=== PATIENT | male | born 1955 | race Caucasian/White ===

== ENCOUNTER 2024-07-12 16:06 | Inpatient (IN) | payer OTHER, SELFPAY ==
[2024-07-12] VITALS (10 sets, daily range): BP systolic 112–140; BP diastolic 66–83; BMI 18.1
[2024-07-12 12:44] LABS: % Basophils 0.5 % (0-2); % Eosinophils 2.6 % (0-6); % Immature Granulocytes 0.6 % (0-0.5); % Lymphocytes 17.3 % (20.5-51.1); % Monocytes 6.3 % (1.7-9.3); % Neutrophils 72.7 % (42.2-75.2); Absolute Eosinophils 0.2 10^3/uL (0-0.7); Absolute Immature Granulocytes 0.1 10^3/uL (0-0.05); Absolute Lymphocytes 1.4 10^3/uL (1.2-3.4); Absolute Monocytes 0.5 10^3/uL (0.1-0.6); Absolute Neutrophils 5.9 10^3/uL (1.4-6.5); Hematocrit 40.6 % (39.0-52.0); Hemoglobin 12.7 g/dL (13.0-18.0); Mean Corp Hgb Conc. 31.3 g/dL (33.0-37.0); Mean Corpuscular Volume 86.4 fL (80.0-94.0); Mean Platelet Volume 9.9 fL (7.4-10.4); Nucleated Red Blood Cells % 0 % (-); Platelet Count 140 10^3/uL (130-400); Red Cell Dist. Width 16.1 % (11.5-14.5); White Blood Cell Count 8.1 10^3/uL (4.8-10.8)
[2024-07-12] MEDS: CARDIZEM IV (12:46)
[2024-07-12 12:50] LABS: ALT (SGPT) 29 U/L (0-50); AST (SGOT) 36 U/L (17-59); Albumin 4.2 g/dl (3.5-5.0); Alkaline Phosphatase 103 U/L (38-126); Blood Urea Nitrogen 23 mg/dl (9-20); Calcium 9.1 mg/dl (8.4-10.2); Carbon Dioxide 31 mmol/L (22-30); Chloride 102 mmol/L (98-107); Estimated Creatinine Clearance 98 ml/min; Glucose 104 mg/dl (70-99); Potassium 4.3 mmol/L (3.5-5.1); Sodium 141 mmol/L (135-145); Total Bilirubin 0.9 mg/dl (0.2-1.3); Total Protein 7.2 g/dl (6.3-8.2); eGFR > 60.00
--- NOTE | 2024-07-12 13:01 | ED.GENMED ---
History of Present Illness
General
Chief Complaint: Chest Pain
Time Seen by Provider: 07/12/24 12:17
History of Present Illness
History of Present Illness:
69-year-old male with history of A-fib on propranolol and Eliquis and COPD presenting to the emergency department for worsening difficulty breathing. Patient reports since May he has had increased difficulty breathing, which has been worsening
in the past few weeks. Reports productive cough and dyspnea on exertion. Notes compliance with his Eliquis, however does not like his propranolol, did not take it today. 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
refill it and so he has not been taking it. Did have some chest pain a few days ago, however no present chest pain. Denies any swelling to his extremities. Denies fever or known sick contacts. He is not on any home oxygen. Denies additional
acute medical complaints
Phy Exam
Physical Exam
Physical Exam:
General: Well-appearing, no clinical signs of dehydration, nontoxic and in no acute distress
HEENT: protecting airway
Neck: appears supple
CV: Normal heart rate, regular rhythm, cyanosis fingertips
Resp: No accessory muscle use, mild tachypnea with rhonchorous breath sounds bilaterally, mild end expiratory wheezing
Abd: Soft and non-distended, no tenderness to palpation
Extremities: No deformities, no swelling, no erythema
Neuro: alert, no focal neurologic deficit
: deferred
Rectal: deferred
Psych: Normal affect
Skin: Intact
Scores
Heart Score for Chest Pain Patients
STEMI patient?: No
History: Slightly or Non-Suspicious
ECG: Normal
Age: >/= 65 years
Risk Factors: 1 or 2 Risk Factors
Troponin: </= Normal Limit
Heart Score for Chest Pain Patients: 3
Heart Score Risk: 2.5% MACE over next 6 weeks
Course
Orders/Labs/Results
Orders:
Orders
07/12/24 11:52
Electrocardiogram (*1) Urgent
Reason for Study: Chest Pain
07/12/24 11:53
EKG- Treatment ONCE
07/12/24 12:27
Cardiac Monitoring- Treatment ONCE
IV Insert/Care/Rem.- Treatment PRN
Chest [CR Chest - 2 Views ] Urgent
Comment:
Reason For Exam: SOB
07/12/24 12:29
BNP [NT-proBNP] Urgent
Complete Blood Count/With Diff Urgent
Comprehensive Metabolic Panel Urgent
Troponin I Urgent
07/12/24 12:32
Diltiazem HCl [Cardizem] 15 mg IV NOW STA
07/12/24 14:31
Azithromycin 500 mg/250 ml [Zithromax Infusion] 500 mg in 250 ml IV NOW
CefTRIAXone [Rocephin] 1,000 mg IV NOW STA
07/12/24 Dinner
Regular
At Your Request: Limited Participation
07/12/24 15:04
Diltiazem Sustained Release [Cardizem Sr] 120 mg PO NOW STA
07/12/24 15:29
Admit/Transfer Patient As Directed
Co-Sign Provider:
Level of Care: Inpatient admission
Assign to:: Telemetry
Physician / Group: Sara Martinez
Diagnosis: Community acquired pneumonia, a-fib RVR
Reason for Telemetry: Arrhythmia
Date to Stop Telemetry: 07/15/24
Time to Stop Telemetry: 11:00
Reason for Hospitalization: Community acquired pneumonia, a-fib RVR
Expected length of stay greater than two midnights?: Yes
ELOS- Estimated Length of Stay in days: 3
I certify the patient meets the requirements for IP care: Yes
PRN Pain Medication Management As Directed
May give lesser potent ordered pain med per pt: Yes
preference::
Protocol:: Medication orders for pain may be administered in a
manner that supports deferring to patient preference
when the pt is:
- Requesting an ordered lesser potent pain medication.
Least to most potent pain medications are defined
as: acetaminophen < NSAID < tramadol < opioids
(morphine, oxycodone, hydromorphone).
- Requesting a lesser dose of the same medication IF
ORDERED.
- Requesting a less intrusive route of administration
if both routes are prescribed by the provider (PO <
IV).
07/12/24 15:33
Code Status As Directed
Resuscitation Status: Full Code
07/12/24 15:47
COVID-19 Antigen Urgent
Source: Nasal Swab
Influenza A+B Rapid Molecular Urgent
GABBI Source: Nasal Swab
Specimen Description:
07/12/24 16:00
Sputum Culture [Respiratory Culture/Gram Stain] Urgent
GABBI Source: Sputum - Induced
Specimen Description:
Date Specimen was Collected: 07/12/24
Time Specimen was Collected: 15:57
07/12/24 18:23
Acetaminophen [Tylenol] 650 mg PO Q4HPRN PRN
Ipratropium/Albuterol Sulfate [Duoneb] 3 ml INH R Q4HPRN PRN
07/12/24 18:23
CARDIOLOGY CONSULT Routine
Consulting Provider: Junaid Claudio
Was physician already notified: Yes
[place] Urinary Antigen Routine
GABBI Source: Urine
Specimen Description:
Respiratory Culture/Gram Stain Urgent
GABBI Source: Sputum
Specimen Description:
Strep pneumoniae Antigen Routine
GABBI Source: Urine
Specimen Description:
Activity As Directed
Activity Level: Out of Bed-Early Mobility
Intake/ Output As Directed
Frequency: Per unit guidelines
Vital Signs As Directed
Frequency: Per unit guidelines
Weight As Directed
Frequency: Once
Comment: on admission
O2 Therapy [RESP] Routine
Titrate/Wean O2 to maintain O2 sat greater than (%): 92
Special Instructions: Wean as tolerated
Ot Eval And Treat Routine
Pt Eval And Treat Routine
Activity Level: Out of Bed-Early Mobility
07/12/24 20:00
Apixaban [Eliquis] 5 mg PO BID
Guaifenesin [Mucinex] 600 mg PO Q12
07/13/24 07:09
Basic Metabolic Panel IN AM
Complete Blood Count/No Diff IN AM
07/13/24 14:00
Azithromycin [Zithromax] 500 mg PO DAILY@1400
CefTRIAXone [Rocephin] 1,000 mg IV Q24H
07/14/24 06:00
Basic Metabolic Panel IN AM
Complete Blood Count/No Diff IN AM
07/15/24 06:00
Basic Metabolic Panel IN AM
Complete Blood Count/No Diff IN AM
07/15/24 11:00
DC Protocol for Telemetry ONCE
Abnormal Lab Results
07/12/24
12:29
Hgb 12.7 L g/dL
(13.0-18.0)
MCHC 31.3 L g/dL
(33.0-37.0)
RDW 16.1 H %
(11.5-14.5)
Abs Immat Gran (auto) 0.1 H 10^3/uL
(0-0.05)
Immature Gran % 0.6 H %
(0-0.5)
Lymphocytes % 17.3 L %
(20.5-51.1)
Carbon Dioxide 31 H mmol/L
(22-30)
BUN 23 H mg/dl
(9-20)
Creatinine 0.6 L mg/dL
(0.7-1.3)
Glucose 104 H mg/dl
(70-99)
07/12/24 12:29
07/12/24 12:29
Vital Signs
Initial and Last Documented VS:
Initial Vital Signs
Temp Pulse Resp BP Pulse Ox
98.5 F 118 18 140/83 98
07/12/24 11:53 07/12/24 11:53 07/12/24 11:53 07/12/24 11:53 07/12/24 11:53
Last Documented Vital Signs
Temp Pulse Resp BP Pulse Ox
98.4 F 112 20 112/74 96
07/13/24 08:00 07/13/24 08:00 07/13/24 08:00 07/13/24 08:00 07/13/24 08:00
MDM/Problems Addressed
MDM/Problems Addressed:
69-year-old male with history of COPD and atrial fibrillation presenting for progressive worsening shortness of breath. Vital signs on arrival significant for tachycardia.
On exam, patient is resting comfortably, no acute distress, mild tachypnea. Patient with rhonchorous breath sounds bilaterally with some expiratory wheezing. He does note productive cough and worsening dyspnea. Pneumonia is a consideration.
Volume overload is also consideration from untreated A-fib. Plan for chest x-ray imaging, laboratory analysis including troponin and BNP. For patient's uncontrolled A-fib, will administer dose of diltiazem and reassess for improvement.
14:30 -chest x-ray is consistent with a pneumonia. Heart rate slightly improved after diltiazem saturations remained in the low 90s, with mild tachypnea. This time feel patient warrants admission for shortness of breath, community-acquired
pneumonia, uncontrolled A-fib.
*EKG
Interpreted by ED Provider?: Yes
EKG Intrepretation Date: 07/12/24
EKG Intrepretation Time: 13:23
Interpretation: abnormal
Comparison EKG: no comparison EKG present
Heart Rate: 121
Rate: tachycardiac
Rhythm: a-fib
[place]: normal axis
QRS Pattern: normal QRS
Ischemia: no ischemia
*Critical Care Note
Total Time (30-74mins, 75-104mins- exclusive of procedures): Not Applicable
ED Attending Note
-
Portions of this chart may have been created with voice recognition software.� Occasional wrong word or��sound alike� substitutions may have occurred due to the inherent limitations of voice recognition software.
Discharge Plan
Departure
Patient Disposition: Admit
Date of Disposition: 07/12/24
Time of Disposition: 14:53
Presentation/result/management discussed w/ accepting MD/DO: Hospitalist
Patient with high blood pressure during this ER visit?: No
Condition: Fair
Discharge Problem:
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
Interventions
Interventions:
*Risk Screen - Suicide Last Done: 07/12/24 20:01
*General Assessment Last Done: 07/12/24 14:31
*Neglect/Abuse Screening Last Done: 07/12/24 14:31
ED- Fall Risk Assessment Last Done: 07/12/24 12:32
*ED COVID-19 Vaccine History Last Done: 07/12/24 14:31
*Nursing Disposition Last Done: 07/12/24 18:18
ED- Cardiac Assessment Last Done: 07/12/24 14:31
Discharge Date and Time
Discharge Date/Time: 07/12/24 18:36
[2024-07-12 13:02] LABS: NT-proBNP 518 pg/ml; Troponin I < 0.012 ng/ml
[2024-07-12] MEDS: ROCEPHIN 1000 MG IV (14:37)
[2024-07-12] MEDS: ZITHROMAX INFUSION 250 IV (14:41)
--- NOTE | 2024-07-12 14:46 | PHANOTE ---
med rec note- patient stated that his pcp and pharmacy couldn't commutation to refill his medication of diltiazem cd 180mg daily, daily-whitney and iron so he has not taking them in over a month.
--- NOTE | 2024-07-12 14:55 | HPS.HSE ---
Addendum entered and electronically signed by Sara Martinez, DO 07/12/24 19:00:
CT chest per PE protocol, due to tachy and pleuritic chest pain; pt is on Eliquis and states he's compliant.
Addendum entered and electronically signed by Sara Martinez, DO 07/12/24 18:42:
The patient is seen and examined. I have discussed the patient with MC Stanley, and agree with her history and physical, assessment and plan of care, with the following updates/ additions:
The patient has history of alcoholism. He quit drinking from age [age], and then again one year ago. Has not had a drink in 1 year. He's been on Propranolol and Nadolol for
He has been worked up over the past 2 years for several episodes of A.fib with RVR and also pneumonia. He says that 'cardizem does not work for him' and refused cardizem PO in ED. He is on Eliquis, last dose this am
He's had 20-30 pound weight loss over the past 2 years.
He has hx of esophageal varices, banding, liver cirrhosis, and PUD, several EGDs, no recent GI bleeds
HR 130-140s in ED, SBP stable, AF
Cards Irregular, tachy, Lungs LLL rhonchi, Abd soft, nt/nd, Neuro no focal deficits
A.fib w RVR
-Cards cx appreciated, starting Metoprolol PO Q6 hours at 12.5 mg
-cont Eliquis BID
-monitor on tele
CAP
-consider Pulm Consult, consider CT chest
-cont abx, cultures pending
Original Note:
Family Physician
-
Family Physician: NOT KNOW UNKNOWN - PT DOES
Chief Complaint
-
Shortness of breath
History of Present Illness
Patient is a 69-year-old male with past medical history significant for a-fib and COPD who presented to [facility] for evaluation of difficulty breathing with exertion. Patient states for approximately 2 weeks he has noticed increased work of
breathing associated with a productive cough with exertion. He states it improves when he lays down and rests. He does acknowledge he has chest discomfort with deep breathing and intermittently throughout day. Patient denies any fevers, chills,
nausea, vomiting, constipation, diarrhea or urinary symptoms.
Medical History
Past Medical History
Past Medical History: Reports Other
Additional Past Medical History:
atrial fibrillation
COPD
Hx GI bleed
Past Surgical History: Reports Other
Additional Past Surgical History:
right hip replacement
nasal polypectomy
back surgery
Social History
Tobacco: Non-smoker
Alcohol: Occasional
Drug: None
Personal:
Living: With Family
Employment: Retired
Family History
Family History: Not pertinent
Allergies / Home Medications
Allergies reflects when Allergies were last updated in [facility].
Home Medications with original date entered in [facility]
Allergy/Medication List:
Allergies
Allergy/AdvReac Type Severity Reaction Status Date / Time
vancomycin Allergy Rash Verified 07/12/24 11:56
Home Medications
acetaminophen 500 mg tablet (Tylenol Extra Strength) 1,000 mg PO Q6HPRN PRN mild pain 07/12/24
apixaban 5 mg tablet (Eliquis) 5 mg PO BID AFib 07/12/24
propranolol 10 mg tablet 10 mg PO BID Arrhythmia/BP 07/12/24
Review of Systems
-
History Source: Patient
Constitutional: Reports Fatigue
EENT: Reports No Symptoms
Respiratory: Reports Cough (productive) and Other (shortness of breath)
Cardiac: Reports No Symptoms
Abdomen/GI: Reports No Symptoms
: Reports No Symptoms
Musculoskeletal: Reports No Symptoms
Skin: Reports No Symptoms
Neurological: Reports No Symptoms
Endocrine: Reports No Symptoms
Hematologic/Lymphatic: Reports No Symptoms
Psych: Reports No Symptoms
Physical Exam
Vital Signs
Vital Signs
Temp Pulse Resp BP Pulse Ox
98.5 F 117 23 140/83 94
07/12/24 11:53 07/12/24 14:20 07/12/24 12:25 07/12/24 11:53 07/12/24 13:00
Physical Exam
General: Well Developed, Well Nourished, Conversant and Pain
HEENT: NormoCephalic, Moist mucous membranes, Atraumatic, [place] Conjunctivae, Nose Appears Normal and Ears Appear Normal
Respiratory: Clear, Rhonchi and Decreased Breath Sounds
Cardiac: S1/S2, Irregular Rhythm and Tachycardia; No Murmur, Rub or Gallop
Breast: Deferred by me
GI: Soft, Non Tender, Non Distended and Normal Bowel Sounds; No Organomegaly
Rectal: Deferred by Provider
Genito-urinary: Deferred by me
Musculoskeletal: No Clubbing, No Cyanosis and No Edema
Skin: Warm and IV/Catheter Site; No Rash
Neuro: Awake, Alert, AO x 3 and Nonfocal/grossly intact
Hematologic/Lymphatic: No Lymphadenopathy
Psych: Calm and Intact Judgment/Insight
Laboratory Results
-
07/12/24 12:29
07/12/24 12:29
Laboratory Results
Total Bilirubin 0.9 mg/dl (0.2-1.3) 07/12/24 12:29
AST 36 U/L (17-59) 07/12/24 12:29
ALT 29 U/L (0-50) 07/12/24 12:29
Alkaline Phosphatase 103 U/L (38-126) 07/12/24 12:29
Troponin I < 0.012 ng/ml 07/12/24 12:29
Data Reviewed
-
Diagnostic Radiology: Report Reviewed by me (CXR: Hyperexpanded lungs with decreased bronchovascular markings suspicious for underlying COPD/emphysema. Ill-defined opacity within the medial right lung base which could represent pneumonia in the
appropriate clinical setting. There are also be a retrocardiac opacity. Consider follow-up imaging t)
Medical Tests (Nuc Med, Echo, EKG etc): Report Reviewed by me (EKG: ATRIAL FIBRILLATION WITH RAPID VENTRICULAR RESPONSE)
Lab Data: Labs Reviewed by me
Impression/Plan
-
IMPRESSION/PLAN:
#community acquired pneumonia
#COPD
Patient with mild tachypnea, SpO2 low 90s on room air and does go into upper 80s with conversation
CXR: Hyperexpanded lungs with decreased bronchovascular markings suspicious for underlying COPD/emphysema. Ill-defined opacity within the medial right lung base which could represent pneumonia in the appropriate clinical
setting. There are also be a retrocardiac opacity. Consider follow-up imaging to ensure resolution of these findings. No significant pleural effusions.
- Admit to telemetry
- Covid and Influenza swab pending
- Mucinex q12
- PRN DuoNebs
- IV Rocephin and PO Azithromycin
- Obtain records from Venkata Sommer
#a-fib RVR
history of a-fib on Eliquis and propranolol
EKG: ATRIAL FIBRILLATION WITH RAPID VENTRICULAR RESPONSE
- Admit to telemetry
- Consult Cardiology
- request records from Dr. James Vazquez
- continue Eliquis
- metoprolol 12.5mg q6 per cards
Code Status: Full Code
DVT Prophylaxis: Eliquis
[2024-07-12] MEDS: CARDIZEM 15 MG IV (15:39)
--- NOTE | 2024-07-12 15:52 | CON.CAR ---
Addendum entered and electronically signed by Junaid Claudio MD 07/12/24 18:29:
I saw and examined the patient.
The COMMISSARY CLERK's note was reviewed and I agree with the note.
Comment:
69-year-old man with persistent atrial fibrillation, COPD, PE, possible esophageal varices, and unexplained weight loss who presents to the emergency department with shortness of breath. Patient notes that for the past week he has been feeling more
short of breath. This is on a background of profound deconditioning which has been ongoing for almost all of 2023. He notes that he has not been able to stand up to take a shower since early May. He has lost 30 pounds unintentionally since
2021. No one can figure out why this is. On Thursday evening he woke up with severe pleuritic chest pain and profound weakness. He presented to the ER today and was noted to be in atrial fibrillation with RVR. Chest x-ray showed findings of
COPD/emphysema with possible right lower lobe pneumonia. He was admitted for pneumonia and cardiology was consulted for atrial fibrillation with RVR. He reports that he has been in atrial fibrillation since last year. 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 He was on diltiazem 180 mg daily but this was not refilled by his charter boat captain in early June so he has not been taking it since then. He still takes his Eliquis and denies any missed doses in the past 3 weeks.
His physical exam is notable for a cachectic appearing man. Heart is tachycardic with an irregular rhythm, no murmurs, rubs, or gallops appreciated. He has no lower extremity edema, JVD is not present, and his lungs are clear to auscultation. His
labs are notable for WBC 8 hemoglobin 12.7, creatinine 0.6, troponin less than 0.012, proBNP 518. ECG is notable for atrial fibrillation with rapid ventricular response (heart rate 121). Telemetry is notable for A-fib with heart rates in the
130s�150s.
I am concerned that patient may have a recurrent PE. He has pleuritic chest pain which is being attributed to his pneumonia, but he has a normal white blood cell count, no fever, and an unimpressive chest x-ray. I recommend ruling out PE with a CT
scan. In terms of his atrial fibrillation with rapid ventricular response, he is adamantly opposed to beta-blockers as these have given him bad GI side effects in the past. For rate control we will start him on diltiazem 30 mg every 6 hours and
can uptitrate as needed. We also discussed possible cardioversion this admission. I am not sure how effective this will be given his duration of atrial fibrillation, but we should attempt to restore sinus rhythm if possible. He denies any missed
doses of anticoagulation so could undergo cardioversion without TOBY. He also has a concerning history of possible esophageal varices with banding and is on propranolol for this, so TOBY would not be ideal in him. He should continue apixaban 5 mg
twice daily while inpatient. Cardiology will continue to follow along with you.
Original Note:
Consultation
Consultation Request
Date/Time Consultation Requested: 07/12/2024 15:30
Date/Time Consultation Performed: 07/12/2024 15:50
Requesting Provider: LITTLE Agrawal
Performing Provider: LITTLE Linder for Dr. Claudio
Reason for Consultation: Atrial fibrillation with ventricular response
Medical History
-
Chief Complaint: Shortness of breath
History of Present Illness:
Jamarcus Monahan is a 69-year-old male known to [facility], with paroxysmal atrial fibrillation (on apixaban), COPD, and liver disease (type unknown) who presented to the emergency department the chief complaint of shortness of breath. He endorses
adherence with his apixaban. He has not taken his propranolol for 24 hours. He was on diltiazem but it caused significant weakness and he did not get a refill. Cardiology has been consulted for atrial fibrillation with right ventricular response.
He denies chest pain. His shortness of breath is constant. It gets worse with ambulation. It does not get worse lying flat. He has a moist nonproductive cough.
His brother was at the bedside for this consultation.
Past Medical History
Past Medical History: Arrhythmias (Atrial fibrillation (on apixaban)) and COPD
Social History
Tobacco: Non-Smoker
Alcohol: None
Drug: None
Personal:
Living: With Family
Employment: Retired
Family History
Family History: Reviewed & Not Pertinent
Allergies / Home Medications
Allergy/AdvReac Type Severity Reaction Status Date / Time
vancomycin Allergy Rash Verified 07/12/24 11:56
�Medication �Instructions �Recorded �Confirmed �Type
acetaminophen 500 mg tablet 1,000 mg PO Q6HPRN PRN mild pain 07/12/24 07/12/24 History
(Tylenol Extra Strength)
apixaban 5 mg tablet (Eliquis) 5 mg PO BID AFib 07/12/24 07/12/24 History
propranolol 10 mg tablet 10 mg PO BID Arrhythmia/BP 07/12/24 07/12/24 History
Review of Systems
-
History Source: Patient
All other systems: Negative unless noted
Constitutional: Weight Loss and Fatigue
EENT: No Symptoms
Respiratory: Cough and Trouble Breathing
Cardiac: No Symptoms
Abdomen/GI: No Symptoms
: No Symptoms
Musculoskeletal: No Symptoms
Skin: No Symptoms
Neurological: No Symptoms
Endocrine: No Symptoms
Hematologic/Lymphatic: No Symptoms
Physical Exam
Vital Signs
Temp Pulse Resp BP Pulse Ox
98.5 F 124 23 112/67 91
07/12/24 11:53 07/12/24 15:00 07/12/24 12:25 07/12/24 15:00 07/12/24 15:00
Lab Results
07/12/24 12:29
07/12/24 12:29
Troponin I < 0.012 ng/ml 07/12/24 12:29
Udw-Q-Nnbrhodiold Pept 518 pg/ml 07/12/24 12:29
Physical Exam
General: Well Developed and No Apparent Distress
HEENT: Normocephalic, Anicteric and Moist Mucous Membranes
Respiratory: Rhonchi and Non Labored Respirations
Cardiac: S1/S2 and Irregular Rhythm; Negative Peripheral Edema
Breast: Deferred by me
GI: Soft, Non Tender, Non Distended and Normal Bowel Sounds
Rectal: Deferred by Provider
Genito-urinary: No Costovertebral Tender
Musculoskeletal: No Clubbing, No Cyanosis and No Edema
Skin: Warm
Neuro: AO x 3
Hematologic/Lymphatic: No Lymphadenopathy
Psych: Calm
Impression / Plan
-
IMPRESSION/PLAN: 69M with paroxysmal atrial fibrillation (on apixaban and COPD who presented to the emergency department with a chief complaint of shortness of breath.
Primary charter boat captain: BECCA Sommer
Atrial fibrillation with rapid ventricular response
-Propranolol was recommended by GI, diltiazem caused significant fatigue
-Start metoprolol 12.5 mg every 6 hours
-Oral Anticoagulation: Apixaban 5 mg twice daily, he denies missed doses and abnormal bleeding
-[id number]: score 1 (age 65-74)
Liver disease, type unknown
-Possible varices, he reports regular GI evaluations
-He reports going to [facility] for TIPS consultation but he was 'not sick enough'
-Most recent discharge summary requested
Community-acquired pneumonia, per primary
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
Data Reviewed
-
EKG: Report Reviewed by me (Atrial fibrillation with rapid ventricular response, rate 121)
Radiology: Report Reviewed by me (CXR: Hyperexpanded lungs with decreased bronchovascular markings suspicious for underlying COPD/emphysema. Ill-defined opacity within the medial right lung base which could represent pneumonia in the appropriate
clinical setting. There are also be a retrocardiac opacity.)
Labs: Labs Reviewed by me
Old Records: Requested
[2024-07-12 16:31] LABS: COVID-19 Antigen Negative (Negative)
[2024-07-12] MEDS: LOPRESSOR 12.5 MG PO (18:15)
[2024-07-12] MEDS: CARDIZEM 30 MG PO (19:52)
[2024-07-12] MEDS: MUCINEX 600 MG PO (19:53)
[2024-07-12] MEDS: ELIQUIS 5 MG PO (19:53)
[2024-07-12] MEDS: CARDIZEM PO (22:25)
[2024-07-13] VITALS (7 sets, daily range): BP systolic 95–121; BP diastolic 59–74; PULSE 107–140; O2SAT 94–95; BMI 18.1
[2024-07-13] MEDS: UNASYN IV ×4 (03:19→20:17)
--- NOTE | 2024-07-13 03:20 | PTCARENOTE ---
Pt HR sustaining 120s-130s. Pt asymptomatic. BP 104/63. PLATE SENSITIZER made aware. Cardizem 30mg PO one time ordered, STAT Mag ordered. No further orders.
[2024-07-13] MEDS: CARDIZEM 30 MG PO ×5 (03:46→21:20)
[2024-07-13 08:15] LABS: Hematocrit 33.7 % (39.0-52.0); Hemoglobin 10.7 g/dL (13.0-18.0); Mean Corp Hgb Conc. 31.8 g/dL (33.0-37.0); Mean Corpuscular Volume 85.1 fL (80.0-94.0); Mean Platelet Volume 9.7 fL (7.4-10.4); Platelet Count 103 10^3/uL (130-400); Red Blood Cell Count 3.96 10^6/uL (4.70-6.10); White Blood Cell Count 6.6 10^3/uL (4.8-10.8)
[2024-07-13 08:22] LABS: Blood Urea Nitrogen 19 mg/dl (9-20); Calcium 8.4 mg/dl (8.4-10.2); Carbon Dioxide 25 mmol/L (22-30); Chloride 103 mmol/L (98-107); Estimated Creatinine Clearance 84 ml/min; Glucose 106 mg/dl (70-99); Sodium 138 mmol/L (135-145); eGFR > 60.00
[2024-07-13 08:23] LABS: Procalcitonin 0.13 ng/ml (0.0-0.25)
--- NOTE | 2024-07-13 08:43 | W.PN.CD ---
Today's Communication / Plan
-
- Continue Diltiazem and uptitrate as needed
- ECHO today.
Impression / Plan
-
IMPRESSION/PLAN: 69M with paroxysmal atrial fibrillation (on apixaban and COPD who presented to the emergency department with a chief complaint of shortness of breath.
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
Atrial fibrillation with rapid ventricular response
-Long standing persistent - onset was before apr 2023.
-Propranolol was recommended by GI, diltiazem caused significant fatigue
-On metoprolol 12.5 mg every 6 hours - switched to diltiazem 30 QID on 07/12/24
-If tolerates Dilt now, can switch to 120 mg QD. Dilt might be a better drug for him given his COPD, lung issues and GI varices.
-Oral Anticoagulation: Apixaban 5 mg twice daily, he denies missed doses and abnormal bleeding
-[id number]: score 1 (age 65-74)
-Rate control now for AF. Uptitrate Dilt if needed.
-Ultimate plan for ablation but needs to be improved first and wt loss mystery solved.
-AAD like Sotalol, Tikosyn and Amiodarone can be used if needed but would avoid adding given unclear medical etiology. The AADs are less likely to be effective given long standing AF.
Liver disease, type unknown
-Possible varices, he reports regular GI evaluations
-He reports going to [place] for TIPS consultation but he was 'not sick enough'
-Most recent discharge summary requested
-30 lbs weigh loss - unintentional.
Community-acquired pneumonia, per primary
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
-CT Chest 07/12 - Bilateral multifocal pneumonia worst in the lower lobes bilaterally, possibly aspiration related.
Physical Exam
Vital Signs/Labs
Vital Signs
Temp Pulse Resp BP Pulse Ox
98.0 F 118 20 104/71 96
07/13/24 02:37 07/13/24 03:46 07/13/24 02:37 07/13/24 03:46 07/13/24 02:37
07/12/24 07/13/24 07/14/24
06:59 06:59 06:59
Actual Weight 60.4 kg
07/13/24 07:09
07/13/24 07:09
Magnesium 2.0 mg/dl (1.6-2.3) 07/13/24 07:09
Magnesium Cancelled 07/13/24 07:09
07/12/24
12:29
Yom-B-Xeqnyhvjqmi Pept 518
LAB Results
07/12/24
12:29
Troponin I < 0.012
Physical Exam
Constitutional: No acute distress, Comfortable and Other (cachectic looking. )
EENT: Anicteric
Cardiovascular: Pedal edema is absent, JVD pressure is normal, Systolic murmur absent and Rhythm/rate is irregular
Respiratory: Respiratory effort normal, Crackles Present and Rhonchi Present
GI: Soft, Non tender and Normal bowel sounds
Neuro/Psych: Alert, Oriented and AO x 3
Data Reviewed
-
Date of Service: July 13, 2024
Medical Decision Making: Reviewed Test Results
EKG: Tracing Personally Visualized and interpreted
Echo: Ordered by me
Medical Tests (PFT, Pathology etc): Discussed with Patient
Labs: Labs Reviewed by me
Old Records: Reviewed
[2024-07-13] MEDS: VIBRAMYCIN 100 MG PO (09:26)
[2024-07-13] MEDS: MUCINEX 600 MG PO ×2 (09:27→19:53)
[2024-07-13] MEDS: ELIQUIS 5 MG PO ×2 (09:29→19:53)
--- NOTE | 2024-07-13 11:33 | CM ---
CM reviewed chart, patient for ECHO today. Patient seen bedside, initial assessment completed. Patient resides with his in a single story home, 5-6 steps to enter. Patient reports having a cane at home, is not on home O2, denies VN or SNF
history. Patient reports PCP [facility], pharmacy [facility]. Patient confirms prescription coverage, denies insecurities at home. CM will continue to follow for all discharge planning needs.
Plan; home no needs vs VN
--- NOTE | 2024-07-13 12:56 | W.PN.HOSP.TC ---
Today's Communication/Plan
-
see PN
Assessment / Plan
Assessment / Plan
69yo M with PMHx of liver cirrhosis, esophageal varicies s/p banding, s/p TIPS, Afib on apixaban came with SOB and dizziness for past week, found pneumococcal pneumonia and Afib with RVR
A/P:
#Multifocal pneumonia with S.pneumoniae
Unasyn
Follow sputum Cx sensitivity
ID consult due to recurrent pneumonia
Influenza and COVID-19 neg
#Afib with RVR
Echo
Cardio consult
Telemetry
Eliquis
rate/rhythm control
#Hx of liver cirrhosis
#S/P TIPS
#Esophageal varicies
PPI
#thrombocytopenia 2/2 liver cirrhosis
follow CBC
#Mild anemia
outpatient follow up
DVT ppx Eliquis
Full code
I have spent at least 37min reviewing chart, test results, communication with consultants and direct patient care
Anticipated Discharge: > 48 hours
Subjective/Interval History
-
Date of Service: July 13, 2024
Objective Data
-
Labs:
Laboratory Results
07/13/24
07:09
WBC 6.6
Hgb 10.7 L
Hct 33.7 L
Plt Count 103 L D
Sodium 138
Potassium 4.0
Chloride 103
Carbon Dioxide 25
BUN 19
Creatinine 0.7
Glucose 106 H
Calcium 8.4
Vital Signs:
Vital Signs
Temp Pulse Resp BP Pulse Ox
98.4 F 112 20 112/74 96
07/13/24 08:00 07/13/24 08:00 07/13/24 08:00 07/13/24 08:00 07/13/24 08:00
Review of Systems
-
History Source: Patient
All other systems: Reviewed and negative
Respiratory: Reports Pleurisy
Neuro: Reports Dizzy
Physical Exam
-
General: Comfortable
HEENT: Normocephalic
Respiratory: Clear to Auscultation
Cardiac: Irregular Rhythm
GI: Soft, Nontender and Nondistended
Musculoskeletal: No Clubbing, No Cyanosis and No Edema
Neuro: Awake, Alert, Oriented and AO x 3
Psych: Calm
--- NOTE | 2024-07-13 17:05 | CON.ID ---
Consultation
-
Date/Time Consultation Requested: 07/13/2024 1252
Date/Time Consultation Performed: 07/13/2024 1623
Requesting Provider: Dr. Hopson
Performing Provider: Dr. Leon
Reason for Consultation: Pneumonia
Chief Complaint / Past History
History of Present Illness
Jamarcus Monahan is a 69-year-old man being evaluated at the request of Dr. Hopson in regards to pneumonia. History is obtained from chart review, along with patient interview.
The patient has a history of right hip replacement in 2018, and notes that he has had problems ever since, and he is reportedly being worked up for a 'allergy to it'. He also notes that he has had at least 7 hospitalizations over the past 1-1/2
years (mostly at [place] or [place]) for ongoing issues surrounding atrial fibrillation. He reports that he has had a clear association between his A-fib and resultant pneumonia.
He was reportedly doing well until approximately 2 weeks ago when he began to have progressive shortness of breath along with cough and productive sputum. He reports initially it was dark green, but then it turned xiong and most recently it has
turned to a bond runner xiong. Over this period of time he denies any fevers but notes occasional chills. He reports a 30 pound weight loss over the past year or so, but denies any night sweats. There is no history of TB in himself or any family
members.
Workup in the ER included chest imaging which revealed suspected pneumonia, which was confirmed with CT scan. Sputum cultures have revealed the presence of strep pneumoniae, and Infectious Diseases is asked to comment upon further antimicrobial
management.
He is not sure of the etiology of his prior pneumonias. He has received the pneumococcal vaccine approximately 5 years ago, although not sure which one.
Past History
Additional Past Medical History:
A-fib
COPD
Cirrhosis
GI bleed
Additional Past Surgical History:
Right hip replacement
Back surgery
Allergy History:
vancomycin Allergy (Verified 07/12/24 11:56)
Rash
Medications Reviewed: Yes
Current Antibiotics:
Unasyn 3 g IV every 6 hours
Social History
Tobacco: Non-Smoker
Alcohol: Occasional
Drug: None
Personal:
Living: With Family
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
Family History
Family History: Not Pertinent
Review of Systems
Vital Signs
Temp Pulse Resp BP Pulse Ox
97.9 F 99 18 121/73 96
07/13/24 15:00 07/13/24 15:00 07/13/24 15:00 07/13/24 15:00 07/13/24 15:00
Physical Exam
Physical Exam
Constitutional: No Acute Distress, Comfortable, Chronically Ill and Cachetic (Mild)
Head: Other (Mild temporal wasting)
Eyes: No Conjunctival Hemorrhage and Sclera Anicteric
Oral: No Thrush and No Ulcers
Cardiovascular: S1/S2; Negative S3/S4
Pulmonary: Coarse and Non Labored
Gastrointestinal: Soft, Non Tender and Non Distended
Skin: Warm and Dry; Negative Rash or Jaundice
Neurological: Awake and Alert
Lab / Diagnostic Study Results
07/13/24 07:09
07/13/24 07:09
Abs Immat Gran (auto) 0.1 10^3/uL (0-0.05) H 07/12/24 12:29
Absolute Neuts (auto) 5.9 10^3/uL (1.4-6.5) 07/12/24 12:29
Absolute Lymphs (auto) 1.4 10^3/uL (1.2-3.4) 07/12/24 12:29
Absolute Monos (auto) 0.5 10^3/uL (0.1-0.6) 07/12/24 12:29
Absolute Basos (auto) 0.0 10^3/uL (0-0.2) 07/12/24 12:29
Immature Gran % 0.6 % (0-0.5) H 07/12/24 12:
Neutrophils % 72.7 % (42.2-75.2) 07/12/24 12:
Lymphocytes % 17.3 % (20.5-51.1) L 07/12/24 12:
Monocytes % 6.3 % (1.7-9.3) 07/12/24 12:
Eosinophils % 2.6 % (0-6) 07/12/24 12:
Basophils % 0.5 % (0-2) 07/12/24 12:
Procalcitonin Cancelled 07/13/24 07:09
Microbiology Results
Micro:
07/13/24 13:47 Respiratory Culture - Pending
Sputum Gram Stain - Preliminary
07/12/24 16:00 Respiratory Culture - Preliminary
Sputum - Induced Streptococcus pneumoniae
Gram Stain - Preliminary
07/13/24 04:01 Legionella Urinary Antigen - Final
Urine Negative for Legionella pneumophila Serogroup 1 antigen.
A negative result does not rule out the possiblity of
Legionella infection due to other serogroups or species of
Legionella. Clinical correlation is recommended.
Streptococcus pneumoniae Antigen (M - Final
Positive for Strep pneumo Ag
07/12/24 15:47 Influenza Types A & B (LUIS ALBERTO) - Final
Nasal Swab Negative for Influenza A & B, NAAT
Negative results must be combined with clinical observations
and patient history.
Nucleic Acid Amplification test (NAAT)performed on the
[employer] platform.
Imaging:
07/12/2024 CT chest (PE study): No evidence of pulmonary embolism. Bilateral multifocal pneumonia, worst in the lower lobes bilaterally, possibly aspiration related. Reactive mediastinal lymphadenopathy noted. Please see full dictation for
additional detail. Film personally viewed.
07/12/2024 CXR (2 view): Hyperexpanded lungs with decreased bronchovascular markings suspicious for underlying COPD/emphysema. Ill-defined opacity within the medial right lung base which could represent pneumonia in the appropriate clinical setting.
There are also be a retrocardiac opacity. Consider follow-up imaging to ensure resolution of these findings. No significant pleural effusions.
Assessment / Plan
Pneumococcal pneumonia
Ambulatory dysfunction
A-fib
COPD
Hx dysfunction / Cirrhosis
hx GI bleed
Recommendations:
Current respiratory cultures with strep pneumo, although given clinical presentation, aspiration may also be a component.
Continue with Unasyn for the present time. Would anticipate a 7 to 10-day course of antibiotics, although if there is improvement may be able to transition to the oral route.
Monitor white count and temperature curve.
Follow-up chest x-ray in 6 weeks.
Physical therapy evaluation.
[2024-07-14] MEDS: UNASYN IV ×4 (01:58→20:21)
[2024-07-14 03:30] VITALS: BP 109/71
[2024-07-14 07:00] VITALS: BP 114/74
[2024-07-14 07:52] LABS: % Basophils 0.3 % (0-2); % Immature Granulocytes 0.3 % (0-0.5); % Lymphocytes 29.4 % (20.5-51.1); Absolute Eosinophils 0.1 10^3/uL (0-0.7); Absolute Lymphocytes 0.9 10^3/uL (1.2-3.4); Absolute Monocytes 0.3 10^3/uL (0.1-0.6); Absolute Neutrophils 1.6 10^3/uL (1.4-6.5); Hematocrit 29.3 % (39.0-52.0); Hemoglobin 9.4 g/dL (13.0-18.0); Mean Corp Hgb Conc. 32.1 g/dL (33.0-37.0); Mean Corpuscular Hgb 27.4 pg (27.0-31.0); Mean Corpuscular Volume 85.4 fL (80.0-94.0); Nucleated Red Blood Cells % 0 % (-); Red Blood Cell Count 3.43 10^6/uL (4.70-6.10); Red Cell Dist. Width 15.8 % (11.5-14.5)
--- NOTE | 2024-07-14 08:09 | W.PN.CD ---
Today's Communication / Plan
-
- Switch diltiazem to 180 mg QD
- Please call with questions
- Plan for outpatient follow up for ablation consult in 2-3 weeks.
Impression / Plan
-
IMPRESSION/PLAN: 69M with paroxysmal atrial fibrillation (on apixaban and COPD who presented to the emergency department with a chief complaint of shortness of breath.
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
Atrial fibrillation with rapid ventricular response
-Long standing persistent - onset was before apr 2023.
-Propranolol was recommended by GI, diltiazem caused significant fatigue
-On metoprolol 12.5 mg every 6 hours - switched to diltiazem 30 QID on 07/12/24
-Dilt might be a better drug for him given his COPD, lung issues and GI varices.
-Oral Anticoagulation: Apixaban 5 mg twice daily, he denies missed doses and abnormal bleeding
-[id number]: score 1 (age 65-74)
-Rate control now for AF. Uptitrate Dilt if needed. Switch Dilt to 180 mg QD today
-Ultimate plan for ablation but needs to be improved first and wt loss mystery solved.
-AAD like Sotalol, Tikosyn and Amiodarone can be used if needed but would avoid adding given unclear medical etiology. The AADs are less likely to be effective given long standing AF.
-ECHO 23/06/24: LVEF 60%. Aortic sclerosis without stenosis
Liver disease, type unknown
-Possible varices, he reports regular GI evaluations
-He reports going to [place] for TIPS consultation but he was 'not sick enough'
-Most recent discharge summary requested
-30 lbs weigh loss - unintentional.
Community-acquired pneumonia, per primary
-Ceftriaxone / doxy switched to Unasyn
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
-CT Chest 07/12 - Bilateral multifocal pneumonia worst in the lower lobes bilaterally, possibly aspiration related.
Physical Exam
Vital Signs/Labs
Vital Signs
Temp Pulse Resp BP Pulse Ox
97.4 F 100 14 109/71 98
07/14/24 03:30 07/14/24 03:30 07/14/24 03:30 07/14/24 03:30 07/14/24 03:30
07/13/24 07/14/24 07/15/24
06:59 06:59 06:59
Actual Weight 60.4 kg
07/14/24 07:02
07/13/24 07:09
Magnesium 2.0 mg/dl (1.6-2.3) 07/13/24 07:09
Magnesium Cancelled 07/13/24 07:09
07/12/24
12:29
Oum-N-Nbylattzhnl Pept 518
LAB Results
07/12/24
12:29
Troponin I < 0.012
Physical Exam
Constitutional: No acute distress and Comfortable
EENT: Anicteric and Moist mucous membranes
Cardiovascular: Pedal edema is absent, JVD pressure is normal and Rhythm/rate is irregular
Respiratory: Respiratory effort normal, Crackles Present and Rhonchi Present
GI: Soft, Non tender and Normal bowel sounds
Neuro/Psych: Alert, Oriented and AO x 3
Data Reviewed
-
Date of Service: July 14, 2024
Medical Decision Making: Reviewed Test Results, Test Interpretation and Review of Case with other Provider
EKG: Tracing Personally Visualized and interpreted
Echo: Tracing Personally Visualized and interpreted
Labs: Labs Reviewed by me
Old Records: Reviewed
[2024-07-14] MEDS: ELIQUIS 5 MG PO ×2 (08:50→20:20)
[2024-07-14] MEDS: MUCINEX 600 MG PO ×2 (08:50→20:21)
[2024-07-14] MEDS: PROTONIX 40 MG PO (08:50)
[2024-07-14] MEDS: CARDIZEM CD 120 MG PO (08:52)
[2024-07-14 09:15] LABS: Mean Platelet Volume 9.7 fL (7.4-10.4); Platelet Count 92 10^3/uL (130-400)
[2024-07-14] MEDS: CARDIZEM PO (09:17)
[2024-07-14 11:00] VITALS: BP 113/72
--- NOTE | 2024-07-14 11:03 | CM ---
CM reviewed chart, patient seen bedside. CM discussed PT recommendations of home health. Patient declining at this time, patient asking if possible to work with PT again today, CM will relay message to therapy. CM will continue to follow for all
discharge planning needs.
Plan; home with , declining VN services at this time.
--- NOTE | 2024-07-14 12:23 | W.PN.HOSP.TC ---
Today's Communication/Plan
-
cont Unasyn
PT/OT
Assessment / Plan
Assessment / Plan
69yo M with PMHx of liver cirrhosis, esophageal varices s/p banding, s/p TIPS, Afib on apixaban came with SOB and dizziness for past week, found pneumococcal pneumonia and Afib with RVR
A/P:
#Multifocal pneumonia with S.pneumoniae
Unasyn
Follow sputum Cx sensitivity
ID consult due to recurrent pneumonia: recommended 7-10 days course of Abx
Influenza and COVID-19 neg
#Afib with RVR
Echo: Normal biventricular size and systolic function without regional wall motion abnormality. Aortic sclerosis without stenosis. Trivial aortic regurgitation
Cardio : Cardizem 120mg daily, outpatient ablation
Telemetry
Eliquis
#Hx of liver cirrhosis
#S/P TIPS
#Esophageal varices
PPI
#thrombocytopenia 2/2 liver cirrhosis
follow CBC
#Mild anemia
#mild leukopenia
follow CBC
outpatient follow up
DVT ppx Eliquis
Full code
I have spent at least 37min reviewing chart, test results, communication with consultants and direct patient care
Anticipated Discharge: 24 - 48 hours
Subjective/Interval History
-
Date of Service: July 14, 2024
Objective Data
-
Labs:
Laboratory Results
07/14/24
07:02
WBC 3.0 L
Hgb 9.4 L
Hct 29.3 L
Plt Count 92 L
Vital Signs:
Vital Signs
Temp Pulse Resp BP Pulse Ox
98.4 F 118 18 113/72 91
07/14/24 11:00 07/14/24 11:00 07/14/24 11:00 07/14/24 11:00 07/14/24 11:00
I&O
07/13/24 07/14/24 07/15/24
06:59 06:59 06:59
Output Total 350 / 350
Balance -350 / -350
Review of Systems
-
History Source: Patient
All other systems: Reviewed and negative
Physical Exam
-
General: No Apparent Distress
Respiratory: Clear to Auscultation
Cardiac: Regular Rhythm
GI: Soft, Nontender and Nondistended
Musculoskeletal: No Clubbing, No Cyanosis and No Edema
Neuro: Awake, Alert, Oriented and AO x 3
Psych: Calm
[2024-07-14 15:00] VITALS: BP 117/67
--- NOTE | 2024-07-14 16:03 | W.PN.ID1 ---
Date of Service
Date of Service: July 14, 2024
Today's Communication
Continue abx.
Assessment / Plan
Pneumococcal pneumonia
Ambulatory dysfunction
A-fib
COPD
Hx dysfunction / Cirrhosis
hx GI bleed
Recommendations:
Current respiratory cultures with strep pneumo, although given clinical presentation, aspiration may also be a component.
Continue with Ayesha (d#3) for the present time.
Would anticipate a 7 to 10-day course of antibiotics, although if there is improvement may be able to transition to the oral route in the next 24-48 hours.
Monitor white count and temperature curve.
Follow-up chest x-ray in 6 weeks.
Physical therapy evaluation.
����������������������������������������������������������
Chief Complaint
-: Pneumonia
Subjective / Review of Systems
Feeling better at present. Still with cough and productive sputum, although slightly improved from yesterday. Noted chest discomfort has also improved.
Vital Signs / Physical Exam
Vital Signs
Vital Signs
Temp Pulse Resp BP Pulse Ox
98.4 F 118 18 113/72 91
07/14/24 11:00 07/14/24 11:00 07/14/24 11:00 07/14/24 11:00 07/14/24 11:00
Physical Exam
Constitutional: Comfortable, Chronically Ill, Non-toxic and Cachetic (mild)
Eyes: No Conjunctival Hemorrhage and Sclera Anicteric
Pulmonary: Coarse and Non Labored
Gastrointestinal: Non Distended
Skin: Negative Rash or Jaundice
Neurological: Awake and Alert
Psychological: Calm
Objective Data
Lab Data
Lab Results
07/14/24 07:02
07/13/24 07:09
Estimated Creat Clear 84 ml/min 07/13/24 07:09
Total Bilirubin 0.9 mg/dl (0.2-1.3) 07/12/24 12:29
AST 36 U/L (17-59) 07/12/24 12:29
ALT 29 U/L (0-50) 07/12/24 12:29
Alkaline Phosphatase 103 U/L (38-126) 07/12/24 12:29
Most recent labs reviewed.
Micro Results:
07/13/24 13:47 Respiratory Culture - Preliminary
Sputum Usual Respiratory Pema
Gram Stain - Preliminary
07/12/24 16:00 Respiratory Culture - Preliminary
Sputum - Induced Streptococcus pneumoniae
Gram Stain - Preliminary
07/13/24 04:01 Legionella Urinary Antigen - Final
Urine Negative for Legionella pneumophila Serogroup 1 antigen.
A negative result does not rule out the possiblity of
Legionella infection due to other serogroups or species of
Legionella. Clinical correlation is recommended.
Streptococcus pneumoniae Antigen (M - Final
Positive for Strep pneumo Ag
07/12/24 15:47 Influenza Types A & B (LUIS ALBERTO) - Final
Nasal Swab Negative for Influenza A & B, NAAT
Negative results must be combined with clinical observations
and patient history.
Nucleic Acid Amplification test (NAAT)performed on the
[employer] platform.
Imaging:
07/12/2024 CT chest (PE study): No evidence of pulmonary embolism. Bilateral multifocal pneumonia, worst in the lower lobes bilaterally, possibly aspiration related. Reactive mediastinal lymphadenopathy noted. Please see full dictation for
additional detail. Film personally viewed.
07/12/2024 CXR (2 view): Hyperexpanded lungs with decreased bronchovascular markings suspicious for underlying COPD/emphysema. Ill-defined opacity within the medial right lung base which could represent pneumonia in the appropriate clinical setting.
There are also be a retrocardiac opacity. Consider follow-up imaging to ensure resolution of these findings. No significant pleural effusions.
[2024-07-14 19:30] VITALS: BP 134/70
[2024-07-14 23:37] VITALS: BP 117/61
[2024-07-15] VITALS (7 sets, daily range): BP systolic 96–129; BP diastolic 65–75; PULSE 122; O2SAT 95
[2024-07-15] MEDS: UNASYN IV ×4 (02:56→19:55)
--- NOTE | 2024-07-15 08:04 | W.PN.ID1 ---
Date of Service
Date of Service: July 15, 2024
Today's Communication
Continue antibiotics. See below�
Assessment / Plan
Pneumococcal pneumonia
Ambulatory dysfunction
A-fib
COPD
Hx dysfunction / Cirrhosis
hx GI bleed
Recommendations:
Current respiratory cultures with strep pneumo, although given clinical presentation, aspiration may also be a component.
- Patient gives history of increased cough following meals.
Continue with Unasyn (d#4) for today, but can likely transition to Augmentin 875 mg p.o. twice daily in the next 24 hours
Would anticipate a 7 to 10-day course of antibiotics in total
Given history of increased cough following meals, may consider swallowing study.
Monitor white count and temperature curve.
Follow-up chest x-ray in 6 weeks.
Physical therapy evaluation.
����������������������������������������������������������
Chief Complaint
-: Pneumonia
Subjective / Review of Systems
Patient seen and examined. Reports feeling improved today. Notes no cough since last night, but during discussion notes that following meals his coughing increases.
Review of Systems: No Fever and No Chills
Vital Signs / Physical Exam
Vital Signs
Vital Signs
Temp Pulse Resp BP Pulse Ox
98.7 F 112 20 96/65 95
07/15/24 07:36 07/15/24 07:36 07/15/24 07:36 07/15/24 07:36 07/15/24 07:36
Physical Exam
Constitutional: Comfortable, Chronically Ill, Non-toxic and Cachetic (mild)
Eyes: No Conjunctival Hemorrhage and Sclera Anicteric
Pulmonary: Non Labored
Gastrointestinal: Non Distended
Skin: Negative Rash or Jaundice
Neurological: Awake and Alert
Psychological: Calm
Objective Data
Lab Data
Lab Results
07/13/24 07:09
Estimated Creat Clear 84 ml/min 12/11/24 07:09
Total Bilirubin 0.9 mg/dl (0.2-1.3) 07/12/24 12:29
AST 36 U/L (17-59) 07/12/24 12:29
ALT 29 U/L (0-50) 07/12/24 12:29
Alkaline Phosphatase 103 U/L (38-126) 07/12/24 12:29
Most recent labs reviewed.
Micro Results:
07/13/24 13:47 Respiratory Culture - Preliminary
Sputum Usual Respiratory Pema
Gram Stain - Preliminary
07/12/24 16:00 Respiratory Culture - Preliminary
Sputum - Induced Streptococcus pneumoniae
Gram Stain - Preliminary
07/13/24 04:01 Legionella Urinary Antigen - Final
Urine Negative for Legionella pneumophila Serogroup 1 antigen.
A negative result does not rule out the possiblity of
Legionella infection due to other serogroups or species of
Legionella. Clinical correlation is recommended.
Streptococcus pneumoniae Antigen (M - Final
Positive for Strep pneumo Ag
07/12/24 15:47 Influenza Types A & B (LUIS ALBERTO) - Final
Nasal Swab Negative for Influenza A & B, NAAT
Negative results must be combined with clinical observations
and patient history.
Nucleic Acid Amplification test (NAAT)performed on the
[employer] platform.
Imaging:
07/12/2024 CT chest (PE study): No evidence of pulmonary embolism. Bilateral multifocal pneumonia, worst in the lower lobes bilaterally, possibly aspiration related. Reactive mediastinal lymphadenopathy noted. Please see full dictation for
additional detail. Film personally viewed.
07/12/2024 CXR (2 view): Hyperexpanded lungs with decreased bronchovascular markings suspicious for underlying COPD/emphysema. Ill-defined opacity within the medial right lung base which could represent pneumonia in the appropriate clinical setting.
There are also be a retrocardiac opacity. Consider follow-up imaging to ensure resolution of these findings. No significant pleural effusions.
[2024-07-15] MEDS: CARDIZEM CD 120 MG PO (08:41)
[2024-07-15] MEDS: PROTONIX 40 MG PO (08:42)
[2024-07-15] MEDS: ELIQUIS 5 MG PO ×2 (08:42→19:55)
[2024-07-15] MEDS: MUCINEX 600 MG PO ×2 (08:42→19:55)
[2024-07-15 10:46] LABS: % Basophils 0.4 % (0-2); % Eosinophils 3.9 % (0-6); % Lymphocytes 27.7 % (20.5-51.1); % Monocytes 8.4 % (1.7-9.3); % Neutrophils 59.6 % (42.2-75.2); Absolute Eosinophils 0.1 10^3/uL (0-0.7); Absolute Lymphocytes 0.8 10^3/uL (1.2-3.4); Absolute Monocytes 0.2 10^3/uL (0.1-0.6); Absolute Neutrophils 1.7 10^3/uL (1.4-6.5); Hematocrit 31.8 % (39.0-52.0); Hemoglobin 10.2 g/dL (13.0-18.0); Mean Corp Hgb Conc. 32.1 g/dL (33.0-37.0); Mean Corpuscular Hgb 27.4 pg (27.0-31.0); Mean Corpuscular Volume 85.5 fL (80.0-94.0); Mean Platelet Volume 9.7 fL (7.4-10.4); Nucleated Red Blood Cells % 0 % (-); Platelet Count 93 10^3/uL (130-400); Red Blood Cell Count 3.72 10^6/uL (4.70-6.10); Red Cell Dist. Width 15.7 % (11.5-14.5); White Blood Cell Count 2.9 10^3/uL (4.8-10.8)
--- NOTE | 2024-07-15 10:53 | PN.CDI ---
CDI
- -
CDI:
Physician Documentation Request
Admit Date: 07/12/24 16:06
Dear Doctor Emiliana,
Patient admitted with pneumonia.
Laboratory Tests
07/14/24 07/15/24
07:02 10:23
WBC 3.0 L 2.9 L
RBC 3.43 L 3.72 L
Hgb 9.4 L 10.2 L
Plt Count 92 L 93 L
Based on the above, could you clarify in the progress notes, the appropriate diagnosis, if significant, that supports the above abnormalities and additional evaluation, monitoring and/or treatment rendered:
Pancytopenia
Abnormal lab value insignificant
Other
Use of terms such as suspected, likely, concern for, or probable (associated with a specific diagnosis that is being evaluated, monitored, or treated as if it exists) are acceptable and can be coded in the inpatient setting, when documented at the
time of discharge.
Thank you,
Carlee Alejandro RN, BSN
CDI Specialist
Available via [employer] text
Please use your independent medical judgment in providing your response.
--- NOTE | 2024-07-15 11:20 | W.PN.HOSP.TC ---
Today's Communication/Plan
-
Hgb Stable
Cont Unasyn
Cardio to reassess as patient still in afib with hypotension
PT/OT
Assessment / Plan
Assessment / Plan
69yo M with PMHx of liver cirrhosis, esophageal varices s/p banding, s/p TIPS, Afib on apixaban came with SOB and dizziness for past week, found pneumococcal pneumonia and Afib with RVR
A/P:
#Multifocal pneumonia with S.pneumoniae
Unasyn
Pansensitive S.pneumonia
ID consult due to recurrent pneumonia: recommended 7-10 days course of Abx
Influenza and COVID-19 neg
#Afib with RVR
Echo: Normal biventricular size and systolic function without regional wall motion abnormality. Aortic sclerosis without stenosis. Trivial aortic regurgitation
Cardio : Cardizem 120mg daily, outpatient ablation, however poorly controlled with hypotension
Telemetry
Eliquis
#Hx of liver cirrhosis
#S/P TIPS
#Esophageal varices
PPI
#thrombocytopenia 2/2 liver cirrhosis
follow CBC
#Mild anemia
#mild leukopenia
follow CBC
outpatient follow up
DVT ppx Eliquis
Full code
I have spent at least 37min reviewing chart, test results, communication with consultants and direct patient care
Anticipated Discharge: 24 - 48 hours
Subjective/Interval History
-
Date of Service: July 15, 2024
Objective Data
-
Labs:
Laboratory Results
07/15/24
10:23
WBC 2.9 L
Hgb 10.2 L
Hct 31.8 L
Plt Count 93 L
Vital Signs:
Vital Signs
Temp Pulse Resp BP Pulse Ox
98.7 F 112 20 96/56 95
07/15/24 07:36 07/15/24 08:41 07/15/24 07:36 07/15/24 08:41 07/15/24 07:36
I&O
07/14/24 07/15/24 07/16/24
06:59 06:59 06:59
Intake Total 2160 / 2160
Output Total 350 / 350 600 / 600
Balance -350 / -350 1560 / 1560
Review of Systems
-
History Source: Patient
All other systems: Reviewed and negative
Physical Exam
-
General: No Apparent Distress
HEENT: Normocephalic
Respiratory: Clear to Auscultation
Cardiac: Irregular Rhythm and Tachycardic
GI: Soft, Nontender and Nondistended
Genito-urinary: No Costovertebral Tender
Musculoskeletal: No Clubbing, No Cyanosis and No Edema
Skin: Warm
Neuro: Awake, Alert, Oriented and AO x 3
Psych: Calm
--- NOTE | 2024-07-15 12:28 | PTOTSP ---
Video Swallow Examination
Overall, oral pharyngeal swallow deemed within functional limits without laryngeal penetration or aspiration. Trace to mild pharyngeal stasis with liquids cleared with dry swallow. Retained contrast in esophagus with incraesed clearance following
liquid wash.
Recommend
1. Continue regular solids and thin liquids
2. Meds with liquid
3. Intersperse sip of liquid after every 2-3 bites of solid.
4. Remain upright for at least 30 minutes after meal.
No further skilled ST indicated.
--- NOTE | 2024-07-15 12:47 | CM ---
CM reviewed chart, patient seen beside. CM will continue to watch for PT recommendations, patient previously declining VN services. Patient remains on IV antibiotics. Per Hospitalist note, Cardio to reassess patient. CM reviewed IMM, verbally
agrees, placed in chart, patient provided with copy. CM will continue to follow for all discharge planning needs.
Plan; home no needs likely, declining VN.
--- NOTE | 2024-07-15 13:23 | W.PN.CD ---
Today's Communication / Plan
-
given 30mg dilt now and tonight and increase diltiazem to 180mg for the am.
Impression / Plan
-
IMPRESSION/PLAN: 69M with paroxysmal atrial fibrillation (on apixaban and COPD who presented to the emergency department with a chief complaint of shortness of breath.
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
Atrial fibrillation with rapid ventricular response
-Long standing persistent - onset was before apr 2023.
-Propranolol was recommended by GI, diltiazem caused significant fatigue
-On metoprolol 12.5 mg every 6 hours - switched to diltiazem 30 QID on 07/12/24
-Dilt might be a better drug for him given his COPD, lung issues and GI varices.
-Oral Anticoagulation: Apixaban 5 mg twice daily, he denies missed doses and abnormal bleeding
-[id number]: score 1 (age 65-74)
-Rate control now for AF. Uptitrate Dilt if needed. increase Dilt to 180 mg QD today, as 120mg had been started.
-Ultimate plan for ablation but needs to be improved first and wt loss mystery solved.
-AAD like Sotalol, Tikosyn and Amiodarone can be used if needed but would avoid adding given unclear medical etiology. The AADs are less likely to be effective given long standing AF.
-ECHO 23/06/24: LVEF 60%. Aortic sclerosis without stenosis
Liver disease, type unknown
-Possible varices, he reports regular GI evaluations
-He reports going to [place] for TIPS consultation but he was 'not sick enough'
-Most recent discharge summary requested
-30 lbs weigh loss - unintentional.
Community-acquired pneumonia, per primary
-Ceftriaxone / doxy switched to Unasyn
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
-CT Chest 07/12 - Bilateral multifocal pneumonia worst in the lower lobes bilaterally, possibly aspiration related.
Subjective:
He is worried about his heart rate yet has no real symptoms of it unless lying quietly at night. He is concerned he still has sputum that is green.
Physical Exam
Vital Signs/Labs
Vital Signs
Temp Pulse Resp BP Pulse Ox
98.7 F 107 19 121/71 96
07/15/24 11:23 07/15/24 11:23 07/15/24 11:23 07/15/24 11:23 07/15/24 11:23
07/15/24 10:23
07/13/24 07:09
Magnesium 2.0 mg/dl (1.6-2.3) 07/13/24 07:09
Magnesium Cancelled 07/13/24 07:09
07/12/24
12:29
Vho-R-Wofyezwndxo Pept 518
Physical Exam
Constitutional: No acute distress
Cardiovascular: Pedal edema is absent, JVD pressure is normal, Systolic murmur absent, Diastolic murmur absent and Rhythm/rate is irregular
Respiratory: Respiratory effort normal, Lungs clear to auscul., Wheeze Absent, Crackles Absent and Rhonchi Absent
Neuro/Psych: AO x 3
Data Reviewed
-
Date of Service: July 15, 2024
EKG: Other (afib with elevated heart rates. )
[2024-07-15] MEDS: CARDIZEM 30 MG PO ×2 (13:50→19:56)
--- NOTE | 2024-07-15 18:55 | PTCARENOTE ---
07/15- Patient has remained on Telemetry throughout shift. Incorrectly D/Dennis in protocol. Patient's HR>100 and therefore must remain on Teley as per protocol. Put Telemetry back in record, however Patient himself was never taken off of telemetry.
Patient is still currently Afib with BBB with HR=93
[2024-07-16] VITALS (8 sets, daily range): BP systolic 121–147; BP diastolic 61–88
[2024-07-16] MEDS: ZOFRAN 4 MG IV ×2 (00:20→07:30)
[2024-07-16] MEDS: UNASYN IV ×2 (01:44→07:20)
[2024-07-16] MEDS: DILAUDID 0.25 MG IV (04:17)
--- NOTE | 2024-07-16 05:47 | PTCARENOTE ---
Pt's HR noted to be 130-10's, occasionally 150's while pt asleep. 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
[2024-07-16] MEDS: CARDIZEM 30 MG PO (05:51)
--- NOTE | 2024-07-16 07:02 | PTCARENOTE ---
Addendum entered by Leah Nelson RN 07/16/24 07:47:
07/16- Patient vomited again and c/o generalized abdominal pain. Skin is still pale but warm/dry. Irregular Apical, DJ=362. IX=640/83, RR=14, T=97.4, POX=96% on RA. Notified Cardiology. Administered AM meds as directed by Hospitalist.
Original Note:
07/16- Received in report that patient's HR has been in the 140s-150s AFib overnight. The Nightshift Provider gave an order for an extra 30mg PO of Cardizem. Patient reported throwing up once overnight and c/o abdominal pain but denied any other
S/S. Currently patient denies any S/S. Current HR on Hvxcf=686 Afib. Skin=pale, warm/dry. Notified Provider. Will continue to monitor and administer am meds as ordered while awaiting further orders.
[2024-07-16] MEDS: PROTONIX 40 MG PO (07:19)
[2024-07-16] MEDS: ELIQUIS 5 MG PO ×2 (07:20→20:04)
[2024-07-16] MEDS: MUCINEX 600 MG PO ×2 (07:20→20:08)
[2024-07-16] MEDS: CARDIZEM CD 240 MG PO (07:29)
[2024-07-16 07:56] LABS: % Basophils 0.3 % (0-2); % Eosinophils 1.3 % (0-6); % Immature Granulocytes 0.5 % (0-0.5); % Lymphocytes 6.1 % (20.5-51.1); % Monocytes 2.3 % (1.7-9.3); % Neutrophils 89.5 % (42.2-75.2); Absolute Eosinophils 0.1 10^3/uL (0-0.7); Absolute Lymphocytes 0.4 10^3/uL (1.2-3.4); Absolute Monocytes 0.1 10^3/uL (0.1-0.6); Absolute Neutrophils 5.4 10^3/uL (1.4-6.5); Hematocrit 35.8 % (39.0-52.0); Hemoglobin 11.1 g/dL (13.0-18.0); Mean Corpuscular Hgb 26.7 pg (27.0-31.0); Mean Corpuscular Volume 86.1 fL (80.0-94.0); Mean Platelet Volume 9.6 fL (7.4-10.4); Nucleated Red Blood Cells % 0 % (-); Platelet Count 106 10^3/uL (130-400); Red Blood Cell Count 4.16 10^6/uL (4.70-6.10); Red Cell Dist. Width 15.7 % (11.5-14.5); White Blood Cell Count 6.1 10^3/uL (4.8-10.8)
[2024-07-16 08:24] LABS: Blood Urea Nitrogen 17 mg/dl (9-20); Calcium 8.3 mg/dl (8.4-10.2); Carbon Dioxide 28 mmol/L (22-30); Chloride 105 mmol/L (98-107); Estimated Creatinine Clearance 98 ml/min; Glucose 125 mg/dl (70-99); Magnesium 1.9 mg/dl (1.6-2.3); Potassium 4.3 mmol/L (3.5-5.1); Sodium 142 mmol/L (135-145); eGFR > 60.00
[2024-07-16] MEDS: CARDIZEM 15 MG IV (08:24)
--- NOTE | 2024-07-16 08:25 | PTCARENOTE ---
07/16- Patient resumed vomiting and now c/o diarrhea and increased abdominal cramping. AAOX3 but drowsy; Skin=pale/warm/dry; Abdomen soft/NT/Distended, +Hyperactive BSX4; HR continues in Afib RVR despite Cardizem IV X1 push ordered by Cardiology.
Notified Physician.
--- NOTE | 2024-07-16 08:40 | W.PN.CD ---
Today's Communication / Plan
-
IV diltiazem gtt start at 10
slightly response to 20mg bolus
Impression / Plan
-
IMPRESSION/PLAN: 69M with paroxysmal atrial fibrillation (on apixaban and COPD who presented to the emergency department with a chief complaint of shortness of breath.
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
Atrial fibrillation with rapid ventricular response
-Long standing persistent - onset was before apr 2023.
-Propranolol was recommended by GI, diltiazem caused significant fatigue
-he had side effect with propranolol.
-Oral Anticoagulation: Apixaban 5 mg twice daily, he denies missed doses and abnormal bleeding
-[id number]: score 1 (age 65-74)
-Now in RVR with N/V/D. Will transition to IV diltiazem gtt
-AAD like Sotalol, Tikosyn and Amiodarone can be used if needed but would avoid adding given unclear medical etiology. The AADs are less likely to be effective given long standing AF.
-ECHO 23/06/24: LVEF 60%. Aortic sclerosis without stenosis
N/V/D:
-w/u per medicine.
-D/w Medicine with decide on fluids.
Liver disease, type unknown
-Possible varices, he reports regular GI evaluations
-He reports going to [place] for TIPS consultation but he was 'not sick enough'
-Most recent discharge summary requested
-30 lbs weigh loss - unintentional.
Community-acquired pneumonia, per primary
-Ceftriaxone / doxy switched to Unasyn
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
-CT Chest 07/12 - Bilateral multifocal pneumonia worst in the lower lobes bilaterally, possibly aspiration related.
Subjective:
He is feeling awful, no with N/v/d. RAtes in the 160's overnight.
Physical Exam
Vital Signs/Labs
Vital Signs
Temp Pulse Resp BP Pulse Ox
97.4 F 153 14 138/82 96
07/16/24 07:50 07/16/24 08:24 07/16/24 07:50 07/16/24 08:24 07/16/24 07:50
07/16/24 07:19
07/16/24 07:19
Magnesium 1.9 mg/dl (1.6-2.3) 07/16/24 07:19
07/12/24
12:29
Uej-G-S[facility]bdofre Pept 518
Physical Exam
Constitutional: Distress (emesis bag in had, appears cachectic and washed out. ) and Other
Respiratory: Other (rhoncherous cough)
Neuro/Psych: AO x 3
Data Reviewed
-
Date of Service: July 16, 2024
Medical Decision Making: Review of Case with other Provider (d/w Dr Hopson and Nurse cesia, start IV dilt I am ok with fluids if medicine agrees)
--- NOTE | 2024-07-16 08:45 | PTCARENOTE ---
07/16- Patient room placed on Enhanced Precautions to r/o CDiff and Norovirus. Stool sample taken. Awaiting results. Cardiology to order Cardizem drip for persistent AFib RVR. See orders and Worklist Interventions when orders come in. Continue
to monitor.
[2024-07-16] MEDS: CARDIZEM 125 IV ×2 (10:04→22:31)
[2024-07-16 10:42] LABS: ALT (SGPT) 30 U/L (0-50); AST (SGOT) 30 U/L (17-59); Albumin 3.5 g/dl (3.5-5.0); Alkaline Phosphatase 106 U/L (38-126); Direct Bilirubin 0.1 mg/dl (0.0-0.4); Lipase 20 U/L (23-300); Total Bilirubin 0.4 mg/dl (0.2-1.3); Total Protein 6.1 g/dl (6.3-8.2)
[2024-07-16] MEDS: MAXIPIME 2000 MG IV ×2 (11:06→20:08)
[2024-07-16] MEDS: STERILE WATER FOR INJECTION 10 ML IV ×2 (11:07→20:07)
[2024-07-16] MEDS: LR 500 IV (11:38)
--- NOTE | 2024-07-16 11:56 | W.PN.HOSP.TC ---
Today's Communication/Plan
-
Cefepime
hydrate
noted cardizem drip
stool studies, contact precaution meanwhile
Assessment / Plan
Assessment / Plan
69yo M with PMHx of liver cirrhosis, esophageal varices s/p banding, s/p TIPS, Afib on apixaban came with SOB and dizziness for past week, found pneumococcal and pseudomonal pneumonia and Afib with RVR. Developed nausea and diarrhea
A/P:
#Multifocal pneumonia with S.pneumoniae and Pseudomonas
Cefepime
Pansensitive S.pneumonia
Pseudomonas pending sensitivity
ID consult due to recurrent pneumonia: recommended 7-10 days course of Abx
Influenza and COVID-19 neg
#Afib with RVR
Echo: Normal biventricular size and systolic function without regional wall motion abnormality. Aortic sclerosis without stenosis. Trivial aortic regurgitation
Cardio : Cardizem 120mg daily, outpatient ablation, however poorly controlled with hypotension
Telemetry
Eliquis
#Nausea, vomiting, diarrhewa
Lipase and LFT WNL
abd non-tender
C.diff neg
check norovirus
IVF
#Hx of liver cirrhosis
#S/P TIPS
#Esophageal varices
PPI
#thrombocytopenia 2/2 liver cirrhosis
follow CBC
#Mild anemia
#mild leukopenia
follow CBC
outpatient follow up
DVT ppx Eliquis
Full code
I have spent at least 57min reviewing chart, test results, communication with consultants and direct patient care
Anticipated Discharge: > 48 hours
Subjective/Interval History
-
Date of Service: July 16, 2024
Objective Data
-
Labs:
Laboratory Results
07/16/24
07:19
WBC 6.1
Hgb 11.1 L
Hct 35.8 L
Plt Count 106 L
Sodium 142
Potassium 4.3
Chloride 105
Carbon Dioxide 28
BUN 17
Creatinine 0.6 L
Glucose 125 H
Calcium 8.3 L
Total Bilirubin 0.4
AST 30
ALT 30
Alkaline Phosphatase 106
Vital Signs:
Vital Signs
Temp Pulse Resp BP Pulse Ox
97.4 F 153 14 138/82 96
07/16/24 07:50 07/16/24 08:24 07/16/24 07:50 07/16/24 08:24 07/16/24 07:50
I&O
07/15/24 07/16/24 07/17/24
06:59 06:59 06:59
Intake Total 2160 / 2160 1080 / 1080
Output Total 600 / 600 480 / 480
Balance 1560 / 1560 600 / 600
Review of Systems
-
History Source: Patient
Abdomen/GI: Reports Nausea, Vomiting and Diarrhea
Physical Exam
-
General: No Apparent Distress and Comfortable
HEENT: Negative Moist Mucous Membranes
Respiratory: Clear to Auscultation
Cardiac: Irregular Rhythm and Tachycardic
GI: Soft, Nontender and Nondistended
Musculoskeletal: No Clubbing, No Cyanosis and No Edema
Neuro: Awake, Alert, Oriented and AO x 3
Psych: Calm
[2024-07-16] MEDS: D5W 1000 IV (12:24)
--- NOTE | 2024-07-16 13:47 | W.PN.ID1 ---
Date of Service
Date of Service: July 16, 2024
Today's Communication
Continue cefepime.
Supportive care for Norovirus.
Assessment / Plan
Norovirus infection
Pneumococcal pneumonia
Pseudomonas pneumonia
Ambulatory dysfunction
A-fib
COPD
Hx dysfunction / Cirrhosis
hx GI bleed
Recommendations:
Supportive care for norovirus.
Enhanced contact precaution.
Current respiratory cultures with Strep pneumo and Pseudomonas.
Passed video swallow test.
Continue with Unasyn (d#5) changed to cefepime (d1) today by hospitalist.
Monitor white count and temperature curve.
Follow-up chest x-ray in 6 weeks.
����������������������������������������������������������
Chief Complaint
-: Pneumonia
Subjective / Review of Systems
Feels weak
Cough/SOB is stable
Had diarrhea x 1
Vital Signs / Physical Exam
Vital Signs
Vital Signs
Temp Pulse Resp BP Pulse Ox
98.4 F 102 16 121/83 96
07/16/24 11:00 07/16/24 11:00 07/16/24 11:00 07/16/24 11:00 07/16/24 11:00
Physical Exam
Constitutional: No Acute Distress
Pulmonary: Rales (bibase)
Gastrointestinal: Soft, Non Tender, Non Distended and Normal Bowel Sounds
Extremities: Negative Edema
Neurological: AO x 3
Objective Data
Lab Data
Lab Results
07/16/24 07:19
07/16/24 07:19
Estimated Creat Clear 98 ml/min 07/16/24 07:19
Total Bilirubin 0.4 mg/dl (0.2-1.3) 07/16/24 07:19
AST 30 U/L (17-59) 07/16/24 07:19
ALT 30 U/L (0-50) 07/16/24 07:19
Alkaline Phosphatase 106 U/L (38-126) 07/16/24 07:19
Most recent labs reviewed.
Micro Results:
07/16/24 09:15 C. difficile GDH Antigen & Toxins - Final
Feces/Stool Negative for toxigenic C.difficile
- Final
Positive for Norovirus GII
07/13/24 13:47 Respiratory Culture - Preliminary
Sputum Pseudomonas aeruginosa
Gram Stain - Preliminary
07/12/24 16:00 Respiratory Culture - Final
Sputum - Induced Streptococcus pneumoniae
Gram Stain - Final
07/13/24 04:01 Legionella Urinary Antigen - Final
Urine Negative for Legionella pneumophila Serogroup 1 antigen.
A negative result does not rule out the possiblity of
Legionella infection due to other serogroups or species of
Legionella. Clinical correlation is recommended.
Streptococcus pneumoniae Antigen (M - Final
Positive for Strep pneumo Ag
07/12/24 15:47 Influenza Types A & B (LUIS ALBERTO) - Final
Nasal Swab Negative for Influenza A & B, NAAT
Negative results must be combined with clinical observations
and patient history.
Nucleic Acid Amplification test (NAAT)performed on the
[employer] platform.
Imaging:
07/12/2024 CT chest (PE study): No evidence of pulmonary embolism. Bilateral multifocal pneumonia, worst in the lower lobes bilaterally, possibly aspiration related. Reactive mediastinal lymphadenopathy noted. Please see full dictation for
additional detail. Film personally viewed.
07/12/2024 CXR (2 view): Hyperexpanded lungs with decreased bronchovascular markings suspicious for underlying COPD/emphysema. Ill-defined opacity within the medial right lung base which could represent pneumonia in the appropriate clinical setting.
There are also be a retrocardiac opacity. Consider follow-up imaging to ensure resolution of these findings. No significant pleural effusions.
[2024-07-17] VITALS (7 sets, daily range): BP systolic 108–128; BP diastolic 57–73; BMI 18.3
[2024-07-17] MEDS: D5W 1000 IV ×2 (01:33→14:25)
[2024-07-17] MEDS: MAXIPIME 2000 MG IV ×3 (04:30→20:01)
[2024-07-17] MEDS: STERILE WATER FOR INJECTION 10 ML IV ×3 (04:31→20:01)
[2024-07-17 06:26] LABS: % Basophils 0.2 % (0-2); % Eosinophils 2.8 % (0-6); % Immature Granulocytes 0.4 % (0-0.5); % Lymphocytes 19.8 % (20.5-51.1); % Monocytes 4.4 % (1.7-9.3); % Neutrophils 72.4 % (42.2-75.2); Absolute Eosinophils 0.2 10^3/uL (0-0.7); Absolute Lymphocytes 1.1 10^3/uL (1.2-3.4); Absolute Monocytes 0.3 10^3/uL (0.1-0.6); Absolute Neutrophils 4.1 10^3/uL (1.4-6.5); Hematocrit 34.7 % (39.0-52.0); Hemoglobin 10.7 g/dL (13.0-18.0); Mean Corp Hgb Conc. 30.8 g/dL (33.0-37.0); Mean Corpuscular Hgb 26.4 pg (27.0-31.0); Mean Corpuscular Volume 85.7 fL (80.0-94.0); Mean Platelet Volume 9.4 fL (7.4-10.4); Nucleated Red Blood Cells % 0 % (-); Platelet Count 101 10^3/uL (130-400); Red Blood Cell Count 4.05 10^6/uL (4.70-6.10); Red Cell Dist. Width 15.9 % (11.5-14.5); White Blood Cell Count 5.7 10^3/uL (4.8-10.8)
[2024-07-17 07:02] LABS: ALT (SGPT) 21 U/L (0-50); AST (SGOT) 18 U/L (17-59); Albumin 3.3 g/dl (3.5-5.0); Alkaline Phosphatase 79 U/L (38-126); Blood Urea Nitrogen 18 mg/dl (9-20); Calcium 7.9 mg/dl (8.4-10.2); Carbon Dioxide 28 mmol/L (22-30); Chloride 100 mmol/L (98-107); Estimated Creatinine Clearance 74 ml/min; Glucose 118 mg/dl (70-99); Sodium 136 mmol/L (135-145); Total Bilirubin 0.6 mg/dl (0.2-1.3); Total Protein 5.9 g/dl (6.3-8.2); eGFR > 60.00
[2024-07-17] MEDS: ELIQUIS 5 MG PO ×2 (08:34→20:01)
[2024-07-17] MEDS: MUCINEX 600 MG PO ×2 (08:34→20:01)
[2024-07-17] MEDS: PROTONIX 40 MG PO (08:34)
--- NOTE | 2024-07-17 11:59 | W.PN.HOSP.TC ---
Addendum entered and electronically signed by Derian Hopson MD 07/17/24 12:49:
patient had 30lbs weight loss since his first episode of pneumonia year ago - most liekly cachexia 2/2 chronic disease. Advised comprehensive CA workup with PCP upon resolution of current acute disease. Reasonable to check AFP marker and US RUQ with
PMHx of liver cirrhosis
Original Note:
Today's Communication/Plan
-
cont wean off Diltiazem drip as pr card
cont Cefepime
diet
Assessment / Plan
Assessment / Plan
69yo M with PMHx of liver cirrhosis, esophageal varices s/p banding, s/p TIPS, Afib on apixaban came with SOB and dizziness for past week, found pneumococcal and pseudomonal pneumonia and Afib with RVR. Developed nausea and diarrhea 2/2 norovirus
A/P:
#Multifocal pneumonia with S.pneumoniae and Pseudomonas
Cefepime
Pansensitive S.pneumonia
Pseudomonas pending sensitivity
ID consult due to recurrent pneumonia: recommended 7-10 days course of Abx
Influenza and COVID-19 neg
#Afib with RVR
Echo: Normal biventricular size and systolic function without regional wall motion abnormality. Aortic sclerosis without stenosis. Trivial aortic regurgitation
Cardio : Cardizem 120mg daily, outpatient ablation, however poorly controlled with hypotension
Telemetry
Eliquis
#Nausea, vomiting, diarrhea 2/2 norovirus
Lipase and LFT WNL
abd non-tender
C.diff neg
IVF
symptomatic mgmt
#Hx of liver cirrhosis
#S/P TIPS
#Esophageal varices
PPI
#thrombocytopenia 2/2 liver cirrhosis
follow CBC
#Mild anemia
#mild leukopenia
follow CBC
outpatient follow up
DVT ppx Eliquis
Full code
I have spent at least 37min reviewing chart, test results, communication with consultants and direct patient care
Anticipated Discharge: > 48 hours
Subjective/Interval History
-
Date of Service: July 17, 2024
Objective Data
-
Labs:
Laboratory Results
07/17/24
05:37
WBC 5.7
Hgb 10.7 L
Hct 34.7 L
Plt Count 101 L
Sodium 136
Potassium 4.0
Chloride 100
Carbon Dioxide 28
BUN 18
Creatinine 0.8
Glucose 118 H
Calcium 7.9 L
Total Bilirubin 0.6
AST 18
ALT 21
Alkaline Phosphatase 79
Vital Signs:
Vital Signs
Temp Pulse Resp BP Pulse Ox
98.2 F 78 18 128/63 96
07/17/24 11:42 07/17/24 11:42 07/17/24 11:42 07/17/24 11:42 07/17/24 11:42
I&O
07/16/24 07/17/24 07/18/24
06:59 06:59 06:59
Intake Total 1080 / 1080 1100 / 1100
Output Total 480 / 480 610 / 610
Balance 600 / 600 490 / 490
Review of Systems
-
History Source: Patient
All other systems: Reviewed and negative
Abdomen/GI: Reports Diarrhea; Denies Abdominal Pain, Nausea or Vomiting
Physical Exam
-
General: No Apparent Distress
HEENT: Normocephalic, Atraumatic and Moist Mucous Membranes
Cardiac: Irregular Rhythm and Tachycardic
GI: Soft, Nontender and Nondistended
Musculoskeletal: No Clubbing, No Cyanosis and No Edema
Skin: Warm
Neuro: Awake, Alert, Oriented and AO x 3
Psych: Calm
[2024-07-17] MEDS: CARDIZEM 125 IV (12:00)
--- NOTE | 2024-07-17 13:07 | W.PN.ID1 ---
Date of Service
Date of Service: July 17, 2024
Today's Communication
Continue cefepime.
Assessment / Plan
Norovirus infection
Pneumococcal pneumonia
Pseudomonas pneumonia
Ambulatory dysfunction
A-fib
COPD
Hx dysfunction / Cirrhosis
hx GI bleed
Recommendations:
Supportive care for norovirus.
Enhanced contact precaution.
Follow clinically
Current respiratory cultures with Strep pneumo and Pseudomonas.
Passed video swallow test.
s/p Unasyn (4d)
Continue cefepime (d2).
Follow-up chest x-ray in 6 weeks.
����������������������������������������������������������
Chief Complaint
-: Pneumonia
Subjective / Review of Systems
+ diarrhea this morning
cough better
Vital Signs / Physical Exam
Vital Signs
Vital Signs
Temp Pulse Resp BP Pulse Ox
98.2 F 78 18 128/63 96
07/17/24 11:42 07/17/24 11:42 07/17/24 11:42 07/17/24 11:42 07/17/24 11:42
Physical Exam
Constitutional: Chronically Ill and Cachetic
Eyes: Sclera Anicteric
Pulmonary: Coarse (bases)
Gastrointestinal: Soft, Non Tender and Non Distended
Extremities: Negative Edema
Objective Data
Lab Data
Lab Results
07/17/24 05:37
07/17/24 05:37
Estimated Creat Clear 74 ml/min 07/17/24 05:37
Total Bilirubin 0.6 mg/dl (0.2-1.3) 07/17/24 05:37
AST 18 U/L (17-59) 07/17/24 05:37
ALT 21 U/L (0-50) 07/17/24 05:37
Alkaline Phosphatase 79 U/L (38-126) 07/17/24 05:37
Most recent labs reviewed.
Micro Results:
07/13/24 13:47 Respiratory Culture - Final
Sputum Pseudomonas aeruginosa
Gram Stain - Final
07/16/24 09:15 C. difficile GDH Antigen & Toxins - Final
Feces/Stool Negative for toxigenic C.difficile
- Final
Positive for Norovirus GII
07/12/24 16:00 Respiratory Culture - Final
Sputum - Induced Streptococcus pneumoniae
Gram Stain - Final
07/13/24 04:01 Legionella Urinary Antigen - Final
Urine Negative for Legionella pneumophila Serogroup 1 antigen.
A negative result does not rule out the possiblity of
Legionella infection due to other serogroups or species of
Legionella. Clinical correlation is recommended.
Streptococcus pneumoniae Antigen (M - Final
Positive for Strep pneumo Ag
07/12/24 15:47 Influenza Types A & B (LUIS ALBERTO) - Final
Nasal Swab Negative for Influenza A & B, NAAT
Negative results must be combined with clinical observations
and patient history.
Nucleic Acid Amplification test (NAAT)performed on the
[employer] platform.
Imaging:
07/12/2024 CT chest (PE study): No evidence of pulmonary embolism. Bilateral multifocal pneumonia, worst in the lower lobes bilaterally, possibly aspiration related. Reactive mediastinal lymphadenopathy noted. Please see full dictation for
additional detail. Film personally viewed.
07/12/2024 CXR (2 view): Hyperexpanded lungs with decreased bronchovascular markings suspicious for underlying COPD/emphysema. Ill-defined opacity within the medial right lung base which could represent pneumonia in the appropriate clinical setting.
There are also be a retrocardiac opacity. Consider follow-up imaging to ensure resolution of these findings. No significant pleural effusions.
--- NOTE | 2024-07-17 15:10 | W.PN.CD ---
Today's Communication / Plan
-
Continue IV diltiazem drip today, hopeful for transition back to p.o. tomorrow
Continue intensive monitoring on telemetry given IV diltiazem.
Impression / Plan
-
IMPRESSION/PLAN: 69M with paroxysmal atrial fibrillation (on apixaban and COPD who presented to the emergency department with a chief complaint of shortness of breath.
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
Atrial fibrillation with rapid ventricular response
-Long standing persistent - onset was before apr 2023.
-Propranolol was recommended by GI, diltiazem caused significant fatigue
-he had side effect with propranolol.
-Oral Anticoagulation: Apixaban 5 mg twice daily, he denies missed doses and abnormal bleeding
-[id number]: score 1 (age 65-74)
-RVR with onset of norovirus, will continue with IV diltiazem gtt
-AAD like Sotalol, Tikosyn and Amiodarone can be used if needed but would avoid adding given unclear medical etiology. The AADs are less likely to be effective given long standing AF.
-ECHO 23/06/24: LVEF 60%. Aortic sclerosis without stenosis
Norovirus: -Still not tolerating p.o. continue IV diltiazem for another day. Remaining care as per medicine
Liver disease, type unknown
-Possible varices, he reports regular GI evaluations
-He reports going to [place] for TIPS consultation but he was 'not sick enough'
-Most recent discharge summary requested
-30 lbs weigh loss - unintentional.
Community-acquired pneumonia, per primary
-Ceftriaxone / doxy switched to Unasyn
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
-CT Chest 07/12 - Bilateral multifocal pneumonia worst in the lower lobes bilaterally, possibly aspiration related.
Subjective:
He is feeling somewhat better than yesterday but still has not moved from the bed, still with nausea and vomiting. Rates improved on diltiazem drip.
Physical Exam
Vital Signs/Labs
Vital Signs
Temp Pulse Resp BP Pulse Ox
98.2 F 78 18 128/63 96
07/17/24 11:42 07/17/24 11:42 07/17/24 11:42 07/17/24 11:42 07/17/24 11:42
07/16/24 07/17/24 07/18/24
06:59 06:59 06:59
Actual Weight 61.099 kg
07/17/24 05:37
07/17/24 05:37
Magnesium 1.9 mg/dl (1.6-2.3) 07/16/24 07:19
07/12/24
12:29
[id number] Pept 518
Physical Exam
Constitutional: Distress (Mildly uncomfortable lying in bed)
Cardiovascular: Rhythm/rate is irregular (Seen on telemetry)
Respiratory: Respiratory effort normal (Lying completely flat on his back)
Neuro/Psych: AO x 3
Data Reviewed
-
Date of Service: July 17, 2024
Medical Decision Making: Review of Case with other Provider (Discussed with his nurse and Dr. Hopson will continue IV diltiazem today)
EKG: Other (Telemetry with rate controlled atrial fibrillation)
[2024-07-18] MEDS: CARDIZEM 125 IV (01:38)
[2024-07-18 03:01] VITALS: BP 125/67
[2024-07-18] MEDS: STERILE WATER FOR INJECTION 10 ML IV ×3 (03:35→19:54)
[2024-07-18] MEDS: MAXIPIME 2000 MG IV ×3 (03:35→19:53)
[2024-07-18] MEDS: D5W 1000 IV (03:35)
[2024-07-18 08:00] VITALS: BP 115/65
[2024-07-18] MEDS: MUCINEX 600 MG PO ×2 (08:17→19:53)
[2024-07-18] MEDS: ELIQUIS 5 MG PO ×2 (08:17→19:53)
[2024-07-18] MEDS: PROTONIX 40 MG PO (08:17)
--- NOTE | 2024-07-18 08:21 | W.PN.CD ---
Today's Communication / Plan
-
Dilt 60 mg q6 hrs with transition tomorrow
Impression / Plan
-
IMPRESSION/PLAN: 69M with paroxysmal atrial fibrillation (on apixaban and COPD who presented to the emergency department with a chief complaint of shortness of breath.
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
Atrial fibrillation with rapid ventricular response
-Long standing persistent - onset was before apr 2023.
-Propranolol was recommended by GI, diltiazem caused significant fatigue
-he had side effect with propranolol.
-Oral Anticoagulation: Apixaban 5 mg twice daily, he denies missed doses and abnormal bleeding
-[id number]: score 1 (age 65-74)
-RVR with onset of norovirus, stop dilt gtt
-AAD like Sotalol, Tikosyn and Amiodarone can be used if needed but would avoid adding given unclear medical etiology. The AADs are less likely to be effective given long standing AF.
-ECHO 23/06/24: LVEF 60%. Aortic sclerosis without stenosis
- dilt 60 q6hr, uptitrate if needed, plan outpatient ablation consult with Dr Vasquez in 2-3 weeks
Norovirus: -diarrhea remains Remaining care as per medicine
Liver disease, type unknown
-Possible varices, he reports regular GI evaluations
-He reports going to [place] for TIPS consultation but he was 'not sick enough'
-Most recent discharge summary requested
-30 lbs weigh loss - unintentional.
Community-acquired pneumonia, per primary
-Ceftriaxone / doxy switched to Unasyn
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
-CT Chest 07/12 - Bilateral multifocal pneumonia worst in the lower lobes bilaterally, possibly aspiration related.
Subjective:
He is feeling poor has not moved since Thursday, diarrhea remains an issue
Physical Exam
Vital Signs/Labs
Vital Signs
Temp Pulse Resp BP Pulse Ox
98.1 F 91 14 125/67 95
07/18/24 03:01 07/18/24 03:01 07/18/24 03:01 07/18/24 03:01 07/18/24 03:01
07/17/24 07/18/24 07/19/24
06:59 06:59 06:59
Actual Weight 134 lb 11.2 oz
07/17/24 05:37
Magnesium 1.9 mg/dl (1.6-2.3) 07/16/24 07:19
07/12/24
12:29
[id number] Pept 518
Physical Exam
Constitutional: No acute distress
EENT: Anicteric
Cardiovascular: Rhythm/rate is irregular
Respiratory: Respiratory effort normal and Lungs clear to auscul.
GI: Soft
Neuro/Psych: AO x 3
Data Reviewed
-
Date of Service: July 18, 2024
EKG: Tracing Personally Visualized and interpreted (af)
Echo: Report Reviewed by me
Labs: Labs Reviewed by me
[2024-07-18 09:35] LABS: Blood Urea Nitrogen 12 mg/dl (9-20); Calcium 7.8 mg/dl (8.4-10.2); Carbon Dioxide 27 mmol/L (22-30); Chloride 96 mmol/L (98-107); Estimated Creatinine Clearance 85 ml/min; Glucose 103 mg/dl (70-99); Potassium 3.7 mmol/L (3.5-5.1); Sodium 132 mmol/L (135-145); eGFR > 60.00
--- NOTE | 2024-07-18 11:29 | CM ---
CM reviewed chart, patient positive for Norovirus. Patient remains on IV antibiotics. CM discussed VN for patient upon discharge, patient uncertain at this time, would like to see how he feels closer to discharge. CM will continue to follow for all
discharge planning needs.
Plan; home vs home with VN.
--- NOTE | 2024-07-18 11:41 | W.PN.HOSP.TC ---
Today's Communication/Plan
-
switch IVF to LR
continue IV abx
precautions and supportive care for norovirus
Assessment / Plan
Assessment / Plan
69yo M with PMHx of liver cirrhosis, esophageal varices s/p banding, s/p TIPS, Afib on apixaban came with SOB and dizziness for past week, found pneumococcal and pseudomonal pneumonia and Afib with RVR. Developed nausea and diarrhea 2/2 norovirus
Assessment:
Multifocal pneumonia with S.pneumoniae and Pseudomonas (pansensitive)
- continue Cefepime, day 3 per ID
parox A. fib with RVR
- Echo: Normal biventricular size and systolic function without regional wall motion abnormality. Aortic sclerosis without stenosis. Trivial aortic regurgitation
- Continue Cardizem 60mg QID per [facility]
- continue Eliquis
Acute Norovirus infection
- symptomatic and supportive care
- continue IVF
- diet to tolerance
Hyponatremia
- from diarrhea
- monitor with IVF (Switch to LR from D5W)
Hx of liver cirrhosis (hx of TIPS, hx of Esophageal varices)
Weight loss
- AFP and Abd US pending
thrombocytopenia 2/2 liver cirrhosis
- follow CBC
Mild anemia
mild leukopenia
- follow CBC
- outpatient follow up
DVT ppx: Eliquis
Code: Full
Anticipated Discharge: 24 - 48 hours
Subjective/Interval History
-
Date of Service: July 18, 2024
remains with ongoing diarrhea, no vomiting, willing to try some oral solid intake
Objective Data
-
Labs:
Laboratory Results
07/18/24
08:42
Sodium 132 L
Potassium 3.7
Chloride 96 L
Carbon Dioxide 27
BUN 12
Creatinine 0.7
Glucose 103 H
Calcium 7.8 L
Vital Signs:
Vital Signs
Temp Pulse Resp BP Pulse Ox
98.0 F 84 16 115/65 95
07/18/24 08:00 07/18/24 08:00 07/18/24 08:00 07/18/24 08:00 07/18/24 08:00
I&O
07/17/24 07/18/24 07/19/24
06:59 06:59 06:59
Intake Total 1100 / 1100 1500 / 1500
Output Total 610 / 610 677 / 677
Balance 490 / 490 823 / 823
Physical Exam
-
General: No Apparent Distress
HEENT: Normocephalic and Atraumatic
Respiratory: Negative Wheezes
Cardiac: Regular Rhythm and S1/S2
GI: Soft
Genito-urinary: No Costovertebral Tender
Musculoskeletal: No Edema
Neuro: AO x 3
Hematologic / Lymphatic: No Lymphadenopathy
Psych: Calm
Data Reviewed
-
Total Time Spent with Patient (in minutes): 41
Labs: Labs Reviewed by me
[2024-07-18 12:00] VITALS: BP 126/69
[2024-07-18] MEDS: LR 1000 IV (12:33)
[2024-07-18] MEDS: CARDIZEM 60 MG PO (12:33)
--- NOTE | 2024-07-18 14:51 | W.PN.ID1 ---
Date of Service
Date of Service: July 18, 2024
Today's Communication
Continue cefepime.
Assessment / Plan
Norovirus infection
- improved
Pneumococcal pneumonia
Pseudomonas pneumonia
Ambulatory dysfunction
A-fib
COPD
Hx dysfunction / Cirrhosis
hx GI bleed
Recommendations:
Supportive care for norovirus.
Continue enhanced contact precaution.
Follow clinically
Current respiratory cultures with Strep. pneumo and Pseudomonas.
Passed video swallow test.
s/p Unasyn (4d)
Continue cefepime (d#3). Given recovery of Pseudomonas, would complete a 10 day course of cefepime
Follow-up chest x-ray in 6 weeks.
����������������������������������������������������������
Chief Complaint
-: Pneumonia
Subjective / Review of Systems
Patient seen and examined. Reports still with cough, but nausea and vomiting has abated.
Review of Systems: No Fever and No Chills
Vital Signs / Physical Exam
Vital Signs
Vital Signs
Temp Pulse Resp BP Pulse Ox
98.6 F 90 17 126/69 95
07/18/24 12:00 07/18/24 13:16 07/18/24 13:16 07/18/24 12:00 07/18/24 13:16
Physical Exam
Constitutional: No Acute Distress, Comfortable, Chronically Ill and Cachetic
Eyes: Sclera Anicteric
Pulmonary: Non Labored
Gastrointestinal: Non Distended
Extremities: Negative Edema, Cyanosis or Erythema
Neurological: Awake and Alert
Psychological: Calm
Objective Data
Lab Data
Lab Results
07/17/24 05:37
07/18/24 08:42
Estimated Creat Clear 85 ml/min 07/18/24 08:42
Total Bilirubin 0.6 mg/dl (0.2-1.3) 07/17/24 05:37
AST 18 U/L (17-59) 07/17/24 05:37
ALT 21 U/L (0-50) 07/17/24 05:37
Alkaline Phosphatase 79 U/L (38-126) 07/17/24 05:37
Most recent labs reviewed.
Micro Results:
07/13/24 13:47 Respiratory Culture - Final
Sputum Pseudomonas aeruginosa
Gram Stain - Final
07/16/24 09:15 C. difficile GDH Antigen & Toxins - Final
Feces/Stool Negative for toxigenic C.difficile
- Final
Positive for Norovirus GII
07/12/24 16:00 Respiratory Culture - Final
Sputum - Induced Streptococcus pneumoniae
Gram Stain - Final
07/13/24 04:01 Legionella Urinary Antigen - Final
Urine Negative for Legionella pneumophila Serogroup 1 antigen.
A negative result does not rule out the possiblity of
Legionella infection due to other serogroups or species of
Legionella. Clinical correlation is recommended.
Streptococcus pneumoniae Antigen (M - Final
Positive for Strep pneumo Ag
07/12/24 15:47 Influenza Types A & B (LUIS ALBERTO) - Final
Nasal Swab Negative for Influenza A & B, NAAT
Negative results must be combined with clinical observations
and patient history.
Nucleic Acid Amplification test (NAAT)performed on the
[employer] platform.
Imaging:
07/12/2024 CT chest (PE study): No evidence of pulmonary embolism. Bilateral multifocal pneumonia, worst in the lower lobes bilaterally, possibly aspiration related. Reactive mediastinal lymphadenopathy noted. Please see full dictation for
additional detail. Film personally viewed.
07/12/2024 CXR (2 view): Hyperexpanded lungs with decreased bronchovascular markings suspicious for underlying COPD/emphysema. Ill-defined opacity within the medial right lung base which could represent pneumonia in the appropriate clinical setting.
There are also be a retrocardiac opacity. Consider follow-up imaging to ensure resolution of these findings. No significant pleural effusions.
[2024-07-18] MEDS: CARDIZEM 30 MG PO (15:12)
[2024-07-18 16:00] VITALS: BP 124/73
--- NOTE | 2024-07-18 16:04 | PTCARENOTE ---
Pt HR consistently in 110s-120s on telemetry. Pt reports feeling his heart racing and difficulty getting it under control. MD made aware, additional 30mg PO cardizem ordered and administered. Will continue to monitor.
[2024-07-18 19:26] VITALS: BP 114/76
[2024-07-18] MEDS: CARDIZEM 90 MG PO (19:51)
[2024-07-18 20:39] LABS: AFP Male/Tumor Marker < 0.800 ng/ml
[2024-07-18 23:30] VITALS: BP 109/69
[2024-07-19] MEDS: CARDIZEM 90 MG PO (02:21)
[2024-07-19 03:39] VITALS: BP 120/55
[2024-07-19] MEDS: MAXIPIME 2000 MG IV ×3 (04:33→21:21)
[2024-07-19] MEDS: STERILE WATER FOR INJECTION 10 ML IV ×3 (04:34→21:21)
[2024-07-19 06:30] VITALS: BMI 18.5
[2024-07-19 07:00] VITALS: BP 116/71
--- NOTE | 2024-07-19 07:55 | W.PN.CD ---
Today's Communication / Plan
-
Start dilt 360 mg dialy
stop dilt 90 q6hr
Follow up in 2-3 weeks for AF ablation consult with Dr Vasquez
We will sign off please call with questions/concerns.
Impression / Plan
-
IMPRESSION/PLAN: 69M with paroxysmal atrial fibrillation (on apixaban and COPD who presented to the emergency department with a chief complaint of shortness of breath.
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
Atrial fibrillation with rapid ventricular response
-Long standing persistent - onset was before apr 2023.
-Propranolol was recommended by GI, diltiazem caused significant fatigue
-he had side effect with propranolol.
-Oral Anticoagulation: Apixaban 5 mg twice daily, he denies missed doses and abnormal bleeding
-[id number]: score 1 (age 65-74)
-RVR with onset of norovirus, stop dilt gtt
-AAD like Sotalol, Tikosyn and Amiodarone can be used if needed but would avoid adding given unclear medical etiology. The AADs are less likely to be effective given long standing AF.
-ECHO 23/06/24: LVEF 60%. Aortic sclerosis without stenosis
- tolerated Dilt 90 mg q6hr with improved HRs
- dilt 360 ER plan outpatient ablation consult with Dr Vasquez in 2-3 weeks
Norovirus: -diarrhea remains Remaining care as per medicine
Liver disease, type unknown
-Possible varices, he reports regular GI evaluations
-He reports going to [place] for TIPS consultation but he was 'not sick enough'
-Most recent discharge summary requested
-30 lbs weigh loss - unintentional.
Community-acquired pneumonia, per primary
-Ceftriaxone / doxy switched to Unasyn
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
-CT Chest 07/12 - Bilateral multifocal pneumonia worst in the lower lobes bilaterally, possibly aspiration related.
Subjective:
He is feeling poor has not moved since Thursday, diarrhea remains an issue
Physical Exam
Vital Signs/Labs
Vital Signs
Temp Pulse Resp BP Pulse Ox
98.5 F 61 14 120/55 93
07/19/24 03:39 07/19/24 03:39 07/19/24 03:39 07/19/24 03:39 07/19/24 03:39
07/18/24 07/19/24 07/20/24
06:59 06:59 06:59
Actual Weight 136 lb 8 oz
Magnesium 1.9 mg/dl (1.6-2.3) 07/16/24 07:19
07/12/24
12:29
[id number] Pept 518
Physical Exam
Constitutional: No acute distress and Comfortable
EENT: Anicteric
Cardiovascular: Pedal edema is absent and Rhythm/rate is irregular
Respiratory: Respiratory effort normal and Lungs clear to auscul.
GI: Soft
Neuro/Psych: AO x 3
Data Reviewed
-
Date of Service: July 19, 2024
EKG: Tracing Personally Visualized and interpreted (af)
Echo: Report Reviewed by me
Labs: Labs Reviewed by me
[2024-07-19] MEDS: ELIQUIS 5 MG PO ×2 (08:28→20:04)
[2024-07-19] MEDS: PROTONIX 40 MG PO (08:28)
[2024-07-19] MEDS: MUCINEX 600 MG PO ×2 (08:28→20:04)
[2024-07-19] MEDS: CARDIZEM CD 360 MG PO (08:28)
[2024-07-19 08:29] LABS: Hematocrit 31.3 % (39.0-52.0); Mean Corp Hgb Conc. 31.9 g/dL (33.0-37.0); Mean Corpuscular Hgb 26.8 pg (27.0-31.0); Mean Corpuscular Volume 83.9 fL (80.0-94.0); Mean Platelet Volume 10.1 fL (7.4-10.4); Platelet Count 97 10^3/uL (130-400); Red Blood Cell Count 3.73 10^6/uL (4.70-6.10); Red Cell Dist. Width 15.6 % (11.5-14.5); White Blood Cell Count 3.6 10^3/uL (4.8-10.8)
[2024-07-19 08:53] LABS: Blood Urea Nitrogen 12 mg/dl (9-20); Calcium 8.1 mg/dl (8.4-10.2); Carbon Dioxide 27 mmol/L (22-30); Chloride 99 mmol/L (98-107); Estimated Creatinine Clearance 86 ml/min; Glucose 95 mg/dl (70-99); Potassium 4.2 mmol/L (3.5-5.1); Sodium 135 mmol/L (135-145); eGFR > 60.00
[2024-07-19] MEDS: CARDIZEM PO (09:21)
--- NOTE | 2024-07-19 10:57 | W.PN.HOSP.TC ---
Today's Communication/Plan
-
PO Cardizem daily XL
continue IV Abx
ongoing PT/OT evals
ongoing supportive care for Norovirus
Assessment / Plan
Assessment / Plan
69yo M with PMHx of liver cirrhosis, esophageal varices s/p banding, s/p TIPS, Afib on apixaban came with SOB and dizziness for past week, found pneumococcal and pseudomonal pneumonia and Afib with RVR. Developed nausea and diarrhea 2/2 norovirus
Assessment:
Multifocal pneumonia with S.pneumoniae and Pseudomonas (pansensitive)
- continue Cefepime, day 11/10 per ID. End date 07/25
parox A. fib with RVR
- Echo: Normal biventricular size and systolic function without regional wall motion abnormality. Aortic sclerosis without stenosis. Trivial aortic regurgitation
- continue Cardizem 360mg QD per [facility]
- continue Eliquis
- outpatient Ablation in 2-[address] Vasquez
Acute Norovirus infection
- symptomatic and supportive care
- cap IVF
- diet to tolerance
Hyponatremia
- from diarrhea
- resolved with switch of IVF to LR
Hx of liver cirrhosis (hx of TIPS, hx of Esophageal varices)
Weight loss
- Abd US: No evidence for gallstones. There is a small amount of ascites adjacent to the liver and spleen. Gallbladder wall thickening, which is nonspecific, often seen in association with ascites and cirrhosis. Negative sonographic Calles's sign.
No gross evidence for intrahepatic bile duct dilation. Common bile duct measures up to 6.9 mm, in the upper range of normal. No evidence for hepatic mass lesion. The main portal vein is patent with normal direction of flow. Splenomegaly.
- AFP <0.800
thrombocytopenia 2/2 liver cirrhosis
- follow CBC
Mild anemia
mild leukopenia
- follow CBC
- outpatient follow up
DVT ppx: Eliquis
Code: Full
Dispo: SNF vs home VN
Anticipated Discharge: > 48 hours
Subjective/Interval History
-
Date of Service: July 19, 2024
diarrhea improving, noticing small clumps in stool
no vomiting, tolerating diet
Objective Data
-
Labs:
Laboratory Results
07/19/24
07:10
WBC 3.6 L
Hgb 10.0 L
Hct 31.3 L
Plt Count 97 L
Sodium 135
Potassium 4.2
Chloride 99
Carbon Dioxide 27
BUN 12
Creatinine 0.7
Glucose 95
Calcium 8.1 L
Vital Signs:
Vital Signs
Temp Pulse Resp BP Pulse Ox
98.2 F 69 16 116/71 94
07/19/24 07:00 07/19/24 07:00 07/19/24 07:00 07/19/24 07:00 07/19/24 07:00
I&O
07/18/24 07/19/24 07/20/24
06:59 06:59 06:59
Intake Total 1500 / 1500 1120 / 1120
Output Total 677 / 677 1850 / 1850
Balance 823 / 823 -730 / -730
Physical Exam
-
General: No Apparent Distress
HEENT: Normocephalic and Atraumatic
Respiratory: Negative Wheezes
Cardiac: Regular Rhythm and S1/S2
GI: Soft and Nontender
Genito-urinary: No Costovertebral Tender
Neuro: AO x 3
Hematologic / Lymphatic: No Lymphadenopathy
Psych: Calm
Data Reviewed
-
Total Time Spent with Patient (in minutes): 42
Labs: Labs Reviewed by me
[2024-07-19 11:00] VITALS: BP 111/71
--- NOTE | 2024-07-19 14:55 | W.PN.ID1 ---
Date of Service
Date of Service: July 19, 2024
Today's Communication
Continue antibiotics.
Assessment / Plan
Norovirus infection
- improved
Pneumococcal pneumonia
Pseudomonas pneumonia
Ambulatory dysfunction
A-fib
COPD
Hx dysfunction / Cirrhosis
hx GI bleed
Recommendations:
Supportive care for norovirus.
Continue enhanced contact precaution.
Follow clinically
Current respiratory cultures with Strep. pneumo and Pseudomonas.
Passed video swallow test.
Continue cefepime (d#4). Given recovery of Pseudomonas, would complete a 10 day course of cefepime
Follow-up chest x-ray in 6 weeks.
����������������������������������������������������������
Chief Complaint
-: Pneumonia
Subjective / Review of Systems
Review of Systems: No Fever, No Chills, Cough and Sputum Production (Decreasing)
Vital Signs / Physical Exam
Vital Signs
Vital Signs
Temp Pulse Resp BP Pulse Ox
98.2 F 119 20 111/71 93
07/19/24 11:00 07/19/24 11:00 07/19/24 11:00 07/19/24 11:00 07/19/24 11:00
Physical Exam
Constitutional: No Acute Distress, Comfortable, Chronically Ill and Cachetic
Eyes: Sclera Anicteric
Pulmonary: Non Labored
Gastrointestinal: Non Distended
Extremities: Negative Edema, Cyanosis or Erythema
Neurological: Awake and Alert
Psychological: Calm
Objective Data
Lab Data
Lab Results
07/19/24 07:10
07/19/24 07:10
Estimated Creat Clear 86 ml/min 07/19/24 07:10
Total Bilirubin 0.6 mg/dl (0.2-1.3) 07/17/24 05:37
AST 18 U/L (17-59) 07/17/24 05:37
ALT 21 U/L (0-50) 07/17/24 05:37
Alkaline Phosphatase 79 U/L (38-126) 07/17/24 05:37
Most recent labs reviewed.
Micro Results:
07/13/24 13:47 Respiratory Culture - Final
Sputum Pseudomonas aeruginosa
Gram Stain - Final
07/16/24 09:15 C. difficile GDH Antigen & Toxins - Final
Feces/Stool Negative for toxigenic C.difficile
- Final
Positive for Norovirus GII
07/12/24 16:00 Respiratory Culture - Final
Sputum - Induced Streptococcus pneumoniae
Gram Stain - Final
07/13/24 04:01 Legionella Urinary Antigen - Final
Urine Negative for Legionella pneumophila Serogroup 1 antigen.
A negative result does not rule out the possiblity of
Legionella infection due to other serogroups or species of
Legionella. Clinical correlation is recommended.
Streptococcus pneumoniae Antigen (M - Final
Positive for Strep pneumo Ag
07/12/24 15:47 Influenza Types A & B (LUIS ALBERTO) - Final
Nasal Swab Negative for Influenza A & B, NAAT
Negative results must be combined with clinical observations
and patient history.
Nucleic Acid Amplification test (NAAT)performed on the
[employer] platform.
Imaging:
07/12/2024 CT chest (PE study): No evidence of pulmonary embolism. Bilateral multifocal pneumonia, worst in the lower lobes bilaterally, possibly aspiration related. Reactive mediastinal lymphadenopathy noted. Please see full dictation for
additional detail. Film personally viewed.
07/12/2024 CXR (2 view): Hyperexpanded lungs with decreased bronchovascular markings suspicious for underlying COPD/emphysema. Ill-defined opacity within the medial right lung base which could represent pneumonia in the appropriate clinical setting.
There are also be a retrocardiac opacity. Consider follow-up imaging to ensure resolution of these findings. No significant pleural effusions.
[2024-07-19 15:00] VITALS: BP 121/61
--- NOTE | 2024-07-19 15:24 | PN.CDI ---
CDI
- -
CDI:
Physician Documentation Request
Admit Date: 07/12/24 16:06
Dear Doctor Maycol,
Patient admitted with pneumonia.
07/19 Cardiology PN: 'Atrial fibrillation with rapid ventricular response -Long standing persistent'
07/19 Hospitalist PN: 'parox A. fib with RVR...- continue Cardizem 360mg QD per [facility] - continue Eliquis - outpatient Ablation in 2-[address] Vasquez'
If possible, please provide further specificity regarding atrial fibrillation, such as:
Persistent atrial fibrillation - episodes of continuous AF that last more than 7 days and do not self-terminate
Paroxysmal atrial fibrillation - terminates spontaneously or with intervention within 7 days of onset
Other - please specify
Use of terms such as suspected, likely, concern for, or probable (associated with a specific diagnosis that is being evaluated, monitored, or treated as if it exists) are acceptable and can be coded in the inpatient setting, when documented at the
time of discharge.
Thank you,
Carlee Alejandro RN, BSN
CDI Specialist
Available via [facility] text
Please use your independent medical judgment in providing your response.
--- NOTE | 2024-07-19 16:00 | CM ---
CM reviewed chart, reviewed with Hospitalist, patient will require IV antibiotics upon discharge. Patient seen, discussed PT recommendation of SNF. Patient agreeable, reports he does not feel comfortable returning home on IV antibiotics. Patient
agreeable to local referrals to be sent out, patient will require insurance auth. CM will continue to follow for all discharge planning needs.
Plan; SNF pending accepting facility, will require insurance auth.
[2024-07-19 19:00] VITALS: BP 120/72
[2024-07-19 22:50] VITALS: BP 112/73
[2024-07-20 03:57] VITALS: BP 111/73
[2024-07-20 07:00] VITALS: BP 114/66
[2024-07-20] MEDS: CARDIZEM CD 360 MG PO (07:30)
[2024-07-20] MEDS: MUCINEX 600 MG PO ×2 (07:30→19:55)
[2024-07-20] MEDS: ELIQUIS 5 MG PO ×2 (07:30→19:55)
[2024-07-20] MEDS: PROTONIX 40 MG PO (07:30)
--- NOTE | 2024-07-20 07:59 | W.PN.HOSP.TC ---
Today's Communication/Plan
-
SNF placement pending
continue IV Abx
Assessment / Plan
Assessment / Plan
69yo M with PMHx of liver cirrhosis, esophageal varices s/p banding, s/p TIPS, Afib on apixaban came with SOB and dizziness for past week, found pneumococcal and pseudomonal pneumonia and Afib with RVR. Developed nausea and diarrhea 2/2 norovirus
Assessment:
Multifocal pneumonia with S.pneumoniae and Pseudomonas (pansensitive)
- continue Cefepime, day 5/10 per ID. End date 07/25.
persistent A. fib with RVR
- Echo: Normal biventricular size and systolic function without regional wall motion abnormality. Aortic sclerosis without stenosis. Trivial aortic regurgitation
- continue Cardizem 360mg QD per [facility]
- continue Eliquis
- outpatient Ablation in 2-[address] Vasquez
Acute Norovirus infection
- symptomatic and supportive care
- cap IVF
- diet to tolerance
- will d/w infection prevention on dc of iso precautions
Hyponatremia
- from diarrhea
- resolved with switch of IVF to LR
Hx of liver cirrhosis (hx of TIPS, hx of Esophageal varices)
Weight loss
- Abd US: No evidence for gallstones. There is a small amount of ascites adjacent to the liver and spleen. Gallbladder wall thickening, which is nonspecific, often seen in association with ascites and cirrhosis. Negative sonographic Calles's sign.
No gross evidence for intrahepatic bile duct dilation. Common bile duct measures up to 6.9 mm, in the upper range of normal. No evidence for hepatic mass lesion. The main portal vein is patent with normal direction of flow. Splenomegaly.
- AFP <0.800
thrombocytopenia 2/2 liver cirrhosis
- follow CBC
Mild anemia
mild leukopenia
- follow CBC
- outpatient follow up
DVT ppx: Eliquis
Code: Full
Dispo: SNF options being explored. Patient will need IV abx ongoing and cannot manage at home
Anticipated Discharge: 24 - 48 hours
Subjective/Interval History
-
Date of Service: July 20, 2024
denies any new complaints
stools continue to form
Objective Data
-
Labs:
Laboratory Results
07/20/24
06:00
WBC Pending
Hgb Pending
Hct Pending
Plt Count Pending
Sodium Pending
Potassium Pending
Chloride Pending
Carbon Dioxide Pending
BUN Pending
Creatinine Pending
Glucose Pending
Calcium Pending
Vital Signs:
Vital Signs
Temp Pulse Resp BP Pulse Ox
97.9 F 78 16 125/88 98
07/20/24 03:57 07/20/24 07:30 07/20/24 03:57 07/20/24 07:30 07/20/24 03:57
I&O
07/19/24 07/20/24 07/21/24
06:59 06:59 06:59
Intake Total 1120 / 1120 1500 / 1500
Output Total 1850 / 1850 975 / 975
Balance -730 / -730 525 / 525
Physical Exam
-
General: No Apparent Distress
HEENT: Normocephalic and Atraumatic
Respiratory: Negative Wheezes
Cardiac: Regular Rhythm and S1/S2
GI: Soft
Genito-urinary: No Costovertebral Tender
Neuro: AO x 3
Hematologic / Lymphatic: No Lymphadenopathy
Psych: Calm
Data Reviewed
-
Total Time Spent with Patient (in minutes): 42
Labs: Labs Reviewed by me
[2024-07-20] MEDS: MAXIPIME 2000 MG IV ×2 (09:22→21:36)
[2024-07-20] MEDS: STERILE WATER FOR INJECTION 10 ML IV ×2 (09:22→21:36)
[2024-07-20 09:56] LABS: Hematocrit 34.2 % (39.0-52.0); Mean Corp Hgb Conc. 32.2 g/dL (33.0-37.0); Mean Corpuscular Hgb 26.4 pg (27.0-31.0); Mean Corpuscular Volume 82.2 fL (80.0-94.0); Mean Platelet Volume 9.9 fL (7.4-10.4); Platelet Count 94 10^3/uL (130-400); Red Blood Cell Count 4.16 10^6/uL (4.70-6.10); Red Cell Dist. Width 15.7 % (11.5-14.5); White Blood Cell Count 2.9 10^3/uL (4.8-10.8)
[2024-07-20 10:46] LABS: Blood Urea Nitrogen 15 mg/dl (9-20); Calcium 8.4 mg/dl (8.4-10.2); Carbon Dioxide 28 mmol/L (22-30); Chloride 99 mmol/L (98-107); Estimated Creatinine Clearance 100 ml/min; Glucose 107 mg/dl (70-99); Iron 45 ug/dl (49-181); Potassium 3.9 mmol/L (3.5-5.1); Sodium 134 mmol/L (135-145); eGFR > 60.00
[2024-07-20 10:54] LABS: Percent Saturation 15 % (20-50); Total Iron Binding Capacity 293 ug/dl (261-462)
[2024-07-20 12:02] LABS: Ferritin 47.3 ng/ml (17.9-464.0)
--- NOTE | 2024-07-20 14:26 | PTCARENOTE ---
07/20- Move patient to Standard Precautions as per Physician d/t patient's S/S being fully resolved for over 24hours, and symptom onset of Norovirus being 4 days ago.
[2024-07-20 15:00] VITALS: BP 128/68
--- NOTE | 2024-07-20 15:09 | CM ---
CM reviewed chart, patient seen bedside. CM discussed [facility] able to offer patient a bed. Patient agreeable to SNF as he cannot administer IV antibiotics at home. Patient reports very firmly that he will need ambulance transport to facility.
CM will continue to follow for all discharge planning needs.
Plan; [facility], will initiate auth
--- NOTE | 2024-07-20 16:39 | W.PN.ID1 ---
Date of Service
Date of Service: July 20, 2024
Today's Communication
Continue current course of cefepime
Assessment / Plan
Norovirus infection
- improved/resolved
Pneumococcal pneumonia
Pseudomonas pneumonia
Ambulatory dysfunction
A-fib
COPD
Hx dysfunction / Cirrhosis
hx GI bleed
Recommendations:
Continue enhanced contact precaution.
Current respiratory cultures with Strep. pneumo and Pseudomonas.
Passed video swallow test.
Continue cefepime (d#5). Given recovery of Pseudomonas, would complete a 10 day course of cefepime.
Follow-up chest x-ray in 6 weeks.
����������������������������������������������������������
Chief Complaint
-: Pneumonia
Subjective / Review of Systems
Patient seen and examined. No nausea, vomiting or diarrhea. Stool is firming up. Appetite is improving. Still with cough, along with sputum production.
Review of Systems: No Fever, No Chills, Cough and Sputum Production
Vital Signs / Physical Exam
Vital Signs
Vital Signs
Temp Pulse Resp BP Pulse Ox
97.8 F 78 18 125/88 98
07/20/24 07:00 07/20/24 07:30 07/20/24 07:00 07/20/24 07:30 07/20/24 07:30
Physical Exam
Constitutional: No Acute Distress, Comfortable, Chronically Ill and Non-toxic
Eyes: Sclera Anicteric
Pulmonary: Symmetric, Coarse and Non Labored
Gastrointestinal: Non Distended
Extremities: Negative Edema, Cyanosis or Erythema
Neurological: Awake and Alert
Psychological: Calm
Objective Data
Lab Data
Lab Results
07/20/24 09:34
07/20/24 09:34
Estimated Creat Clear 100 ml/min 07/20/24 09:34
Total Bilirubin 0.6 mg/dl (0.2-1.3) 07/17/24 05:37
AST 18 U/L (17-59) 07/17/24 05:37
ALT 21 U/L (0-50) 07/17/24 05:37
Alkaline Phosphatase 79 U/L (38-126) 07/17/24 05:37
Most recent labs reviewed.
Micro Results:
07/13/24 13:47 Respiratory Culture - Final
Sputum Pseudomonas aeruginosa
Gram Stain - Final
07/16/24 09:15 C. difficile GDH Antigen & Toxins - Final
Feces/Stool Negative for toxigenic C.difficile
- Final
Positive for Norovirus GII
07/12/24 16:00 Respiratory Culture - Final
Sputum - Induced Streptococcus pneumoniae
Gram Stain - Final
07/13/24 04:01 Legionella Urinary Antigen - Final
Urine Negative for Legionella pneumophila Serogroup 1 antigen.
A negative result does not rule out the possiblity of
Legionella infection due to other serogroups or species of
Legionella. Clinical correlation is recommended.
Streptococcus pneumoniae Antigen (M - Final
Positive for Strep pneumo Ag
07/12/24 15:47 Influenza Types A & B (LUIS ALBERTO) - Final
Nasal Swab Negative for Influenza A & B, NAAT
Negative results must be combined with clinical observations
and patient history.
Nucleic Acid Amplification test (NAAT)performed on the
[employer] platform.
Imaging:
07/12/2024 CT chest (PE study): No evidence of pulmonary embolism. Bilateral multifocal pneumonia, worst in the lower lobes bilaterally, possibly aspiration related. Reactive mediastinal lymphadenopathy noted. Please see full dictation for
additional detail. Film personally viewed.
07/12/2024 CXR (2 view): Hyperexpanded lungs with decreased bronchovascular markings suspicious for underlying COPD/emphysema. Ill-defined opacity within the medial right lung base which could represent pneumonia in the appropriate clinical setting.
There are also be a retrocardiac opacity. Consider follow-up imaging to ensure resolution of these findings. No significant pleural effusions.
[2024-07-20 23:00] VITALS: BP 124/80
[2024-07-21] MEDS: MUCINEX 600 MG PO ×2 (07:25→19:53)
[2024-07-21] MEDS: ELIQUIS 5 MG PO ×2 (07:25→19:53)
[2024-07-21] MEDS: PROTONIX 40 MG PO (07:25)
[2024-07-21] MEDS: CARDIZEM CD PO (07:30)
--- NOTE | 2024-07-21 07:30 | PTCARENOTE ---
07/21- Patient refuses Cardizem at this time stating he believes the large dose of Cardizem in the morning made him drowsy all day and slept all day yesterday. He requests it be changed to HS. Patient continues to have emotional barriers to
education and needs repetition and detailed reinforcement of all education. Patient still refuses Cardizem at this time. Notified Physician.
[2024-07-21 08:07] VITALS: BP 113/70
[2024-07-21 08:39] LABS: Mean Corp Hgb Conc. 32.3 g/dL (33.0-37.0); Mean Corpuscular Hgb 26.7 pg (27.0-31.0); Mean Corpuscular Volume 82.7 fL (80.0-94.0); Mean Platelet Volume 10.4 fL (7.4-10.4); Platelet Count 99 10^3/uL (130-400); Red Blood Cell Count 3.75 10^6/uL (4.70-6.10); Red Cell Dist. Width 15.8 % (11.5-14.5); White Blood Cell Count 2.8 10^3/uL (4.8-10.8)
[2024-07-21 08:46] VITALS: BP 113/70; PULSE 107; O2SAT 97
[2024-07-21 09:26] LABS: Blood Urea Nitrogen 16 mg/dl (9-20); Calcium 8.4 mg/dl (8.4-10.2); Carbon Dioxide 27 mmol/L (22-30); Chloride 101 mmol/L (98-107); Estimated Creatinine Clearance 100 ml/min; Glucose 96 mg/dl (70-99); Potassium 4.5 mmol/L (3.5-5.1); Sodium 135 mmol/L (135-145); eGFR > 60.00
[2024-07-21] MEDS: FEOSOL 325 MG PO (09:59)
[2024-07-21] MEDS: MAXIPIME 2000 MG IV ×2 (10:00→21:51)
[2024-07-21] MEDS: STERILE WATER FOR INJECTION 10 ML IV ×2 (10:00→21:51)
--- NOTE | 2024-07-21 11:33 | W.PN.HOSP.TC ---
Today's Communication/Plan
-
split Cardizem dose to BID
oral iron
Midline
SNF planning
Assessment / Plan
Assessment / Plan
69yo M with PMHx of liver cirrhosis, esophageal varices s/p banding, s/p TIPS, Afib on apixaban came with SOB and dizziness for past week, found pneumococcal and pseudomonal pneumonia and Afib with RVR. Developed nausea and diarrhea 2/2 norovirus
Assessment:
Multifocal pneumonia with S.pneumoniae and Pseudomonas (pansensitive)
- continue Cefepime, day 6. 10-14 days per ID.
persistent A. fib with RVR
- Echo: Normal biventricular size and systolic function without regional wall motion abnormality. Aortic sclerosis without stenosis. Trivial aortic regurgitation
- continue Cardizem 180mg BID
- continue Eliquis
- outpatient Ablation in 2-[address] Vasquez
Acute Norovirus infection
- symptomatic and supportive care
- cap IVF
- diet to tolerance
- will d/w infection prevention on dc of iso precautions
Hyponatremia
- from diarrhea
- resolved with switch of IVF to LR
Hx of liver cirrhosis (hx of TIPS, hx of Esophageal varices)
Weight loss
- Abd US: No evidence for gallstones. There is a small amount of ascites adjacent to the liver and spleen. Gallbladder wall thickening, which is nonspecific, often seen in association with ascites and cirrhosis. Negative sonographic Calles's sign.
No gross evidence for intrahepatic bile duct dilation. Common bile duct measures up to 6.9 mm, in the upper range of normal. No evidence for hepatic mass lesion. The main portal vein is patent with normal direction of flow. Splenomegaly.
- AFP <0.800
thrombocytopenia 2/2 liver cirrhosis
- follow CBC
Mild anemia
mild leukopenia
- follow CBC
- outpatient follow up
DVT ppx: Eliquis
Code: Full
Dispo: SNF options being explored. Patient will need IV abx ongoing and cannot manage at home
Anticipated Discharge: Within 24 hours
Subjective/Interval History
-
Date of Service: July 21, 2024
reports somnolence with 360mg Cardizem given at once, agreeable to splitting dose
no new complaints
Objective Data
-
Labs:
Laboratory Results
07/21/24 07/21/24
07:19 07:20
WBC 2.8 L
Hgb 10.0 L
Hct 31.0 L
Plt Count 99 L
Sodium 135
Potassium 4.5
Chloride 101
Carbon Dioxide 27
BUN 16
Creatinine 0.6 L
Glucose 96
Calcium 8.4
Vital Signs:
Vital Signs
Temp Pulse Resp BP Pulse Ox
97.9 F 107 20 113/70 97
07/21/24 08:07 07/21/24 08:07 07/21/24 08:07 07/21/24 08:07 07/21/24 08:07
I&O
07/20/24 07/21/24 07/22/24
06:59 06:59 06:59
Intake Total 1500 / 1500 1380 / 1380
Output Total 975 / 975 1200 / 1200
Balance 525 / 525 180 / 180
Physical Exam
-
General: No Apparent Distress
HEENT: Normocephalic and Atraumatic
Respiratory: Negative Wheezes
Cardiac: Regular Rhythm and S1/S2
GI: Soft
Genito-urinary: No Costovertebral Tender
Neuro: AO x 3
Hematologic / Lymphatic: No Lymphadenopathy
Psych: Calm
Data Reviewed
-
Total Time Spent with Patient (in minutes): 42
Labs: Labs Reviewed by me
[2024-07-21] MEDS: CARDIZEM CD 180 MG PO ×2 (12:07→19:53)
--- NOTE | 2024-07-21 15:00 | CM ---
CM reviewed chart, auth submitted through [employer], auth #[id number], , updated Ashley [phone] at [facility] with auth. Patient seen bedside, CM explained patient does not qualify for ambulance transport, explained criteria for
ambulance transport. Patient requesting [employer] cover ambulance transport, CM explained [employer] does not provide precertification for ambulance transport. Per [place] with Acute [facility] transport, ambulance transport private pay $[phone]. CM explained patient can
pay for WC van transport for have family/friend transport, patient upset with this information. Patient provided with IMM, patient reports he may appeal discharge, instructed can not appeal until discharge order is in. CM offered to relay patients
concerns to Physician as to why he does not feel stable for discharge, patient inquiring exactly how long insurance covers patient to stay in Hospital, CM reports that is not something CM handles, advised patient to call his insurance directly. CM
updated nurse, update to Hospitalist via TT. Patient midline to be placed, CM left room. CM will continue to follow for all discharge planning needs.
Plan; [facility] SNF, auth approved , patient reports he may appeal discharge.
[2024-07-21 16:00] VITALS: BP 126/78
[2024-07-21] MEDS: FLUSH (NSS) 5 FLUSH IV (21:51)
[2024-07-21 23:26] VITALS: BP 121/68
--- NOTE | 2024-07-22 06:43 | VATNOTE ---
NOTED THAT 4FR LUE ML DRSG GROSSLY BLOODY. UNABLE TO FLUSH OR ASPIRATE ANY BLOOD. RD PER PROTOCOL. ONLY ABLE TO SLUDH MIDLINE WHEN CATHETER RETRACTED 1.5CM. NO BLOOD RETURN. PT C/O OF SEVERE PAIN AT INSERTION SITE AND WITH ANY MOVEMENT OF ARM. QUICK
CLOT APPLIED. PCN AWARE OF INTERVETNION AND OUTCOME.
[2024-07-22] MEDS: MUCINEX 600 MG PO (07:19)
[2024-07-22] MEDS: CARDIZEM CD 180 MG PO (07:19)
[2024-07-22] MEDS: ELIQUIS 5 MG PO (07:20)
[2024-07-22] MEDS: FEOSOL 325 MG PO (07:20)
[2024-07-22] MEDS: PROTONIX 40 MG PO (07:20)
[2024-07-22 07:30] VITALS: BP 118/72
[2024-07-22 09:11] LABS: Blood Urea Nitrogen 15 mg/dl (9-20); Calcium 8.3 mg/dl (8.4-10.2); Carbon Dioxide 27 mmol/L (22-30); Chloride 102 mmol/L (98-107); Estimated Creatinine Clearance 100 ml/min; Glucose 95 mg/dl (70-99); Potassium 3.9 mmol/L (3.5-5.1); Sodium 135 mmol/L (135-145); eGFR > 60.00
[2024-07-22] MEDS: MAXIPIME 2000 MG IV (09:53)
[2024-07-22] MEDS: STERILE WATER FOR INJECTION 10 ML IV (09:54)
--- NOTE | 2024-07-22 09:54 | CM ---
Addendum entered by Beatriz Dupree 07/22/24 13:47:
Script for antibiotics faxed to [facility], Attention: Ashley.
Addendum entered by Beatriz Dupree 07/22/24 11:00:
Met with patient at bedside todiscuss discharge to SNF today
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
MAUREEN spoke with Ashley @ [facility] to confirm that patient will arrive today and will need assistance from [facility] staff to help get him out of the car; into a WC and into the facility
Original Note:
Plan: Discharge to [facility] today via [employer] [facility]
Report # [phone]
[2024-07-22 10:03] LABS: Hematocrit 31.6 % (39.0-52.0); Mean Corp Hgb Conc. 31.6 g/dL (33.0-37.0); Mean Corpuscular Hgb 26.7 pg (27.0-31.0); Mean Corpuscular Volume 84.5 fL (80.0-94.0); Mean Platelet Volume 9.3 fL (7.4-10.4); Platelet Count 89 10^3/uL (130-400); Red Blood Cell Count 3.74 10^6/uL (4.70-6.10); Red Cell Dist. Width 15.7 % (11.5-14.5); White Blood Cell Count 2.6 10^3/uL (4.8-10.8)
--- NOTE | 2024-07-22 11:55 | W.PN.HOSP.TC ---
Addendum entered and electronically signed by Chris Severino MD 07/22/24 12:06:
ok per ID to do 14 days of Cefepime through 07/29
Original Note:
Today's Communication/Plan
-
dc to SNF today
Assessment / Plan
Assessment / Plan
69yo M with PMHx of liver cirrhosis, esophageal varices s/p banding, s/p TIPS, Afib on apixaban came with SOB and dizziness for past week, found pneumococcal and pseudomonal pneumonia and Afib with RVR. Developed nausea and diarrhea 2/2 norovirus
Assessment:
Multifocal pneumonia with S.pneumoniae and Pseudomonas (pansensitive)
- continue Cefepime, day 7. 10-14 days per ID.
persistent A. fib with RVR
- Echo: Normal biventricular size and systolic function without regional wall motion abnormality. Aortic sclerosis without stenosis. Trivial aortic regurgitation
- continue Cardizem 180mg BID
- continue Eliquis
- outpatient Ablation in 2-[address] Vasquez
Acute Norovirus infection
- symptomatic and supportive care
- cap IVF
- diet to tolerance
- will d/w infection prevention on dc of iso precautions
Hyponatremia
- from diarrhea
- resolved with switch of IVF to LR
Hx of liver cirrhosis (hx of TIPS, hx of Esophageal varices)
Weight loss
- Abd US: No evidence for gallstones. There is a small amount of ascites adjacent to the liver and spleen. Gallbladder wall thickening, which is nonspecific, often seen in association with ascites and cirrhosis. Negative sonographic Calles's sign.
No gross evidence for intrahepatic bile duct dilation. Common bile duct measures up to 6.9 mm, in the upper range of normal. No evidence for hepatic mass lesion. The main portal vein is patent with normal direction of flow. Splenomegaly.
- AFP <0.800
thrombocytopenia 2/2 liver cirrhosis
- follow CBC
Mild anemia
mild leukopenia
- follow CBC
- outpatient follow up
DVT ppx: Eliquis
Code: Full
Dispo: SNF today
More than 30 minutes spent in discharge including
Final examination of the patient
Summarizing hospital stay
Instructions for continuing care to all relevant caregivers
Preparation of discharge records, prescriptions, and referral forms
Total time spent (in minutes):41
Anticipated Discharge: Today
Subjective/Interval History
-
Date of Service: July 22, 2024
no complaints presently
Objective Data
-
Labs:
Laboratory Results
07/22/24
08:04
WBC 2.6 L
Hgb 10.0 L
Hct 31.6 L
Plt Count 89 L
Sodium 135
Potassium 3.9
Chloride 102
Carbon Dioxide 27
BUN 15
Creatinine 0.6 L
Glucose 95
Calcium 8.3 L
Vital Signs:
Vital Signs
Temp Pulse Resp BP Pulse Ox
97.9 F 94 18 118/72 96
07/22/24 07:30 07/22/24 07:30 07/22/24 07:30 07/22/24 07:30 07/22/24 07:30
I&O
07/21/24 07/22/24 07/23/24
06:59 06:59 06:59
Intake Total 1380 / 1380 1440 / 1440
Output Total 1200 / 1200 600 / 600
Balance 180 / 180 840 / 840
Physical Exam
-
General: No Apparent Distress
HEENT: Normocephalic and Atraumatic
Respiratory: Negative Wheezes
Cardiac: Regular Rhythm and S1/S2
GI: Soft
Genito-urinary: No Costovertebral Tender
Neuro: AO x 3
Hematologic / Lymphatic: No Lymphadenopathy
Psych: Calm
Data Reviewed
-
Total Time Spent with Patient (in minutes): 41
Labs: Labs Reviewed by me
[2024-07-22 12:03] VITALS: BP 128/79
--- NOTE | 2024-07-22 12:10 | W.DS.TRANS ---
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
-
Discharge Instructions:
Sleep Apnea Risk Low
Discharge Diagnosis/Procedures pseudomonas and strep pneumonia and also
norovirus infection, rapid Afib
Diet Regular
Activity As tolerated
Bathing Restrictions None
Other Services PT,OT
Instructions:
Stand-Alone Forms:
Changes to Home Medications: Yes
Discharge Medications:
DC Medications w/original date entered in [employer]
acetaminophen 500 mg tablet (Tylenol Extra Strength) 1,000 mg PO Q6HPRN PRN mild pain 07/12/24
apixaban 5 mg tablet (Eliquis) 5 mg PO BID AFib 07/12/24
cefepime 2 gram solution for injection 2,000 mg IV Q12H #14 ea 07/22/24
diltiazem HCl 180 mg capsule,extended release 24 hr 180 mg PO BID #60 caps 07/22/24
ferrous sulfate 325 mg (65 mg iron) tablet (FeroSul) 325 mg PO DAILY #100 tabs 07/22/24
guaifenesin 600 mg tablet, extended release 12 hr 600 mg PO Q12 #20 tabs 07/22/24
pantoprazole 40 mg tablet,delayed release 40 mg PO DAILY #30 tabs 07/22/24
Home Medication Changes
Cardizem in favor of BB
Pending Results: No
Total time spent discharging patient (in min): 41
== END 2024-07-22 14:24 | DRG 308 ==
LOC: 4 WEST ACU 16:06
PROVIDERS: Internal Medicine; Nurse Practitioner Family; ADMITTING PHYSICIAN Internal Medicine; ATTENDING PHYSICIAN Internal Medicine; CONSULT PHYSICIAN Student in an Organized Health Care Education/Training Program; EMERGENCY PHYSICIAN Student in an Organized Health Care Education/Training Program; OTHER PHYSICIAN Internal Medicine Infectious Disease
DX: I48.19 Other persistent atrial fibrillation (principal); J18.9 Pneumonia, unspecified organism; E87.1 Hypo-osmolality and hyponatremia; J44.0 Chronic obstructive pulmonary disease with (acute) lower respiratory infection; R64 Cachexia; Z68.1 Body mass index [BMI] 19.9 or less, adult; A08.11 Acute gastroenteropathy due to Norwalk agent; Z11.52 Encounter for screening for COVID-19; Z79.01 Long term (current) use of anticoagulants; I70.0 Atherosclerosis of aorta; D69.59 Other secondary thrombocytopenia; K74.60 Unspecified cirrhosis of liver; D72.819 Decreased white blood cell count, unspecified; D64.9 Anemia, unspecified
CPT/HCPCS: 71046; 71275; 74230; 76700; 80048; 80053; 82105; 82248; 82728; 83540; 83550; 83690; 83735; 83880; 84145; 84484; 85025; 85027; 87070; 87077; 87186; 87205; 87324; 87449; 87502; 87798; 87811; 87899; 92610; 92611; 93005; 93306; 96365; 96375; 97116; 97162; 97166; 97530; 99285; Q9967

== ENCOUNTER 2024-08-22 07:53 | Day surgery (SDC) | payer OTHER, SELFPAY ==
[2024-08-15 13:21] VITALS: BMI 18.5
[2024-08-15 14:26] LABS: % Basophils 0.4 % (0-2); % Eosinophils 6.9 % (0-6); % Lymphocytes 34.5 % (20.5-51.1); % Neutrophils 52.2 % (42.2-75.2); Absolute Eosinophils 0.2 10^3/uL (0-0.7); Absolute Lymphocytes 0.8 10^3/uL (1.2-3.4); Absolute Monocytes 0.1 10^3/uL (0.1-0.6); Absolute Neutrophils 1.2 10^3/uL (1.4-6.5); Hematocrit 34.7 % (39.0-52.0); Hemoglobin 11.1 g/dL (13.0-18.0); Mean Corpuscular Hgb 27.3 pg (27.0-31.0); Mean Corpuscular Volume 85.3 fL (80.0-94.0); Mean Platelet Volume 9.3 fL (7.4-10.4); Nucleated Red Blood Cells % 0 % (-); Platelet Count 67 10^3/uL (130-400); Red Blood Cell Count 4.07 10^6/uL (4.70-6.10); Red Cell Dist. Width 18.5 % (11.5-14.5); White Blood Cell Count 2.3 10^3/uL (4.8-10.8)
[2024-08-15 16:01] LABS: ALT (SGPT) 18 U/L (0-50); AST (SGOT) 24 U/L (17-59); Albumin 4.5 g/dl (3.5-5.0); Alkaline Phosphatase 117 U/L (38-126); Blood Urea Nitrogen 17 mg/dl (9-20); Carbon Dioxide 25 mmol/L (22-30); Chloride 104 mmol/L (98-107); Estimated Creatinine Clearance 100 ml/min; Glucose 104 mg/dl (70-99); Potassium 4.3 mmol/L (3.5-5.1); Sodium 140 mmol/L (135-145); Total Bilirubin 0.7 mg/dl (0.2-1.3); Total Protein 7.2 g/dl (6.3-8.2); eGFR > 60.00
[2024-08-22] VITALS (11 sets, daily range): BP systolic 109–132; BP diastolic 58–73; BMI 18.5
--- NOTE | 2024-08-22 13:37 | ITS.CL.ABL ---
Curriculum And Instruction Director - Ablation
Ablation
Procedure Report:
AFIB ablation:
Mr. Monahan is a very pleasant 69 yr old gentleman with symptomatic persistent AF and atrial flutters, is recommended for atrial fibrillation ablation.
Date of the Procedure:
08/22/2024
Indications:
Persistent atrial fibrillation / atrial flutter
Pre-Operative Diagnosis:
Persistent atrial fibrillation / atrial flutter
Post-Operative Diagnosis:
Persistent atrial fibrillation / atrial flutter
Procedure Performed:
Atrial fibrillation ablation with Pulsed-Field approach for pulmonary vein isolation
Posterior wall isolation
Typical atrial flutter with cavo tricuspid isthmus ablation
Performing Physician:
Sophie Vasquez MD
Assistants:
EP staff
Anesthesia:
See anesthesia records
Detailed Description of the Procedure:
Written informed consent was obtained from the patient after a full explanation of the risks and benefits of the procedure including the risks of sedation and anesthesia.
The patient was brought to the electrophysiology laboratory in stable condition in fasting state. Continuous electrocardiographic and hemodynamic monitoring was initiated.
The initial rhythm was atrial fibrillation.
The procedure site was meticulously prepared with surgical scrub and allowed to dry with no pooling. Sterile draping was applied to cover the procedure site. The image intensifier was draped with sterile bag and positioned over the patient. After
infusion of local anesthetic, vascular access was obtained under ultrasound guidance and sheaths were placed over guide wire as detailed below.
Sheath and Catheter Placement:
The following catheters / sheaths were placed
Sheaths:
��������� 17Fr steerable sheath ([employer]izeadrive�, [employer]) in right femoral
��������� 9Fr in right femoral vein
��������� 7Fr in right femoral vein
Catheters:
��������� HARMEET HD Grid mapping catheter � at locations of RA, LA
��������� Farawave� PFA catheter
��������� ICE catheter -AcuNav - at locations of RA, SVC, and RV.
��������� Decapolar Bard catheter in RA and CS
Intracardiac ECHO:
An 8-Burkinan AcuNav intracardiac ECHO (ICE) probe was advanced through the 9-Burkinan sheath in the right femoral vein into the right atrium under fluoroscopic and ICE ultrasound image guidance and a baseline ECHO study was performed. The left atrial
size was dilated. There was moderate tricuspid regurgitation. The aortic valve was grossly normal. There was normal left ventricular systolic functions. There is no pericardial effusion. All the four veins were identified and has flow identified.
There was good flow noted in the RAJESH.
During the procedure, ICE was used for monitoring of complications, guidance of trans-septal puncture, monitor the catheter position and tracking ablation lesions. No change in the pericardial space noted throughout the procedure.
Trans-septal Puncture:
Heparin was initiated and infused to maintain appropriate ACT. A pigtail guidewire was advanced through the 8-Burkinan sheath in the right femoral vein into the superior vena cava under fluoroscopic and ICE guidance. The 9-Burkinan sheath was exchanged
for a Faradrive sheath which was advanced into the superior vena cava. A transseptal Versa[employer] RF pigtail via Faradrive connect system was utilized to perform the trans-septal puncture. The apparatus was withdrawn until it was in contact with the
fossa ovalis. The position was adjusted based on fluoroscopy and ultrasound images from ICE. Under fluoroscopic, hemodynamic and ICE ultrasound guidance, left atrium was cannulated by applying RF energy. Once atrial septum was cannulated, the
pigtail wire was advanced into the left atrium. The guide wire was advanced into the left superior pulmonary vein. Both the sheath and the dilator was advanced into the left atrium. The dilator with the needle was withdrawn. Blood was aspirated from
the Faradrive sheath and arterial blood confirmed. The sheath was flushed. Saline injection noted into the left atrium on ICE. The mapping catheter was advanced in the sheath into the left pulmonary vein. Left atrial pressure was measured.
3D Electroanatomic Mapping:
Using the HD Grid catheter advanced through sheath into the left atrium, an electroanatomic map (EAM) of the left atrium was created using [employer] mapping system. The map was used for localization of catheter position and tacking of ablation
lesions.
The EAM of the left atrium showed 4 pulmonary veins with all 4 veins electrically connected to the body the LA. It showed scattered areas of low voltage on the posterior and anterior wall of the LA. The LA was only mildly dilated in size.
Following the EAM, preparation were made for ablation.
Ablation:
Ablation # 1: Pulmonary vein Isolation:
Glycopyrrolate 0.2 mg was given prior to the placement of ablation. Using [employer] pulsed field ablation system, pulmonary vein isolation was achieved. First the ablation catheter was placed in the LSPV and ostial ablation lesions were performed in
a counter clock cruz approach all around the PV ostium circumferentially. Then the catheter was placed on the antral location and multiple ablation lesions were placed circumferentially on the antrum of the vein.
In the similar fashion, the LIPV were isolated.
Then the catheter was moved to right sided veins. The ostial and antral ablations were placed as noted above.
Patient remained in atrial fibrillation.
Ablation # 2: Posterior wall isolation:
Using the pulsed field ablation catheter, the catheter was placed on the posterior wall and moved around the posterior wall to have adequate contact and ablations were placed isolating the posterior wall.
Cardioversion:
Once the PV isolation was achieved, decision was made to proceed with cardioversion. A 200 J biphasic shock was applied on the grace posterior Zoll patches and sinus rhythm was achieved. No significant pause noted.
The LA was mapped in sinus rhythm and entrance and exit block checked. While mapping patient went into atrial flutter. The CL was 320 ms. It was concentric in nature on CS.
The LA was mapped in flutter and was noted to be coming from the RA and LA was activated passively from septum.
The catheters were removed to the RA.
Electroanatomic mapping of the right atrium:
Using the HD Grid catheter advanced through Faradrive sheath into the right atrium, an electroanatomic map (EAM) of the right atrium was created using [employer] mapping system with HD Grid.
Ablation # 1: Typical Atrial Flutter Ablation:
Patient was noted to be in atrial flutter 320 ms CL. The CS was showing concentric activation. The Entrainment showed the proximal CS was close to the circuit but the distal CS was out. The EAM of the tachycardia was created that showed typical
counter clockwise flutter.
With anticipation of pulsed field energy deliver at the CTI, a 100 mcg of Nitroglycerin was injected into the RA. �
The ablation was performed using Farawave� PFA catheter from the tricuspid annulus to the IVC ridge. The first application was done in [place] formation placing the ablation catheter on the tricuspid isthmus to with ICE visualization. With first
ablation, the flutter terminated into sinus rhythm. Further ablation lesions were placed with the �Flower� shape on the CTI to the Eustachian ridge.
��������������� -Bidirectional block was confirmed across the CTI line with differential pacing.
��������������� -Double potentials were spaced greater than 112 msec apart.
��������������� -The conduction time across the CTI line from proximal CS pacing was 168 msec.
��������������� -EAM of the right atrium was obtained with coronary sinus pacing and showed a line of block at the CTI.
��������������� -The time interval just lateral to the ablation lesions was 168 msec and the lateral wall was 112 msec
��������������� - All these maneuvers confirmed the block at the CTI line.
- Post ablation HV interval was unchanged at 45msec
Procedure End
ICE study was done again that showed no epicardial accumulation. No complications noted.
Following the completion of the EP study, catheters were removed. Protamine 40 mg was given at the end of the procedure and ACT was checked repeatedly. The sheaths were removed and hemostasis achieved with �VASCADE� and manual compression after
acceptable ACT is achieved.
Left atrial Pressure:
Mean LA pressure was 9mmHg
Estimated Blood loss:
<10 cc
Specimens Removed:
None.
Implants / Devices:
None
Urine output:
None
Packs / Drains/ Tubes:
None
Instrument / Sponge Count Correct:
Yes
Complications of the Procedure:
None
Condition of Patient at Time of Transfer:
Hemodynamically stable with no neurological or vascular compromise.
Summary:
Successful atrial fibrillation ablation with Pulsed Field approach for pulmonary vein isolation, roof dependent flutter ablation, posterior wall isolation and typical cavotricuspid isthmus dependent flutter ablation.
Figures from the Procedure:
Figure 1: The electroanatomic mapping (EAM) of the left atrium with bipolar voltage (purple indicates normal electrical activity with xiong as no myocardial muscle electric activity indicating a line of block or scar.
Post CTI ablation
--- NOTE | 2024-08-22 16:26 | W.PN.UPDATE ---
Update Note
Progress Note Update
Pt seen post PFA. Right groin with vascade closure, no ht/bleeding, oob ambulating, urinating without difficulty. Post EKG NSR 60s, no acute changes. Resume eliquis tonight at usual time. Followup in 2 weeks as scheduled. Home today if groin
site/tele remain stable.
== END 2024-08-22 17:00 | disposition home or self-care (01) ==
LOC: CATH 07:53
PROVIDERS: ATTENDING PHYSICIAN Internal Medicine Cardiovascular Disease; FAMILY PHYSICIAN Family Medicine
DX: I48.19 Other persistent atrial fibrillation (principal); I48.3 Typical atrial flutter; J44.9 Chronic obstructive pulmonary disease, unspecified
CPT/HCPCS: C1759; C1892; C1894; 36415; 80053; 85025; 85347; 86850; 86900; 86901; 93005; 93655; 93656; 93657; C1730; C1732; C1733; C1760; C1766; C1769

== ENCOUNTER 2024-08-28 14:04 | Inpatient (IN) | payer OTHER, SELFPAY ==
[2024-08-28] VITALS (9 sets, daily range): BP systolic 108–158; BP diastolic 54–75; BMI 18.1; BMI 17.8
--- NOTE | 2024-08-28 10:04 | ED.GENMED ---
History of Present Illness
<Stacey Cross PA-C - Last Filed: 08/28/24 15:31>
General
Chief Complaint: Breathing Problem
Source: patient
Exam Limitations: none
Time Seen by Provider: 08/28/24 10:03
Nursing documentation reviewed up to this point in time: agreed with
History of Present Illness
History of Present Illness:
This is a 77-year-old male with past medical history of COPD, A-fib on Eliquis, hypertension presents emergency department today with concerns of increasing shortness of breath and dolan mucus production since 3 days ago. Patient reports that of
note 5 days ago, he had a cardiac ablation with right femoral access. He also notes that the pain in that area has been increasing and getting worse. He also states that he is not having increasing body aches and he took a Tylenol last night for
symptoms. He also felt like he had intermittent fevers and chills. He was discharged last month on the hospital for pneumonia. He states that when he lays down he could barely catch his breath. He states is gotten to the point that he has a lot
of trouble talking without feeling incredibly short of breath. He denies chest pain. He states that this feels different than his COPD exacerbations, he states that he never wears oxygen at baseline, he states that he has been using his albuterol
inhaler at home and this has not been helping his symptoms. Denies any syncopal episodes, fainting spells.
Review of Systems
<Stacey Cross PA-C - Last Filed: 08/28/24 15:31>
Review of Systems
All Other Systems: ROS reviewed and negative except as documented in HPI and ROS
Phy Exam
<Stacey Cross PA-C - Last Filed: 08/28/24 15:31>
Physical Exam
Physical Exam:
General: Patient is well appearing and in no acute distress; non-toxic
Skin: Warm and dry, no rashes or lesions
Head: Normocephalic, atraumatic
Eyes: Sclera non-icteric. EOMs intact.
Cardiac: Regular rate and rhythm, no murmurs
Peripheral Vascular: No lower extremity swelling or edema, no calf tenderness to palpation
Pulm: Increased respiratory rate, conversational dyspnea, 88%-90% on room air
Abdomen: No abdominal tenderness to palpation
Neuro: CN II-XII intact, no focal neurologic deficits.
Psychiatric: Appropriate mood and affect.
Scores
<Stacey Cross PA-C - Last Filed: 08/28/24 15:31>
Heart Failure Risk
Heart Failure Risk Score: Not Applicable
Course
<Stacey Cross PA-C - Last Filed: 08/28/24 15:31>
Orders/Labs/Results
Orders:
Orders
08/28/24 09:45
EKG [Electrocardiogram (*1)] Urgent
Reason for Study: Chest Pain
EKG- Treatment ONCE
08/28/24 10:26
IV Insert/Care/Rem.- Treatment PRN
CR Chest - 2 Views Urgent
Comment:
Reason For Exam: shortness of breath
08/28/24 10:35
NT-proBNP Urgent
Troponin I Urgent
08/28/24 10:36
COVID-19 Antigen Urgent
Source: Nasal Swab
Influenza A+B Rapid Molecular Urgent
GABBI Source: Nasal Swab
Specimen Description:
08/28/24 10:38
Complete Blood Count/With Diff Urgent
Comprehensive Metabolic Panel Urgent
08/28/24 10:46
US Groin (vascular exam) RT Urgent
Reason For Exam: s/p right groin access pseudo aneurysm study
08/28/24 12:24
Add On- LAB Urgent
Tests Added?: procalcintonin
08/28/24 12:35
Procalcitonin Urgent
PCT Algorithmm Indication: Respiratory
Respiratory Syncytial Virus Urgent
GABBI Source: Nasal Swab
Specimen Description:
Date Specimen was Collected: 08/28/24
Time Specimen was Collected: 11:16
08/28/24 13:40
Dexamethasone Sod Phosphate [Decadron] 10 mg IV NOW STA
08/28/24 13:54
Admit/Transfer Patient As Directed
Co-Sign Provider:
Level of Care: Inpatient admission
Assign to:: Telemetry
Physician / Group: Hilton
Diagnosis: Shortness of breath with hypoxia suspect sec to pneumonia
Reason for Telemetry: Arrhythmia
Date to Stop Telemetry: 08/31/24
Time to Stop Telemetry: 11:00
Reason for Hospitalization: see progress note
Expected length of stay greater than two midnights?: Yes
ELOS- Estimated Length of Stay in days: 4
I certify the patient meets the requirements for IP care: Yes
PRN Pain Medication Management As Directed
May give lesser potent ordered pain med per pt: Yes
preference::
Protocol:: Medication orders for pain may be administered in a
manner that supports deferring to patient preference
when the pt is:
- Requesting an ordered lesser potent pain medication.
Least to most potent pain medications are defined
as: acetaminophen < NSAID < tramadol < opioids
(morphine, oxycodone, hydromorphone).
- Requesting a lesser dose of the same medication IF
ORDERED.
- Requesting a less intrusive route of administration
if both routes are prescribed by the provider (PO <
IV).
08/28/24 Dinner
Regular
At Your Request: Full Participation
08/28/24 16:03
INFECTIOUS DISEASE CONSULT Routine
Consulting Provider: Franny Luna
Was physician already notified: Yes
Reason for consult: pneumonia
Sputum Culture [Respiratory Culture/Gram Stain] Routine
GABBI Source: Sputum
Specimen Description:
Strep pneumoniae Antigen Routine
GABBI Source: Urine
Specimen Description:
Oxygen Therapy [O2 Therapy] [RESP] Routine
Titrate/Wean O2 to maintain O2 sat greater than (%): 93
Speech Therapy Eval & Treat Routine
08/28/24 17:42
Troponin I Q6H
08/28/24 20:00
Apixaban [Eliquis] 5 mg PO BID
Diltiazem Extended Release [Cardizem Cd] 180 mg PO BID
08/29/24 06:00
BMP [Basic Metabolic Panel] IN AM
CBC/No Diff [Complete Blood Count/No Diff] IN AM
08/31/24 11:00
DC Protocol for Telemetry ONCE
Abnormal Lab Results
08/28/24 08/28/24
10:35 10:38
RBC 3.55 L 10^6/uL
(4.70-6.10)
Hgb 10.0 L g/dL
(13.0-18.0)
Hct 30.3 L %
(39.0-52.0)
RDW 18.6 H %
(11.5-14.5)
Plt Count 65 L 10^3/uL
(130-400)
Absolute Lymphs (auto) 0.6 L 10^3/uL
(1.2-3.4)
Neutrophils % 81.7 H %
(42.2-75.2)
Lymphocytes % 12.1 L %
(20.5-51.1)
Creatinine 0.6 L mg/dL
(0.7-1.3)
Total Bilirubin 1.8 H mg/dl
(0.2-1.3)
Troponin I 0.088 H* ng/ml
08/28/24 10:38
01/26/25 10:38
Vital Signs
Initial and Last Documented VS:
Initial Vital Signs
Temp Pulse Resp BP Pulse Ox
99.6 F 100 22 108/72 90
08/28/24 09:52 08/28/24 09:52 08/28/24 09:52 08/28/24 09:52 08/28/24 09:52
Last Documented Vital Signs
Temp Pulse Resp BP Pulse Ox
97.5 F 85 18 158/75 99
08/28/24 21:49 08/28/24 21:49 08/28/24 21:49 08/28/24 21:49 08/28/24 21:49
<Shaun Perdomo MD - Last Filed: 08/28/24 22:52>
Orders/Labs/Results
Orders:
Orders
08/28/24 09:45
EKG [Electrocardiogram (*1)] Urgent
Reason for Study: Chest Pain
EKG- Treatment ONCE
08/28/24 10:26
IV Insert/Care/Rem.- Treatment PRN
CR Chest - 2 Views Urgent
Comment:
Reason For Exam: shortness of breath
08/28/24 10:35
NT-proBNP Urgent
Troponin I Urgent
08/28/24 10:36
COVID-19 Antigen Urgent
Source: Nasal Swab
Influenza A+B Rapid Molecular Urgent
GABBI Source: Nasal Swab
Specimen Description:
08/28/24 10:38
Complete Blood Count/With Diff Urgent
Comprehensive Metabolic Panel Urgent
08/28/24 10:46
US Groin (vascular exam) RT Urgent
Reason For Exam: s/p right groin access pseudo aneurysm study
08/28/24 12:24
Add On- LAB Urgent
Tests Added?: procalcintonin
08/28/24 12:35
Procalcitonin Urgent
PCT Algorithmm Indication: Respiratory
Respiratory Syncytial Virus Urgent
GABBI Source: Nasal Swab
Specimen Description:
Date Specimen was Collected: 08/28/24
Time Specimen was Collected: 11:16
08/28/24 13:40
Dexamethasone Sod Phosphate [Decadron] 10 mg IV NOW STA
08/28/24 13:54
Admit/Transfer Patient As Directed
Co-Sign Provider:
Level of Care: Inpatient admission
Assign to:: Telemetry
Physician / Group: Hilton
Diagnosis: Shortness of breath with hypoxia suspect sec to pneumonia
Reason for Telemetry: Arrhythmia
Date to Stop Telemetry: 08/31/24
Time to Stop Telemetry: 11:00
Reason for Hospitalization: see progress note
Expected length of stay greater than two midnights?: Yes
ELOS- Estimated Length of Stay in days: 4
I certify the patient meets the requirements for IP care: Yes
PRN Pain Medication Management As Directed
May give lesser potent ordered pain med per pt: Yes
preference::
Protocol:: Medication orders for pain may be administered in a
manner that supports deferring to patient preference
when the pt is:
- Requesting an ordered lesser potent pain medication.
Least to most potent pain medications are defined
as: acetaminophen < NSAID < tramadol < opioids
(morphine, oxycodone, hydromorphone).
- Requesting a lesser dose of the same medication IF
ORDERED.
- Requesting a less intrusive route of administration
if both routes are prescribed by the provider (PO <
IV).
08/28/24 Dinner
Regular
At Your Request: Full Participation
08/28/24 16:03
INFECTIOUS DISEASE CONSULT Routine
Consulting Provider: Franny Luna
Was physician already notified: Yes
Reason for consult: pneumonia
Sputum Culture [Respiratory Culture/Gram Stain] Routine
GABBI Source: Sputum
Specimen Description:
Strep pneumoniae Antigen Routine
GABBI Source: Urine
Specimen Description:
Oxygen Therapy [O2 Therapy] [RESP] Routine
Titrate/Wean O2 to maintain O2 sat greater than (%): 93
Speech Therapy Eval & Treat Routine
08/28/24 17:42
Troponin I Q6H
08/28/24 20:00
Apixaban [Eliquis] 5 mg PO BID
Diltiazem Extended Release [Cardizem Cd] 180 mg PO BID
08/29/24 06:00
BMP [Basic Metabolic Panel] IN AM
CBC/No Diff [Complete Blood Count/No Diff] IN AM
08/31/24 11:00
DC Protocol for Telemetry ONCE
Abnormal Lab Results
08/28/24 08/28/24
10:35 10:38
RBC 3.55 L 10^6/uL
(4.70-6.10)
Hgb 10.0 L g/dL
(13.0-18.0)
Hct 30.3 L %
(39.0-52.0)
RDW 18.6 H %
(11.5-14.5)
Plt Count 65 L 10^3/uL
(130-400)
Absolute Lymphs (auto) 0.6 L 10^3/uL
(1.2-3.4)
Neutrophils % 81.7 H %
(42.2-75.2)
Lymphocytes % 12.1 L %
(20.5-51.1)
Creatinine 0.6 L mg/dL
(0.7-1.3)
Total Bilirubin 1.8 H mg/dl
(0.2-1.3)
Troponin I 0.088 H* ng/ml
08/28/24 10:38
08/28/24 10:38
Vital Signs
Initial and Last Documented VS:
Initial Vital Signs
Temp Pulse Resp BP Pulse Ox
99.6 F 100 22 108/72 90
08/28/24 09:52 08/28/24 09:52 08/28/24 09:52 08/28/24 09:52 08/28/24 09:52
Last Documented Vital Signs
Temp Pulse Resp BP Pulse Ox
97.5 F 85 18 158/75 99
08/28/24 21:49 08/28/24 21:49 08/28/24 21:49 08/28/24 21:49 08/28/24 21:49
<Stacey Cross PA-C - Last Filed: 08/28/24 15:31>
MDM/Problems Addressed
Differential Diagnosis Includes:
Differentials include heart failure, influenza, RSV, pneumonia, pleural effusion, pneumothorax, ACS, pseudoaneurysm
MDM/Problems Addressed:
69-year-old male with past medical history of A-fib, hypertension, COPD presents emergency department today with concerns of increasing shortness of breath multiple days since his cardiac ablation. He is also noted increasing pain in his right
femoral access site. On physical exam, patient appears in mild respiratory distress, he is conversational dyspnea and increased respiratory rate. He was 88 to 90% on room air. He was placed on 2 L of oxygen. He has no prior history of using
oxygen with his COPD in the past. He is afebrile here. His ultrasound of right is negative for pseudoaneurysm. His x-ray shows no findings concerning for heart failure, cyst COPD exacerbation secondary to cardiac procedure, chest x-ray was read
as pneumonia however not sure his current symptoms fit this picture at this time. Pro Calcitonin normal. Will defer antibiotics to hospitalist. Case discussed with hospitalist, patient referred for admission
Chronic conditions affecting care:
A-fib on Eliquis, hypertension, hyperlipidemia, COPD
<Stacey Cross PA-C - Last Filed: 08/28/24 15:31>
*Pulse Oximetry
Patient hypoxic: yes
*EKG
Interpreted by ED Provider?: Yes
Interpretation: abnormal
Comparison EKG: changes noted
Heart Rate: 96
Rate: normal
Rhythm: sinus
[place]: right axis deviation
*Critical Care Note
Total Time (30-74mins, 75-104mins- exclusive of procedures): Not Applicable
Data Reviewed
Review of Other/Old Records Reveals: Records (Reviewed prior records, reviewed discharge summary from 07/22/2024 and patient seen for me acquired pneumonia he is also in rapid A-fib and he also developed norovirus while in the hospital he had sputum
growing Pseudomonas and strep pneumo) and Operative Reports (Reviewed electrophysiology/pacemaker report from 08/22/2024 reviewed update note from cardiac surgery on 08/22/2024 patient had right groin access)
Source: patient and records
ED Attending Note
<Stacey Cross PA-C - Last Filed: 08/28/24 15:31>
-
Portions of this chart may have been created with voice recognition software.� Occasional wrong word or��sound alike� substitutions may have occurred due to the inherent limitations of voice recognition software.
<Shaun Perdomo MD - Last Filed: 08/28/24 22:52>
ED Attending Note
I performed the substantive portion of visit, reviewed & personally made and approve the management plan that is documented in note by myself or ROSITA.: Yes
ED Attending Note:
History and exam concerning for hypoxia, requiring supplemental oxygen, likely multifactorial, including exacerbation of underlying COPD along with recent ablation procedure, as well as potential pneumonia. Pt will be admitted for further evaluation
and treatment. In light of normal procalcitonin, will defer potential abx to admitting team.
Discharge Plan
Departure
Patient Disposition: Admit
Date of Disposition: 08/28/24
Time of Disposition: 13:47
Admit to: Med/Surg and Telemetry
Presentation/result/management discussed w/ accepting MD/DO: Hospitalist
Patient with high blood pressure during this ER visit?: No
Condition: Fair
Discharge Problem:
Acute hypoxemic respiratory failure
Interventions
Interventions:
*Risk Screen - Suicide Last Done: 08/28/24 09:52
*General Assessment Last Done: 08/28/24 09:52
*Neglect/Abuse Screening Last Done: 08/28/24 09:52
*ED COVID-19 Vaccine History Last Done: 08/28/24 12:00
*Nursing Disposition Last Done: 08/28/24 16:17
ED- Cardiac Assessment Last Done: 08/28/24 12:00
ED- Pulmonary Assessment Last Done: 08/28/24 12:00
Discharge Date and Time
Discharge Date/Time: 08/28/24 16:17
[2024-08-28 11:00] LABS: ALT (SGPT) 18 U/L (0-50); AST (SGOT) 21 U/L (17-59); Albumin 4.4 g/dl (3.5-5.0); Alkaline Phosphatase 82 U/L (38-126); Blood Urea Nitrogen 13 mg/dl (9-20); Calcium 8.9 mg/dl (8.4-10.2); Carbon Dioxide 26 mmol/L (22-30); Chloride 104 mmol/L (98-107); Glucose 99 mg/dl (70-99); Potassium 4.6 mmol/L (3.5-5.1); Sodium 139 mmol/L (135-145); Total Bilirubin 1.8 mg/dl (0.2-1.3); Total Protein 6.9 g/dl (6.3-8.2); eGFR > 60.00
[2024-08-28 11:03] LABS: COVID-19 Antigen Negative (Negative)
[2024-08-28 11:12] LABS: NT-proBNP 440 pg/ml; Troponin I 0.088 ng/ml
[2024-08-28 11:13] LABS: % Basophils 0.2 % (0-2); % Eosinophils 1.3 % (0-6); % Immature Granulocytes 0.2 % (0-0.5); % Lymphocytes 12.1 % (20.5-51.1); % Monocytes 4.5 % (1.7-9.3); % Neutrophils 81.7 % (42.2-75.2); Absolute Eosinophils 0.1 10^3/uL (0-0.7); Absolute Lymphocytes 0.6 10^3/uL (1.2-3.4); Absolute Monocytes 0.2 10^3/uL (0.1-0.6); Absolute Neutrophils 4.3 10^3/uL (1.4-6.5); Hematocrit 30.3 % (39.0-52.0); Mean Corpuscular Hgb 28.2 pg (27.0-31.0); Mean Corpuscular Volume 85.4 fL (80.0-94.0); Mean Platelet Volume 8.9 fL (7.4-10.4); Nucleated Red Blood Cells % 0 % (-); Platelet Count 65 10^3/uL (130-400); Red Blood Cell Count 3.55 10^6/uL (4.70-6.10); Red Cell Dist. Width 18.6 % (11.5-14.5); White Blood Cell Count 5.3 10^3/uL (4.8-10.8)
[2024-08-28 13:16] LABS: Procalcitonin 0.14 ng/ml (0.0-0.25)
--- NOTE | 2024-08-28 14:21 | HPS.HSE ---
Family Physician
-
Family Physician: Gloria Genao
Chief Complaint
-
Shortness of breath , cough and phelgm
History of Present Illness
Patient had elective cardiac ablation on Thursday this week.
On Thursday he felt short of breath.
On Thursday he had a cough all day with clear mucus. was not bad.
On Thursday he called doctors and he was told to come into the hospital.
On Thursday he felt great did not cough much.
Last night he started to feel short of breath and he started to cough quite a bit and the mucus started to turn into a xiong color. All night he was coughing.
No fever. He felt chills last night. He took Tylenol 3 times yesterday. He could not get warm with the blankets for a while.
No nausea vomiting. No diarrhea.
Postprocedure he had a sore throat for 2 days.
His is also sick with pneumonia admitted to different hospital. She went there on Thursday.
In mid July he was here in the hospital with multifocal pneumonia with Pseudomonas in the phlegm and took 14 days of antibiotics. He feels great after that.His Strep pneumoniae ag was positive too
He has a history of COPD and uses inhalers and nebulizers at home but not oxygen. Today he was found to have oxygenation of 89 to 90% on room air. Denies any recent COPD flare.
He had some mild epistaxis and Thursday and today but that stopped. He is on Eliquis post ablation.
Medical History
Past Medical History
Past Medical History: Reports Other
Additional Past Medical History:
atrial fibrillation
COPD
Hx GI bleed
Past Surgical History: Reports Other
Additional Past Surgical History:
right hip replacement
nasal polypectomy
back surgery
Social History
Tobacco: Non-smoker
Alcohol: Occasional
Drug: None
Personal:
Living: With Family
Employment: Retired
Family History
Family History: Not pertinent
Allergies / Home Medications
Allergies reflects when Allergies were last updated in [employer].
Home Medications with original date entered in [employer]
Allergy/Medication List:
Allergies
Allergy/AdvReac Type Severity Reaction Status Date / Time
vancomycin Allergy Rash Verified 07/12/24 11:56
Home Medications
acetaminophen 500 mg tablet (Tylenol Extra Strength) 1,000 mg PO Q6HPRN PRN mild pain 07/12/24
apixaban 5 mg tablet (Eliquis) 5 mg PO BID AFib 07/12/24
propranolol 10 mg tablet 10 mg PO BID Arrhythmia/BP 07/12/24
Review of Systems
-
A 12 point ROS was completed and negative except as noted: Yes
Physical Exam
Vital Signs
Vital Signs
Temp Pulse Resp BP Pulse Ox
99.6 F 100 22 108/72 90
08/28/24 09:52 08/28/24 09:52 08/28/24 09:52 08/28/24 09:52 08/28/24 09:52
Physical Exam
General: Comfortable (but looks unwell not toxic)
HEENT: Moist mucous membranes
Respiratory: Crackles (in rt basal area and left base), Non Labored Respirations and Other (Bronchial breathing in the left lower zone); No Accessory Resp Muscle Use
Cardiac: S1/S2 and Regular Rhythm
GI: Soft and Non Tender
Neuro: AO x 3
Psych: Calm; No Confused
Laboratory Results
-
08/28/24 10:38
08/28/24 10:38
Laboratory Results
Total Bilirubin 1.8 mg/dl (0.2-1.3) H 08/28/24 10:38
AST 21 U/L (17-59) 08/28/24 10:38
ALT 18 U/L (0-50) 08/28/24 10:38
Alkaline Phosphatase 82 U/L (38-126) 08/28/24 10:38
Troponin I 0.088 ng/ml H* 08/28/24 10:35
Data Reviewed
-
Diagnostic Radiology: Report Reviewed by me (cxr)
Lab Data: Labs Reviewed by me
Impression/Plan
-
Suspicion for left mid lung pneumonia
Patient's presents with progressive shortness of breath, chills, progressive worsening of cough with change in color to xiong. He was treated for Pseudomonas and streptococcal pneumonia multifocal pneumonia in mid July. He is 5 days
postprocedure/cardiac ablation.
His is also admitted to the hospital with pneumonia.
I see his white count and procalcitonin is normal but his symptomatology is concerning for pneumonia.
Start on cefepime. Follow culture data. Repeat sputum cultures and streptococcal pneumonia antigen. Consult ID.
Antitussives.
Speech eval.
Clinically no evidence of heart failure.
COVID-19/influenza/RSV swab negative.
COPD-no active bronchospasm that he has some rhonchi possible from pneumonia. Hold on steroids. Use nebulizers as needed.
Acute hypoxic respiratory insufficiency-continue with oxygen via nasal cannula
Paroxysmal atrial fibrillation status post ablation 5 days ago. In sinus rhythm. Continue with Cardizem and Eliquis.
Mild epistaxis-follow closely especially with the need of Eliquis and thrombocytopenia
Mild chronic thrombocytopenia more than 65,000. Follow closely. Consider Heme eval if dropping.
Full code
[2024-08-28] MEDS: DECADRON 10 MG IV (14:46)
--- NOTE | 2024-08-28 15:20 | EDRN ---
No code status was placed on pt when he was admitted. Dr. Vides contacted via [employer]. stated : 'He is full code . Can you call me for a verbal pls . I am out of the hospital now.' Provider gave phone number. RN called provider and confirmed full
code status and took verbal to place order.
--- NOTE | 2024-08-28 16:00 | TRANSFER ---
pt arrives at 1540 from [facility] requiring boat puller into hospital bed, 'i cant do it im too weak.' vitals stable, arrives on 3L NC. admission and assessment being initiated. no pressing concerns at the moment. plan of care continues to be followed.
--- NOTE | 2024-08-28 16:27 | CON.ID ---
Consultation
-
Date/Time Consultation Requested: August 28, 2024 1603
Date/Time Consultation Performed: August 28, 2024 1630
Requesting Provider: Dr. Peewee Canela
Performing Provider: Dr. Franny Luna
Reason for Consultation: Pneumonia
Chief Complaint / Past History
Chief Complaint
Cough
History of Present Illness
Jamarcus Monahan is a 69-year-old man being evaluated at the request of Dr. Canela in regards to recurrent pneumonia. History is obtained from chart review, along with patient interview.
He is a 69-year-old male with history of COPD, cirrhosis, atrial fibrillation who was hospitalized July 12 to July 22 with pneumonia, atrial fibrillation with RVR, and norovirus. He was treated with 14 days of IV cefepime for Pseudomonas
and strep pneumoniae recovered from sputum. He passed video swallow. Patient reports that 2 days after he finished he cefepime, he felt improved with resolution of cough. On August 22, he underwent outpatient ablation. The next day he
developed increased shortness of breath. On Thursday he started coughing with phlegm. he felt better. Last night he started coughing significantly with xiong sputum. He coughed all night. He was also short of breath. Denies fever.
Positive chills. He came to the ED today. O2 sat was 89 to 90%. Chest x-ray shows increase in the left midlung airspace opacity. COVID, RSV, flu negative. Procalcitonin 0.14. He is started on cefepime. Patient reports that his is
currently hospitalized with pneumonia. He did not go near her. He denies headache. He has chronic rhinorrhea unchanged.
Past History
Additional Past Medical History:
A-fib
COPD
Cirrhosis
GI bleed
Additional Past Surgical History:
Right hip replacement
Back surgery
Allergy History:
vancomycin Allergy (Verified 08/28/24 09:52)
Rash
Medications Reviewed: Yes
Current Antibiotics:
Cefepime 2g IV q12
Social History
Tobacco: Non-Smoker
Alcohol: Occasional
Drug: None
Personal:
Living: With Family
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
Family History
Family History: Not Pertinent
Review of Systems
Review of Systems
General: Chills and Change in Appetite; Negative Fever
HEENT: Negative Headache or Pharyngitis
Cardiovascular: Negative Chest Pain
Respiratory: Dyspnea and Cough
Gasteroenterology: Negative Nausea, Vomiting or Diarrhea
Genital / Urological: Negative Dysuria or Flank Pain
Endocrine: Weakness
Skin / Hair / Nails: Negative Rash
Neurological: Negative Dizziness
All systems: All other systems were reviewed and were negative
Vital Signs
Temp Pulse Resp BP Pulse Ox
98.4 F 89 18 133/64 95
08/28/24 15:54 08/28/24 15:54 08/28/24 15:54 08/28/24 15:54 08/28/24 15:54
Physical Exam
Physical Exam
Constitutional: No Acute Distress and Cachetic
Head: Other (No frontal or max or sinus tenderness)
Eyes: No Conjunctival Hemorrhage and Sclera Anicteric
Cardiovascular: Regular Rate and S1/S2
Pulmonary: Rales (bibase crackles. ) and Coarse (mid lungs.)
Gastrointestinal: Soft, Non Tender, Non Distended and Normal Bowel Sounds
Genito-Urinary: Negative CVA Tenderness
Extremities: Negative Edema
Musculoskeletal: Negative Spinal Tenderness
Neurological: AO x 3
Lab / Diagnostic Study Results
08/28/24 10:38
08/28/24 10:38
Abs Immat Gran (auto) 0.0 10^3/uL (0-0.05) 08/28/24 10:38
Absolute Neuts (auto) 4.3 10^3/uL (1.4-6.5) 08/28/24 10:38
Absolute Lymphs (auto) 0.6 10^3/uL (1.2-3.4) L 08/28/24 10:38
Absolute Monos (auto) 0.2 10^3/uL (0.1-0.6) 08/28/24 10:38
Absolute Basos (auto) 0.0 10^3/uL (0-0.2) 08/28/24 10:38
Immature Gran % 0.2 % (0-0.5) 08/28/24 10:38
Neutrophils % 81.7 % (42.2-75.2) H 08/28/24 10:38
Lymphocytes % 12.1 % (20.5-51.1) L 08/28/24 10:38
Monocytes % 4.5 % (1.7-9.3) 08/28/24 10:38
Eosinophils % 1.3 % (0-6) 08/28/24 10:38
Basophils % 0.2 % (0-2) 08/28/24 10:38
Procalcitonin 0.14 ng/ml (0.0-0.25) 08/28/24 12:35
Microbiology Results
Micro:
08/28/24 12:35 Respiratory Syncytial Virus Ag - Final
Nasal Swab Negative for Respiratory Syncytial Virus.
A false negative result may be obtained with a specimen
collected early in the acute phase. If symptoms persist, a
new specimen should be tested.
08/28/24 10:36 Influenza Types A & B (LUIS ALBERTO) - Final
Nasal Swab Negative for Influenza A & B, NAAT
Negative results must be combined with clinical observations
and patient history.
Nucleic Acid Amplification test (NAAT)performed on the
[employer] platform.
08/28/25 CXR: Worsening bilateral pneumonia.
Assessment / Plan
# Acute hypoxic respiratory failure
# Cough/SOB
# Recent Pseudomonas, Strep pneumonia treated with 14d cefepime through 07/29/24.
- COVID/Flu/RSV negative
- Procalcitonin <0.25, unlikely bacterial PNA
- Repeat procalcitonin in am. if remains <0.25, dc cefepime.
- Suspect other respiratory viral illness.
- Follow oxygen status.
# Afib s/p ablation 08/22/24
# COPD - no wheezing
# hx cirrhosis compensated
--- NOTE | 2024-08-28 17:31 | PTOTSP ---
ST Acute Care Evaluation
Pt currently presents with oral and pharyngeal parameters that are within functional limits for safe PO intake of regular solids and thin liquids. No overt s/s of penetration or aspiration noted at bedside. Pt exhibits occasional eructation s/p
ingestion of thin liquids, indicative of possible esophageal dysfunction. Pt would benefit from a brief MATE CHIEF f/u to ensure pt is safely tolerating these recommended diet consistencies in light of his admission diagnosis of PNA and his hx of being
recommended for a VFSS previously (07/2024).
Recommendations:
- Continue with regular solids, thin liquids, meds as tolerated.
- General aspiration and reflux precautions.
- MATE CHIEF to f/u re: diet tolerance and to determine if pt would benefit from a repeat instrumental swallow study.
[2024-08-28] MEDS: MAXIPIME 1000 MG IV ×2 (17:45→23:57)
[2024-08-28] MEDS: STERILE WATER FOR INJECTION 10 ML IV ×2 (17:45→23:58)
[2024-08-28 18:22] LABS: Troponin I 0.067 ng/ml
[2024-08-28] MEDS: CARDIZEM CD 180 MG PO (20:24)
[2024-08-28] MEDS: ELIQUIS 5 MG PO (20:24)
--- NOTE | 2024-08-28 22:00 | PTCARENOTE ---
Rec'd from 1 Acute. A & O x3. Transferred from stretcher to bed by self. Generalized weakness. Denies pain. States breathing much improved since admission. O2 @ 2L; POX 99% Dyspnea on exertion. Rare moist cough.
[2024-08-29 01:20] LABS: Troponin I 0.052 ng/ml
[2024-08-29 03:45] VITALS: BP 117/48
[2024-08-29] MEDS: MAXIPIME 1000 MG IV ×4 (06:00→23:18)
[2024-08-29] MEDS: FLUSH (NSS) 2 FLUSH IV ×2 (06:01)
[2024-08-29] MEDS: STERILE WATER FOR INJECTION 10 ML IV ×4 (06:01→23:19)
[2024-08-29 07:55] LABS: Hematocrit 29.2 % (39.0-52.0); Hemoglobin 9.4 g/dL (13.0-18.0); Mean Corp Hgb Conc. 32.2 g/dL (33.0-37.0); Mean Corpuscular Hgb 27.2 pg (27.0-31.0); Mean Corpuscular Volume 84.6 fL (80.0-94.0); Mean Platelet Volume 9.1 fL (7.4-10.4); Platelet Count 54 10^3/uL (130-400); Red Blood Cell Count 3.45 10^6/uL (4.70-6.10); Red Cell Dist. Width 18.6 % (11.5-14.5); White Blood Cell Count 3.1 10^3/uL (4.8-10.8)
[2024-08-29 07:58] VITALS: BP 127/63
[2024-08-29 08:32] LABS: Blood Urea Nitrogen 22 mg/dl (9-20); Calcium 8.9 mg/dl (8.4-10.2); Carbon Dioxide 24 mmol/L (22-30); Chloride 107 mmol/L (98-107); Estimated Creatinine Clearance 96 ml/min; Glucose 126 mg/dl (70-99); Potassium 4.6 mmol/L (3.5-5.1); Sodium 139 mmol/L (135-145); eGFR > 60.00
[2024-08-29] MEDS: ELIQUIS 5 MG PO ×2 (09:04→20:09)
[2024-08-29] MEDS: CARDIZEM CD 180 MG PO ×2 (09:04→20:09)
--- NOTE | 2024-08-29 09:34 | W.PN.HOSP.TC ---
Today's Communication/Plan
-
Continue antibiotics
Short course of oral steroids
Assessment / Plan
Assessment / Plan
Physical Exam
General: Comfortable
HEENT: Moist mucous membranes
Respiratory: Decreased breath sounds bilaterally
Cardiac: S1/S2 and Regular Rhythm
GI: Soft and Non Tender. Positive bowel sounds.
Neuro: AAO x 3
Psych: Calm
Assessment/Plan
Suspicion for left mid lung pneumonia
Recent Pseudomonas in the phlegm and as well as streptococcal pneumonia antigen in the urine
Patient's presented with progressive shortness of breath, chills, progressive worsening of cough with change in color to xiong. He was treated for Pseudomonas and streptococcal pneumonia multifocal pneumonia in mid July. He is 5 days
postprocedure/cardiac ablation.
His is also admitted to the hospital with pneumonia.
Continue Cefepime. Follow culture data. Repeat sputum cultures and streptococcal pneumonia antigen. ID consulted on admission, appreciate their evaluation and recommendations. Procal elevated, continue antibiotics.
Antitussives.
Speech eval.
COPD-possible exacerbation with patient's reports of SOB, cough with sputum. Start Prednisone 40 mg daily for 5 days. Use nebulizers as needed. SHAYNE prn on discharge with close PCP/pulmonary follow-up.
Acute hypoxic respiratory insufficiency-continue with oxygen via nasal cannula
Paroxysmal atrial fibrillation status post ablation ~08/23/24. In sinus rhythm. Continue with Cardizem and Eliquis.
Mild epistaxis-follow closely especially with the need of Eliquis and thrombocytopenia
Mild chronic thrombocytopenia more than 65,000. Follow closely. Consider Heme eval if dropping.
Full code
Anticipated Discharge: 24 - 48 hours
Subjective/Interval History
-
Date of Service: August 29, 2024
Patient was seen and examined. He reported his shortness of breath has significantly improved.
Objective Data
-
Labs:
Laboratory Results
08/29/24
07:27
WBC 3.1 L
Hgb 9.4 L
Hct 29.2 L
Plt Count 54 L
Sodium 139
Potassium 4.6
Chloride 107
Carbon Dioxide 24
BUN 22 H
Creatinine 0.6 L
Glucose 126 H
Calcium 8.9
Vital Signs:
Vital Signs
Temp Pulse Resp BP Pulse Ox
97.7 F 75 20 127/63 99
08/29/24 07:58 08/29/24 09:04 08/29/24 07:58 08/29/24 09:04 08/29/24 09:02
I&O
08/28/24 08/29/24 08/30/24
06:59 06:59 06:59
Intake Total 310 / 310
Output Total 415 / 415
Balance -105 / -105
[2024-08-29 12:18] VITALS: BMI 17.8
[2024-08-29] MEDS: FLUSH (NSS) 1 FLUSH IV ×2 (12:22→17:24)
--- NOTE | 2024-08-29 12:43 | W.PN.ID1 ---
Date of Service
Date of Service: August 29, 2024
Today's Communication
-Continue cefepime (d2)
- Tomorrow, anticipate transition to po abx.
Assessment / Plan
# Acute hypoxic respiratory failure, now off oxygen
# Pneumonia
# Recent Pseudomonas, Strep pneumonia treated with 14d cefepime through 07/29/24.
- COVID/Flu/RSV negative
- Initial Procalcitonin 0.14; Repeat procalcitonin 0.40
- Symptoms improved
-Continue cefepime (d2)
- Tomorrow, anticipate transition to po abx.
# Afib s/p ablation 08/22/24
# COPD - no wheezing
# hx cirrhosis compensated
Chief Complaint
-: Pneumonia
Subjective / Review of Systems
Cough resolved. Unable to produce sputum.
SOB much improved.
He feels well.
Vital Signs / Physical Exam
Vital Signs
Vital Signs
Temp Pulse Resp BP Pulse Ox
97.7 F 75 20 127/63 96
08/29/24 07:58 08/29/24 09:04 08/29/24 07:58 08/29/24 09:04 08/29/24 10:41
Physical Exam
Constitutional: No Acute Distress and Cachetic
Eyes: Sclera Anicteric
Cardiovascular: Regular Rate and S1/S2
Pulmonary: Rales (bibase crackles)
Gastrointestinal: Soft, Non Tender and Non Distended
Extremities: Negative Edema
Neurological: AO x 3
Objective Data
Lab Data
Lab Results
08/29/24 07:27
08/29/24 07:27
Estimated Creat Clear 96 ml/min 08/29/24 07:27
Total Bilirubin 1.8 mg/dl (0.2-1.3) H 08/28/24 10:38
AST 21 U/L (17-59) 08/28/24 10:38
ALT 18 U/L (0-50) 08/28/24 10:38
Alkaline Phosphatase 82 U/L (38-126) 08/28/24 10:38
Most recent labs reviewed.
Micro Results:
08/29/24 00:09 Legionella Urinary Antigen - Final
Urine Negative for Legionella pneumophila Serogroup 1 antigen.
A negative result does not rule out the possiblity of
Legionella infection due to other serogroups or species of
Legionella. Clinical correlation is recommended.
Streptococcus pneumoniae Antigen (M - Final
Negative for Streptococcus pneumoniae antigen.
A negative result does not exclude infection with
Streptococcus pneumoniae. Clinical correlation is
recommended.
08/28/24 12:35 Respiratory Syncytial Virus Ag - Final
Nasal Swab Negative for Respiratory Syncytial Virus.
A false negative result may be obtained with a specimen
collected early in the acute phase. If symptoms persist, a
new specimen should be tested.
08/28/24 10:36 Influenza Types A & B (LUIS ALBERTO) - Final
Nasal Swab Negative for Influenza A & B, NAAT
Negative results must be combined with clinical observations
and patient history.
Nucleic Acid Amplification test (NAAT)performed on the
[employer] platform.
08/28/25 CXR: Worsening bilateral pneumonia.
[2024-08-29 12:50] VITALS: BP 130/59
--- NOTE | 2024-08-29 12:52 | CM ---
Pt seen bedside. Initial assessment completed. Admitted for shortness of breath , cough and phlegm.
Pt reports that he lives w/ spouse in a single story home- 2/3 steps to enter. Pt reports he is independent w/ ambulating in the home but will use his cane when in the community for support. Pt stated he has a raised toilet seat from when he had hip
surgery in the past. Pt denies home O2, currently on 2L in the hospital.
Denies SNF/VN/PT hx. Pt engaged in OP therapy in the past.
Address, point of contact and insurance verified
PCP: Dr. Genao. Pt states [facility] is assigned but he will see whoever is available
Pharmacy: [facility]
PT/OT to evaluate pt. CM will await therapy recommendations if any
Plan: CM will cont to follow hospital course
[2024-08-29 16:02] VITALS: BP 129/62
--- NOTE | 2024-08-29 16:51 | PTCARENOTE ---
Pt KRISHO oumar, RANCHO; refused offers of OOB to chair activity so far this shift;stated he will 'wait for PT'. VSS. Telemetry: NSR with PAC's. On room air- pulse ox 95%, no SOB noted. Abd soft, yessica regular diet. Voids mod amts clear lt dionte urine in
urinal. Resting quietly at present. Will continue to monitor.
[2024-08-29 19:00] VITALS: BP 124/79
[2024-08-29 23:27] VITALS: BP 124/63
[2024-08-30] VITALS (8 sets, daily range): BP systolic 116–148; BP diastolic 58–92; PULSE 80; O2SAT 96
[2024-08-30] MEDS: MAXIPIME 1000 MG IV ×4 (05:32→23:04)
[2024-08-30] MEDS: STERILE WATER FOR INJECTION 10 ML IV ×4 (05:33→23:04)
--- NOTE | 2024-08-30 07:45 | W.PN.HOSP.TC ---
Today's Communication/Plan
-
Continue Prednisone and antibiotics
Assessment / Plan
Assessment / Plan
Physical Exam
General: Comfortable
HEENT: Moist mucous membranes
Respiratory: Decreased breath sounds bilaterally
Cardiac: S1/S2 and Regular Rhythm
GI: Soft and Non Tender. Positive bowel sounds.
Neuro: AAO x 3
Psych: Calm
Assessment/Plan
Suspicion for left mid lung pneumonia
Recent Pseudomonas in the phlegm and as well as streptococcal pneumonia antigen in the urine
Patient's presented with progressive shortness of breath, chills, progressive worsening of cough with change in color to xiong. He was treated for Pseudomonas and streptococcal pneumonia multifocal pneumonia in mid July. He is 5 days
postprocedure/cardiac ablation.
His is also admitted to the hospital with pneumonia.
Continue Cefepime. Follow culture data. Repeat sputum cultures and streptococcal pneumonia antigen. ID consulted on admission, appreciate their evaluation and recommendations. Procal elevated, continue antibiotics.
Antitussives.
Speech eval.
COPD-possible exacerbation with patient's reports of SOB, cough with sputum. Start Prednisone 40 mg daily for 5 days. Use nebulizers as needed. SHAYNE prn on discharge with close PCP/pulmonary follow-up.
Acute hypoxic respiratory insufficiency-continue with oxygen via nasal cannula
Paroxysmal atrial fibrillation status post ablation ~08/23/24. In sinus rhythm. Continue with Cardizem and Eliquis.
-Spoke with cardiology (no official consult needed) but they recommended echocardiogram to rule out pericardial effusion -- echo came back as okay, unchanged from previous
Mild epistaxis-follow closely especially with the need of Eliquis and thrombocytopenia
Mild chronic thrombocytopenia more than 65,000. Follow closely. Consider Heme eval if dropping.
Underweight
Full code
Anticipated Discharge: 24 - 48 hours
Subjective/Interval History
-
Date of Service: August 30, 2024
Patient was seen and examined. He reported some cough and shortness of breath.
Objective Data
-
Labs:
Laboratory Results
08/30/24
06:48
WBC Pending
Hgb Pending
Hct Pending
Plt Count Pending
Sodium Pending
Potassium Pending
Chloride Pending
Carbon Dioxide Pending
BUN Pending
Creatinine Pending
Glucose Pending
Calcium Pending
Vital Signs:
Vital Signs
Temp Pulse Resp BP Pulse Ox
97.9 F 67 16 127/70 96
08/30/24 04:06 08/30/24 04:06 08/30/24 04:06 08/30/24 04:06 08/30/24 04:06
I&O
08/29/24 08/30/24 08/31/24
06:59 06:59 06:59
Intake Total 310 / 310 1080 / 1080
Output Total 415 / 415 1175 / 1175
Balance -105 / -105 -95 / -95
[2024-08-30 08:08] LABS: % Eosinophils 0.6 % (0-6); % Immature Granulocytes 0.3 % (0-0.5); % Monocytes 8.4 % (1.7-9.3); % Neutrophils 61.7 % (42.2-75.2); Absolute Lymphocytes 0.9 10^3/uL (1.2-3.4); Absolute Monocytes 0.3 10^3/uL (0.1-0.6); Absolute Neutrophils 1.9 10^3/uL (1.4-6.5); Hematocrit 27.8 % (39.0-52.0); Hemoglobin 8.8 g/dL (13.0-18.0); Mean Corp Hgb Conc. 31.7 g/dL (33.0-37.0); Mean Corpuscular Hgb 26.9 pg (27.0-31.0); Mean Platelet Volume 10.5 fL (7.4-10.4); Nucleated Red Blood Cells % 0 % (-); Platelet Count 68 10^3/uL (130-400); Red Blood Cell Count 3.27 10^6/uL (4.70-6.10); Red Cell Dist. Width 18.6 % (11.5-14.5); White Blood Cell Count 3.1 10^3/uL (4.8-10.8)
[2024-08-30 08:14] LABS: Blood Urea Nitrogen 29 mg/dl (9-20); Calcium 8.9 mg/dl (8.4-10.2); Carbon Dioxide 26 mmol/L (22-30); Chloride 106 mmol/L (98-107); Estimated Creatinine Clearance 96 ml/min; Glucose 99 mg/dl (70-99); Potassium 4.6 mmol/L (3.5-5.1); Sodium 139 mmol/L (135-145); eGFR > 60.00
[2024-08-30] MEDS: CARDIZEM CD 180 MG PO ×2 (09:06→20:30)
[2024-08-30] MEDS: ELIQUIS 5 MG PO ×2 (09:07→20:30)
[2024-08-30] MEDS: DELTASONE 40 MG PO (09:07)
--- NOTE | 2024-08-30 10:24 | PN.CDI ---
CDI
- -
CDI:
Physician Documentation Request
Admit Date: 08/28/24 14:04
Dear Doctor Sherice,
Patient admitted for pneumonia.
Please review the following and provide your response in the progress notes.
Clinical Indicators:
Height: 6'
Weight:131 lbs
BMI: 17.8
If possible, please provide an associated diagnosis related to the abnormal BMI, such as:
Underweight
Cachectic
BMI is not significant
Other
BMI < or = to 19.9
Underweight
Weight Loss
Cachectic
Anorexia
Use of terms such as suspected, likely, concern for, or probable (associated with a specific diagnosis that is being evaluated, monitored, or treated as if it exists) are acceptable and can be coded in the inpatient setting, when documented at the
time of discharge.
Thank you,
Carlee Alejandro RN, BSN
CDI Specialist
Available via [facility] text
Please use your independent medical judgment in providing your response.
--- NOTE | 2024-08-30 13:04 | W.PN.ID1 ---
Date of Service
Date of Service: August 30, 2024
Today's Communication
Continue cefepime.
Assessment / Plan
# Acute hypoxic respiratory failure, now off oxygen
# Pneumonia
# Recent Pseudomonas, Strep pneumonia treated with 14d cefepime through 07/29/24.
- COVID/Flu/RSV negative
- Initial Procalcitonin 0.14; Repeat procalcitonin 0.40
- Symptoms waxes and wanes
- Collect sputum cx today
-Continue cefepime (d3)
# Mild epistaxis
# Chronic rhinosinusitis
- Ordered nasal [place]
# Afib s/p ablation 08/22/24
# COPD
# hx cirrhosis compensated
Chief Complaint
-: Pneumonia
Subjective / Review of Systems
c/o starting to cough up green mucous again. He thinks the diltiazem is the source of his symptoms.
Has chronic rhinorrhea
Vital Signs / Physical Exam
Vital Signs
Vital Signs
Temp Pulse Resp BP Pulse Ox
97.7 F 92 18 148/83 93
08/30/24 11:56 08/30/24 11:56 08/30/24 11:56 08/30/24 11:56 08/30/24 11:56
Physical Exam
Constitutional: No Acute Distress
Cardiovascular: Regular Rate and S1/S2
Pulmonary: Rales (Bibase crackles); Negative Wheezes or Rhonchi
Gastrointestinal: Soft, Non Tender and Non Distended
Extremities: Negative Edema
Objective Data
Lab Data
Lab Results
08/30/24 06:48
08/30/24 06:48
Estimated Creat Clear 96 ml/min 08/30/24 06:48
Total Bilirubin 1.8 mg/dl (0.2-1.3) H 08/28/24 10:38
AST 21 U/L (17-59) 08/28/24 10:38
ALT 18 U/L (0-50) 08/28/24 10:38
Alkaline Phosphatase 82 U/L (38-126) 08/28/24 10:38
Most recent labs reviewed.
Micro Results:
08/30/24 12:38 Respiratory Culture - Pending
Sputum Gram Stain - Pending
08/29/24 00:09 Legionella Urinary Antigen - Final
Urine Negative for Legionella pneumophila Serogroup 1 antigen.
A negative result does not rule out the possiblity of
Legionella infection due to other serogroups or species of
Legionella. Clinical correlation is recommended.
Streptococcus pneumoniae Antigen (M - Final
Negative for Streptococcus pneumoniae antigen.
A negative result does not exclude infection with
Streptococcus pneumoniae. Clinical correlation is
recommended.
08/28/24 12:35 Respiratory Syncytial Virus Ag - Final
Nasal Swab Negative for Respiratory Syncytial Virus.
A false negative result may be obtained with a specimen
collected early in the acute phase. If symptoms persist, a
new specimen should be tested.
08/28/24 10:36 Influenza Types A & B (LUIS ALBERTO) - Final
Nasal Swab Negative for Influenza A & B, NAAT
Negative results must be combined with clinical observations
and patient history.
Nucleic Acid Amplification test (NAAT)performed on the
[employer] platform.
08/28/25 CXR: Worsening bilateral pneumonia.
Care Review
Plan reviewed with: Physician (Dr. Smiley)
--- NOTE | 2024-08-30 17:44 | PTCARENOTE ---
This nurse requested conversation wit attending and RN D/T pt's concerns RE: admission DX and what he feels is the wrong Cardizem dose. Pt feels cardiology should have been consulted and his cough wasn't 'infected' until Thursday at 1AM. He feels the
cough prior to this related t the Cardizem and that he only started having brown mucus at 1aM on Thursday. Hospitalist reviewed pt does have PNA and is being treated wit IV ABT. Reviewed pt may not necessarily need cardiology consult, but offered to
ask them to review chart. Echo ordered. reassurance provided. CB in reach.
[2024-08-31 03:40] VITALS: BP 129/64
[2024-08-31] MEDS: STERILE WATER FOR INJECTION 10 ML IV ×2 (05:18→12:08)
[2024-08-31] MEDS: MAXIPIME 1000 MG IV ×2 (05:18→12:08)
[2024-08-31 07:25] VITALS: BP 130/64
[2024-08-31 08:28] LABS: % Basophils 0.4 % (0-2); % Eosinophils 0.4 % (0-6); % Immature Granulocytes 0.4 % (0-0.5); % Lymphocytes 43.9 % (20.5-51.1); % Neutrophils 43.9 % (42.2-75.2); Absolute Monocytes 0.3 10^3/uL (0.1-0.6); Hematocrit 27.6 % (39.0-52.0); Mean Corp Hgb Conc. 32.6 g/dL (33.0-37.0); Mean Corpuscular Volume 85.7 fL (80.0-94.0); Nucleated Red Blood Cells % 0 % (-); Platelet Count 61 10^3/uL (130-400); Red Blood Cell Count 3.22 10^6/uL (4.70-6.10); Red Cell Dist. Width 18.6 % (11.5-14.5); White Blood Cell Count 2.3 10^3/uL (4.8-10.8)
[2024-08-31 08:59] LABS: Blood Urea Nitrogen 27 mg/dl (9-20); Carbon Dioxide 26 mmol/L (22-30); Chloride 104 mmol/L (98-107); Estimated Creatinine Clearance 96 ml/min; Glucose 90 mg/dl (70-99); Potassium 3.9 mmol/L (3.5-5.1); Sodium 140 mmol/L (135-145); eGFR > 60.00
[2024-08-31] MEDS: ELIQUIS 5 MG PO ×2 (09:10→19:33)
[2024-08-31] MEDS: DELTASONE 40 MG PO (09:10)
[2024-08-31] MEDS: CARDIZEM CD 180 MG PO ×2 (09:10→19:33)
[2024-08-31 11:56] VITALS: BP 140/60
[2024-08-31] MEDS: FLUSH (NSS) 1 FLUSH IV (12:08)
--- NOTE | 2024-08-31 13:02 | W.PN.ID1 ---
Date of Service
Date of Service: August 31, 2024
Today's Communication
Transition cefepime (d4) to levofloxacin 750mg po qd through 09/03/24
Assessment / Plan
# Acute hypoxic respiratory failure, resolved
# Recent Pseudomonas, Strep pneumonia treated with 14d cefepime through 07/29/24.
- COVID/Flu/RSV negative
- Initial Procalcitonin 0.14; Repeat procalcitonin 0.40
- Collect sputum cx usual resp erma
-Transition cefepime (d4) to levofloxacin 750mg po qd through 09/03/24
# Mild epistaxis
# Chronic rhinosinusitis
- nasal [place]
# Afib s/p ablation 08/22/24
# COPD
# hx cirrhosis compensated
Chief Complaint
-: Pneumonia
Subjective / Review of Systems
Feels much improved today. No sputum today.
Cough/SOB better.
Vital Signs / Physical Exam
Vital Signs
Vital Signs
Temp Pulse Resp BP Pulse Ox
98.1 F 78 18 140/60 97
08/31/24 11:56 08/31/24 11:56 08/31/24 11:56 08/31/24 11:56 08/31/24 11:56
Physical Exam
Constitutional: No Acute Distress
Cardiovascular: Regular Rate and S1/S2
Pulmonary: Rales (bibase crackles)
Gastrointestinal: Soft, Non Tender, Non Distended and Normal Bowel Sounds
Extremities: Negative Edema
Neurological: AO x 3
Objective Data
Lab Data
Lab Results
08/31/24 07:26
08/31/24 07:26
Estimated Creat Clear 96 ml/min 08/31/24 07:26
Total Bilirubin 1.8 mg/dl (0.2-1.3) H 08/28/24 10:38
AST 21 U/L (17-59) 08/28/24 10:38
ALT 18 U/L (0-50) 08/28/24 10:38
Alkaline Phosphatase 82 U/L (38-126) 08/28/24 10:38
Most recent labs reviewed.
Micro Results:
08/30/24 12:38 Respiratory Culture - Preliminary
Sputum Usual Respiratory Erma
Gram Stain - Preliminary
08/29/24 00:09 Legionella Urinary Antigen - Final
Urine Negative for Legionella pneumophila Serogroup 1 antigen.
A negative result does not rule out the possiblity of
Legionella infection due to other serogroups or species of
Legionella. Clinical correlation is recommended.
Streptococcus pneumoniae Antigen (M - Final
Negative for Streptococcus pneumoniae antigen.
A negative result does not exclude infection with
Streptococcus pneumoniae. Clinical correlation is
recommended.
08/28/24 12:35 Respiratory Syncytial Virus Ag - Final
Nasal Swab Negative for Respiratory Syncytial Virus.
A false negative result may be obtained with a specimen
collected early in the acute phase. If symptoms persist, a
new specimen should be tested.
08/28/24 10:36 Influenza Types A & B (LUIS ALBERTO) - Final
Nasal Swab Negative for Influenza A & B, NAAT
Negative results must be combined with clinical observations
and patient history.
Nucleic Acid Amplification test (NAAT)performed on the
[employer] platform.
08/28/25 CXR: Worsening bilateral pneumonia.
Care Review
Plan reviewed with: Physician (Dr. Smiley)
--- NOTE | 2024-08-31 14:17 | W.PN.HOSP.TC ---
Addendum entered and electronically signed by Kendell Smiley MD 08/31/24 15:31:
Per nurse, patient reported feeling short of breath as bad or worse then when he came in. Pulse ox on room air 93%. Pt refusing discharge today; stated there is 'no way he can go home feeling like this.' Added ICS-LABA to see whether this will help
patient's breathing.
Original Note:
Today's Communication/Plan
-
Discharge today
Assessment / Plan
Assessment / Plan
Physical Exam
General: Comfortable
HEENT: Moist mucous membranes
Respiratory: Decreased breath sounds bilaterally
Cardiac: S1/S2 and Regular Rhythm
GI: Soft and Non Tender. Positive bowel sounds.
Neuro: AAO x 3
Psych: Calm
Assessment/Plan
Suspicion for left mid lung pneumonia
Recent Pseudomonas in the phlegm and as well as streptococcal pneumonia antigen in the urine
Leukopenia with history of Leukopenia
Was on Cefepime, now doing better
Discharge on Levofloxacin
ID consulted on admission, appreciate their evaluation and recommendations.
Antitussives.
Speech eval.
I discussed with Dr. Luna of ID today and we agreed that it is okay to discharge the patient today, with outpatient follow-up of his leukopenia
COPD-possible exacerbation with patient's reports of SOB, cough with sputum. Continue Prednisone 40 mg daily for 5 days (3 more days starting on 09/01/24). Use nebulizers as needed. SHAYNE prn on discharge with close PCP/pulmonary follow-up.
Acute hypoxic respiratory insufficiency-continue with oxygen via nasal cannula
Paroxysmal atrial fibrillation status post ablation ~08/23/24. Continue with Cardizem and Eliquis.
-Spoke with cardiology (no official consult needed) but they recommended echocardiogram to rule out pericardial effusion -- echo came back as okay, unchanged from previous
Mild epistaxis-follow closely especially with the need of Eliquis and thrombocytopenia
Mild chronic thrombocytopenia more than 65,000. Follow closely. Hematology evaluation outpatient.
Underweight
Code Status: Full code
More than 30 minutes spent in discharge including
Final examination of the patient
Summarizing hospital stay
Instructions for continuing care to all relevant caregivers
Preparation of discharge records, prescriptions, and referral forms
Total time spent (in minutes): 37
Anticipated Discharge: Today
Subjective/Interval History
-
Date of Service: August 31, 2024
Patient was seen and examined. He reported that his symptoms have improved and he is open to going home today.
Objective Data
-
Labs:
Laboratory Results
08/31/24
07:26
WBC 2.3 L*
Hgb 9.0 L
Hct 27.6 L
Plt Count 61 L
Sodium 140
Potassium 3.9
Chloride 104
Carbon Dioxide 26
BUN 27 H
Creatinine 0.5 L
Glucose 90
Calcium 9.0
Vital Signs:
Vital Signs
Temp Pulse Resp BP Pulse Ox
98.1 F 78 18 140/60 97
08/31/24 11:56 08/31/24 11:56 08/31/24 11:56 08/31/24 11:56 08/31/24 11:56
I&O
08/30/24 08/31/24 09/01/24
06:59 06:59 06:59
Intake Total 1080 / 1080 680 / 680
Output Total 1175 / 1175 700 / 700
Balance -95 / -95 -20 / -20
[2024-08-31 15:43] VITALS: BP 132/66
[2024-08-31] MEDS: SYMBICORT 160/4.5 MCG INHALER 2 PUFF INH ×2 (15:43→19:51)
[2024-08-31] MEDS: DUONEB 3 ML INH ×2 (15:43→19:55)
--- NOTE | 2024-08-31 15:54 | PTCARENOTE ---
Pt AAO x3, VICKERS; OOB in room/pascual with minimal assistance/walker, yessica well. VSS. Telemetry:NSR. On room air- pulse ox currently 93 . Pt c/o 'I 'e been SOB all day- I feel worse now than when I came in. here is no way i can go home today'.
Sherice notified. Pt encouraged to utilize prn resp treatment for SOB; pt stated 'They don't work anyway. I've been dealing with them for 1 year'. Pt with (+) TANNER; frequent cough- small/mod amts yellow/ann mucus. Abd soft, yessica PO well.
Voiding clear lt dionte urine in urinal. Resting in bed at present. Will continue to monitor.
[2024-08-31] MEDS: LEVAQUIN 750 MG PO (17:19)
--- NOTE | 2024-08-31 18:32 | PTCARENOTE ---
Pt under neutropenic prec; transferred to room 427 via WC with all belongings; condition stable at ties of transfer. Report given to Devon TOSCANO.
[2024-08-31 23:59] VITALS: BP 132/60
[2024-09-01 07:30] VITALS: BP 143/64
[2024-09-01] MEDS: SYMBICORT 160/4.5 MCG INHALER INH (07:45)
--- NOTE | 2024-09-01 07:55 | W.PN.HOSP.TC ---
Today's Communication/Plan
-
Respiratory symptoms worsened, patient demanded hematology and pulmonary consults
Patient understandably upset, has complicated pulmonary history, reasonable for hematology and pulmonary consults
Continue antibiotics, steroids, breathing treatments
Assessment / Plan
Assessment / Plan
Physical Exam
General: Comfortable
HEENT: Moist mucous membranes
Respiratory: Rhonchi bilaterally
Cardiac: S1/S2 and Regular Rhythm
GI: Soft and Non Tender. Positive bowel sounds.
Neuro: AAO x 3
Psych: Calm
Assessment/Plan
Suspicion for left mid lung pneumonia
Recent Pseudomonas in the phlegm and as well as streptococcal pneumonia antigen in the urine
History of Pseudomonas/streptococcal pneumonia admitted to the hospital 07/2024
treated with 14d cefepime through 07/29/24.
Leukopenia with history of Leukopenia
Acute hypoxic respiratory insufficiency
Seems like still may be recovering from 07/2024 pneumonia
Was on Cefepime, then transitioned to Levofloxacin (which patient is now refusing)
Doxycycline and Augmentin x 5 more days
ID consulted on admission, appreciate their evaluation and recommendations.
Antitussives/mucolytics
Speech evaluation
Mucinex
Duoneb QID -- continue in the outpatient setting
[place], [place] Nasal QID prn nasal congestion (0.65%)
Consider chest percussion/vest therapy
Incentive Spirometry
Consulted pulmonary given that patient says he has a complicated COPD history in which traditional COPD treatments/breathing treatments do not work or make patient's symptoms worse
Frequent Pneumonias, chronic cough, weight loss up to 20 to 30 pounds
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
Concern for COPD -- pulmonary does not feel patient has COPD
-Differential diagnosis is broad: Including Mycobacterium avium infection, ABPA, active tissue disease associated, alpha-1 antitrypsin deficiency, interstitial lung disease etc. Patient is a never smoker. There is no evidence for COPD/emphysema.
-Repeat CT Chest to compare to the abnormal 07/2024 CT Chest
-Check immunoglobulin levels, CRP and sedimentation rate, sputum culture for AFB and fungal
-ABPA needs to be evaluated in the outpatient setting (given prior peripheral eosinophilia)
Paroxysmal atrial fibrillation status post ablation ~08/23/24. Continue with Cardizem and Eliquis.
-Spoke with cardiology (no official consult needed) but they recommended echocardiogram to rule out pericardial effusion -- echo came back as okay, unchanged from previous
Mild epistaxis-follow closely especially with the need of Eliquis and thrombocytopenia
Mild chronic thrombocytopenia more than 65,000
-Patient demanded inpatient hematology consult given his unexplained weight loss over the past 2.5 years as well as his CBC abnormalities including worsening leukopenia
-Hematology consult is okay in this case, and they have been consulted
-Check iron studies, B12, folate, retic, LDH, heme stool, DIC
-Consideration for OP bone marrow biopsy if cytopenias persist despite completion of abx
History of norovirus 07/16/2024
History of GI bleed
Right hip replacement
History of cirrhosis
Prior history of alcohol abuse.
Prior history of GI bleed.
Nasal polypectomy-history of chronic rhinosinusitis.
History of back surgery
Underweight
Code Status: Full code
Anticipated Discharge: 24 - 48 hours
Subjective/Interval History
-
Date of Service: September 01, 2024
Patient was seen and examined. He reported that he feels worse today, more cough and chest congestion, and he is unable to fully bring up his sputum.
Objective Data
-
Labs:
Laboratory Results
09/01/24
07:28
WBC Pending
Hgb Pending
Hct Pending
Plt Count Pending
Sodium Pending
Potassium Pending
Chloride Pending
Carbon Dioxide Pending
BUN Pending
Creatinine Pending
Glucose Pending
Calcium Pending
Vital Signs:
Vital Signs
Temp Pulse Resp BP Pulse Ox
98.0 F 72 16 132/60 96
08/31/24 23:59 08/31/24 23:59 08/31/24 23:59 08/31/24 23:59 08/31/24 23:59
I&O
08/31/24 09/01/24 09/02/24
06:59 06:59 06:59
Intake Total 680 / 680 660 / 660
Output Total 700 / 700 800 / 800
Balance -20 / -20 -140 / -140
[2024-09-01 08:32] LABS: Blood Urea Nitrogen 23 mg/dl (9-20); Calcium 8.4 mg/dl (8.4-10.2); Carbon Dioxide 27 mmol/L (22-30); Chloride 104 mmol/L (98-107); Estimated Creatinine Clearance 96 ml/min; Glucose 89 mg/dl (70-99); Sodium 140 mmol/L (135-145); eGFR > 60.00
[2024-09-01 08:40] LABS: Hematocrit 26.7 % (39.0-52.0); Hemoglobin 8.5 g/dL (13.0-18.0); Mean Corp Hgb Conc. 31.8 g/dL (33.0-37.0); Mean Corpuscular Hgb 27.1 pg (27.0-31.0); Mean Platelet Volume 9.3 fL (7.4-10.4); Platelet Count 66 10^3/uL (130-400); Red Blood Cell Count 3.14 10^6/uL (4.70-6.10); Red Cell Dist. Width 18.7 % (11.5-14.5); White Blood Cell Count 2.1 10^3/uL (4.8-10.8)
[2024-09-01] MEDS: LEVAQUIN PO ×2 (08:55→09:07)
[2024-09-01] MEDS: CARDIZEM CD 180 MG PO ×2 (08:55→20:16)
[2024-09-01] MEDS: DELTASONE 40 MG PO (08:55)
[2024-09-01] MEDS: ELIQUIS 5 MG PO ×2 (08:55→20:16)
[2024-09-01] MEDS: MUCINEX 600 MG PO ×2 (08:55→20:17)
[2024-09-01] MEDS: SODIUM CHLORIDE 3% FOR INHALATION INH (09:30)
[2024-09-01] MEDS: DUONEB INH (09:30)
--- NOTE | 2024-09-01 09:39 | W.PN.ID1 ---
Date of Service
Date of Service: September 01, 2024
Today's Communication
-Replace levofloxacin with doxycycline and Augmentin x 5 more days.
-Monitor for improvement of leukopenia off of cefepime.
Assessment / Plan
# SOB/cough
# Acute hypoxic respiratory failure, resolved
# Leukopenia - pt reports leukopenia in the past which resolved, never saw heme/onc.
# Recent Pseudomonas, Strep pneumonia treated with 14d cefepime through 07/29/24.
- COVID/Flu/RSV negative
- Initial Procalcitonin 0.14; Repeat procalcitonin 0.40
- sputum cx usual resp erma
- Symptoms wax and wane
- s/p cefepime (d4) - dc'd 08/31
-pt refusing current levofloxacin.
-Replace levofloxacin with doxycycline and Augmentin x 5 more days.
- Monitor for improvement of leukopenia off of cefepime.
# Chronic rhinosinusitis
# Afib s/p ablation 08/22/24
# COPD
# hx cirrhosis compensated
# Chronic thrombocytopenia from cirrhosis
Chief Complaint
-: Pneumonia
Subjective / Review of Systems
Refuses to take Levofloxacin 'did not work in the past'.
C/o worsening of SOB after ambulation yesterday. Remains SOB today.
Vital Signs / Physical Exam
Vital Signs
Vital Signs
Temp Pulse Resp BP Pulse Ox
98.3 F 70 20 143/64 95
09/01/24 07:30 09/01/24 07:30 09/01/24 07:30 09/01/24 07:30 09/01/24 07:30
Physical Exam
Constitutional: No Acute Distress and Cachetic
Cardiovascular: Regular Rate and S1/S2
Pulmonary: Rales (bibase coarse crackles)
Gastrointestinal: Soft, Non Tender and Non Distended
Extremities: Negative Edema
Neurological: AO x 3
Objective Data
Lab Data
Lab Results
09/01/24 07:28
09/01/24 07:28
Estimated Creat Clear 96 ml/min 09/01/24 07:28
Total Bilirubin 1.8 mg/dl (0.2-1.3) H 08/28/24 10:38
AST 21 U/L (17-59) 08/28/24 10:38
ALT 18 U/L (0-50) 08/28/24 10:38
Alkaline Phosphatase 82 U/L (38-126) 08/28/24 10:38
Most recent labs reviewed.
Micro Results:
08/30/24 12:38 Respiratory Culture - Preliminary
Sputum Usual Respiratory Erma
Gram Stain - Preliminary
08/29/24 00:09 Legionella Urinary Antigen - Final
Urine Negative for Legionella pneumophila Serogroup 1 antigen.
A negative result does not rule out the possiblity of
Legionella infection due to other serogroups or species of
Legionella. Clinical correlation is recommended.
Streptococcus pneumoniae Antigen (M - Final
Negative for Streptococcus pneumoniae antigen.
A negative result does not exclude infection with
Streptococcus pneumoniae. Clinical correlation is
recommended.
08/28/24 12:35 Respiratory Syncytial Virus Ag - Final
Nasal Swab Negative for Respiratory Syncytial Virus.
A false negative result may be obtained with a specimen
collected early in the acute phase. If symptoms persist, a
new specimen should be tested.
08/28/24 10:36 Influenza Types A & B (LUIS ALBERTO) - Final
Nasal Swab Negative for Influenza A & B, NAAT
Negative results must be combined with clinical observations
and patient history.
Nucleic Acid Amplification test (NAAT)performed on the
[employer] platform.
08/28/25 CXR: Worsening bilateral pneumonia.
[2024-09-01] MEDS: AUGMENTIN 875 MG/125 MG 1 TABLET PO ×2 (10:40→20:17)
[2024-09-01] MEDS: VIBRAMYCIN 100 MG PO ×2 (10:40→20:16)
[2024-09-01] MEDS: DUONEB 3 ML INH ×3 (11:39→19:26)
[2024-09-01] MEDS: SODIUM CHLORIDE 3% FOR INHALATION 1 VIAL INH (11:39)
[2024-09-01 11:52] LABS: % Eosinophils 0.5 % (0-6); % Immature Granulocytes 0.5 % (0-0.5); % Lymphocytes 46.8 % (20.5-51.1); % Monocytes 9.3 % (1.7-9.3); % Neutrophils 42.9 % (42.2-75.2); Absolute Monocytes 0.2 10^3/uL (0.1-0.6); Absolute Neutrophils 0.9 10^3/uL (1.4-6.5); Nucleated Red Blood Cells % 0 % (-)
--- NOTE | 2024-09-01 12:17 | CON.PUL ---
Consultation
Consultation Request
Date/Time Consultation Requested: 09/01/2024
Date/Time Consultation Performed: 09/01/2024
Requesting Provider: Dr. Nation
Performing Provider: Dr. Jose Manuel Reynolds
Reason for Consultation: Shortness of breath with abnormal CT chest
Medical History
-
History of Present Illness:
69-year-old man with history of atrial fibrillation who had an elective cardiac ablation on Thursday. Following day patient felt more short of breath. Reported cough with clear mucus. On Thursday he called his doctor and he was instructed
to come to the emergency room.
There is no reports of fevers. No nausea or vomiting. No evident aspiration.
He did report some sore throat after procedure for 2 days.
apparently was admitted to the hospital with pneumonia as well.
-
He was discharged from the hospital 07/22/2024 after developing Pseudomonas pneumonia and streptococcal pneumonia. Also rapid atrial fibrillation. Significantly abnormal CAT scan at that time.
-
Patient was treated for possible pneumonia also he was given some oral steroids for his coughing and congestion.
He was treated with as needed nebulizers
Minimal oxygen requirements.
-
On further questioning patient states that his symptoms started since . With coughing, frequent pneumonia, weight loss.
Symptoms have fluctuated throughout the years. Multiple course of antibiotics for pneumonia.
Chronic cough with phlegm production
Weight loss up to 20 to 30 pounds since 2021.
Very debilitated. Has not been able to exercise.
Denies swallowing problems.
Does report postnasal drip has seen ENT in the past. He states that in the past he had nasal polyps.
He is a never smoker.
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 He was not able to specify. Since then he has been having pulmonary symptoms.
-
Does not recall exposure to tuberculosis. He was seen by pulmonary at [facility]-patient never had had a bronchoscopy. No details available. He was told he had COPD.
Past Medical History
Past Medical History: Other (See assessment and plan)
Social History
Tobacco: Non-smoker
Alcohol: Occasional
Drug: None
Personal:
Living: With Family
Employment: Retired
Family History
Family History: Reviewed & Not Pertinent
Allergies / Home Medications
Allergies
Allergy/AdvReac Type Severity Reaction Status Date / Time
vancomycin Allergy Rash Verified 08/28/24 09:52
Home Medications
�Medication �Instructions �Recorded �Confirmed �Last Taken �Type
acetaminophen 500 mg tablet 1,000 mg PO Q6HPRN PRN mild pain 07/12/24 08/28/24 08/27/24 History
(Tylenol Extra Strength)
apixaban 5 mg tablet (Eliquis) 5 mg PO BID AFib 07/12/24 08/28/24 08/21/24 21:00 History
diltiazem HCl 180 mg 180 mg PO BID #60 caps 07/22/24 08/28/24 08/21/24 21:00 Rx
capsule,extended release 24 hr
Review of Systems
-
History Source: Patient
Constitutional: No Symptoms
Vitals / Labs / Diagnostic Testing
Vital Signs
Temp Pulse Resp BP Pulse Ox
98.3 F 70 18 143/64 95
09/01/24 07:30 09/01/24 07:30 09/01/24 11:43 09/01/24 07:30 09/01/24 11:43
Lab Data
09/01/24 07:28
09/01/24 07:28
Microbiology
08/30/24 12:38 Sputum Respiratory Culture - Final
Usual Respiratory Erma
08/30/24 12:38 Sputum Gram Stain - Final
08/29/24 00:09 Urine Legionella Urinary Antigen - Final
Negative for Legionella pneumophila Serogroup 1 antigen.
A negative result does not rule out the possiblity of
Legionella infection due to other serogroups or species of
Legionella. Clinical correlation is recommended.
08/29/24 00:09 Urine Streptococcus pneumoniae Antigen (M - Final
Negative for Streptococcus pneumoniae antigen.
A negative result does not exclude infection with
Streptococcus pneumoniae. Clinical correlation is
recommended.
Diagnostic Testing:
Physical Exam
-
HEENT: Normocephalic
Cardiovascular: S1/S2
Respiratory: Rales
GI: Soft and Non Distended
Neurology: Awake, Alert and No Motor Deficits
Skin: Warm
General: Comfortable
Assessment
-
69-year-old man with history of atrial fibrillation, cirrhosis,? COPD not on long-acting bronchodilators, does not follow-up locally. Recently underwent cardiac ablation on 08/22/2024 following day developed shortness of breath, progressive
coughing. Chills. Discolored sputum. It is noted that this patient was treated with antibiotics for Pseudomonas pneumonia in mid to late July.
Contact with who has pneumonia as well.
Cough/shortness of breath-possible pneumonia this admission again. Patient states that symptoms started 08/23/2024 after ablation.
Negative COVID/negative influenza/negative RSV.
Initial procalcitonin 0.14 then 0.4.
Sputum culture with normal respiratory erma
Chest x-ray 08/28/2024: Worsening bilateral infiltrates compared to prior. Trace left pleural effusion.
proBNP in the 400s
Leukopenia/Neutropenia/anemia-Unclear etiology. Likely contributing to symptoms as well.
Condition present prior admission:
History of norovirus 07/16/2024
History of Pseudomonas/streptococcal pneumonia admitted to the hospital 07/2024
treated with 14d cefepime through 07/29/24.
Atrial fibrillation status post ablation 08/22/2024. On chronic anticoagulation.
? COPD-not on inhalers
Does not follow-up locally
No available PFTs
History of GI bleed
Right hip replacement
History of cirrhosis
Prior history of alcohol abuse.
Prior history of GI bleed.
Nasal polypectomy-history of chronic rhinosinusitis.
History of back surgery
Echocardiogram 08/30/2024: Reviewed, normal LVEF. No regional? Abnormalities. Normal RV function. Dilated left atrium. Mild AR. Mild to moderate TR. Pulmonary pressures 35 to 40 mmHg. Trivial pericardial effusion.
Assessment and plan:
Patient complaining of shortness of breath since ablation 08/22/2024: Also with symptoms that may suggest infection, apparently admitted to the hospital with pneumonia as well.
Since admission treated with antibiotics cefepime, culture showed normal respiratory erma.
Initially improved but continues to report exertional dyspnea I was consulted 09/01/2024 for evaluation
In addition: He was treated with prednisone orally for possible exacerbation of COPD but he not bronchospastic. He was treated with as needed inhalers as well.
Patient states that he still feels short of breath.
-
Reviewed x-rays on this admission showed persistent bilateral infiltrates- This admission. No significant pleural effusion.
Since his discharge from the hospital last imaging available is from 07/12/2024 where he had a CAT scan that showed significant abnormalities: No evidence for pulmonary embolism. Bilateral multifocal pneumonia at worst on the lower lobes there was
significant bronchiolitis bilateral. Reactive mediastinal lymph nodes.
-
Shortness of breath could be multifactorial: Recovering pneumonia, anemia which is worse compared to prior. He is also on AV jewell blocking agents Cardizem high-dose. Baseline heart rate is 70.
-
From the pulmonary perspective there is no pulmonary function testing available. He does not follow-up locally with pulmonary.
Appears that this patient has a long history of pulmonary issues since -states that he does not have a formal diagnosis
Frequent pneumonias, chronic cough, weight loss up to 20 to 30 pounds. Worsening shortness of breath inability to exercise.
Has never undergone a bronchoscopy, unclear whether immunoglobulin levels or connective tissue disease evaluation has been done.
Does report history of nasal polyps
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
Differential diagnosis is broad: Including Mycobacterium avium infection, ABPA, active tissue disease associated, alpha-1 antitrypsin deficiency, interstitial lung disease etc. Patient is a never smoker. There is no evidence for COPD/emphysema.
-
He usually does not take any inhalers.
CT chest from 07/12/2024 significantly abnormal. As noted above. Likely still recovering pneumonia.
Given ongoing symptoms I will repeat CT of the chest to compare to prior. It is not clear to me whether this patient has developed a new pneumonia.
Continue antibiotics per infectious disease Augmentin/doxycycline. Sputum culture with normal respiratory erma.
Will obtain immunoglobulin levels
Check CRP and sedimentation rate
Check sputum culture for AFB and fungal
With prior peripheral eosinophilia, 6.9% on 08/15/2024 cannot rule out ABPA. This will need to be evaluated in the outpatient setting. Pulmonary issues have been ongoing for many years.
-
Not bronchospastic on exam, agree with prednisone taper.
Currently on room air 95%.
Continue mucolytics
Acapella device, he may benefit from vest therapy in the future. Should continue in the outpatient setting
Agree with DuoNebs 4 times a day for secretion clearance. Should continue in the outpatient setting
Patient understands that he will need Ongoing pulmonary care and he is agreeable to follow-up locally.
-
Check ambulatory heart rate.-And pulse oximetry. Heart rate at baseline is 70 he is on Cardizem unclear whether he has some degree of chronotropic insufficiency.
Atrial fibrillation status post cardioversion 08/22/2024
-
Anemia/thrombocytopenia/neutropenia: Unclear etiology.
Patient does have history of liver cirrhosis and splenomegaly.
Hemoglobin has been steadily declining 12 in 07/12/2024 and 8.5 on 09/01/2024. Likely also contributing to symptoms.
Defer to primary team.
-
DVT prophylaxis on chronic anticoagulation
-
Will follow
--- NOTE | 2024-09-01 12:47 | CON.ONC ---
Impression
Impression
SOB -pulmonary following
recent PNA/norovirus -ID following
AF s/p ablation on DOAC
chronic splenomegaly
cirrhosis
acute on chronic pancytopenia likely secondary to cirrhosis +/- splenomegaly+/- recent infection +/- abx
acute on chronic anemia may be secondary to groin site from ablation with hematoma post procedure, now appears healing
Plan
Plan
check iron studies, B12, folate, retic, LDH, heme stool, DIC
Would consider OP bone marrow biopsy if cytopenias persist despite completion of abx
Patient History
History of Present Illness
69yo M with chronic intermittent pancytopenia and splenomegaly who was hospitalized 07/12-07/22/2024 for AF, hyponatremia, PNA and norovirus. He underwent ablation 08/22/2024. He presented to with acute SOB. He has been admitted for further
evaluation by ID and pulmonary. Hematology has been consulted for pancytopenia. He has hx of esophageal varices with banding. He tells me that colonoscopy last year was unremarkable. He denies overt bleeding.
He was evaluated by Dr. Rojas in 2018 for pancytopenia and splenomegaly. Peripheral flow 2018 that showed no immunophenotypic abnormalities and no increase in blasts. He had been advised in 2018 that his chronic cytopenias are due to liver disease
and splenomegaly. He was lost to follow up with Dr. Rojas in 2018. He more recently had anticardiolipin and Beta [address] Gallardo that were negative.
Past-Medical/Surgical History
PMH restrictive airway disease, COPD, cirrhosis, AF
PSH right finger, lower back, right hip
Social second hand smoke from parents. Former ETOH. 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
Family lupus and throat cancer
Patient Medication
�Medication �Instructions �Recorded �Confirmed �Last Taken �Type
acetaminophen 500 mg tablet 1,000 mg PO Q6HPRN PRN mild pain 07/12/24 08/28/24 08/27/24 History
(Tylenol Extra Strength)
apixaban 5 mg tablet (Eliquis) 5 mg PO BID AFib 07/12/24 08/28/24 08/21/24 21:00 History
diltiazem HCl 180 mg 180 mg PO BID #60 caps 07/22/24 08/28/24 08/21/24 21:00 Rx
capsule,extended release 24 hr
Active Medications
Generic Name Dose Route Start Last Admin
Trade Name Fretoy PRN Reason Stop Dose Admin
Albuterol/Ipratropium 3 ml 09/01/24 08:05 09/01/24 11:39
Ipratropium 0.5/Albuterol 3 Mg (3 Ml Ampul) INH 3 ml
R QID WILLOW Administration
Protocol
Amoxicillin/Clavulanate Potassium 1 tablet 09/01/24 10:00 09/01/24 10:40
Amoxicillin (875 Mg)/Clavulanate (125 Mg) Tablet PO 09/05/24 20:01 1 tablet
Q12 WILLOW Administration
Apixaban 5 mg 08/28/24 20:00 09/01/24 08:55
Apixaban (Eliquis) 5 Mg Tablet PO 09/25/24 19:59 5 mg
BID WILLOW Administration
Diltiazem HCl 180 mg 08/28/24 20:00 09/01/24 08:55
Diltiazem 180 Mg Extended Release (24 H) Capsule PO 09/25/24 19:59 180 mg
BID WILLOW Administration
Doxycycline Hyclate 100 mg 09/01/24 10:00 09/01/24 10:40
Doxycycline 100 Mg Capsule PO 09/05/24 20:01 100 mg
Q12 WILLOW Administration
Guaifenesin 600 mg 09/01/24 08:00 09/01/24 08:55
Guaifenesin 600 Mg Extended Release Tablet PO 09/29/24 07:59 600 mg
Q12 WILLOW Administration
Prednisone 40 mg 08/30/24 08:00 09/01/24 08:55
Prednisone 20 Mg Tablet PO 09/03/24 08:01 40 mg
DAILY WILLOW Administration
Sodium Chloride 0 flush 08/28/24 17:00 08/31/24 12:08
Sodium Chloride 0.9% (Flush) Syringe IV 09/25/24 16:59 1 flush
PER PROTOCOL WILLOW Administration
Sodium Chloride 0 sprays 08/30/24 13:05
Sodium Chloride 0.65% Nasal [place] 45 Ml Bottle NASAL 09/27/24 13:04
QIDPRN PRN
Congestion
Sodium Chloride 1 vial 09/01/24 08:05 09/01/24 11:39
Sodium Chloride 3% For Inhalation 4 Ml Vial INH 1 vial
R QID WILLOW Administration
Physical Exam
-
General: Conversant, Appears Chronically Ill and Cachetic
HEENT: Negative Jaundice or Moist Mucous Membranes
Cardiology: Irregular Rate/Rhythm
Pulmonary: Other (diminished)
GI: Soft, Distended and Spleenomegaly
Musculoskeletal: No Edema
Extremities: Pulses Present
Neurology: Non Focal
Skin: Warm and Other (R groin bruising, healing)
Hematologic / Lymphatic: No Lymphadenopathy
Psych: Calm
Labs
Lab Results
WBC 2.1 10^3/uL (4.8-10.8) L* 09/01/24 07:28
RBC 3.14 10^6/uL (4.70-6.10) L 09/01/24 07:28
Hgb 8.5 g/dL (13.0-18.0) L 09/01/24 07:28
Hct 26.7 % (39.0-52.0) L 09/01/24 07:28
MCV 85.0 fL (80.0-94.0) 09/01/24 07:28
MCH 27.1 pg (27.0-31.0) 09/01/24 07:28
MCHC 31.8 g/dL (33.0-37.0) L 09/01/24 07:28
RDW 18.7 % (11.5-14.5) H 09/01/24 07:
Plt Count 66 10^3/uL (130-400) L 09/01/24 07:
MPV 9.3 fL (7.4-10.4) 09/01/24 07:
Abs Immat Gran (auto) 0.0 10^3/uL (0-0.05) 09/01/24 07:
Absolute Neuts (auto) 0.9 10^3/uL (1.4-6.5) L* 09/01/24 07:
Absolute Lymphs (auto) 1.0 10^3/uL (1.2-3.4) L 09/01/24 07:
Absolute Monos (auto) 0.2 10^3/uL (0.1-0.6) 09/01/24 07:
Absolute Eos (auto) 0.0 10^3/uL (0-0.7) 09/01/24:
Absolute Basos (auto) 0.0 10^3/uL (0-0.2) 09/01/24 07:
Immature Gran % 0.5 % (0-0.5) 09/01/24 07:
Neutrophils % 42.9 % (42.2-75.2) 09/01/24 07:
Lymphocytes % 46.8 % (20.5-51.1) 09/01/24 07:
Monocytes % 9.3 % (1.7-9.3) 09/01/24 07:
Eosinophils % 0.5 % (0-6) 09/01/24 07:
Basophils % 0.0 % (0-2) 09/01/24:
Creatinine 0.6 mg/dL (0.7-1.3) L 09/01/24 07:28
Vital Signs
Vital Signs
Temp Pulse Resp BP Pulse Ox
98.3 F 70 18 143/64 95
09/01/24 07:30 09/01/24 07:30 09/01/24 11:43 09/01/24 07:30 09/01/24 11:43
[2024-09-01 14:17] LABS: Iron 46 ug/dl (49-181)
[2024-09-01 14:27] LABS: Percent Saturation 13 % (20-50); Total Iron Binding Capacity 343 ug/dl (261-462)
[2024-09-01 14:56] LABS: Ferritin 48.1 ng/ml (17.9-464.0)
[2024-09-01 15:00] VITALS: BP 140/62
[2024-09-01 15:02] VITALS: BP 141/63; PULSE 82; O2SAT 95
--- NOTE | 2024-09-01 15:57 | CM ---
CM reviewed chart, patient ambulating 140 with RW and supervision, will offer VN. Pulmonary following, ID following. CM will continue to follow for all discharge planning needs.
Plan; home no needs vs VN, will discuss VN with patient
[2024-09-01 19:40] VITALS: BP 135/59
[2024-09-01 23:27] VITALS: BP 128/59
[2024-09-02 03:53] VITALS: BP 128/61
[2024-09-02 07:00] VITALS: BP 130/63
--- NOTE | 2024-09-02 07:28 | W.PN.HOSP.TC ---
Today's Communication/Plan
-
Discharge today
Assessment / Plan
Assessment / Plan
Physical Exam
General: Comfortable
HEENT: Moist mucous membranes
Respiratory: Rhonchi bilaterally
Cardiac: S1/S2 and Regular Rhythm
GI: Soft and Non Tender. Positive bowel sounds.
Neuro: AAO x 3
Psych: Calm
Assessment/Plan
Suspicion for left mid lung pneumonia
Recent Pseudomonas in the phlegm and as well as streptococcal pneumonia antigen in the urine
History of Pseudomonas/streptococcal pneumonia admitted to the hospital 07/2024
treated with 14d cefepime through 07/29/24.
Leukopenia with history of Leukopenia
Acute hypoxic respiratory insufficiency
Seems like still may be recovering from 07/2024 pneumonia
Was on Cefepime, then transitioned to Levofloxacin (which patient is now refusing)
Doxycycline and Augmentin through September 06, 2024
ID consulted on admission, appreciate their evaluation and recommendations.
Antitussives/mucolytics
Speech evaluation
Mucinex
Duoneb QID -- continue in the outpatient setting
Patient has nebulizer machine at home
Send Acapella device
Patient has vest therapy at home
Incentive Spirometry
Consulted pulmonary given that patient says he has a complicated COPD history in which traditional COPD treatments/breathing treatments do not work or make patient's symptoms worse
Patient needs outpatient pulmonary and chest imaging follow-up
Frequent Pneumonias, chronic cough, weight loss up to 20 to 30 pounds
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
Concern for COPD -- pulmonary does not feel patient has COPD
-Differential diagnosis is broad: Including Mycobacterium avium infection, ABPA, active tissue disease associated, alpha-1 antitrypsin deficiency, interstitial lung disease etc. Patient is a never smoker. There is no evidence for COPD/emphysema.
-Repeat CT Chest to compare to the abnormal 07/2024 CT Chest
-Check immunoglobulin levels, CRP and sedimentation rate, sputum culture for AFB and fungal
-ABPA needs to be evaluated in the outpatient setting (given prior peripheral eosinophilia)
Paroxysmal atrial fibrillation status post ablation ~08/23/24. Continue with Cardizem and Eliquis.
-Spoke with cardiology (no official consult needed) but they recommended echocardiogram to rule out pericardial effusion -- echo came back as okay, unchanged from previous
Mild epistaxis-follow closely especially with the need of Eliquis and thrombocytopenia
Mild chronic thrombocytopenia more than 65,000
Acute on chronic pancytopenia likely secondary to cirrhosis +/- splenomegaly+/- recent infection +/- abx.
Acute on chronic anemia may be secondary to groin site from ablation with hematoma post procedure, now appears healing.
History of cirrhosis
Chronic Splenomegaly
History of esophageal varices status post banding
-Patient demanded inpatient hematology consult given his unexplained weight loss over the past 2.5 years as well as his CBC abnormalities including worsening leukopenia
-Hematology consult is okay in this case, and they have been consulted
-Continue oral iron every other day, consider parenteral iron after recovery from infection
-Consideration for OP bone marrow biopsy if cytopenias persist despite completion of abx
-I discussed with psychiatric tech Dr. Molina who mentioned it is okay to discharge the patient today from his standpoint
History of norovirus 07/16/2024
History of GI bleed
Right hip replacement
Prior history of alcohol abuse.
Prior history of GI bleed.
Nasal polypectomy-history of chronic rhinosinusitis.
History of back surgery
Underweight
Code Status: Full code
More than 30 minutes spent in discharge including
Final examination of the patient
Summarizing hospital stay
Instructions for continuing care to all relevant caregivers
Preparation of discharge records, prescriptions, and referral forms
Total time spent (in minutes): 38
Anticipated Discharge: Today
Subjective/Interval History
-
Date of Service: September 02, 2024
Patient was seen and examined. He reported still having cough and congestion.
Objective Data
-
Labs:
Laboratory Results
09/02/24
06:00
WBC Pending
Hgb Pending
Hct Pending
Plt Count Pending
PT Pending
INR Pending
APTT Pending
Sodium Pending
Potassium Pending
Chloride Pending
Carbon Dioxide Pending
BUN Pending
Creatinine Pending
Glucose Pending
Calcium Pending
Vital Signs:
Vital Signs
Temp Pulse Resp BP Pulse Ox
98.2 F 70 18 128/61 96
09/02/24 03:53 09/02/24 03:53 09/02/24 03:53 09/02/24 03:53 09/02/24 03:53
I&O
09/01/24 09/02/24 09/03/24
06:59 06:59 06:59
Intake Total 660 / 660 1899
Output Total 800 / 800
Balance -140 / -140 1899
[2024-09-02] MEDS: DUONEB INH ×4 (07:57→21:11)
--- NOTE | 2024-09-02 08:10 | W.PN.ONC2 ---
Today's Communication / Plan
-
-
Impression
Impression
SOB -pulmonary following
recent PNA/norovirus -ID following
AF s/p ablation on DOAC
chronic splenomegaly
cirrhosis
esophageal varices hx banding
acute on chronic pancytopenia likely secondary to cirrhosis +/- splenomegaly+/- recent infection +/- abx.
acute on chronic anemia may be secondary to groin site from ablation with hematoma post procedure, now appears healing. Ferritin <100 suggests a component of iron deficiency. Hemolyisis unlikely with normal retic, LFTs
low normal B12, Check MMA. No folate deficiency. No evidence acute DIC with normal fibrinogen.
Plan
Plan
f/u heme stool
start oral iron every other day, consider parenteral iron after recovery from infection
check MMA
Would consider OP bone marrow biopsy if cytopenias persist despite completion of abx
Subjective/Objective
Subjective
no new complaints
Vital Signs:
Vital Signs
Temp Pulse Resp BP Pulse Ox
98.2 F 70 18 128/61 96
09/02/24 03:53 09/02/24 03:53 09/02/24 03:53 09/02/24 03:53 09/02/24 03:53
Lab Results:
Laboratory Data
WBC 2.1 10^3/uL (4.8-10.8) L* 09/01/24 07:28
Hgb 8.5 g/dL (13.0-18.0) L 09/01/24 07:28
Plt Count 66 10^3/uL (130-400) L 09/01/24 07:28
eGFR > 60.00 09/01/24 07:28
Physical Exam
General: Conversant, Appears Chronically Ill and Cachetic
HEENT: Negative Jaundice or Moist Mucous Membranes
Cardiology: Irregular Rate/Rhythm
Pulmonary: Other (diminished)
GI: Soft, Distended and Spleenomegaly
Musculoskeletal: No Edema
Extremities: Pulses Present
Neurology: Non Focal
Skin: Warm and Other (R groin bruising, healing)
Hematologic / Lymphatic: No Lymphadenopathy
Psych: Calm
Orders
Orders
Orders From Last 24 Hours
09/01/24 13:10
Add On- LAB Routine
Stool for occult blood [Hemetest Stools] As Directed
09/02/24 06:00
B12 [Vitamin B12] IN AM
Copper, Serum [S] IN AM
D-Dimer IN AM
Fibrinogen IN AM
Folate IN AM
LDH IN AM
PT/INR [Prothrombin Time] IN AM
PTT IN AM
Reticulocyte Count IN AM
[2024-09-02] MEDS: DELTASONE 40 MG PO (08:19)
[2024-09-02] MEDS: ELIQUIS 5 MG PO ×2 (08:19→20:42)
[2024-09-02] MEDS: AUGMENTIN 875 MG/125 MG 1 TABLET PO ×2 (08:19→20:42)
[2024-09-02] MEDS: VIBRAMYCIN 100 MG PO ×2 (08:19→20:41)
[2024-09-02] MEDS: MUCINEX 600 MG PO ×2 (08:19→20:41)
[2024-09-02] MEDS: CARDIZEM CD 180 MG PO ×2 (08:19→20:42)
[2024-09-02] MEDS: FEOSOL 325 MG PO (08:22)
[2024-09-02 08:40] LABS: INR 1.45; PT 17.9 Sec (11.4-14.6)
[2024-09-02 08:41] LABS: APTT 30.3 Sec (23.4-35.0); Fibrinogen 374 MG/DL (199-459)
[2024-09-02 08:44] LABS: D-Dimer 0.49 ug/mlFEU (0.00-0.50)
[2024-09-02 08:46] LABS: % Basophils 0.4 % (0-2); % Eosinophils 0.9 % (0-6); % Immature Granulocytes 0.4 % (0-0.5); % Lymphocytes 46.8 % (20.5-51.1); % Monocytes 7.2 % (1.7-9.3); % Neutrophils 44.3 % (42.2-75.2); Absolute Lymphocytes 1.1 10^3/uL (1.2-3.4); Absolute Monocytes 0.2 10^3/uL (0.1-0.6); Hematocrit 28.6 % (39.0-52.0); Hemoglobin 9.2 g/dL (13.0-18.0); Mean Corp Hgb Conc. 32.2 g/dL (33.0-37.0); Mean Corpuscular Hgb 27.5 pg (27.0-31.0); Mean Corpuscular Volume 85.6 fL (80.0-94.0); Mean Platelet Volume 10.5 fL (7.4-10.4); Nucleated Red Blood Cells % 0 % (-); Platelet Count 74 10^3/uL (130-400); Red Blood Cell Count 3.34 10^6/uL (4.70-6.10); Red Cell Dist. Width 18.7 % (11.5-14.5); Reticulocyte Count 1.8 % (0.4-2.8); White Blood Cell Count 2.4 10^3/uL (4.8-10.8)
[2024-09-02 08:59] LABS: Blood Urea Nitrogen 21 mg/dl (9-20); Calcium 8.5 mg/dl (8.4-10.2); Carbon Dioxide 28 mmol/L (22-30); Chloride 101 mmol/L (98-107); Estimated Creatinine Clearance 96 ml/min; Glucose 84 mg/dl (70-99); LDH 123 U/L (120-246); Potassium 3.9 mmol/L (3.5-5.1); Sodium 141 mmol/L (135-145); eGFR > 60.00
[2024-09-02 09:45] LABS: Erythrocyte Sed Rate 43 mm/hour (0-20)
[2024-09-02 11:00] VITALS: BP 131/63
[2024-09-02 12:07] LABS: Folate 5.7 ng/ml (2.76-20); Vitamin B12 249 pg/ml (239-931)
--- NOTE | 2024-09-02 12:23 | CM ---
Addendum entered by Piper Nobles 09/02/24 17:03:
Patient seen bedside, discussed discharge order placed. Patient reports he does feel stable for discharge, appealing discharge. IMM reviewed, signed, patient provided with copy. Patient understands he needs to call [facility] for appeal process.
Plan; patient appealing discharge
Original Note:
CM reviewed chart, patient seen bedside. CM discussed PT recommendations of VN, patient declining at this time. Patient reports he is in no rios to leave the hospital, wants to understand why he is short of breath and wants to be able to ambulate
without being short of breath. Patient reports he has been to the hospital multiple times within the past few months. CM offered support to patient, will continue to follow for all discharge planning needs.
Plan; home no needs when stable, declining VN at this time.
--- NOTE | 2024-09-02 13:04 | W.PN.ID1 ---
Date of Service
Date of Service: September 02, 2024
Today's Communication
continue doxycycline 100 mg po bid and Augmentin 875mg po bid through 09/06/24..
Assessment / Plan
# TANNER/cough
# Acute hypoxic respiratory failure, resolved
# Leukopenia improving
# Recent Pseudomonas, Strep pneumonia treated with 14d cefepime through 07/29/24.
# COPD
Chronic rhinosinusitis
Afib s/p ablation 08/22/24
hx cirrhosis compensated
Chronic thrombocytopenia from cirrhosis
- COVID/Flu/RSV negative
- Initial Procalcitonin 0.14; Repeat procalcitonin 0.40
- sputum cx usual resp erma
- Symptoms wax and wane
- Appreciate Pulm management
- s/p cefepime (d4) - dc'd 08/31
-continue doxycycline 100 mg po bid and Augmentin 875mg po bid through 09/06/24..
Chief Complaint
-: Pneumonia
Subjective / Review of Systems
c/o SOB with ambulation.
c/o Albuterol suppressing his cough, unable to expectorate
Vital Signs / Physical Exam
Vital Signs
Vital Signs
Temp Pulse Resp BP Pulse Ox
97.8 F 72 24 131/63 96
09/02/24 11:00 09/02/24 11:00 09/02/24 11:00 09/02/24 11:00 09/02/24 11:00
Physical Exam
Constitutional: Chronically Ill and Cachetic
Cardiovascular: Regular Rate and S1/S2
Pulmonary: Rales (Crackles bibase)
Gastrointestinal: Soft, Non Tender and Non Distended
Extremities: Negative Edema
Neurological: AO x 3
Objective Data
Lab Data
Lab Results
09/02/24 08:01
09/02/24 08:01
ESR 43 mm/hour (0-20) H 09/02/24 08:01
PT 17.9 Sec (11.4-14.6) H 09/02/24 08:01
INR 1.45 09/02/24 08:01
APTT 30.3 Sec (23.4-35.0) 09/02/24 08:01
Estimated Creat Clear 96 ml/min 09/02/24 08:01
Total Bilirubin 1.8 mg/dl (0.2-1.3) H 08/28/24 10:38
AST 21 U/L (17-59) 08/28/24 10:38
ALT 18 U/L (0-50) 08/28/24 10:38
Alkaline Phosphatase 82 U/L (38-126) 08/28/24 10:38
C-Reactive Protein Cancelled 09/01/24 13:25
Most recent labs reviewed.
Micro Results:
08/30/24 12:38 Respiratory Culture - Final
Sputum Usual Respiratory Erma
Gram Stain - Final
08/29/24 00:09 Legionella Urinary Antigen - Final
Urine Negative for Legionella pneumophila Serogroup 1 antigen.
A negative result does not rule out the possiblity of
Legionella infection due to other serogroups or species of
Legionella. Clinical correlation is recommended.
Streptococcus pneumoniae Antigen (M - Final
Negative for Streptococcus pneumoniae antigen.
A negative result does not exclude infection with
Streptococcus pneumoniae. Clinical correlation is
recommended.
08/28/24 12:35 Respiratory Syncytial Virus Ag - Final
Nasal Swab Negative for Respiratory Syncytial Virus.
A false negative result may be obtained with a specimen
collected early in the acute phase. If symptoms persist, a
new specimen should be tested.
08/28/24 10:36 Influenza Types A & B (LUIS ALBERTO) - Final
Nasal Swab Negative for Influenza A & B, NAAT
Negative results must be combined with clinical observations
and patient history.
Nucleic Acid Amplification test (NAAT)performed on the
[employer] platform.
09/02/24: Chest CT wo contrast: Bilateral multifocal pneumonia with some improvement compared to the chest CT from 07/12/2024. Mild residual bronchopneumonia, greatest in the right lower lobe. Chronic consolidation with air bronchograms and volume
loss in the left lower lobe may reflect chronic atelectasis and scarring versus residual dense consolidation from pneumonia.
08/28/25 CXR: Worsening bilateral pneumonia.
--- NOTE | 2024-09-02 14:05 | W.PN.PUL3 ---
Today's Communication / Plan
-
Should be discharged with a nebulizer machine-patient has nebulizer machine at home.
DuoNebs 4 times a day
Should be discharged with Acapella device
Patient has a vest therapy at home
Will need outpatient pulmonary follow-up, his pulmonary symptoms have been going on for many years.
Complete antibiotic therapy
Patient understands that he needs radiographic follow-up
Sign off, please call with questions.
Assessment
-
69-year-old man with history of atrial fibrillation, cirrhosis,? COPD not on long-acting bronchodilators, does not follow-up locally. Recently underwent cardiac ablation on 08/22/2024 following day developed shortness of breath, progressive
coughing. Chills. Discolored sputum. It is noted that this patient was treated with antibiotics for Pseudomonas pneumonia in mid to late July.
Contact with who has pneumonia as well.
Cough/shortness of breath-possible pneumonia this admission again. Patient states that symptoms started 08/23/2024 after ablation.
Negative COVID/negative influenza/negative RSV.
Initial procalcitonin 0.14 then 0.4.
Sputum culture with normal respiratory pema
Chest x-ray 08/28/2024: Worsening bilateral infiltrates compared to prior. Trace left pleural effusion.
proBNP in the 400s
Leukopenia/Neutropenia/anemia-Unclear etiology. Likely contributing to symptoms as well.
Condition present prior admission:
History of norovirus 07/16/2024
History of Pseudomonas/streptococcal pneumonia admitted to the hospital 07/2024
treated with 14d cefepime through 07/29/24.
Atrial fibrillation status post ablation 08/22/2024. On chronic anticoagulation.
? COPD-not on inhalers
Does not follow-up locally
No available PFTs
Never smoker
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 Respiratory symptoms started at that time.
History of GI bleed
Right hip replacement
History of cirrhosis
Prior history of alcohol abuse.
Prior history of GI bleed.
Nasal polypectomy-history of chronic rhinosinusitis.
History of back surgery
Echocardiogram 08/30/2024: Reviewed, normal LVEF. No regional? Abnormalities. Normal RV function. Dilated left atrium. Mild AR. Mild to moderate TR. Pulmonary pressures 35 to 40 mmHg. Trivial pericardial effusion.
Assessment and plan:
Patient complaining of shortness of breath since ablation 08/22/2024: Also with symptoms that may suggest infection, apparently admitted to the hospital with pneumonia as well.
Since admission treated with antibiotics cefepime, culture showed normal respiratory pema.
Continues to report exertional symptoms, this is a chronic problem for years. Waxes and wanes.
In addition: He was treated with prednisone orally for possible exacerbation of COPD but he not bronchospastic. He was treated with as needed inhalers as well.
-
Today 09/02/2024: Patient ambulating around the [place] with a walker. To my view he appears comfortable.
-
Reviewed x-rays on this admission showed persistent bilateral infiltrates- This admission. No significant pleural effusion.
Since his discharge from the hospital last imaging available is from 07/12/2024 where he had a CAT scan that showed significant abnormalities: No evidence for pulmonary embolism. Bilateral multifocal pneumonia at worst on the lower lobes there was
significant bronchiolitis bilateral. Reactive mediastinal lymph nodes.
-
Shortness of breath could be multifactorial: Recovering pneumonia, anemia which is worse compared to prior. He is also on AV jewell blocking agents Cardizem high-dose. Baseline heart rate is 70.
-
From the pulmonary perspective there is no pulmonary function testing available. He does not follow-up locally with pulmonary.
Appears that this patient has a long history of pulmonary issues since -states that he does not have a formal diagnosis per patient.
Frequent pneumonias, chronic cough, weight loss up to 20 to 30 pounds. Worsening shortness of breath inability to exercise.
Has never undergone a bronchoscopy, unclear whether immunoglobulin levels or connective tissue disease evaluation has been done.
Does report history of nasal polyps
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
Differential diagnosis is broad: Including Mycobacterium avium infection, ABPA, active tissue disease associated, alpha-1 antitrypsin deficiency, interstitial lung disease etc. Patient is a never smoker. There is no evidence for COPD/emphysema.
-
He usually does not take any inhalers.
CT chest from 07/12/2024 significantly abnormal. As noted above. Likely still recovering pneumonia.
CT chest 09/02/2024: Showed bilateral multifocal pneumonia with some improvement compared to 07/12/2024. Mild residual bronchopneumonia, greatest on the right lower lobe. Chronic consolidation with air bronchograms and volume loss of the left lower
lobe may reflect chronic atelectasis and scarring versus residual pneumonia. Small left pleural effusion. Small pericardial effusion.
-
Continue antibiotics per infectious disease Augmentin/doxycycline.
Sputum culture with normal respiratory pema.
-
Swallowing evaluation 07/15/2024: Modified barium swallow without overt aspiration.
Will obtain immunoglobulin levels-pending
CRP is slightly elevated-consistent with his recurrent pneumonia.
Check sputum culture for AFB and fungal if able to produce. Currently patient states that he is not able to produce. This will be helpful for outpatient evaluation.
With prior peripheral eosinophilia, 6.9% on 08/15/2024 cannot rule out ABPA. This will need to be evaluated in the outpatient setting. Pulmonary issues have been ongoing for many years.
-
Not bronchospastic on exam, agree with prednisone taper short course..
Currently on room air 95%. Now ambulatory with a walker.
Continue mucolytics
Acapella device, he may benefit from vest therapy in the future. Should continue in the outpatient setting
Agree with DuoNebs 4 times a day for secretion clearance. Should continue in the outpatient setting-will need a nebulizer machine.
Patient understands that he will need Ongoing pulmonary care and he is agreeable to follow-up locally.
-
Ambulatory heart rate.-And pulse oximetry. Heart rate at baseline is 70 he is on Cardizem unclear whether he has some degree of chronotropic insufficiency.
Looks like there is appropriate response.
Atrial fibrillation status post cardioversion 08/22/2024
-
Anemia/thrombocytopenia/neutropenia: Unclear etiology
Patient does have history of liver cirrhosis and splenomegaly-likely contributing.
Hemoglobin has been steadily declining 12 in 07/12/2024 and 8.5 on 09/01/2024. Likely also contributing to symptoms.
Hematology oncology notes reviewed.
-
DVT prophylaxis on chronic anticoagulation
-
Will follow
-
At this point from the pulmonary perspective given improvement on CAT scan. This likely represents recovering pneumonia on top of underlying bronchiectasis. Needs outpatient pulmonary evaluation.
Information will be left in the chart.
I will follow-up on immunoglobulin levels etc.
Complete antibiotic per infectious disease
Patient understands that he will need radiographic follow-up.
No additional recommendations at this point
-
Subjective Data
-
Date of Service:
Date of Service: September 02, 2024
Chief Complaint: Pulmonary Follow Up (Shortness of breath/bronchiectasis/bronchiolitis)
Subjective:
No new complaints
Continues to have intermittent
Denies hemoptysis
chronic shortness of breath, now ambulating with a walker.
Review of Systems
General: Fever (n)
Cardiopulmonary: Dyspnea
GI: Abdominal Pain (n) and Nausea (n)
Objective Data
Data Reviewed
Vital Signs / I&O / Oxygen:
Vital Signs
Temp Pulse Resp BP Pulse Ox
97.8 F 72 24 131/63 96
09/02/24 11:00 09/02/24 11:00 09/02/24 11:00 09/02/24 11:00 09/02/24 11:00
Intake and Output
09/01/24 09/02/24 09/03/24
06:59 06:59 06:59
Intake Total 660 / 660 1899
Output Total 800 / 800
Balance -140 / -140 1899
SaO2 96
Nasal Cannula flow liters per 2
minute
Physical Exam
General: Comfortable and Other (Cachectic)
HEENT: Normocephalic
Cardiovascular: S1-S2
Respiratory: Wheeze (n) and Crackles
GI: Soft and Non Distended
Neurology: Awake, Alert, Oriented and No Motor Deficits
Skin: Rash (n)
Labs/Micro/Reports
Lab Data
09/02/24 08:01
09/02/24 08:01
Laboratory Results
09/02/24
08:01
PT 17.9 H
INR 1.45
APTT 30.3
Microbiology
08/30/24 12:38 Sputum Respiratory Culture - Final
Usual Respiratory Pema
08/30/24 12:38 Sputum Gram Stain - Final
[2024-09-02 15:00] VITALS: BP 135/58
[2024-09-02 23:00] VITALS: BP 124/51
[2024-09-03 03:15] VITALS: BP 117/58
[2024-09-03] MEDS: DUONEB INH ×4 (07:42→20:36)
[2024-09-03 07:55] VITALS: BP 142/60
[2024-09-03] MEDS: AUGMENTIN 875 MG/125 MG 1 TABLET PO ×2 (08:12→20:56)
[2024-09-03] MEDS: CARDIZEM CD 180 MG PO ×2 (08:12→20:57)
[2024-09-03] MEDS: VIBRAMYCIN 100 MG PO ×2 (08:14→20:53)
[2024-09-03] MEDS: DELTASONE 40 MG PO (08:14)
[2024-09-03] MEDS: MUCINEX 600 MG PO ×2 (08:14→20:53)
[2024-09-03] MEDS: ELIQUIS 5 MG PO ×2 (08:14→20:56)
[2024-09-03 08:44] LABS: % Eosinophils 1.2 % (0-6); % Immature Granulocytes 0.4 % (0-0.5); % Lymphocytes 47.5 % (20.5-51.1); % Monocytes 7.7 % (1.7-9.3); % Neutrophils 43.2 % (42.2-75.2); Absolute Lymphocytes 1.2 10^3/uL (1.2-3.4); Absolute Monocytes 0.2 10^3/uL (0.1-0.6); Absolute Neutrophils 1.1 10^3/uL (1.4-6.5); Hematocrit 30.1 % (39.0-52.0); Hemoglobin 9.5 g/dL (13.0-18.0); Mean Corp Hgb Conc. 31.6 g/dL (33.0-37.0); Mean Corpuscular Hgb 27.2 pg (27.0-31.0); Mean Corpuscular Volume 86.2 fL (80.0-94.0); Mean Platelet Volume 9.4 fL (7.4-10.4); Nucleated Red Blood Cells % 0 % (-); Platelet Count 76 10^3/uL (130-400); Red Blood Cell Count 3.49 10^6/uL (4.70-6.10); Red Cell Dist. Width 18.6 % (11.5-14.5); White Blood Cell Count 2.6 10^3/uL (4.8-10.8)
[2024-09-03 09:11] LABS: Blood Urea Nitrogen 24 mg/dl (9-20); Carbon Dioxide 27 mmol/L (22-30); Chloride 102 mmol/L (98-107); Estimated Creatinine Clearance 96 ml/min; Glucose 81 mg/dl (70-99); Sodium 138 mmol/L (135-145); eGFR > 60.00
--- NOTE | 2024-09-03 09:55 | CM ---
Addendum entered by Brigitte Hess RN 09/03/24 12:03:
Callback from Cat at [facility] copy of IMM and DNOD were cut off, she requested to upload them to the [facility] Portal. Cat provided EMR number of [id number], Corrected Appeal number is [id number], IMM and DNOD uploaded and successfully sent to
[facility] through their portal.
Addendum entered by Brigitte Hess RN 09/03/24 11:18:
Call from Cat at [facility] stating they did receive the patients medical record.
Original Note:
Vm from [facility] received notifying us that member is appealing his discharge.Medical Record along copy of DNOD faxed to [facility] at . Appeal number for patients appeal through [facility] is ROBERT [id number].Phone number for [facility] is
[phone]. Update to .
--- NOTE | 2024-09-03 11:08 | CM ---
CM met w/pt bedside informing [facility] did call case management to advise of appeal initiation. CM assured pt we are complying and provided pt a copy of the details of his discharge informing him that a copy of that along w/ his medical records have
been sent to [facility] for review. Pt was receptive of this. CM will await [place] determination
Plan: Await appeal determination
[2024-09-03 11:22] VITALS: BP 138/63
--- NOTE | 2024-09-03 11:59 | W.PN.ONC2 ---
Today's Communication / Plan
-
- stable cytopenias, no fevers or signs of worsening infection.
- clear for d/c with hematology follow up outpt
Impression
Impression
SOB -pulmonary following
recent PNA/norovirus -ID following
AF s/p ablation on DOAC
chronic splenomegaly
cirrhosis
esophageal varices hx banding
acute on chronic pancytopenia likely secondary to cirrhosis +/- splenomegaly+/- recent infection +/- abx.
acute on chronic anemia may be secondary to groin site from ablation with hematoma post procedure, now appears healing. Ferritin <100 suggests a component of iron deficiency. Hemolyisis unlikely with normal retic, LFTs
low normal B12, Check MMA. No folate deficiency. No evidence acute DIC with normal fibrinogen.
Plan
Plan
new neutropenia on this admission, new thrombocytopenia on admission in july that continues on this one. acute on chronic anemia all in setting of infections with norovirus, PNA last month, recurrent PNA this admission. Suspect cytopenias
reactive to inflammation, infection, abx. Low suspicion for primary bone marrow process based on acuity. Splenomegaly on last admission up to 20 cm with viral infection however repeat on CT chest this admission smaller at 13.5 cm.
possible component of nutritional deficiencies contributing eith low iron stores, borderline B12. MMA, raven, pending.
started oral iron every other day, consider parenteral iron after recovery from infection
can arrange hematology follow up with repeat CBC in 4-6 weeks. Would consider OP bone marrow biopsy if cytopenias persist despite completion of abx
Subjective/Objective
Chief Complaint
pancytopenia
Subjective
pt;s count today overall stable with ANC 1,100, hgb 9.5 g/dl, [id number]. No fevers. He continues to have SOB, worse with exertion. no chest pain.
Vital Signs:
Vital Signs
Temp Pulse Resp BP Pulse Ox
97.5 F 81 16 142/60 96
09/03/24 07:55 09/03/24 08:12 09/03/24 07:55 09/03/24 08:12 09/03/24 07:55
Lab Results:
Laboratory Data
WBC 2.6 10^3/uL (4.8-10.8) L 09/03/24 07:43
Hgb 9.5 g/dL (13.0-18.0) L 09/03/24 07:43
Plt Count 76 10^3/uL (130-400) L 09/03/24 07:43
PT 17.9 Sec (11.4-14.6) H 09/02/24 08:01
INR 1.45 09/02/24 08:01
APTT 30.3 Sec (23.4-35.0) 09/02/24 08:01
eGFR > 60.00 09/03/24 07:43
Physical Exam
HEENT: No Jaundice
Pulmonary: Rales (fine, expiratory, bilateral.)
GI: Soft
Extremities: No Edema
Neuro: Non Focal
Review of Systems
Review of Systems
Constitutional: Reports Fatigue; Denies Fever
Respiratory: Reports Dyspnea and Cough
Cardiovascular: Denies Chest Pain
[2024-09-03 15:45] VITALS: BP 143/63
--- NOTE | 2024-09-03 18:13 | W.PN.HOSP.TC ---
Today's Communication/Plan
-
Patient remains stable for discharge
Assessment / Plan
Assessment / Plan
Physical Exam
General: Comfortable
HEENT: Moist mucous membranes
Respiratory: Rhonchi bilaterally
Cardiac: S1/S2 and Regular Rhythm
GI: Soft and Non Tender. Positive bowel sounds.
Neuro: AAO x 3
Psych: Calm
Assessment/Plan
Suspicion for left mid lung pneumonia
Recent Pseudomonas in the phlegm and as well as streptococcal pneumonia antigen in the urine
History of Pseudomonas/streptococcal pneumonia admitted to the hospital 07/2024
treated with 14d cefepime through 07/29/24.
Leukopenia with history of Leukopenia
Acute hypoxic respiratory insufficiency
Seems like still may be recovering from 07/2024 pneumonia
Was on Cefepime, then transitioned to Levofloxacin (which patient is now refusing)
Doxycycline and Augmentin through September 06, 2024
ID consulted on admission, appreciate their evaluation and recommendations.
Antitussives/mucolytics
Speech evaluation
Mucinex
Duoneb QID -- continue in the outpatient setting
Patient has nebulizer machine at home
Send Acapella device
Patient has vest therapy at home
Incentive Spirometry
Consulted pulmonary given that patient says he has a complicated COPD history in which traditional COPD treatments/breathing treatments do not work or make patient's symptoms worse
Patient needs outpatient pulmonary and chest imaging follow-up
Frequent Pneumonias, chronic cough, weight loss up to 20 to 30 pounds
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
Concern for COPD -- pulmonary does not feel patient has COPD
-Differential diagnosis is broad: Including Mycobacterium avium infection, ABPA, active tissue disease associated, alpha-1 antitrypsin deficiency, interstitial lung disease etc. Patient is a never smoker. There is no evidence for COPD/emphysema.
-Repeat CT Chest to compare to the abnormal 07/2024 CT Chest
-Check immunoglobulin levels, CRP and sedimentation rate, sputum culture for AFB and fungal
-ABPA needs to be evaluated in the outpatient setting (given prior peripheral eosinophilia)
Paroxysmal atrial fibrillation status post ablation ~08/23/24. Continue with Cardizem and Eliquis.
-Spoke with cardiology (no official consult needed) but they recommended echocardiogram to rule out pericardial effusion -- echo came back as okay, unchanged from previous
Mild epistaxis-follow closely especially with the need of Eliquis and thrombocytopenia
Mild chronic thrombocytopenia more than 65,000
Acute on chronic pancytopenia likely secondary to cirrhosis +/- splenomegaly+/- recent infection +/- abx.
Acute on chronic anemia may be secondary to groin site from ablation with hematoma post procedure, now appears healing.
History of cirrhosis
Chronic Splenomegaly
History of esophageal varices status post banding
-Patient demanded inpatient hematology consult given his unexplained weight loss over the past 2.5 years as well as his CBC abnormalities including worsening leukopenia
-Hematology consult is okay in this case, and they have been consulted
-Continue oral iron every other day, consider parenteral iron after recovery from infection
-Consideration for OP bone marrow biopsy if cytopenias persist despite completion of abx
History of norovirus 07/16/2024
History of GI bleed
Right hip replacement
Prior history of alcohol abuse.
Prior history of GI bleed.
Nasal polypectomy-history of chronic rhinosinusitis.
History of back surgery
Underweight
Code Status: Full code
Anticipated Discharge: Today
Subjective/Interval History
-
Date of Service: September 03, 2024
Patient was seen and examined. No new symptoms.
Objective Data
-
Labs:
Laboratory Results
09/03/24
07:43
WBC 2.6 L
Hgb 9.5 L
Hct 30.1 L
Plt Count 76 L
Sodium 138
Potassium 4.0
Chloride 102
Carbon Dioxide 27
BUN 24 H
Creatinine 0.5 L
Glucose 81
Calcium 9.0
Vital Signs:
Vital Signs
Temp Pulse Resp BP Pulse Ox
97.9 F 77 22 143/63 95
09/03/24 15:45 09/03/24 15:45 09/03/24 15:45 09/03/24 15:45 09/03/24 15:45
I&O
09/02/24 09/03/24 09/04/24
06:59 06:59 06:59
Intake Total 1899 720 / 720 180 / 180
Balance 1899 720 / 720 180 / 180
[2024-09-03 20:12] VITALS: BP 130/61
[2024-09-04] VITALS (7 sets, daily range): BP systolic 119–141; BP diastolic 57–75
[2024-09-04] MEDS: DUONEB INH ×4 (07:19→21:27)
[2024-09-04 08:33] LABS: % Basophils 0.4 % (0-2); % Eosinophils 1.3 % (0-6); % Immature Granulocytes 0.8 % (0-0.5); % Lymphocytes 45.6 % (20.5-51.1); % Monocytes 8.4 % (1.7-9.3); % Neutrophils 43.5 % (42.2-75.2); Absolute Lymphocytes 1.1 10^3/uL (1.2-3.4); Absolute Monocytes 0.2 10^3/uL (0.1-0.6); Blood Urea Nitrogen 21 mg/dl (9-20); Calcium 8.8 mg/dl (8.4-10.2); Carbon Dioxide 29 mmol/L (22-30); Chloride 101 mmol/L (98-107); Estimated Creatinine Clearance 96 ml/min; Glucose 87 mg/dl (70-99); Hematocrit 29.1 % (39.0-52.0); Hemoglobin 9.4 g/dL (13.0-18.0); Mean Corp Hgb Conc. 32.3 g/dL (33.0-37.0); Mean Corpuscular Hgb 27.6 pg (27.0-31.0); Mean Corpuscular Volume 85.6 fL (80.0-94.0); Mean Platelet Volume 9.3 fL (7.4-10.4); Nucleated Red Blood Cells % 0 % (-); Platelet Count 70 10^3/uL (130-400); Potassium 3.9 mmol/L (3.5-5.1); Red Cell Dist. Width 18.5 % (11.5-14.5); Sodium 138 mmol/L (135-145); White Blood Cell Count 2.4 10^3/uL (4.8-10.8); eGFR > 60.00
[2024-09-04] MEDS: MUCINEX 600 MG PO ×2 (08:37→20:11)
[2024-09-04] MEDS: ELIQUIS 5 MG PO ×2 (08:37→20:12)
[2024-09-04] MEDS: FEOSOL 325 MG PO (08:37)
[2024-09-04] MEDS: AUGMENTIN 875 MG/125 MG 1 TABLET PO ×2 (08:37→20:11)
[2024-09-04] MEDS: VIBRAMYCIN 100 MG PO ×2 (08:37→20:12)
[2024-09-04] MEDS: CARDIZEM CD 180 MG PO ×2 (08:38→20:12)
--- NOTE | 2024-09-04 11:53 | W.PN.HOSP.TC ---
Today's Communication/Plan
-
Patient remains stable for discharge. Discussed with hematology and pulmonary, patient can be discharged from the hospital with outpatient follow-up.
Assessment / Plan
Assessment / Plan
Physical Exam
General: Comfortable
HEENT: Moist mucous membranes
Respiratory: Rhonchi bilaterally
Cardiac: S1/S2 and Regular Rhythm
GI: Soft and Non Tender. Positive bowel sounds.
Neuro: AAO x 3
Psych: Calm
Assessment/Plan
#Suspicion for left mid lung pneumonia
#Recent Pseudomonas in the phlegm and as well as streptococcal pneumonia antigen in the urine
#History of Pseudomonas/streptococcal pneumonia admitted to the hospital 07/2024
treated with 14d cefepime through 07/29/24.
#Leukopenia with history of Leukopenia
#Acute hypoxic respiratory insufficiency
Seems like still may be recovering from 07/2024 pneumonia
Was on Cefepime, then transitioned to Levofloxacin (which patient is now refusing)
Doxycycline and Augmentin through September 06, 2024
ID consulted on admission, appreciate their evaluation and recommendations.
Antitussives/mucolytics
Speech evaluation
Mucinex
Duoneb QID -- continue in the outpatient setting
Patient has nebulizer machine at home
Send Acapella device with the patient at the time of discharge
Patient has vest therapy at home
Incentive Spirometry
Patient needs outpatient pulmonary and chest imaging follow-up
#Frequent Pneumonias, chronic cough, weight loss up to 20 to 30 pounds
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
#Concern for COPD -- pulmonary does not feel patient has COPD
-Differential diagnosis is broad: Including Mycobacterium avium infection, ABPA, active tissue disease associated, alpha-1 antitrypsin deficiency, interstitial lung disease etc. Patient is a never smoker. There is no evidence for COPD/emphysema.
-Repeat CT Chest to compare to the abnormal 07/2024 CT Chest
-Check immunoglobulin levels, CRP and sedimentation rate, sputum culture for AFB and fungal
-ABPA needs to be evaluated in the outpatient setting (given prior peripheral eosinophilia)
#Paroxysmal atrial fibrillation status post ablation ~08/23/24. Continue with Cardizem and Eliquis.
-Spoke with cardiology (no official consult needed) but they recommended echocardiogram to rule out pericardial effusion -- echo came back as okay, unchanged from previous
#Mild epistaxis-follow closely especially with the need of Eliquis and thrombocytopenia
#Mild chronic thrombocytopenia more than 65,000
#Acute on chronic pancytopenia likely secondary to cirrhosis +/- splenomegaly+/- recent infection +/- abx.
#Acute on chronic anemia may be secondary to groin site from ablation with hematoma post procedure, now appears healing.
#History of cirrhosis
#Chronic Splenomegaly
#History of esophageal varices status post banding
-Patient demanded inpatient hematology consult given his unexplained weight loss over the past 2.5 years as well as his CBC abnormalities including worsening leukopenia
-Hematology consult is okay in this case, and they have been consulted
-Continue oral iron every other day, consider parenteral iron after recovery from infection
-Consideration for OP bone marrow biopsy if cytopenias persist despite completion of abx
#History of norovirus 07/16/2024
#History of GI bleed
#Right hip replacement
#Prior history of alcohol abuse.
#Prior history of GI bleed.
#Nasal polypectomy-history of chronic rhinosinusitis.
#History of back surgery
#Underweight
Code Status: Full code
Anticipated Discharge: Within 24 hours
Subjective/Interval History
-
Date of Service: September 04, 2024
Patient was seen and examined. He was a little SOB earlier in the morning which resolved.
Objective Data
-
Labs:
Laboratory Results
09/04/24
07:34
WBC 2.4 L*
Hgb 9.4 L
Hct 29.1 L
Plt Count 70 L
Sodium 138
Potassium 3.9
Chloride 101
Carbon Dioxide 29
BUN 21 H
Creatinine 0.6 L
Glucose 87
Calcium 8.8
Vital Signs:
Vital Signs
Temp Pulse Resp BP Pulse Ox
98.3 F 88 16 131/57 95
09/04/24 07:00 09/04/24 08:38 09/04/24 07:00 09/04/24 08:38 09/04/24 07:00
I&O
09/03/24 09/04/24 09/05/24
06:59 06:59 06:59
Intake Total 720 / 720 420 / 420
Balance 720 / 720 420 / 420
--- NOTE | 2024-09-04 11:55 | CM ---
manager icu received a call from patient and patient states that he has lost the appeal and wanted to know how to proceed, residential case manager made patient aware that Sohan must have given him instructions and explained the outcome of his appeal.
Patient stated that he was told by Sohan the he needed to leave the hospital tomorrow 09/05/24 by noon as he has lost the appeal.
Plan; Patient has lost appeal, physician made aware.
[2024-09-04 12:30] LABS: Copper, Serum 86.3 ug/dL (70.0-140.0)
[2024-09-04 12:59] LABS: IgG Subclass 1 404 mg/dL (240-1118); IgG Subclass 2 191 mg/dL (124-549); IgG Subclass 3 75 mg/dL (21-134); IgG Subclass 4 2 mg/dL (1-123)
[2024-09-04 17:33] LABS: IgE 2 kU/L (<=214)
[2024-09-05 03:57] VITALS: BP 135/80
[2024-09-05 07:00] VITALS: BP 156/68
[2024-09-05] MEDS: DUONEB INH ×2 (07:27→11:24)
[2024-09-05] MEDS: MUCINEX 600 MG PO (09:25)
[2024-09-05] MEDS: VIBRAMYCIN 100 MG PO (09:25)
[2024-09-05] MEDS: ELIQUIS 5 MG PO (09:25)
[2024-09-05] MEDS: AUGMENTIN 875 MG/125 MG 1 TABLET PO (09:25)
[2024-09-05] MEDS: CARDIZEM CD 180 MG PO (09:26)
--- NOTE | 2024-09-05 10:36 | W.PN.ID1 ---
Date of Service
Date of Service: September 05, 2024
Today's Communication
Continue doxycycline 100 mg po bid and Augmentin 875mg po bid through 09/06/24.
Assessment / Plan
# TANNER/cough
# Acute hypoxic respiratory failure, resolved
# Leukopenia
# Recent Pseudomonas, Strep pneumonia treated with 14d cefepime through 07/29/24.
# COPD
Chronic rhinosinusitis
Afib s/p ablation 08/22/24
hx cirrhosis compensated
Chronic thrombocytopenia from cirrhosis
- COVID/Flu/RSV negative
- Initial Procalcitonin 0.14; Repeat procalcitonin 0.40
- sputum cx usual resp erma
- Symptoms wax and wane
- Appreciate Pulm management
- s/p cefepime (d4) - dc'd 08/31
-continue doxycycline 100 mg po bid and Augmentin 875mg po bid through 09/06/24..
Chief Complaint
-: Pneumonia
Subjective / Review of Systems
c/o SOB with activity.
Vital Signs / Physical Exam
Vital Signs
Vital Signs
Temp Pulse Resp BP Pulse Ox
97.9 F 89 20 156/68 94
09/05/24 07:00 09/05/24 07:00 09/05/24 07:00 09/05/24 07:00 09/05/24 07:00
Physical Exam
Constitutional: Chronically Ill
Cardiovascular: Regular Rate and S1/S2
Pulmonary: Rales (decreasing crackles bases) and Rhonchi
Gastrointestinal: Soft, Non Tender, Non Distended and Normal Bowel Sounds
Neurological: AO x 3
Objective Data
Lab Data
Lab Results
09/04/24 07:34
09/04/24 07:34
ESR 43 mm/hour (0-20) H 09/02/24 08:01
PT 17.9 Sec (11.4-14.6) H 09/02/24 08:01
INR 1.45 09/02/24 08:01
APTT 30.3 Sec (23.4-35.0) 09/02/24 08:01
Estimated Creat Clear 96 ml/min 09/04/24 07:34
Total Bilirubin 1.8 mg/dl (0.2-1.3) H 08/28/24 10:38
AST 21 U/L (17-59) 08/28/24 10:38
ALT 18 U/L (0-50) 08/28/24 10:38
Alkaline Phosphatase 82 U/L (38-126) 08/28/24 10:38
C-Reactive Protein Cancelled 09/01/24 13:25
Most recent labs reviewed.
Micro Results:
08/30/24 12:38 Respiratory Culture - Final
Sputum Usual Respiratory Erma
Gram Stain - Final
08/29/24 00:09 Legionella Urinary Antigen - Final
Urine Negative for Legionella pneumophila Serogroup 1 antigen.
A negative result does not rule out the possiblity of
Legionella infection due to other serogroups or species of
Legionella. Clinical correlation is recommended.
Streptococcus pneumoniae Antigen (M - Final
Negative for Streptococcus pneumoniae antigen.
A negative result does not exclude infection with
Streptococcus pneumoniae. Clinical correlation is
recommended.
08/28/24 12:35 Respiratory Syncytial Virus Ag - Final
Nasal Swab Negative for Respiratory Syncytial Virus.
A false negative result may be obtained with a specimen
collected early in the acute phase. If symptoms persist, a
new specimen should be tested.
08/28/24 10:36 Influenza Types A & B (LUIS ALBERTO) - Final
Nasal Swab Negative for Influenza A & B, NAAT
Negative results must be combined with clinical observations
and patient history.
Nucleic Acid Amplification test (NAAT)performed on the
[employer] platform.
09/02/24: Chest CT wo contrast: Bilateral multifocal pneumonia with some improvement compared to the chest CT from 07/12/2024. Mild residual bronchopneumonia, greatest in the right lower lobe. Chronic consolidation with air bronchograms and volume
loss in the left lower lobe may reflect chronic atelectasis and scarring versus residual dense consolidation from pneumonia.
08/28/25 CXR: Worsening bilateral pneumonia.
--- NOTE | 2024-09-05 11:46 | CM ---
CM reviewed chart, reviewed with nurse. Patient aware of appeal outcome, has transportation home from family. CM will continue to follow for all discharge planning needs.
Plan; home no needs.
[2024-09-05 18:50] LABS: IgA 121 mg/dl (70-400); IgG 705 mg/dl (700-1600); IgM 245 mg/dl (40-230)
== END 2024-09-05 11:35 | disposition home or self-care (01) | DRG 193 ==
LOC: 4 WEST ACU 14:04
PROVIDERS: Hospitalist; Nurse Practitioner Acute Care; Physician Assistant; ADMITTING PHYSICIAN Internal Medicine; ATTENDING PHYSICIAN Hospitalist; CONSULT PHYSICIAN Internal Medicine Critical Care Medicine; CONSULT PHYSICIAN Internal Medicine Hematology & Oncology; CONSULT PHYSICIAN Internal Medicine Infectious Disease; EMERGENCY PHYSICIAN Emergency Medicine; FAMILY PHYSICIAN Family Medicine
DX: J18.9 Pneumonia, unspecified organism (principal); J96.01 Acute respiratory failure with hypoxia; J44.0 Chronic obstructive pulmonary disease with (acute) lower respiratory infection; Z68.1 Body mass index [BMI] 19.9 or less, adult; D61.818 Other pancytopenia; R64 Cachexia; Z11.52 Encounter for screening for COVID-19; Z79.01 Long term (current) use of anticoagulants; J32.9 Chronic sinusitis, unspecified; I48.0 Paroxysmal atrial fibrillation; R63.6 Underweight; K74.60 Unspecified cirrhosis of liver
CPT/HCPCS: 93308; 71046; 71250; 80048; 80053; 82525; 82607; 82728; 82746; 82784; 82785; 82787; 83540; 83550; 83615; 83880; 83921; 84145; 84484; 85025; 85027; 85045; 85379; 85384; 85610; 85652; 85730; 86140; 87070; 87205; 87449; 87502; 87807; 87811; 87899; 92610; 93005; 93321; 93325; 93926; 94640; 97116; 97162; 97166; 99285

== ENCOUNTER 2024-12-01 14:28 | Inpatient (IN) | payer OTHER, SELFPAY ==
[2024-12-01] VITALS (11 sets, daily range): BP systolic 131–158; BP diastolic 61–85; BMI 17.7; BMI 16.7
[2024-12-01 11:55] LABS: % Basophils 0.2 % (0-2); % Eosinophils 0.2 % (0-6); % Immature Granulocytes 0.4 % (0-0.5); % Lymphocytes 11.4 % (20.5-51.1); % Monocytes 5.7 % (1.7-9.3); % Neutrophils 82.1 % (42.2-75.2); Absolute Lymphocytes 1.1 10^3/uL (1.2-3.4); Absolute Monocytes 0.5 10^3/uL (0.1-0.6); Absolute Neutrophils 7.6 10^3/uL (1.4-6.5); Hematocrit 36.4 % (39.0-52.0); Hemoglobin 12.2 g/dL (13.0-18.0); Mean Corp Hgb Conc. 33.5 g/dL (33.0-37.0); Mean Corpuscular Hgb 28.4 pg (27.0-31.0); Mean Corpuscular Volume 84.7 fL (80.0-94.0); Mean Platelet Volume 11.5 fL (7.4-10.4); Nucleated Red Blood Cells % 0 % (-); Platelet Count 87 10^3/uL (130-400); Red Cell Dist. Width 14.4 % (11.5-14.5); White Blood Cell Count 9.3 10^3/uL (4.8-10.8)
[2024-12-01 12:04] LABS: ALT (SGPT) 18 U/L (0-50); AST (SGOT) 25 U/L (17-59); Albumin 3.6 g/dl (3.5-5.0); Alkaline Phosphatase 82 U/L (38-126); Blood Urea Nitrogen 20 mg/dl (9-20); Calcium 8.9 mg/dl (8.4-10.2); Carbon Dioxide 26 mmol/L (22-30); Chloride 100 mmol/L (98-107); Glucose 116 mg/dl (70-99); Lipase 33 U/L (23-300); Potassium 4.2 mmol/L (3.5-5.1); Sodium 138 mmol/L (135-145); Total Bilirubin 1.6 mg/dl (0.2-1.3); Total Protein 6.3 g/dl (6.3-8.2); eGFR > 60.00
[2024-12-01 12:15] LABS: Troponin I < 0.012 ng/ml
--- NOTE | 2024-12-01 12:27 | ED.GENMED ---
History of Present Illness
General
Chief Complaint: Breathing Problem
Source: patient
Exam Limitations: none
Time Seen by Provider: 12/01/24 12:17
Nursing documentation reviewed up to this point in time: agreed with
History of Present Illness
History of Present Illness:
69-year-old male presents emergency department due to shortness of breath, recent fever, diarrhea. Recently stopped Eliquis due to nosebleeds.
Past History
Past History
ED Past Medical History: COPD and Other (Cirrhosis)
ED Past Surgical History: Cardiac (Cardiac ablation for atrial fibrillation)
Social History
Tobacco: 2nd hand smoke exposure
Alcohol: Chronic alcoholic
Drug: None
Review of Systems
Review of Systems
Allergies reviewed?: Yes
All Other Systems: Not applicable
Constitutional: Reports fever
EENT: Reports no symptoms
Respiratory: Reports cough and trouble breathing
Cardiac: Reports no symptoms
ABD/GI: Reports no symptoms
: Reports no symptoms
Musculoskeletal: Reports no symptoms
Skin: Reports no symptoms
Neurological: Reports no symptoms
Endocrine: Reports no symptoms
Hematologic/Lymphatic: Reports no symptoms
Psychiatric: Reports no symptoms
Phy Exam
Physical Exam
Physical Exam:
Physical Exam
General: Moderate distress
Neck: supple. no meningeal signs. normal posterior pharynx
Heart: s1/s2 tachycardia, no murmur. equal radial
pulses.
HEENT: Pupils equal round reactive to light, EOMI
Lungs: Moderate respiratory distress. Rhonchi bilaterally
Abdomen: normal bowel sounds. not tender. no CVAT
Neuro: alert and oriented. no focal neurological deficits cranial nerves II through XII intact
Skin: no rash
Psychiatric: well kept. interactive and cooperative
Extremities: no edema. no calf tenderness. negative homans. good distal pulses
Scores
Heart Failure Risk
Heart Failure Risk Score: Not Applicable
Sepsis
Sepsis Screening
Sepsis Assessment: Sepsis Ruled Out
Sepsis Screen
Sepsis Screen: Sepsis Ruled Out
Date: 12/01/24
Time: 16:08
Course
Orders/Labs/Results
Orders:
Orders
12/01/24 11:10
Electrocardiogram (*1) Urgent
Reason for Study: Shortness of Breath
12/01/24 11:11
EKG- Treatment ONCE
12/01/24 11:37
Complete Blood Count/With Diff Urgent
Comprehensive Metabolic Panel Urgent
Lipase Urgent
NT-proBNP Urgent
Comment: ADD ON
Troponin I Urgent
12/01/24 12:25
Add On- LAB Urgent
Tests Added?: pro bnp
12/01/24 12:29
O2 Therapy [RESP] Urgent
Titrate/Wean O2 to maintain O2 sat greater than (%): 93
12/01/24 12:46
Lactic Acid Q4H
Comment: CANCEL 2nd LACTIC ACID IF 1st LACTIC ACID IS LESS THAN 2
Blood Culture Q30M
GABBI Source: Blood/Venous
Specimen Description:
12/01/24 12:47
Blood Culture Q30M
GABBI Source: Blood/Venous
Specimen Description:
12/01/24 12:49
CR Chest Portable - 1 View Urgent
Comment:
Reason For Exam: short of breath
Reason Study Needs to be Portable: Patient Unstable
12/01/24 13:31
Cefepime HCl [Maxipime] 2,000 mg IV NOW STA
12/01/24 14:08
EKG [Electrocardiogram (*1)] Stat
Reason for Study: Atrial Fibrillation
12/01/24 14:12
Admit/Transfer Patient As Directed
Co-Sign Provider:
Level of Care: Inpatient admission
Assign to:: IMU- Intermediate Care
Physician / Group: adrian
Diagnosis: acute hypoxic respiratory failure
Reason for Hospitalization: acute hypoxic respiratory failure
Expected length of stay greater than two midnights?: Yes
ELOS- Estimated Length of Stay in days: 3
I certify the patient meets the requirements for IP care: Yes
Code Status As Directed
Resuscitation Status: Full Code
PRN Pain Medication Management As Directed
May give lesser potent ordered pain med per pt: Yes
preference::
Protocol:: Medication orders for pain may be administered in a
manner that supports deferring to patient preference
when the pt is:
- Requesting an ordered lesser potent pain medication.
Least to most potent pain medications are defined
as: acetaminophen < NSAID < tramadol < opioids
(morphine, oxycodone, hydromorphone).
- Requesting a lesser dose of the same medication IF
ORDERED.
- Requesting a less intrusive route of administration
if both routes are prescribed by the provider (PO <
IV).
12/01/24 14:43
Influenza A+B Rapid Molecular Routine
GABBI Source: Nasal Swab
Specimen Description:
12/01/24 16:30
Lactic Acid Q4H
Comment: CANCEL 2nd LACTIC ACID IF 1st LACTIC ACID IS LESS THAN 2
Abnormal Lab Results
12/01/24 12/01/24
11:37 12:46
RBC 4.30 L 10^6/uL
(4.70-6.10)
Hgb 12.2 L g/dL
(13.0-18.0)
Hct 36.4 L %
(39.0-52.0)
Plt Count 87 L 10^3/uL
(130-400)
MPV 11.5 H fL
(7.4-10.4)
Absolute Neuts (auto) 7.6 H 10^3/uL
(1.4-6.5)
Absolute Lymphs (auto) 1.1 L 10^3/uL
(1.2-3.4)
Neutrophils % 82.1 H %
(42.2-75.2)
Lymphocytes % 11.4 L %
(20.5-51.1)
Glucose 116 H mg/dl
(70-99)
Lactic Acid 2.8 H mmol/L
(0.7-2.0)
Total Bilirubin 1.6 H mg/dl
(0.2-1.3)
12/01/24 11:37
12/01/24 11:37
Vital Signs
Initial and Last Documented VS:
Initial Vital Signs
Temp Pulse Resp BP Pulse Ox
99.2 F 113 24 133/68 91
12/01/24 11:12 12/01/24 11:12 12/01/24 11:12 12/01/24 11:12 12/01/24 11:12
Last Documented Vital Signs
Temp Pulse Resp BP Pulse Ox
99.0 F 109 20 139/61 100
12/01/24 12:24 12/01/24 15:45 12/01/24 15:45 12/01/24 15:00 12/01/24 15:30
MDM/Problems Addressed
Differential Diagnosis Includes:
Pneumonia, COPD exacerbation
MDM/Problems Addressed:
69-year-old male with pneumonia, acute hypoxemic respiratory failure, COPD. Treat with cefepime due to prior cultures. Admit to hospitalist.
Chronic conditions affecting care: COPD
Acute Exacerbation and/or Progression of Chronic Illness: COPD
*Radiology
Radiology exam reviewed: preliminary read by ED provider (Chest x-ray right-sided pneumonia)
*Pulse Oximetry
Patient hypoxic: yes
*EKG
Interpreted by ED Provider?: Yes
EKG Intrepretation Date: 12/01/24
EKG Intrepretation Time: 11:26
Interpretation: abnormal
Comparison EKG: no changes
Heart Rate: 101
Rate: tachycardiac
Rhythm: sinus tachycardia
[place]: normal axis
Interval: normal interval
QRS Pattern: normal QRS
Ischemia: no ischemia
*Pattern Developer Interpretation
Rate: tachycardiac
Interpretation: abnormal
Heart Rate: 102
Rhythm: sinus tachycardia
*Critical Care Note
Total Time (30-74mins, 75-104mins- exclusive of procedures): 32
comment:
Critical care statement: A total of 32 minutes of critical care time was provided for this patient. This includes management of unstable vital signs, evaluation of the patient at bedside, reviewing the patient's pertinent medical records, discussion
with consultants, review of old EKGs and review of pertinent medical records. This time with separate from time utilized to perform the aforementioned documented procedures
Data Reviewed
Review of Other/Old Records Reveals: Labs (Prior cultures positive for Pseudomonas and strep)
Patient Management
Social determinants of health affecting care: Living situation and Strong social support
Discussion with other providers: Hospitalist
Escalation/DeEscalation of care consider admission/obs:
Admit indicated
ED Attending Note
-
Portions of this chart may have been created with voice recognition software.� Occasional wrong word or��sound alike� substitutions may have occurred due to the inherent limitations of voice recognition software.
Discharge Plan
Departure
Patient Disposition: Admit
Date of Disposition: 12/01/24
Time of Disposition: 13:35
Admit to: IMU
Presentation/result/management discussed w/ accepting MD/DO: Hospitalist
Patient with high blood pressure during this ER visit?: Yes
Condition: Fair
Discharge Problem:
Acute hypoxemic respiratory failure, Pneumonia
Interventions
Interventions:
*Risk Screen - Suicide Last Done: 12/01/24 11:12
*General Assessment Last Done: 12/01/24 11:12
*Neglect/Abuse Screening Last Done: 12/01/24 12:18
*ED- Fall Risk Assessment Last Done: 12/01/24 12:18
*ED COVID-19 Vaccine History Last Done: 12/01/24 11:12
ED- Cardiac Assessment Last Done: 12/01/24 12:18
ED- Pulmonary Assessment Last Done: 12/01/24 12:18
[2024-12-01 13:02] LABS: NT-proBNP 476 pg/ml
[2024-12-01 13:07] LABS: Lactic Acid 2.8 mmol/L (0.7-2.0)
--- NOTE | 2024-12-01 13:40 | HPS.HSE ---
Family Physician
-
Family Physician:
Chief Complaint
-
cough, sob, fever
History of Present Illness
69-year-old male with past medical history of A-fib, COPD, GI bleed, pneumonia presents emergency department due to shortness of breath, recent fever, diarrhea since last Thursday. Patient had a bone marrow biopsy on the . Patient is getting
workup for lymphoma. Patient follows [facility] as outpatient. He woke up with short of breath, fever and diarrhea following day. Patient stated multiple episodes of diarrhea since then. Fever of 101 for which he was taking as needed Tylenol.
Patient stated worsening of chronic cough with ann to light green colored sputum. Patient has not eaten since last Thursday. Patient stated significant weight loss since last week. He woke up lightheaded this morning. Denied headache dizzy or
syncope. Patient complained of midsternal pain. Denied abdominal pain. He vomited once last . Denied dysuria hematuria. Patient stopped taking Eliquis 2 weeks ago due to nosebleed
Upon arrival patient noted hypoxic. Patient is requiring mid flow. Oxygenating 100%. Chest x-ray with Patchy right mid and lower lobe opacification suspicious for pneumonia versus atypical asymmetric acute pulmonary edema. Patient received
cefepime. Blood culture sent from ER
Admitting for further management
Medical History
Past Medical History
Past Medical History: Reports Other
Additional Past Medical History:
A-fib, pneumonia, COPD, bronchiectasis,
Past Surgical History: Reports Other
Additional Past Surgical History:
right hand surgery
right hip replacement
Social History
Tobacco: Non-smoker
Alcohol: Occasional
Drug: None
Personal:
Living: With Family
Family History
Family History: Not pertinent
Allergies / Home Medications
Allergies reflects when Allergies were last updated in [facility].
Home Medications with original date entered in [facility]
Allergy/Medication List:
Allergies
Allergy/AdvReac Type Severity Reaction Status Date / Time
vancomycin Allergy Rash Verified 12/01/24 11:18
Home Medications
acetaminophen 500 mg tablet (Tylenol Extra Strength) 1,000 mg PO Q6HPRN PRN mild pain 07/12/24
apixaban 5 mg tablet (Eliquis) 5 mg PO BID AFib 07/12/24
diltiazem HCl 180 mg capsule,extended release 24 hr 180 mg PO BID #60 caps 07/22/24
amoxicillin 875 mg-potassium clavulanate 125 mg tablet 1 tab PO Q12 #9 tabs 09/02/24
doxycycline hyclate 100 mg capsule 100 mg PO Q12 #9 caps 09/02/24
ferrous sulfate 325 mg (65 mg iron) tablet (FeroSul) 325 mg PO Q48H #14 tabs 09/02/24
guaifenesin 600 mg tablet, extended release 12 hr 600 mg PO Q12 #14 tabs 09/02/24
ipratropium 0.5 mg-albuterol 3 mg (2.5 mg base)/3 mL nebulization soln 3 ml inhalation R QID #180 mL 09/02/24
Review of Systems
-
Constitutional: Reports Fever and Chills
EENT: Reports No Symptoms
Respiratory: Reports Cough and Trouble Breathing
Cardiac: Reports No Symptoms
Abdomen/GI: Reports Diarrhea
: Reports No Symptoms
Musculoskeletal: Reports No Symptoms
Skin: Reports No Symptoms
Neurological: Reports Weakness
Endocrine: Reports No Symptoms
Hematologic/Lymphatic: Reports No Symptoms
Psych: Reports No Symptoms
Physical Exam
Vital Signs
Vital Signs
Temp Pulse Resp BP Pulse Ox
99.0 F 102 20 143/62 100
12/01/24 12:24 12/01/24 13:15 12/01/24 13:15 12/01/24 13:00 12/01/24 13:15
Physical Exam
General: Well Developed, Well Nourished and No Apparent Distress
HEENT: NormoCephalic, Moist mucous membranes and Atraumatic
Respiratory: Rales and Rhonchi
Cardiac: S1/S2 and Regular Rhythm; No Murmur or Rub
GI: Soft, Non Tender, Non Distended and Normal Bowel Sounds; No Organomegaly
Rectal: Deferred by Provider
Musculoskeletal: No Clubbing, No Cyanosis and No Edema
Skin: No Rash
Neuro: AO x 3 and Nonfocal/grossly intact
Psych: Calm
Laboratory Results
-
12/01/24 11:37
12/01/24 11:37
Laboratory Results
Lactic Acid 2.8 mmol/L (0.7-2.0) H 12/01/24 12:46
Total Bilirubin 1.6 mg/dl (0.2-1.3) H 12/01/24 11:37
AST 25 U/L (17-59) 12/01/24 11:37
ALT 18 U/L (0-50) 12/01/24 11:37
Alkaline Phosphatase 82 U/L (38-126) 12/01/24 11:37
Troponin I < 0.012 ng/ml 12/01/24 11:37
Lipase 33 U/L (23-300) 12/01/24 11:37
Data Reviewed
-
Diagnostic Radiology: Report Reviewed by me
Lab Data: Labs Reviewed by me
Impression/Plan
-
# Acute hypoxic respiratory failure secondary to pneumonia
# History of Pseudomonas in the blood as well as streptococcal pneumonia
#hxt of chronic rhinosinusitis
- Patient requiring midflow
- Continue supplemental oxygen to keep sat greater than 95
- Wean as tolerated
- Chest x-ray with impression of Patchy right mid and lower lobe opacification suspicious for pneumonia versus atypical asymmetric acute pulmonary edema.
- Blood culture sent from ER
-iv zosyn and doxy
-obtain MRS, sputum culture, urine legionella
-obtain COVID and Flu
# Anemia of chronic disease
# Chronic thrombocytopenia
- Hemoglobin stable at 12.2, platelets 87
- No active bleeding
- Continue to monitor
-patient s/p Bone marrow Biopsy to r/o lymphoma due to persistent Leukopenia
#Paroxysmal atrial fibrillation status post ablation
- Diltiazem continued
#History of cirrhosis
#Chronic Splenomegaly
#History of esophageal varices status post banding
#History of norovirus 07/16/2024
#History of GI bleed
#Right hip replacement
#Prior history of alcohol abuse.
#Prior history of GI bleed.
#Nasal polypectomy-history of chronic rhinosinusitis.
#History of back surgery
# DVT prophylaxis
- SCD
# CODE STATUS
- Full code
[2024-12-01] MEDS: MAXIPIME 2000 MG IV (14:50)
[2024-12-01 15:05] LABS: COVID-19 Antigen Negative (Negative)
--- NOTE | 2024-12-01 16:51 | W.PN.UPDATE ---
Update Note
Progress Note Update
This is an addendum to the H&P written by Kathi Costello on 12/01/2024.� Patient seen examined dependently with MEDICAL FACILITIES SECTION DIRECTOR.
69-year-old male past medical history of frequent pneumonia, prior Pseudomonas in sputum culture, prior strep antigen positive COPD, cirrhosis, atrial fibrillation, chronic thrombocytopenia, chronic pancytopenia secondary to cirrhosis, chronic
splenomegaly, esophageal varices status post banding, epistaxis, history of GI bleeding, history of alcohol use, presenting with shortness of breath, recent fever, diarrhea for the past week.
Vital signs normal apart from tachycardia.� Patient hypoxemic requiring 10L.�
Chest x-ray shows patchy right mid and lower lobe opacification suspicious for pneumonia versus atypical versus asymmetric acute pulmonary edema.
Labs show lactic acid 2.8.� Cardiac BNP of 476.
Patient with recurrent pneumonia as well as diarrhea.� Unclear if this is aspiration related of chronic postnasal drip from chronic sinusitis given�recurrent pneumonias.
Check COVID, influenza, strep antigen, Legionella, MRSA.� Check stool studies.� Blood cultures pending.� IV fluids.� Zosyn, doxycycline.
[2024-12-01 16:59] LABS: Lactic Acid 1.1 mmol/L (0.7-2.0)
[2024-12-01] MEDS: ZOSYN 50 IV ×2 (17:46→23:36)
[2024-12-01] MEDS: NSS 1000 IV (17:46)
--- NOTE | 2024-12-01 18:11 | PTCARENOTE ---
Rec'd pt on admission from ED. 99% on 10L MF, Sinus tach on tele. very anxious. Pt with productive cough. Poor appetite. reports he has not eaten in a week. oriented to unit.
[2024-12-01] MEDS: VIBRAMYCIN 100 MG PO (20:00)
[2024-12-01] MEDS: CARDIZEM CD 180 MG PO (20:00)
[2024-12-01] MEDS: TYLENOL 650 MG PO (20:01)
[2024-12-01] MEDS: MUCINEX 600 MG PO (20:01)
--- NOTE | 2024-12-01 21:10 | PTCARENOTE ---
Patient aaox3 at start of shift, able to make needs known. Patient is MCGRATH b/l. Tachycardic in the 100's-110's overall, increases to 120-130's briefly, then returns to low 100's. Febrile at start of shift. Pct noted 100.9, RN rechecked temp 101. PRN
tylenol administered. Pt c/o some chest discomfort r/to breathing and coughing as well. Will assess tylenol and monitor pain level. Patient on midflow at 10L, decreased to 8L as pox 100%. Call kelley within reach, will continue to monitor pt closely.
--- NOTE | 2024-12-01 22:52 | PTCARENOTE ---
Patients o2 sats sustaining 100%. Midflow weaning down over time, currently down to 2L o2. Will continue to monitor patient closely.
[2024-12-02] VITALS (14 sets, daily range): BP systolic 106–142; BP diastolic 57–77; BMI 16.4
--- NOTE | 2024-12-02 01:43 | PTCARENOTE ---
Patient remains at 100% pox with gradual weaning down of o2, midflow removed at this time, will monitor closely. Patient currently 99% on ra.
[2024-12-02] MEDS: ZOSYN 50 IV ×4 (05:10→23:11)
[2024-12-02 05:45] LABS: Hemoglobin 10.1 g/dL (13.0-18.0); Mean Corp Hgb Conc. 33.7 g/dL (33.0-37.0); Mean Corpuscular Hgb 28.7 pg (27.0-31.0); Mean Corpuscular Volume 85.2 fL (80.0-94.0); Mean Platelet Volume 10.3 fL (7.4-10.4); Platelet Count 64 10^3/uL (130-400); Red Blood Cell Count 3.52 10^6/uL (4.70-6.10); Red Cell Dist. Width 14.4 % (11.5-14.5); White Blood Cell Count 4.9 10^3/uL (4.8-10.8)
[2024-12-02 05:55] LABS: Blood Urea Nitrogen 20 mg/dl (9-20); Carbon Dioxide 26 mmol/L (22-30); Chloride 101 mmol/L (98-107); Estimated Creatinine Clearance 77 ml/min; Glucose 112 mg/dl (70-99); Potassium 3.5 mmol/L (3.5-5.1); Sodium 136 mmol/L (135-145); eGFR > 60.00
--- NOTE | 2024-12-02 07:42 | W.PN.HOSP.TC ---
Addendum entered and electronically signed by Peewee Canela MD 12/02/24 16:33:
Seen and examined by me independently in collaboration with the medical record librarian.
Lab data and imaging data reviewed.
Addendum as below :
Patient presents with acute hypoxic respiratory failure, sepsis and right lung pneumonia. Blood pressure stable. Patient had Pseudomonas isolation in the past and also had a Streptococcus pneumonia antigen in the urine. Continue with Zosyn for
now.
Patient with recurrent pneumonia infections-not immunosuppressed. He does have cirrhosis with splenomegaly which could be playing a factor especially with his encapsulated bacterial infection. Check immunoglobulins and if patient permits HIV
testing. Consult ID.
Has associated diarrhea-check for norovirus and C. difficile.
Discussed cirrhosis with history of decompensation including varices. He has splenomegaly probably secondary to portal hypertension. Currently without hepatic encephalopathy or without obvious GI bleed. Follow clinically.
Full code
Original Note:
Today's Communication/Plan
-
Continue IV abx
Check HIV, immunoglobulin
CT abd/pelvis
Assessment / Plan
Assessment / Plan
Acute hypoxic respiratory failure
Sepsis. Fever, tachycardia, tchypnea
Secondary to pneumonia
- Hx of chronic sinusitis, recurrent pneumonia. Hx of sputum culture positive for strep pneumonia and pseudomonas in 07/2024
- Chest x-ray with impression of Patchy right mid and lower lobe opacification suspicious for pneumonia versus atypical asymmetric acute pulmonary edema. Covid/flu negative.
- Urine antigens negative for strep and legionella
- Blood cx pending
- Continue Zosyn and doxycycline. MRSA screen pending
- Sputum culture, pending.
- Continue IVF
- ID consult
Abdominal tenderness:
Diarrhea:
Hx of splenomegaly:
Hx of norovirus infection
- Cdiff antigen positive, toxin negative
- Await stool cultures, norovirus
- Check CT abd/pel with IV and oral contr
Anemia of chronic disease
Chronic thrombocytopenia
- Hemoglobin 12.2 ->10.1, platelets 87 -> 64. Likely dilutional drop.
- No active bleeding
- Continue to monitor
- patient s/p Bone marrow Biopsy to r/o lymphoma due to persistent Leukopenia and hx of lymphadenopathy
- follows [facility]
#Paroxysmal atrial fibrillation status post ablation
- Diltiazem continued
Underweight:
BMI 16.4kg. Reports poor appetite.
- History of chronic disease
- Ensure supplement added to diet
#History of cirrhosis
#Chronic Splenomegaly
#History of esophageal varices status post banding
#History of norovirus 07/16/2024
#History of GI bleed
#Right hip replacement
#Prior history of alcohol abuse.
#Prior history of GI bleed.
#Nasal polypectomy-history of chronic rhinosinusitis.
#History of back surgery
# DVT prophylaxis
- SCD
# CODE STATUS
- Full code
Anticipated Discharge: > 48 hours
Subjective/Interval History
-
Date of Service: December 02, 2024
Patient reports poor appetite. Requests for the steroid he was given at a prior visit for SOB which he states was effective.
Weaned off midflow O2 to room air overnight. Febrile overnight
Objective Data
-
Labs:
Laboratory Results
12/02/24
05:09
WBC 4.9
Hgb 10.1 L
Hct 30.0 L
Plt Count 64 L D
Sodium 136
Potassium 3.5
Chloride 101
Carbon Dioxide 26
BUN 20
Creatinine 0.7
Glucose 112 H
Calcium 8.0 L
Vital Signs:
Vital Signs
Temp Pulse Resp BP Pulse Ox
99.0 F 79 26 115/61 95
12/02/24 07:00 12/02/24 06:00 12/02/24 06:00 12/02/24 06:00 12/02/24 06:00
I&O
12/01/24 12/02/24 12/03/24
06:59 06:59 06:59
Intake Total 1060 / 1060
Output Total 100 / 100
Balance 960 / 960
Review of Systems
-
History Source: Patient
Constitutional: Reports Fever and No Appetite
EENT: Reports Other
Respiratory: Reports Cough (productive, greenish sputum) and Trouble Breathing
Cardiac: Reports Chest Pain
Abdomen/GI: Reports Diarrhea and Other (no difficulty swallowing); Denies Abdominal Pain, Nausea or Vomiting
Genitourinary: Denies Dysuria or Difficulty Voiding
Physical Exam
-
General: Respiratory Distress, Appears Chronically Ill and Cachectic; Negative Comfortable
HEENT: Normocephalic, Atraumatic, Moist Mucous Membranes and Anicteric
Respiratory: Rhonchi (Diffuse) and Other (Occasional puffing on expiration. reduced bibasilar air movement, egophony noted on right middle and lower lobes); Negative Wheezes or Rales
Cardiac: Regular Rhythm and S1/S2; Negative Murmur, Rub or Calf Tenderness
GI: Nondistended, Tender (generalized tenderness, greater in epigastrium), Distended and Other (No rebound or guarding. Mass noted on left abdomen)
Genito-urinary: No Costovertebral Tender
Neuro: Awake, Alert and Oriented
Psych: Calm
[2024-12-02] MEDS: CARDIZEM CD 180 MG PO ×2 (09:22→21:22)
[2024-12-02] MEDS: FEOSOL 325 MG PO (09:22)
[2024-12-02] MEDS: MUCINEX 600 MG PO ×2 (09:22→21:22)
[2024-12-02] MEDS: VIBRAMYCIN 100 MG PO ×2 (09:22→21:21)
--- NOTE | 2024-12-02 09:56 | PTCARENOTE ---
Pt with harsh productive cough. Sputum sample collected and sent.
--- NOTE | 2024-12-02 11:23 | PTCARENOTE ---
Order received for labs. Pt refusing at this time. Pt states he wants to know who ordered them, what they are, and reason behind ordering such tests. Dr Harvey notified via TT- okay to obtain labs later today or tomorrow morning and states she will
round again later to speak with pt.
[2024-12-02] MEDS: NSS 1000 IV (11:31)
[2024-12-02] MEDS: DECADRON 4 MG IV ×2 (11:34→23:11)
[2024-12-02] MEDS: OMNIPAQUE 50 ML PO (11:53)
--- NOTE | 2024-12-02 12:54 | PN.CDI ---
CDI
- -
CDI:
Physician Documentation Request
Admit Date: 12/01/24 14:28
Dear Doctor Hilton,
Please review the following and provide your response in the progress notes.
Clinical Indicators:
- Environmental Designer note indicates severe protein calorie malnutrition
- Unintentional weight loss > 7.5% in 3 months
- Severe muscle loss over temporal
Based on the above information and your assessment, which of the following most accurately represents the patient's nutritional status?
Severe protein calorie malnutrition
Other (please specify)
[place] Criteria ([facility] Hospitalist 2017)
2 or more criteria must be present for either
non severe or severe malnutrition
Note that the criteria differs related to the
presence of an acute or chronic illness
Acute Illness Chronic Illness
Energy Intake Non Severe: <75% for >7 days Non Severe: <75% for >1 month
Severe: <50% for >5 days Severe: <75% for >1 month
Weight Loss Non Severe: 1-2% over 1 week Non Severe: 5% over 1 month
5% over 1 month 7.5% over 3 months
7.5% over 3 months 10% over 6 months
1 year N/A 20% over 1 year
Severe: >2% over 1 week Severe: >5% over 1 month
>5% over 1 month >7.5% over 3 months
>7.5% over 3 months >10% over 6 months
1 year N/A >20% over 1 year
Body Fat Non Severe: Mild Decrease Non Severe: Mild Loss
Severe: Moderate Decrease Severe: Severe Loss
Muscle Mass Non Severe: Mild Decrease Non Severe: Mild Loss
Severe: Moderate Decrease Severe: Severe Loss
Fluid Accumulation Non Severe: Mild Accumulation Non Severe: Mild Accumulation
Severe: Moderate to severe Severe: Moderate to severe
accumulation accumulation
Reduced Sand Mill Operator Core Sand Strength Non Severe: N/A Non Severe: N/A
Severe: Measurably reduced Severe: Measurably reduced
Additional criteria that can be used to Determine if Mild or Moderate Malnutrition (Merck Manual 2018)
Mild Moderate Severe
Albumin gm/dl <3.0 gm/dl <2.5 gm/dl <2.0 gm/dl
Pre Albumin mg/dl <15 gm/dl <10 mg/dl <5.0 mg/dl
BMI <18.5 <17 <16
Use of terms such as suspected, likely, concern for, or probable (associated with a specific diagnosis that is being evaluated, monitored, or treated as if it exists) are acceptable and can be coded in the inpatient setting, when documented at the
time of discharge.
Thank you,
Jesús Blakely RN
CDI Specialist
Please use your independent medical judgment in providing your response.
--- NOTE | 2024-12-02 14:19 | CM ---
Patient with Hx workup for lymphoma with Dx Sepsis secondary to pneumonia. CT Abd/Pelvis ordered. Room air. Receiving IVF, IV Decadron, IV Abx. Patient declined PT/OT today.
Met with patient who resides with his in a single story home- 2/3 steps to enter.
The patient was independent in ADLs and ambulation sometimes using his SPC, however he states he washes up infrequently due to being unable to event promotions coordinator the shower and SOB.
The patient states he has been in bed since 11/24, only getting up to go to the bathroom.
The patient says he has not been eating and he lost 14 lbs this week.
DME - SPC, shower chair, raised toilet seat
No prior VN
Prior [facility]
PCP - Gloria Genao
Pharmacy - [facility]
Patient states his is unwell and he was helping at her at home until he became unwell. She has bone cancer and is on oral chemo.
The patient has 2 children, one in [place] and one in [place], who do not provide much assistance.
Plan follow up after seen by PT/OT.
--- NOTE | 2024-12-02 16:05 | PTCARENOTE ---
Pt to CT via stretcher.
--- NOTE | 2024-12-02 17:15 | CON.ID ---
Consultation
-
Date/Time Consultation Requested: 12/02/2024 0959
Date/Time Consultation Performed: 12/02/2024 1650
Requesting Provider: Dr. Harvey
Performing Provider: Dr. Leon
Reason for Consultation: Recurrent pneumonia
Chief Complaint / Past History
Chief Complaint
Cough
History of Present Illness
Jamarcus Monahan is a 69-year-old man being evaluated at the request of Dr. Harvey regarding recurrent pneumonia. History is obtained from chart review, along with patient interview.
The patient presents to the ER on 12/01 secondary to increasing shortness of breath, reported recent fever and diarrhea. He notes symptomatology for approximately the past week. He notes he recently underwent a bone marrow biopsy on 11/22 in the
workup for possible lymphoma. He noted thereafter he began to feel unwell, with reported fevers to 101 degrees. Over the several days prior to admission he noted is usually whitish sputum turned ann to light green-colored sputum. He reports
significant weight loss over the past week secondary to poor oral intake, and on the day of admission he noted waking up feeling lightheaded.
At present, he continues to feel unwell. He continues to have significant sputum. He denies any sick contacts.
Past History
Additional Past Medical History:
A-fib
COPD
Cirrhosis
GI bleed
Additional Past Surgical History:
Right hip replacement
Back surgery
Allergy History:
vancomycin Adverse Reaction (Verified 12/01/24 17:21)
Vancomycin infusion reaction
Medications Reviewed: Yes
Current Antibiotics:
Zosyn 3.375 g IV every 6 hours
Doxycycline 100 mg p.o. every 12 hours
Social History
Tobacco: Non-Smoker
Alcohol: Occasional
Drug: None
Personal:
Living: With Family
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
Family History
Family History: Not Pertinent
Review of Systems
Vital Signs
Temp Pulse Resp BP Pulse Ox
98.6 F 79 22 130/66 95
12/02/24 15:00 12/02/24 16:00 12/02/24 16:00 12/02/24 16:00 12/02/24 16:06
Physical Exam
Physical Exam
Constitutional: Comfortable, Chronically Ill, Non-toxic and Cachetic (mild)
Head: Normocephalic
Eyes: Pupils Equal, Pupils Round, No Conjunctival Hemorrhage and Sclera Anicteric
Oral: No Thrush and No Ulcers
Cardiovascular: Regular Rate and S1/S2; Negative S3/S4
Pulmonary: Rhonchi, Coarse and Other (Mildly labored)
Gastrointestinal: Soft, Tender (Lower rib area), Non Distended, Normal Bowel Sounds, No Rebound and No Guarding
Extremities: Edema; Negative Cyanosis or Erythema
Skin: Warm and Dry; Negative Rash or Jaundice
Neurological: Awake, Alert and Oriented
Psychological: Calm
.
Lab / Diagnostic Study Results
12/02/24 05:09
12/02/24 05:09
Abs Immat Gran (auto) 0.0 10^3/uL (0-0.05) 12/01/24 11:37
Absolute Neuts (auto) 7.6 10^3/uL (1.4-6.5) H 12/01/24 11:37
Absolute Lymphs (auto) 1.1 10^3/uL (1.2-3.4) L 12/01/24 11:37
Absolute Monos (auto) 0.5 10^3/uL (0.1-0.6) 12/01/24 11:37
Absolute Basos (auto) 0.0 10^3/uL (0-0.2) 12/01/24 11:37
Immature Gran % 0.4 % (0-0.5) 12/01/24 11:37
Neutrophils % 82.1 % (42.2-75.2) H 12/01/24 11:37
Lymphocytes % 11.4 % (20.5-51.1) L 12/01/24 11:37
Monocytes % 5.7 % (1.7-9.3) 12/01/24 11:37
Eosinophils % 0.2 % (0-6) 12/01/24 11:37
Basophils % 0.2 % (0-2) 12/01/24 11:37
Lactic Acid 1.1 mmol/L (0.7-2.0) 12/01/24 16:38
Microbiology Results
Micro:
12/02/24 10:13 C. difficile GDH Antigen & Toxins - Final
Feces/Stool C. difficile antigen positive, toxin negative.
Clostridium difficile present, but toxin not detected.
Patient may be a carrier, colonized with nontoxinogenic
strain or the level of toxin in sample is below detection
limits. This information should be used in conjunction with
the patient's clinical history.
- Final
Negative for Norovirus GI and GII.
12/02/24 09:26 Respiratory Culture - Pending
Sputum Gram Stain - Preliminary
12/01/24 12:46 Blood Culture - Preliminary
Blood/Venous No Growth in 24 hours- Final report to follow
12/01/24 12:47 Blood Culture - Preliminary
Blood/Venous No Growth in 24 hours- Final report to follow
12/02/24 10:13 Salmonella/Shigella Culture - Pending
Feces/Stool Campylobacter Culture - Pending
Shiga Toxin Test - Pending
12/02/24 10:13 - Pending
Feces/Stool Stool Leukocytes - Pending
12/01/24 17:42 Streptococcus pneumoniae Antigen (M - Final
Urine Negative for Streptococcus pneumoniae antigen.
A negative result does not exclude infection with
Streptococcus pneumoniae. Clinical correlation is
recommended.
12/01/24 17:42 Legionella Urinary Antigen - Final
Urine Negative for Legionella pneumophila Serogroup 1 antigen.
A negative result does not rule out the possiblity of
Legionella infection due to other serogroups or species of
Legionella. Clinical correlation is recommended.
12/01/24 17:46 MRSA Screen - Pending
Nose
12/01/24 14:43 Influenza Types A & B (LUIS ALBERTO) - Final
Nasal Swab Negative for Influenza A & B, NAAT
Negative results must be combined with clinical observations
and patient history.
Nucleic Acid Amplification test (NAAT)performed on the
[employer] platform.
Imaging:
12/01/2024 CXR (portable): Patchy opacification in the right mid and lower lung. Some minor left basilar scarring is noted. No pleural effusion or pneumothorax seen. Cardiac and mediastinal contours are unremarkable. Please see full dictation for
additional detail.
Assessment / Plan
Right lower lobe pneumonia
- ?CAP ?aspiration
Normal white count with left shift
fever
General weakness
COPD
Cirrhosis
Bronchiectasis
Recommendations:
Continue with empiric Zosyn and Doxy for the present.
Respiratory culture has been obtained and is pending.
MRSA screen pending.
Norovirus testing negative. C. difficile toxin negative.
Follow white count and temperature curve.
Continue with supportive measures.
Further recommendations as additional data is returned.
[2024-12-03] VITALS (16 sets, daily range): BP systolic 109–150; BP diastolic 54–74; PULSE 75–79; O2SAT 96
--- NOTE | 2024-12-03 02:50 | PTCARENOTE ---
Pt AAOx3, Pt refusing some PM care at this time. Pt did do mouth care, set up bed side with tech. Pt remains on 3L NC, spo2 98-100% respiration even unlabored. Assessment care and vitals as charted.
[2024-12-03] MEDS: ZOSYN 50 IV ×3 (05:36→18:10)
[2024-12-03 05:49] LABS: Hematocrit 28.8 % (39.0-52.0); Hemoglobin 9.6 g/dL (13.0-18.0); Mean Corp Hgb Conc. 33.3 g/dL (33.0-37.0); Mean Corpuscular Hgb 28.3 pg (27.0-31.0); Mean Platelet Volume 10.6 fL (7.4-10.4); Platelet Count 73 10^3/uL (130-400); Red Blood Cell Count 3.39 10^6/uL (4.70-6.10); Red Cell Dist. Width 14.4 % (11.5-14.5); White Blood Cell Count 2.3 10^3/uL (4.8-10.8)
--- NOTE | 2024-12-03 06:15 | PTCARENOTE ---
Pt compliant with morning labs. Resulting WBC critical, night LOOM INSPECTOR made aware.
[2024-12-03 06:18] LABS: Blood Urea Nitrogen 26 mg/dl (9-20); Calcium 8.1 mg/dl (8.4-10.2); Carbon Dioxide 30 mmol/L (22-30); Chloride 101 mmol/L (98-107); Estimated Creatinine Clearance 76 ml/min; Glucose 145 mg/dl (70-99); Potassium 4.4 mmol/L (3.5-5.1); Sodium 138 mmol/L (135-145); eGFR > 60.00
[2024-12-03] MEDS: MUCINEX 600 MG PO ×2 (08:04→21:34)
[2024-12-03] MEDS: CARDIZEM CD 180 MG PO ×2 (08:04→21:34)
[2024-12-03] MEDS: VIBRAMYCIN 100 MG PO ×2 (08:04→21:34)
--- NOTE | 2024-12-03 08:50 | W.PN.ID1 ---
Date of Service
Date of Service: December 03, 2024
Today's Communication
Continue antibiotics.
Assessment / Plan
Right lower lobe pneumonia
- ?CAP ?aspiration
Leukopenia (new today)
fever; improved
General weakness
COPD
Cirrhosis
Bronchiectasis
Recommendations:
Continue with empiric Zosyn and Doxy for the present.
Respiratory culture has been obtained and is pending.
MRSA screen pending.
Norovirus testing negative. C. difficile toxin negative. Patient may come off enhanced contact precautions.
Follow white count and temperature curve.
Continue with supportive measures.
Further recommendations as additional data is returned.
Chief Complaint
-: Pneumonia
Subjective / Review of Systems
Patient seen and examined. Reports some loose stool today. Notes decreased sputum production.
Review of Systems: No Fever and No Chills
Vital Signs / Physical Exam
Vital Signs
Vital Signs
Temp Pulse Resp BP Pulse Ox
97.6 F 70 19 112/54 99
12/03/24 03:00 12/03/24 08:04 12/03/24 06:00 12/03/24 08:04 12/03/24 06:00
Physical Exam
Constitutional: Comfortable, Chronically Ill, Non-toxic and Cachetic (Mild)
Eyes: No Conjunctival Hemorrhage and Sclera Anicteric
Cardiovascular: S1/S2; Negative S3/S4
Pulmonary: Coarse and Non Labored
Gastrointestinal: Soft, Non Tender and Non Distended
Neurological: Awake and Alert
Psychological: Calm
Objective Data
Lab Data
Lab Results
12/03/24 05:32
12/03/24 05:32
Estimated Creat Clear 76 ml/min 12/03/24 05:32
Lactic Acid 1.1 mmol/L (0.7-2.0) 12/01/24 16:38
Total Bilirubin 1.6 mg/dl (0.2-1.3) H 12/01/24 11:37
AST 25 U/L (17-59) 12/01/24 11:37
ALT 18 U/L (0-50) 12/01/24 11:37
Alkaline Phosphatase 82 U/L (38-126) 12/01/24 11:37
Most recent labs reviewed.
Micro Results:
12/01/24 17:46 MRSA Screen - Final
Nose No Methicillin Resistant Staphylococcus aureus isolated.
12/02/24 10:13 C. difficile GDH Antigen & Toxins - Final
Feces/Stool C. difficile antigen positive, toxin negative.
Clostridium difficile present, but toxin not detected.
Patient may be a carrier, colonized with nontoxinogenic
strain or the level of toxin in sample is below detection
limits. This information should be used in conjunction with
the patient's clinical history.
- Final
Negative for Norovirus GI and GII.
12/02/24 09:26 Respiratory Culture - Pending
Sputum Gram Stain - Preliminary
12/01/24 12:46 Blood Culture - Preliminary
Blood/Venous No Growth in 24 hours- Final report to follow
12/01/24 12:47 Blood Culture - Preliminary
Blood/Venous No Growth in 24 hours- Final report to follow
12/02/24 10:13 Salmonella/Shigella Culture - Pending
Feces/Stool Campylobacter Culture - Pending
Shiga Toxin Test - Pending
12/02/24 10:13 - Pending
Feces/Stool Stool Leukocytes - Pending
12/01/24 17:42 Streptococcus pneumoniae Antigen (M - Final
Urine Negative for Streptococcus pneumoniae antigen.
A negative result does not exclude infection with
Streptococcus pneumoniae. Clinical correlation is
recommended.
12/01/24 17:42 Legionella Urinary Antigen - Final
Urine Negative for Legionella pneumophila Serogroup 1 antigen.
A negative result does not rule out the possiblity of
Legionella infection due to other serogroups or species of
Legionella. Clinical correlation is recommended.
12/01/24 14:43 Influenza Types A & B (LUIS ALBERTO) - Final
Nasal Swab Negative for Influenza A & B, NAAT
Negative results must be combined with clinical observations
and patient history.
Nucleic Acid Amplification test (NAAT)performed on the
[employer] platform.
Imaging:
12/01/2024 CXR (portable): Patchy opacification in the right mid and lower lung. Some minor left basilar scarring is noted. No pleural effusion or pneumothorax seen. Cardiac and mediastinal contours are unremarkable. Please see full dictation for
additional detail.
--- NOTE | 2024-12-03 08:58 | PTCARENOTE ---
Patient received from table games shift manager. Patient resting comfortably in bed. AAO, VSS. No events noted overnight. No complaints of pain at this time. Continuing ABX. Continuing steroids. No further testing scheduled at this time. Call kelley in
reach.
[2024-12-03] MEDS: DECADRON 4 MG IV (12:11)
--- NOTE | 2024-12-03 13:12 | W.PN.HOSP.TC ---
Addendum entered and electronically signed by Peewee Canela MD 12/03/24 17:06:
Seen and examined by me independently in collaboration with the medical receptionist assistant.
Lab data and imaging data reviewed.
Addendum as below :
Patient has seen significant improvement since yesterday. Feels much better with the breathing. Cough is less. No fever chills. Feels stronger. Appetite is good and ate some after 9 days. No diarrhea today.
Patient is on antimicrobials for possible pneumonia and he was put on steroids yesterday with rhonchorous breathing and with underlying COPD clinical concern was of COPD flare. Rapidity of improvement makes me think of steroids is playing more role
than antibiotics. Will continue to follow. Patient says he had a good improvement with steroids last time he had pneumonia. Unclear if it is just anti-inflammatory property helping the pneumonia or if there is other systemic process responsive to
steroids. Discussed ongoing evaluation for lymphoma.
Transferred to telemetry
Original Note:
Today's Communication/Plan
-
Continue IV abx, mucolytics
Assessment / Plan
Assessment / Plan
Acute hypoxic respiratory failure:
Sepsis secondary to pneumonia: Fever, tachycardia, tachypnea
- Hx of chronic sinusitis, recurrent pneumonia. Hx of sputum culture positive for strep pneumonia and pseudomonas in 07/2024
- Chest x-ray with impression of Patchy right mid and lower lobe opacification suspicious for pneumonia versus atypical asymmetric acute pulmonary edema. Covid/flu negative.
- Urine antigens negative for strep and legionella
- Blood cx negative 24h
- Sputum cx with sheri albican. Likely oral erma. Will defer to ID
- Continue Zosyn. MRSA screen negative, consider DC doxycycline.
- Patient reports significant improvement with Dexamethasone. Unsure if significant underlying reactive airway or good response to systemic steroid use with abx in pneumonia
- Improved PO intake. DC IVF
- appreciate ID recs
- Now weaned to RA.
Abdominal tenderness:
Diarrhea:
Hx of splenomegaly:
Hx of norovirus infection
- Cdiff antigen positive, toxin negative. Negative for Norovirus
- CT abd/pelvis with known splenomegaly. No acute abnormality
- Diarrhea improving
Pancytopenia:
Anemia of chronic disease, Chronic thrombocytopenia, Chronic leukopenia
- Low Hemoglobin stable at 9.6, low platelets stable at 73
- No active bleeding
- While normal on arrival, patient's leukocytes were likley elevated from his baseline leukopenia. Currently back to baseline wbc 2.3
- Continue to monitor
- patient s/p Bone marrow Biopsy to r/o lymphoma due to persistent Leukopenia and hx of lymphadenopathy
- follows [facility]
Paroxysmal atrial fibrillation status post ablation
- Diltiazem continued
Underweight:
BMI 16.4kg.
- Ensure supplement added to diet
History of cirrhosis: Patient denies history of cirrhosis. CT abd/pel with hepatomegaly but no focal intrinsic abnormality
Chronic Splenomegaly
History of esophageal varices status post banding
History of norovirus 07/16/2024
#History of GI bleed
#Right hip replacement: Patient worries that allergic symptoms of chronic sinusitis and recurrent pneumonia are allergic responses to his prosthetic hip. Plans appointment with apple picker for allergy testing.
#Prior history of alcohol abuse.
#Prior history of GI bleed.
#Nasal polypectomy-history of chronic rhinosinusitis.
#History of back surgery
# DVT prophylaxis
- SCD
# CODE STATUS
- Full code
Anticipated Discharge: Within 24 hours
Subjective/Interval History
-
Date of Service: December 03, 2024
Pt reports improved generalized and respiratory symptoms.
Objective Data
-
Labs:
Laboratory Results
12/03/24
05:32
WBC 2.3 L*
Hgb 9.6 L
Hct 28.8 L
Plt Count 73 L
Sodium 138
Potassium 4.4 D
Chloride 101
Carbon Dioxide 30
BUN 26 H
Creatinine 0.7
Glucose 145 H
Calcium 8.1 L
Vital Signs:
Vital Signs
Temp Pulse Resp BP Pulse Ox
97.8 F 79 19 134/62 95
12/03/24 11:15 12/03/24 10:00 12/03/24 10:00 12/03/24 10:00 12/03/24 10:00
I&O
12/02/24 12/03/24 12/04/24
06:59 06:59 06:59
Intake Total 1060 / 1060 1440 / 1440
Output Total 100 / 100 225 / 225
Balance 960 / 960 1215 / 1215
Review of Systems
-
History Source: Patient
Respiratory: Reports Cough, Trouble Breathing and Pleurisy
Abdomen/GI: Denies Abdominal Pain or Nausea
Genitourinary: Denies Dysuria or Difficulty Voiding
Physical Exam
-
General: No Apparent Distress, Comfortable and Cachectic
HEENT: Normocephalic, Atraumatic, Moist Mucous Membranes and Anicteric
Respiratory: Rhonchi, Non Labored Respirations and Other (coarse breath sounds on right lower lung hull); Negative Clear to Auscultation, Wheezes, Rales or Crackles
Cardiac: Regular Rhythm and S1/S2; Negative Murmur, Rub or Calf Tenderness
GI: Soft, Nondistended, Normal Bowel Sounds, Tender (mild epigastric ) and Organomegaly (splenomegaly)
Musculoskeletal: No Clubbing, No Cyanosis and No Edema
Skin: Warm and Dry
Neuro: Awake, Alert and Oriented
Psych: Calm
--- NOTE | 2024-12-03 18:15 | PTCARENOTE ---
Attempting to hang 1800 Zosyn. IV line not working properly after several attempts. Tow Mate asked to contact [facility] for a new line.
[2024-12-04] VITALS (11 sets, daily range): BP systolic 114–149; BP diastolic 55–81; O2SAT 86–91
--- NOTE | 2024-12-04 00:43 | PTCARENOTE ---
Pt awaiting on new IV placement, IV ABX given late. Pt able to make needs known. Call kelley within reach. Assessment care and vitals as charted.
[2024-12-04] MEDS: ZOSYN 50 IV ×2 (00:48→05:17)
[2024-12-04] MEDS: DECADRON 4 MG IV ×3 (00:48→22:58)
[2024-12-04 05:02] LABS: Hematocrit 29.4 % (39.0-52.0); Hemoglobin 9.7 g/dL (13.0-18.0); Mean Corpuscular Volume 84.7 fL (80.0-94.0); Mean Platelet Volume 11.3 fL (7.4-10.4); Platelet Count 97 10^3/uL (130-400); Red Blood Cell Count 3.47 10^6/uL (4.70-6.10); Red Cell Dist. Width 14.5 % (11.5-14.5); White Blood Cell Count 3.3 10^3/uL (4.8-10.8)
[2024-12-04 05:22] LABS: Blood Urea Nitrogen 35 mg/dl (9-20); Calcium 8.9 mg/dl (8.4-10.2); Carbon Dioxide 29 mmol/L (22-30); Chloride 103 mmol/L (98-107); Estimated Creatinine Clearance 76 ml/min; Glucose 135 mg/dl (70-99); Potassium 4.5 mmol/L (3.5-5.1); Sodium 141 mmol/L (135-145); eGFR > 60.00
[2024-12-04] MEDS: CARDIZEM CD 180 MG PO ×2 (09:14→20:24)
[2024-12-04] MEDS: FEOSOL 325 MG PO (09:15)
[2024-12-04] MEDS: MUCINEX 600 MG PO ×2 (09:15→20:28)
[2024-12-04] MEDS: VIBRAMYCIN 100 MG PO ×2 (09:15→20:28)
--- NOTE | 2024-12-04 10:08 | W.PN.UPDATE ---
Update Note
Progress Note Update
Seen and examined by me independently in collaboration with the director of medical review.
Lab data and imaging data reviewed.
Addendum as below :
Continued improvement with his respiratory symptoms.
Remains on room air. Hemodynamically stable. Afebrile.
Improved crackles especially on the left side. He does have bronchial breathing in the left lower lobe. His faint intermittent wheezing in the right lower zone with few crackles.
Patient is clinically improved rather quickly with mild pulmonary respiratory symptoms but also general systemic symptoms. Unclear if there is steroid responsive process here. Consult pulmonary to rule out any noninfectious pneumonic process.
Continue with antibiotics per ID .
--- NOTE | 2024-12-04 10:16 | W.PN.ID1 ---
Date of Service
Date of Service: December 04, 2024
Today's Communication
Continue antibiotics. See below�
Assessment / Plan
Right lower lobe pneumonia
- ?CAP ?aspiration
Leukopenia (new today)
fever; improved
General weakness
COPD
Cirrhosis
Bronchiectasis
Recommendations:
MRSA screen negative.
Norovirus and C. difficile testing negative.
Thus far, cultures have remained unrevealing.
Recovered Lisa from sputum culture is a colonizer only, and no need to treat.
--> Transition Zosyn to ceftriaxone. Continue with doxycycline.
Follow white count and temperature curve.
Continue with supportive measures.
����������������������������������������������������������
Chief Complaint
-: Pneumonia
Subjective / Review of Systems
Patient seen and examined. Reports decreased cough and sputum production. Denies fevers. Reports breathing is improved.
Vital Signs / Physical Exam
Vital Signs
Vital Signs
Temp Pulse Resp BP Pulse Ox
97.5 F 56 20 115/61 96
12/04/24 07:22 12/04/24 08:00 12/04/24 08:00 12/04/24 08:00 12/04/24 09:00
Physical Exam
Constitutional: Comfortable, Chronically Ill, Non-toxic and Cachetic (Mild)
Eyes: No Conjunctival Hemorrhage and Sclera Anicteric
Cardiovascular: S1/S2; Negative S3/S4
Pulmonary: Rhonchi (Few; scattered), Coarse and Non Labored
Gastrointestinal: Soft, Non Tender and Non Distended
Skin: Warm and Dry; Negative Rash
Neurological: Awake and Alert
Psychological: Calm
Objective Data
Lab Data
Lab Results
12/04/24 04:40
12/04/24 04:40
Estimated Creat Clear 76 ml/min 12/04/24 04:40
Lactic Acid 1.1 mmol/L (0.7-2.0) 12/01/24 16:38
Total Bilirubin 1.6 mg/dl (0.2-1.3) H 12/01/24 11:37
AST 25 U/L (17-59) 12/01/24 11:37
ALT 18 U/L (0-50) 12/01/24 11:37
Alkaline Phosphatase 82 U/L (38-126) 12/01/24 11:37
Most recent labs reviewed.
Micro Results:
12/02/24 10:13 - Preliminary
Feces/Stool Culture in Progress
Stool Leukocytes - Final
12/01/24 12:46 Blood Culture - Preliminary
Blood/Venous No Growth in 48 hours- Final report to follow
12/01/24 12:47 Blood Culture - Preliminary
Blood/Venous No Growth in 48 hours- Final report to follow
12/02/24 09:26 Respiratory Culture - Preliminary
Sputum Lisa albicans
Gram Stain - Preliminary
12/02/24 10:13 Salmonella/Shigella Culture - Preliminary
Feces/Stool Culture in Progress
Campylobacter Culture - Preliminary
Culture in Progress
Shiga Toxin Test - Pending
12/01/24 17:46 MRSA Screen - Final
Nose No Methicillin Resistant Staphylococcus aureus isolated.
12/02/24 10:13 C. difficile GDH Antigen & Toxins - Final
Feces/Stool C. difficile antigen positive, toxin negative.
Clostridium difficile present, but toxin not detected.
Patient may be a carrier, colonized with nontoxinogenic
strain or the level of toxin in sample is below detection
limits. This information should be used in conjunction with
the patient's clinical history.
- Final
Negative for Norovirus GI and GII.
12/01/24 17:42 Streptococcus pneumoniae Antigen (M - Final
Urine Negative for Streptococcus pneumoniae antigen.
A negative result does not exclude infection with
Streptococcus pneumoniae. Clinical correlation is
recommended.
12/01/24 17:42 Legionella Urinary Antigen - Final
Urine Negative for Legionella pneumophila Serogroup 1 antigen.
A negative result does not rule out the possiblity of
Legionella infection due to other serogroups or species of
Legionella. Clinical correlation is recommended.
12/01/24 14:43 Influenza Types A & B (LUIS ALBERTO) - Final
Nasal Swab Negative for Influenza A & B, NAAT
Negative results must be combined with clinical observations
and patient history.
Nucleic Acid Amplification test (NAAT)performed on the
[employer] platform.
Imaging:
12/01/2024 CXR (portable): Patchy opacification in the right mid and lower lung. Some minor left basilar scarring is noted. No pleural effusion or pneumothorax seen. Cardiac and mediastinal contours are unremarkable. Please see full dictation for
additional detail.
Care Review
Plan reviewed with: Physician (Hospitalist)
--- NOTE | 2024-12-04 11:01 | W.PN.HOSP.TC ---
Today's Communication/Plan
-
Continue ceftriaxone and doxycycline.
Pulm consult
Continue decadron
Supportive care
Assessment / Plan
Assessment / Plan
Acute hypoxic respiratory failure:
Sepsis secondary to pneumonia: Fever, tachycardia, tachypnea
- Hx of chronic sinusitis, recurrent pneumonia. Hx of bronchiectasis. Hx of sputum culture positive for strep pneumonia and pseudomonas in 07/2024
- Chest x-ray with impression of Patchy right mid and lower lobe opacification suspicious for pneumonia versus atypical asymmetric acute pulmonary edema. Covid/flu negative.
- Urine antigens negative for strep and legionella
- Blood cx negative 24h
- Sputum cx with sheri albican. Likely oral erma. Will defer to ID
- Switched to ceftriaxone and doxy
- Patient reports significant improvement with Dexamethasone. Unsure if significant underlying reactive airway or good response to systemic steroid use with abx in pneumonia. Consult pulm for further assessment.
- Pt did provide a chest CT CD from October during a period he did not have acute respiratory symptoms.
- appreciate ID recs
Abdominal tenderness:
Diarrhea:
Hx of splenomegaly:
Hx of norovirus infection
- nontoxigenic cdiff. Negative for Norovirus
- CT abd/pelvis with known splenomegaly. No acute abnormality
- abdominal tenderness and diarrhea improving
Pancytopenia:
Anemia of chronic disease, Chronic thrombocytopenia, Chronic leukopenia
- Low Hemoglobin and low platelets stable
- No active bleeding
- While normal on arrival, patient's leukocytes were likely elevated from his baseline leukopenia. Currently back to baseline low
- Continue to monitor
- patient s/p Bone marrow Biopsy to r/o lymphoma due to persistent Leukopenia and hx of lymphadenopathy. Awaiting results.
- follows [facility]
Paroxysmal atrial fibrillation status post ablation
- Diltiazem continued
Underweight:
BMI 16.4kg.
- Ensure supplement added to diet
History of cirrhosis: Patient denies history of cirrhosis. CT abd/pel with hepatomegaly but no focal intrinsic abnormality
Chronic Splenomegaly
History of esophageal varices status post banding
History of norovirus 07/16/2024
#History of GI bleed
#Right hip replacement: Patient worries that allergic symptoms of chronic sinusitis and recurrent pneumonia are allergic responses to his prosthetic hip. I am unable to find data that supports this. He plans appointment with [facility] for allergy
testing.
#Prior history of alcohol abuse.
#Prior history of GI bleed.
#Nasal polypectomy-history of chronic rhinosinusitis.
#History of back surgery
# DVT prophylaxis
- SCD
# CODE STATUS
- Full code
Anticipated Discharge: Within 24 hours
Subjective/Interval History
-
Date of Service: December 04, 2024
Pt feels symptoms are significantly improved.
Objective Data
-
Labs:
Laboratory Results
12/04/24
04:40
WBC 3.3 L
Hgb 9.7 L
Hct 29.4 L
Plt Count 97 L D
Sodium 141
Potassium 4.5
Chloride 103
Carbon Dioxide 29
BUN 35 H
Creatinine 0.7
Glucose 135 H
Calcium 8.9
Vital Signs:
Vital Signs
Temp Pulse Resp BP Pulse Ox
97.5 F 56 20 115/61 96
12/04/24 07:22 12/04/24 08:00 12/04/24 08:00 12/04/24 08:00 12/04/24 09:00
I&O
12/03/24 12/04/24 12/05/24
06:59 06:59 06:59
Intake Total 1440 / 1440 620 / 620
Output Total 225 / 225 450 / 450
Balance 1215 / 1215 170 / 170
Review of Systems
-
History Source: Patient
Respiratory: Reports Cough and Other (reduced sputum production); Denies Trouble Breathing
Cardiac: Denies Chest Pain or Palpitations
Abdomen/GI: Denies Abdominal Pain, Nausea, Vomiting or Diarrhea
Genitourinary: Denies Dysuria, Incontinence or Difficulty Voiding
Physical Exam
-
General: No Apparent Distress, Comfortable and Cachectic; Negative Respiratory Distress
HEENT: Normocephalic, Atraumatic, Moist Mucous Membranes and Anicteric
Respiratory: Wheezes (faint wheeze on RLL), Crackles (mild bibasilar crackles) and Non Labored Respirations; Negative Rales or Rhonchi
Cardiac: Regular Rhythm and S1/S2; Negative Murmur, Rub or Calf Tenderness
GI: Soft, Normal Bowel Sounds, Tender (mild epigastric tenderness) and Organomegaly (splenomegaly)
Musculoskeletal: No Clubbing, No Cyanosis and No Edema
Skin: Warm and Dry
Neuro: Awake, Alert and Oriented
Psych: Calm
[2024-12-04] MEDS: STERILE WATER FOR INJECTION 10 ML IV (12:20)
[2024-12-04] MEDS: ROCEPHIN 1000 MG IV (12:20)
--- NOTE | 2024-12-04 16:43 | CON.PUL ---
Consultation
Consultation Request
Date/Time Consultation Requested: 12/04/2024 100
Date/Time Consultation Performed: 12/04/2024 - 1349
Requesting Provider: Dr. Harvey
Performing Provider: Dr. Reeves
Reason for Consultation: COPD with acute exacerbation
Medical History
-
Chief Complaint: SOB, diarrhea and upset stomach
History of Present Illness:
77-year-old male with a past medical history of suspected COPD, A-fib, chronic left lower lobe pneumonia, history of GI bleed and pancytopenia who presented with SOB, diarrhea and abdominal upset. He recently had a bone marrow biopsy November 22 as he
is being worked up for lymphoma. He follows with [facility]. The next day he developed shortness of breath, fevers and diarrhea. He has had a worsening chronic cough with ann to light green-colored sputum. Has not been able to eat for
several days as his stomach is 'turning.' He was hypoxic upon arrival to the hospital and required mid flow nasal cannula. Chest x-ray showed patchy right middle lung field suspicious for pneumonia versus atypical pulmonary edema. Patient was
admitted to the IMU for further care. Antibiotics were continued with doxycycline + Zosyn. He was also given Decadron 4 mg IV q12hr starting 12/02. Pulmonary service now consulted for additional management/recommendations.
When asked with the patient, he was resting in bed in no acute distress, on room air breathing comfortably. He says he has had a cough for a 'long time.' He has chronic yellow sputum production. He follows with Dr. Da Silva with [facility]. He
currently denies chest pain, SHAY, nausea, fevers or chills.
Past Medical History
Past Medical History: Other (See assessment and plan)
Past Surgical History: Other (See assessment and plan)
Social History
Tobacco: Non-smoker
Alcohol: Occasional
Drug: None
Personal:
Living: With Family
Family History
Family History: Reviewed & Not Pertinent
Allergies / Home Medications
Allergies
Allergy/AdvReac Type Severity Reaction Status Date / Time
vancomycin AdvReac Vancomycin Verified 12/01/24 17:21
infusion
reaction
Home Medications
�Medication �Instructions �Recorded �Confirmed �Last Taken �Type
acetaminophen 500 mg tablet 1,000 mg PO Q6HPRN PRN mild pain 07/12/24 12/01/24 5 Days Ago History
(Tylenol Extra Strength) ~11/26/24
diltiazem HCl 180 mg 180 mg PO BID #60 caps 07/22/24 12/01/24 11/30/24 Rx
capsule,extended release 24 hr
ferrous sulfate 325 mg (65 mg 325 mg PO Q48H #14 tabs 09/02/24 12/01/24 5 Days Ago Rx
iron) tablet (FeroSul) ~11/26/24
ascorbic acid (vitamin C) 250 mg 250 mg PO DAILY Supplement 12/01/24 12/01/24 5 Days Ago History
tablet (Vitamin C) ~11/26/24
Review of Systems
-
History Source: Patient
All other systems: Negative unless noted
Vitals / Labs / Diagnostic Testing
Vital Signs
Temp Pulse Resp BP Pulse Ox
97.5 F 56 20 115/61 96
12/04/24 07:22 12/04/24 08:00 12/04/24 08:00 12/04/24 08:00 12/04/24 09:00
Lab Data
12/04/24 04:40
12/04/24 04:40
Microbiology
12/02/24 10:13 Feces/Stool - Preliminary
Culture in Progress
12/02/24 10:13 Feces/Stool Stool Leukocytes - Final
12/01/24 12:46 Blood/Venous Blood Culture - Preliminary
No Growth in 48 hours- Final report to follow
12/01/24 12:47 Blood/Venous Blood Culture - Preliminary
No Growth in 48 hours- Final report to follow
12/02/24 09:26 Sputum Respiratory Culture - Preliminary
Lisa albicans
12/02/24 09:26 Sputum Gram Stain - Preliminary
12/02/24 10:13 Feces/Stool Salmonella/Shigella Culture - Preliminary
Culture in Progress
12/02/24 10:13 Feces/Stool Campylobacter Culture - Preliminary
Culture in Progress
12/01/24 17:46 Nose MRSA Screen - Final
No Methicillin Resistant Staphylococcus aureus isolated.
12/02/24 10:13 Feces/Stool C. difficile GDH Antigen & Toxins - Final
C. difficile antigen positive, toxin negative.
Clostridium difficile present, but toxin not detected.
Patient may be a carrier, colonized with nontoxinogenic
strain or the level of toxin in sample is below detection
limits. This information should be used in conjunction with
the patient's clinical history.
12/02/24 10:13 Feces/Stool - Final
Negative for Norovirus GI and GII.
12/01/24 17:42 Urine Streptococcus pneumoniae Antigen (M - Final
Negative for Streptococcus pneumoniae antigen.
A negative result does not exclude infection with
Streptococcus pneumoniae. Clinical correlation is
recommended.
12/01/24 17:42 Urine Legionella Urinary Antigen - Final
Negative for Legionella pneumophila Serogroup 1 antigen.
A negative result does not rule out the possiblity of
Legionella infection due to other serogroups or species of
Legionella. Clinical correlation is recommended.
12/01/24 14:43 Nasal Swab Influenza Types A & B (LUIS ALBERTO) - Final
Negative for Influenza A & B, NAAT
Negative results must be combined with clinical observations
and patient history.
Nucleic Acid Amplification test (NAAT)performed on the
[employer] platform.
Diagnostic Testing:
Physical Exam
-
HEENT: Normocephalic and Anicteric
Cardiovascular: S1/S2 and Peripheral Edema (negative)
Respiratory: Wheeze (negative), Rhonchi (negative), Non-Labored Respirations and Other (Coarse breath sounds heard bilaterally)
GI: Soft, Non Distended, Non Tender and Normal Bowel Sounds
Neurology: AO x 3 and Tremors (negative)
Skin: Warm and Dry
General: Respiratory Distress (negative), Comfortable, Fever (negative) and Chills (negative)
Assessment
-
Assessment: 77-year-old male with a past medical history of suspected COPD, A-fib, chronic left lower lobe pneumonia, history of GI bleed and pancytopenia who presented with SOB, diarrhea and abdominal upset. He recently had a bone marrow biopsy
November 22 as he is being worked up for lymphoma. He follows with [facility]. The next day he developed shortness of breath, fevers and diarrhea. He has had a worsening chronic cough with ann to light green-colored sputum. Has not been able
to eat for several days as his stomach is 'turning.' He was hypoxic upon arrival to the hospital and required mid flow nasal cannula. Chest x-ray showed patchy right middle lung field suspicious for pneumonia versus atypical pulmonary edema.
Patient was admitted to the IMU for further care. Antibiotics were continued with doxycycline + Zosyn. He was also given Decadron 4 mg IV q12hr starting 12/02. Pulmonary service now consulted for additional management/recommendations.
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
History of norovirus 07/16/2024
History of Pseudomonas/streptococcal pneumonia admitted to the hospital 07/2024
treated with 14d cefepime through 07/29/24.
Atrial fibrillation status post ablation 08/22/2024 (normally on Eliquis, now stopped due to nosebleeds)
? COPD-not on inhalers
Does not follow-up locally
No available PFTs
History of GI bleed
Right hip replacement
History of cirrhosis
Prior history of alcohol abuse.
Prior history of GI bleed.
Nasal polypectomy-history of chronic rhinosinusitis.
History of back surgery
Impression:
#Acute respiratory failure with hypoxia due to an acute RLL/RML pneumonia with suspected acute COPD exacerbation
#Chronic productive cough with yellow sputum production (?chronic bronchitis)
#Pancytopenia
#Epistaxis
#Paroxysmal A-fib s/p ablation
#History of cirrhosis + chronic splenomegaly EV s/p banding
#History of norovirus
#History of GI bleed
Plan:
- Patient presented with SOB and found to have a right lower lobe pneumonia
- CT abdomen/pelvis from 12/02/2024 shows bibasilar pneumonia with dense consolidations in the posteromedial bases bilaterally and opacities in the lateral right middle lobe; of note, he has a chronic left lower lobe consolidation and this is stable
compared to prior CT chest on 09/02/2024
- ID is on board; continue with ceftriaxone + doxycycline
- Follow-up infectious workup including blood cultures; recent sputum culture on 12/02 grew Lisa albicans; urine antigens for Legionella/pneumonia both negative
- He says that he has had treatment before for his cough but it does not go away. Perhaps a bronchoscopy with BAL can be performed if needed -this will be an ongoing discussion
- Although we are diagnosing him with a COPD exacerbation, we have no PFTs or spirometry to confirm the presence of an obstructive lung defect. For now, continue with systemic steroids and start DuoNebs; continue q4hr prn DuoNebs for breakthrough
symptoms
- I asked if it would be okay to start inhalers and he says that he previously took Breo for 'a few days' and it helped him but then it eventually stopped working. He is not the best historian. This tube will need to be an ongoing discussion as
if he has no intention of continuing a maintenance inhaler upon discharge then patient not started while he is hospitalized
- Maintain SpO2 88-95% with supplemental O2 as needed
- Immunoglobulin levels are pending (prior IgG subclasses were not WNL in 09/02/2024, and IgE was 2 at that time
- Has been having diarrhea with abdominal discomfort with reduced PO intake
- Stool cultures show positive C. difficile antigen but negative toxin, no Yersinia species, no Salmonella/Shigella or Campylobacter; Shiga toxin test is pending
- His CT abdomen/pelvis from 12/02/2024 showed sigmoid diverticulosis without able to rule out wall thickening/inflammatory changes; there was no intestinal obstruction or free air seen
- Incentive spirometer encouraged q1hr while awake
- Replete electrolytes with K>4, Mg>2
- Trend H/H and transfuse if needed to keep Hb>7g/dL; keep plt>50k
- Maintain euglycemia with goal BG >100 and <180
- DVT ppx: SCDs for now due to recent epistaxis -if no evidence of epistaxis in the next 1 to 2 days, then consider starting chemical DVT prophylaxis at that time
Pulmonary service will continue to follow along.
Data:
CXR 12/01/2024: Patchy right mid and lower lobe opacification suspicious for pneumonia versus atypical asymmetric acute pulmonary edema.
CT abdomen/pelvis with IV and oral contrast 12/02/2024:
Bilateral lower lobe consolidations with air bronchograms and smaller right middle lobe opacification, suspicious for pneumonia.
MARKED SPLENOMEGALY.
Hepatomegaly
Marked beam hardening artifact from right hip arthroplasty limiting evaluation of the soft tissues of the true pelvis including the urinary bladder. Grossly, SIGMOID DIVERTICULOSIS is seen, CANNOT EXCLUDE ACCOMPANYING SIGMOID WALL
THICKENING/INFLAMMATORY CHANGES. No intestinal obstruction or free air.
Relative prominent size gallbladder, cannot exclude some wall thickening. Consider Abdominal ultrasound for more complete evaluation, if clinically warranted.
Total time spent today was 58 minutes for this encounter. Time includes reviewing laboratory test/imaging results, reviewing pertinent medical records, obtaining and reviewing medical history, performing an appropriate exam, ordering medications,
tests and procedures. Time also includes documentation of this encounter, coordinating patient care and communicating with other healthcare professionals. Total time does not include separately billed tests performed on this date of service.
[2024-12-04] MEDS: MYCOSTATIN ORAL SUSPENSION 5 ML PO (22:58)
[2024-12-04 23:07] LABS: IgA 141 mg/dl (70-400); IgG 553 mg/dl (700-1600); IgM 195 mg/dl (40-230)
[2024-12-05 05:28] LABS: % Immature Granulocytes 0.9 % (0-0.5); % Lymphocytes 18.8 % (20.5-51.1); % Monocytes 8.9 % (1.7-9.3); % Neutrophils 71.4 % (42.2-75.2); Absolute Lymphocytes 0.4 10^3/uL (1.2-3.4); Absolute Monocytes 0.2 10^3/uL (0.1-0.6); Absolute Neutrophils 1.5 10^3/uL (1.4-6.5); Hematocrit 27.1 % (39.0-52.0); Mean Corp Hgb Conc. 33.2 g/dL (33.0-37.0); Mean Corpuscular Hgb 28.4 pg (27.0-31.0); Mean Corpuscular Volume 85.5 fL (80.0-94.0); Mean Platelet Volume 10.2 fL (7.4-10.4); Nucleated Red Blood Cells % 0 % (-); Platelet Count 101 10^3/uL (130-400); Red Blood Cell Count 3.17 10^6/uL (4.70-6.10); Red Cell Dist. Width 14.4 % (11.5-14.5); White Blood Cell Count 2.1 10^3/uL (4.8-10.8)
[2024-12-05 05:48] LABS: Blood Urea Nitrogen 35 mg/dl (9-20); Calcium 8.6 mg/dl (8.4-10.2); Carbon Dioxide 30 mmol/L (22-30); Chloride 106 mmol/L (98-107); Estimated Creatinine Clearance 89 ml/min; Glucose 132 mg/dl (70-99); Magnesium 2.3 mg/dl (1.6-2.3); Potassium 4.6 mmol/L (3.5-5.1); Sodium 141 mmol/L (135-145); eGFR > 60.00
--- NOTE | 2024-12-05 07:21 | W.PN.HOSP.TC ---
Addendum entered and electronically signed by Shaun Nettles MD 12/05/24 22:05:
Attending Addendum-
I saw and evaluated the patient. I reviewed the resident�s note and agree with findings and plan as documented in the resident�s note. Sub: denies SOB. continues to have cough non productive. Deneis fevers chills. Full 12 point ROS reviewed and
negative except as documented Exam: Vitals reviewed in chart GEN-NAD cachectic Lungs rhonchi at bases no wheeze abd distended TTL LUQ pos BS LE no edema
Plan:
Acute hypoxic respiratory failure-resolved
Sepsis secondary to b/l LL pneumonia
- Urine antigens negative for strep and legionella
- Blood cx negative 24h
- Sputum cx with lisa albicans. oral erma
- cont ceftriaxone and doxy->transition to cefdinir x 14 days total on DC
- wean steroids
- OP f/u PULM possible vest start flutter and IS
- check PFT's as OP
- likely COPD needs inhalers on DC
- appreciate ID recs
#Abdominal tenderness
Diarrhea-improved
marked splenomegaly on CT
Hx of norovirus infection
- nontoxigenic cdiff. Negative for Norovirus
- CT abd/pelvis with known splenomegaly. No acute abnormality
- abdominal tenderness and diarrhea improving
#Pancytopenia:
- No active bleeding
- Continue to monitor
- patient s/p Bone marrow Biopsy to r/o lymphoma - [facility] to give results in am
- follows [facility]
#Paroxysmal atrial fibrillation status post ablation
- Diltiazem continued
# Severe PCM
BMI 16.4kg.
- Ensure supplement added to diet
#History of cirrhosis: Patient denies history of cirrhosis. CT abd/pel with hepatomegaly but no focal intrinsic abnormality
Chronic Splenomegaly
History of esophageal varices status post banding
#Prior history of alcohol abuse.
#Prior history of GI bleed.
#Nasal polypectomy-history of chronic rhinosinusitis.
#History of back surgery
# DVT prophylaxis
- SCD
# CODE STATUS
- Full code
Dispo DC in am to home with VN
Time spent coordinating care, review of plan of care with resident, personally reviewed records in EMR, med rec, consults, notes, labs, radiology, d/w nursing � 52 mins
Original Note:
Today's Communication/Plan
-
Day 5 of antibiotics today.
PT has recommendations of home PT.
Oncology to discuss results at bedside today.
X-ray abdomen obstruction series.
Plan for discharge tomorrow.
Assessment / Plan
Assessment / Plan
Assessment- 69-year-old male with PMHx significant for COPD is admitted to hospital for management of acute hypoxic respiratory failure secondary to pneumonia.
Plan:
Acute hypoxic respiratory failure:
Sepsis secondary to pneumonia: Resolved.
Last documented fever-12/01.
Currently weaned off of mid flow nasal cannula. Continues to remain stable on room air.
Currently on doxycycline and Ceftriaxone per ID.
On dexamethasone since 12/02.
Sputum cultures positive for Lisa albicans on 12/02. Likely oral erma.
Urine antigens negative for strep and Legionella.
Flu, COVID-negative.
Pulmonology on board, pulmonology able to review his CT chest CAD from October 20 and able to compare. Pulmonology may recommend bronchoscopy depending on patient's prognosis. Appreciate pulmonology input.
CT abdomen and pelvis obtained on 12/02-bibasilar pneumonia, chronic left lower lobe consolidation.
Chest x-ray with impression of pneumonia versus asymmetric acute pulmonary edema.
Appreciate ID inputs.
Diarrhea:
Hx of splenomegaly,
Hx of norovirus infection
Cirrhosis and norovirus infections in the past.
CT abdomen and pelvis with known splenomegaly.
Currently negative for norovirus, nontoxigenic C. difficile.
Currently resolved.
Pancytopenia:
WBC-2.1, Hb 9, HCT-27.1, MCV-85, platelet count-101.
Anemia of chronic disease, Chronic thrombocytopenia, Chronic leukopenia
Low Hemoglobin and low platelets stable
S/p bone marrow biopsy to workup for lymphoma by [facility].
Continue to monitor.
Paroxysmal atrial fibrillation s/p ablation
Continue diltiazem.
Underweight:
BMI 16.4kg.
Ensure supplement added to diet
History of cirrhosis: Patient denies history of cirrhosis. CT abd/pel with hepatomegaly but no focal intrinsic abnormality
Chronic Splenomegaly
History of esophageal varices status post banding
DVT prophylaxis
SCD
CODE STATUS
Full code
Conditions [employer]-
History of
norovirus 07/16/2024
History of GI bleed
Right hip replacement: Patient worries that allergic symptoms of chronic sinusitis and recurrent pneumonia are allergic responses to his prosthetic hip. I am unable to find data that supports this. 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
testing.
Prior history of alcohol abuse.
Prior history of GI bleed.
Nasal polypectomy-history of chronic rhinosinusitis.
History of back surgery
Anticipated Discharge: Within 24 hours
Subjective/Interval History
-
Date of Service: December 05, 2024
Patient reports abdominal soreness. His soreness was present upon admission, and then it resolved after 3 days of admission. His abdominal soreness returned again beginning yesterday morning after he tried nystatin swish and swallow. Currently he
does not have any diarrhea, and has soft but well-formed stools.
He thinks that pulmonology follow-up on outpatient basis is not necessary. He is lost for follow-up with [facility].
Currently does not have pulmonology.
He is also curious to know his cystic fibrosis, and bone marrow biopsy workup results done by his oncology team.
Objective Data
-
Labs:
Laboratory Results
05/05/25
05:06
WBC 2.1 L*
Hgb 9.0 L
Hct 27.1 L
Plt Count 101 L
Sodium 141
Potassium 4.6
Chloride 106
Carbon Dioxide 30
BUN 35 H
Creatinine 0.6 L
Glucose 132 H
Calcium 8.6
Vital Signs:
Vital Signs
Temp Pulse Resp BP Pulse Ox
97.4 F 65 17 131/64 94
12/04/24 23:12 12/04/24 23:12 12/04/24 23:12 12/04/24 23:12 12/04/24 23:12
I&O
12/04/24 12/05/24 12/06/24
06:59 06:59 06:59
Intake Total 620 / 620
Output Total 450 / 450
Balance 170 / 170
Review of Systems
-
History Source: Patient
Constitutional: Reports No Symptoms
EENT: Reports No Symptoms Reported
Respiratory: Reports No Symptoms
Cardiac: Reports No Symptoms
Abdomen/GI: Reports Abdominal Pain (Calls it soreness rather than pain.); Denies Nausea, Vomiting, Diarrhea, Constipated, Bloody Stools or Black Stools
Breast: Reports No Symptoms
Genitourinary: Reports No Symptoms
Musculoskeletal: Reports No Symptoms
Skin: Reports No Symptoms
Neuro: Reports No Symptoms
Endocrine: Reports No Symptoms
Hematologic / Lymphatic: Reports No Symptoms
Allergy / Immunology: Reports No Symptoms
Physical Exam
-
General: No Apparent Distress and Comfortable
HEENT: Moist Mucous Membranes and Thrush
Respiratory: Clear to Auscultation (In bilateral upper lobes.), Wheezes (In right middle and right lower lobes) and Crackles (In right middle, left lower and right lower lobes.)
Cardiac: Regular Rhythm and S1/S2; Negative Murmur, Rub or Gallop
GI: Soft, Nontender, Tender (In the right upper quadrant.) and Distended (Mild distention noted); Negative Nondistended
Genito-urinary: No Costovertebral Tender
Musculoskeletal: No Clubbing, No Cyanosis and No Edema
Skin: Warm
Neuro: AO x 3 and No Motor Deficits
Psych: Calm
Data Reviewed
-
Diagnostic Radiology: Image personally visualized and interpreted, Report Reviewed by me and Discussed with Physician
CT Scan: Image personally visualized and interpreted, Report Reviewed by me and Discussed with Physician
Ultrasound: Image personally visualized and interpreted, Report Reviewed by me and Discussed with Physician
Labs: Labs Reviewed by me and Discussed with Physician
Old Records: Reviewed
[2024-12-05 09:06] VITALS: BP 129/72
[2024-12-05] MEDS: MYCOSTATIN ORAL SUSPENSION 5 ML PO ×4 (09:36→21:03)
[2024-12-05] MEDS: MUCINEX 600 MG PO ×2 (09:36→21:00)
[2024-12-05] MEDS: VIBRAMYCIN 100 MG PO ×2 (09:36→20:58)
[2024-12-05] MEDS: CARDIZEM CD 180 MG PO ×2 (09:36→21:00)
--- NOTE | 2024-12-05 11:15 | W.PN.ID1 ---
Date of Service
Date of Service: December 05, 2024
Today's Communication
Continue antibiotics. See below�
Assessment / Plan
Right lower lobe pneumonia
- ?CAP ?aspiration
Leukopenia (new today)
fever; improved
General weakness
COPD
Cirrhosis
Bronchiectasis
Recommendations:
MRSA screen negative.
Norovirus and C. difficile testing negative.
Thus far, cultures have remained unrevealing.
- Recovered Lisa from sputum culture is a colonizer only, and no need to treat.
--> Continue ceftriaxone (d#5 abx). Continue with doxycycline (d#5). At discharge, ceftriaxone can be transition to oral cefdinir to complete a 14-day course in total.
Follow white count and temperature curve.
Continue with supportive measures.
����������������������������������������������������������
Chief Complaint
-: Pneumonia
Subjective / Review of Systems
Review of Systems: No Fever, No Chills, Cough (Slight), Sputum Production (Slight; overall improved from admission), Abdominal Pain and Nausea
Vital Signs / Physical Exam
Vital Signs
Vital Signs
Temp Pulse Resp BP Pulse Ox
97.4 F 67 18 129/72 92
12/04/24 23:12 12/05/24 09:06 12/05/24 09:06 12/05/24 09:06 12/05/24 09:06
Physical Exam
Constitutional: Comfortable, Chronically Ill, Non-toxic and Cachetic (Mild)
Eyes: No Conjunctival Hemorrhage and Sclera Anicteric
Cardiovascular: S1/S2; Negative S3/S4
Pulmonary: Rhonchi (Few; scattered), Coarse and Non Labored
Gastrointestinal: Soft, Non Tender and Non Distended
Skin: Warm and Dry; Negative Rash
Neurological: Awake and Alert
Psychological: Calm
Objective Data
Lab Data
Lab Results
12/05/24 05:06
12/05/24 05:06
Estimated Creat Clear 89 ml/min 12/05/24 05:06
Lactic Acid 1.1 mmol/L (0.7-2.0) 12/01/24 16:38
Total Bilirubin 1.6 mg/dl (0.2-1.3) H 12/01/24 11:37
AST 25 U/L (17-59) 12/01/24 11:37
ALT 18 U/L (0-50) 12/01/24 11:37
Alkaline Phosphatase 82 U/L (38-126) 12/01/24 11:37
Most recent labs reviewed.
Micro Results:
12/02/24 10:13 Salmonella/Shigella Culture - Final
Feces/Stool No Salmonella, Shigella, Aeromonas or Plesiomonas species
isolated.
Campylobacter Culture - Final
No Campylobacter species isolated.
Shiga Toxin Test - Final
No E. coli Shiga Toxin 1 or 2 detected.
12/01/24 12:46 Blood Culture - Preliminary
Blood/Venous No Growth in 72 hours- Final report to follow
12/01/24 12:47 Blood Culture - Preliminary
Blood/Venous No Growth in 72 hours- Final report to follow
12/02/24 09:26 Respiratory Culture - Final
Sputum Lisa albicans
Gram Stain - Final
12/02/24 10:13 - Final
Feces/Stool NO YERSINIA SPECIES ISOLATED
Stool Leukocytes - Final
12/01/24 17:46 MRSA Screen - Final
Nose No Methicillin Resistant Staphylococcus aureus isolated.
12/02/24 10:13 C. difficile GDH Antigen & Toxins - Final
Feces/Stool C. difficile antigen positive, toxin negative.
Clostridium difficile present, but toxin not detected.
Patient may be a carrier, colonized with nontoxinogenic
strain or the level of toxin in sample is below detection
limits. This information should be used in conjunction with
the patient's clinical history.
- Final
Negative for Norovirus GI and GII.
12/01/24 17:42 Streptococcus pneumoniae Antigen (M - Final
Urine Negative for Streptococcus pneumoniae antigen.
A negative result does not exclude infection with
Streptococcus pneumoniae. Clinical correlation is
recommended.
12/01/24 17:42 Legionella Urinary Antigen - Final
Urine Negative for Legionella pneumophila Serogroup 1 antigen.
A negative result does not rule out the possiblity of
Legionella infection due to other serogroups or species of
Legionella. Clinical correlation is recommended.
12/01/24 14:43 Influenza Types A & B (LUIS ALBERTO) - Final
Nasal Swab Negative for Influenza A & B, NAAT
Negative results must be combined with clinical observations
and patient history.
Nucleic Acid Amplification test (NAAT)performed on the
[employer] platform.
Imaging:
12/01/2024 CXR (portable): Patchy opacification in the right mid and lower lung. Some minor left basilar scarring is noted. No pleural effusion or pneumothorax seen. Cardiac and mediastinal contours are unremarkable. Please see full dictation for
additional detail.
--- NOTE | 2024-12-05 11:25 | CM ---
Patient with Hx workup for lymphoma with Dx Sepsis secondary to pneumonia. Room air. Receiving IV Decadron, IV & PO Abx. PT/OT recommend HH.
Spoke with patient and offered VN for SN/PT/OT. Patient thinks he will do better today working with PT/OT so does not think he will need it at home. He agrees to [facility] VN for nurse.
Referral placed for [facility].
Plan continue to follow patient's mobility.
Plan follow up with [facility] for acceptance.
--- NOTE | 2024-12-05 11:37 | W.PN.PUL3 ---
Today's Communication / Plan
-
Continue current antibiotics per infectious disease
Follow cultures
Continue secretion clearance interventions:
DuoNebs [id number]
IV corticosteroids for now-will wean off quickly.
Incentive spirometry
Acapella device
May benefit from vest therapy given the presence of bronchiectasis.
Repeat immunoglobulin levels in the outpatient setting
outpatient pulmonary follow-up recommended
Assessment
-
Assessment: 77-year-old male with a past medical history of suspected COPD, A-fib, chronic left lower lobe pneumonia, history of GI bleed and pancytopenia who presented with SOB, diarrhea and abdominal upset. He recently had a bone marrow biopsy
November 22 as he is being worked up for lymphoma. He follows with [facility]. The next day he developed shortness of breath, fevers and diarrhea. He has had a worsening chronic cough with ann to light green-colored sputum. Has not been able
to eat for several days as his stomach is 'turning.' He was hypoxic upon arrival to the hospital and required mid flow nasal cannula. Chest x-ray showed patchy right middle lung field suspicious for pneumonia versus atypical pulmonary edema.
Patient was admitted to the IMU for further care. Antibiotics were continued with doxycycline + Zosyn. He was also given Decadron 4 mg IV q12hr starting 12/02. Pulmonary service now consulted for additional management/recommendations.
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
History of norovirus 07/16/2024
History of Pseudomonas/streptococcal pneumonia admitted to the hospital 07/2024
treated with 14d cefepime through 07/29/24.
Atrial fibrillation status post ablation 08/22/2024 (normally on Eliquis, now stopped due to nosebleeds)
? COPD-not on inhalers
Does not follow-up locally
No available PFTs
History of GI bleed
Right hip replacement
History of cirrhosis
Prior history of alcohol abuse.
Prior history of GI bleed.
Nasal polypectomy-history of chronic rhinosinusitis.
History of back surgery
Impression:
#Acute respiratory failure with hypoxia due to an acute RLL/RML pneumonia with suspected acute COPD exacerbation
#Chronic productive cough with yellow sputum production (?chronic bronchitis)
#Pancytopenia
#Epistaxis
#Paroxysmal A-fib s/p ablation
#History of cirrhosis + chronic splenomegaly EV s/p banding
#History of norovirus
#History of GI bleed
Plan:
- Patient presented with SOB and found to have a right lower lobe pneumonia-cannot rule out aspiration.
In August 2024 he was evaluated by speech pathology-correspondence reviewed. No overt aspiration. Silent aspiration cannot be ruled out.
-
Leukopenia noted/afebrile
- CT abdomen/pelvis from 12/02/2024 shows bibasilar pneumonia with dense consolidations in the posteromedial bases bilaterally and opacities in the lateral right middle lobe; of note, he has a chronic left lower lobe consolidation and this is stable
compared to prior CT chest on 09/02/2024
- ID is on board; continue with ceftriaxone + doxycycline
- Follow-up infectious workup including blood cultures; recent sputum culture on 12/02 grew Lisa albicans; urine antigens for Legionella/pneumonia both negative
- He says that he has had treatment before for his cough but it does not go away.
Perhaps a bronchoscopy with BAL can be performed if needed if there is no ongoing clinical improvement-this will be an ongoing discussion
Bronchiectasis on CAT scan:
- Although we are diagnosing him with a ?COPD exacerbation, we have no PFTs or spirometry to confirm the presence of an obstructive lung defect. (I do not appreciate emphysema on CAT scan)
For now, continue with systemic steroids dexamethasone 4 mg IV every 12 and continue DuoNebs; continue q4hr prn DuoNebs for breakthrough symptoms
- Patient reports previously taking Breo for 'a few days' and it helped him but then it eventually stopped working. He is not the best historian. Inhalers could be decided in the outpatient setting.
- Maintain SpO2 88-95% with supplemental O2 as needed-currently on room air.
- Immunoglobulin levels: IgA normal, IgG total decreased 553, IgM normal (prior IgG subclasses were not WNL in 09/02/2024, and IgE was 2 at that time-this will need to be followed in the outpatient setting once he clinically recovers. Perhaps will
need to be repeated when patient is stable.
- Has been having diarrhea with abdominal discomfort with reduced PO intake
- Stool cultures show positive C. difficile antigen but negative toxin, no Yersinia species, no Salmonella/Shigella or Campylobacter; Shiga toxin test negative.
- His CT abdomen/pelvis from 12/02/2024 showed sigmoid diverticulosis without able to rule out wall thickening/inflammatory changes; there was no intestinal obstruction or free air seen.
- Incentive spirometer encouraged q1hr while awake.
- Cont. Acapella device
- May benefit from vest therapy.
- DVT ppx: SCDs for now due to recent epistaxis -if no evidence of epistaxis in the next 1 to 2 days, then consider starting chemical DVT prophylaxis at that time
Pulmonary service will continue to follow along.
Data:
CXR 12/01/2024: Patchy right mid and lower lobe opacification suspicious for pneumonia versus atypical asymmetric acute pulmonary edema.
CT abdomen/pelvis with IV and oral contrast 12/02/2024:
Bilateral lower lobe consolidations with air bronchograms and smaller right middle lobe opacification, suspicious for pneumonia.
MARKED SPLENOMEGALY.
Hepatomegaly
Marked beam hardening artifact from right hip arthroplasty limiting evaluation of the soft tissues of the true pelvis including the urinary bladder. Grossly, SIGMOID DIVERTICULOSIS is seen, CANNOT EXCLUDE ACCOMPANYING SIGMOID WALL
THICKENING/INFLAMMATORY CHANGES. No intestinal obstruction or free air.
Relative prominent size gallbladder, cannot exclude some wall thickening. Consider Abdominal ultrasound for more complete evaluation, if clinically warranted.
Total time spent today [id number] for this encounter. Time includes reviewing laboratory test/imaging results, reviewing pertinent medical records, obtaining and reviewing medical history, performing an appropriate exam, ordering medications,
tests and procedures. Time also includes documentation of this encounter, coordinating patient care and communicating with other healthcare professionals. Total time does not include separately billed tests performed on this date of service.
Subjective Data
-
Date of Service:
Date of Service: December 05, 2024
Chief Complaint: Pulmonary Follow Up (Pneumonia)
Subjective:
Reports a slight cough and some phlegm production.
Denies hemoptysis
Denies shortness of breath at rest
Review of Systems
General: Fever (n)
Cardiopulmonary: Dyspnea (none at rest), Cough and Sputum Production
GI: Abdominal Pain (n) and Nausea
Neuro: Headache (n)
Objective Data
Data Reviewed
Vital Signs / I&O / Oxygen:
Vital Signs
Temp Pulse Resp BP Pulse Ox
97.4 F 67 18 129/72 92
12/04/24 23:12 12/05/24 09:06 12/05/24 09:06 12/05/24 09:06 12/05/24 09:06
Intake and Output
12/04/24 12/05/24 12/06/24
06:59 06:59 06:59
Intake Total 620 / 620
Output Total 450 / 450
Balance 170 / 170
SaO2 92
Nasal Cannula flow liters per 2
minute
Physical Exam
General: Comfortable
HEENT: Normocephalic
Cardiovascular: S1-S2
Respiratory: Crackles and Non-Labored Respirations
GI: Soft and Non Distended
Neurology: Awake, Oriented and No Motor Deficits
Skin: Warm
Labs/Micro/Reports
Lab Data
12/05/24 05:06
12/05/24 05:06
Microbiology
12/02/24 10:13 Feces/Stool Salmonella/Shigella Culture - Final
No Salmonella, Shigella, Aeromonas or Plesiomonas species
isolated.
12/02/24 10:13 Feces/Stool Campylobacter Culture - Final
No Campylobacter species isolated.
12/02/24 10:13 Feces/Stool Shiga Toxin Test - Final
No E. coli Shiga Toxin 1 or 2 detected.
12/01/24 12:46 Blood/Venous Blood Culture - Preliminary
No Growth in 72 hours- Final report to follow
12/01/24 12:47 Blood/Venous Blood Culture - Preliminary
No Growth in 72 hours- Final report to follow
12/02/24 09:26 Sputum Respiratory Culture - Final
Lisa albicans
12/02/24 09:26 Sputum Gram Stain - Final
12/02/24 10:13 Feces/Stool - Final
NO YERSINIA SPECIES ISOLATED
12/02/24 10:13 Feces/Stool Stool Leukocytes - Final
12/01/24 17:46 Nose MRSA Screen - Final
No Methicillin Resistant Staphylococcus aureus isolated.
12/02/24 10:13 Feces/Stool C. difficile GDH Antigen & Toxins - Final
C. difficile antigen positive, toxin negative.
Clostridium difficile present, but toxin not detected.
Patient may be a carrier, colonized with nontoxinogenic
strain or the level of toxin in sample is below detection
limits. This information should be used in conjunction with
the patient's clinical history.
12/02/24 10:13 Feces/Stool - Final
Negative for Norovirus GI and GII.
[2024-12-05] MEDS: ROCEPHIN 1000 MG IV (12:41)
[2024-12-05] MEDS: STERILE WATER FOR INJECTION 10 ML IV (12:41)
[2024-12-05] MEDS: DECADRON 4 MG IV (12:42)
[2024-12-05 13:40] VITALS: BP 157/65; PULSE 101; PULSE 82; O2SAT 95
[2024-12-05 13:43] VITALS: BP 157/65; PULSE 83; O2SAT 95
--- NOTE | 2024-12-05 14:51 | VNURNOTE ---
Addendum entered by Gloria Valles RN 12/06/24 10:06:
Rec'ed confirmation from MAUREEN Mathis that patient is declining home PT, OT, VN.
Original Note:
Home Health Liaison met with patient at bedside to discuss [facility] nurse/therapy, visits, schedule and homebound status. Patient reviewed with this author the multiple hospitalizations and health problems he has had since his hip replacement in 2018.
Reviewed with him that visits at home are 2-3 x per week to assess and teach medical management and that one of the goals is to prevent re-hospitalizations. Explained that [facility] contacts patients for start of care in 1-2 days after discharge from .
Patient stated 'once I get home I'm fine.' He was hesitant and didn't feel he needed services at home. Patient confirmed he has a neb machine at home. He is not interested in a rolling walker, he wants to use the cane he has at home.
Will follow up with patient tomorrow if he has additional questions or if he changes his mind.
No referral placed at this time.
[2024-12-05 16:41] VITALS: BP 145/63
[2024-12-05 23:49] VITALS: BP 127/58
[2024-12-06 07:00] VITALS: BP 139/59
--- NOTE | 2024-12-06 07:30 | PN.CDI ---
CDI
- -
CDI:
Physician Documentation Request
Admit Date: 12/01/24 14:28
Dear Doctor,
Please review the following and provide your response in the progress notes.
Clinical Indicators:
- Tallier note indicates severe protein calorie malnutrition
- Unintentional weight loss > 7.5% in 3 months
- Severe muscle loss over temporal
Based on the above information and your assessment, which of the following most accurately represents the patient's nutritional status?
Severe protein calorie malnutrition
Other (please specify)
[place] Criteria ([facility] Hospitalist 2017)
2 or more criteria must be present for either
non severe or severe malnutrition
Note that the criteria differs related to the
presence of an acute or chronic illness
Acute Illness Chronic Illness
Energy Intake Non Severe: <75% for >7 days Non Severe: <75% for >1 month
Severe: <50% for >5 days Severe: <75% for >1 month
Weight Loss Non Severe: 1-2% over 1 week Non Severe: 5% over 1 month
5% over 1 month 7.5% over 3 months
7.5% over 3 months 10% over 6 months
1 year N/A 20% over 1 year
Severe: >2% over 1 week Severe: >5% over 1 month
>5% over 1 month >7.5% over 3 months
>7.5% over 3 months >10% over 6 months
1 year N/A >20% over 1 year
Body Fat Non Severe: Mild Decrease Non Severe: Mild Loss
Severe: Moderate Decrease Severe: Severe Loss
Muscle Mass Non Severe: Mild Decrease Non Severe: Mild Loss
Severe: Moderate Decrease Severe: Severe Loss
Fluid Accumulation Non Severe: Mild Accumulation Non Severe: Mild Accumulation
Severe: Moderate to severe Severe: Moderate to severe
accumulation accumulation
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
Severe: Measurably reduced Severe: Measurably reduced
Additional criteria that can be used to Determine if Mild or Moderate Malnutrition (Merck Manual 2018)
Mild Moderate Severe
Albumin gm/dl <3.0 gm/dl <2.5 gm/dl <2.0 gm/dl
Pre Albumin mg/dl <15 gm/dl <10 mg/dl <5.0 mg/dl
BMI <18.5 <17 <16
Use of terms such as suspected, likely, concern for, or probable (associated with a specific diagnosis that is being evaluated, monitored, or treated as if it exists) are acceptable and can be coded in the inpatient setting, when documented at the
time of discharge.
Thank you,
Jesús Blakely RN
CDI Specialist
Please use your independent medical judgment in providing your response.
--- NOTE | 2024-12-06 08:16 | W.PN.HOSP.TC ---
Addendum entered and electronically signed by Shaun Nettles MD 12/06/24 22:53:
Attending Addendum-
I saw and evaluated the patient. I reviewed the resident�s note and agree with findings and plan as documented in the resident�s note. Sub: 'I cant go anywhere i cant walk but im not going to rehab!' denies SOB. breathing has improved. Denies
fevers chills. Full 12 point ROS reviewed and negative except as documented Exam: Vitals reviewed in chart GEN-NAD cachectic Lungs decreased BS at bases no wheeze abd distended TTL LUQ pos BS LE no edema
Plan:
#Acute hypoxic respiratory failure-resolved
#Sepsis secondary to b/l LL pneumonia
- Urine antigens negative for strep and legionella
- Blood cx-NGTD
- Sputum cx with lisa albicans-likely just oral erma
- cont ceftriaxone and doxy->transition to cefdinir x 14 days total on DC
- wean steroids
- OP f/u PULM possible vest start flutter and IS
- check PFT's as OP
- likely COPD t/c inhalers on DC
- appreciate ID and pulm recs
#Abdominal tenderness from splenomegaly
Diarrhea-improved
marked splenomegaly on CT
- nontoxigenic cdiff and Norovirus - neg
- CT abd/pelvis with known splenomegaly. No acute abnormality
#Pancytopenia:
- No active bleeding
- resolving
- Continue to monitor
- s/p Bone marrow Biopsy to r/o lymphoma as OP- curbside- negative per [facility] d/w patient
- follows [facility]
- check HIV
#Paroxysmal atrial fibrillation status post ablation
- Diltiazem continued
# Severe PCM
- from chronic resp disease
- BMI 16.4kg.
- Ensure supplement added to diet
#History of cirrhosis: CT abd/pel with hepatomegaly but no focal intrinsic abnormality
Chronic Splenomegaly
History of esophageal varices status post banding
#Prior history of alcohol abuse.
#Prior history of GI bleed.
#Nasal polypectomy-history of chronic rhinosinusitis.
#History of back surgery
# DVT prophylaxis
- SCD
# CODE STATUS
- Full code
Dispo DC in am to home with VN
Time spent coordinating care, review of plan of care with resident, personally reviewed records in EMR, med rec, consults, notes, labs, radiology, d/w nursing � 51 mins
Original Note:
Today's Communication/Plan
-
Reviewed with patient that he has home PT eligibility
Dexamethasone IV once a day for today.
Transition to oral cefdinir and oral prednisone beginning a.m. tomorrow and plan for discharge tomorrow.
Assessment / Plan
Assessment / Plan
Assessment- 69-year-old male with PMHx significant for COPD is admitted to hospital for management of acute hypoxic respiratory failure secondary to pneumonia.
Plan:
Acute hypoxic respiratory failure: Resolved.
Sepsis secondary to pneumonia: Resolved.
Bronchiectasis and pneumonia-
Last documented fever-12/01.
Currently weaned off of mid flow nasal cannula. Continues to remain stable on room air.
Transition ceftriaxone to cefdinir per ID in the a.m. and plan for discharge
Dexamethasone taper - IV 4mg once a day today, oral prednisone from tomorrow.
Sputum cultures positive for Lisa albicans on 12/02. Likely oral erma.
Urine antigens negative for strep and Legionella.
Flu, COVID-negative.
Pulmonology on board, pulmonology able to review his CT chest CAD from October 20 and able to compare. Pulmonology may recommend bronchoscopy depending on patient's prognosis. Appreciate pulmonology input.
CT abdomen and pelvis obtained on 12/02-bibasilar pneumonia, chronic left lower lobe consolidation.
Chest x-ray with impression of pneumonia versus asymmetric acute pulmonary edema.
Diarrhea:
Hx of splenomegaly,
Hx of norovirus infection
Cirrhosis and norovirus infections in the past.
CT abdomen and pelvis with known splenomegaly.
Currently negative for norovirus, nontoxigenic C. difficile.
Currently resolved.
Pancytopenia:
WBC-2.1, Hb 9, HCT-27.1, MCV-85, platelet count-101.
Anemia of chronic disease, Chronic thrombocytopenia, Chronic leukopenia
Low Hemoglobin and low platelets stable
S/p bone marrow biopsy to workup for lymphoma by [facility].
Continue to monitor.
Paroxysmal atrial fibrillation s/p ablation
Continue diltiazem.
Underweight:
BMI 16.4kg.
Ensure supplement added to diet
Oral thrush-nystatin swish and swallow.
Improving.
Protein calorie malnutrition-
[place] criteria-
History of cirrhosis: Patient denies history of cirrhosis. CT abd/pel with hepatomegaly but no focal intrinsic abnormality
Chronic Splenomegaly
History of esophageal varices status post banding
DVT prophylaxis
SCD
CODE STATUS
Full code
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
History of
norovirus 07/16/2024
History of GI bleed
Right hip replacement: Patient worries that allergic symptoms of chronic sinusitis and recurrent pneumonia are allergic responses to his prosthetic hip. I am unable to find data that supports this. He plans appointment with manager content for allergy
testing.
Prior history of alcohol abuse.
Prior history of GI bleed.
Nasal polypectomy-history of chronic rhinosinusitis.
History of back surgery
Anticipated Discharge: Within 24 hours
Subjective/Interval History
-
Date of Service: December 06, 2024
Viewed patient bedside in rounds along with Dr. Lee.
Circled back after rounds, and had a conversation with the patient again.
He states that he is not ready to go home because he is barely able to walk. He is still sore in his abdomen especially in the right upper quadrant.. No other complaints today.
Objective Data
-
Labs:
Laboratory Results
12/06/24
06:00
WBC Pending
Hgb Pending
Hct Pending
Plt Count Pending
Sodium Pending
Potassium Pending
Chloride Pending
Carbon Dioxide Pending
BUN Pending
Creatinine Pending
Glucose Pending
Calcium Pending
Vital Signs:
Vital Signs
Temp Pulse Resp BP Pulse Ox
97.5 F 69 20 139/59 96
12/06/24 07:00 12/06/24 07:00 12/06/24 07:00 12/06/24 07:00 12/06/24 07:00
I&O
12/05/24 12/06/24 12/07/24
06:59 06:59 06:59
Intake Total 720 / 720
Balance 720 / 720
Review of Systems
-
History Source: Patient
Constitutional: Reports No Symptoms
Respiratory: Reports No Symptoms
Cardiac: Reports No Symptoms
Abdomen/GI: Reports Abdominal Pain; Denies Diarrhea or Constipated
Genitourinary: Reports No Symptoms
Musculoskeletal: Reports No Symptoms
Skin: Reports No Symptoms
Neuro: Reports No Symptoms
Endocrine: Reports No Symptoms
Hematologic / Lymphatic: Reports No Symptoms
Physical Exam
-
General: No Apparent Distress
Respiratory: Clear to Auscultation; Negative Wheezes, Rales, Rhonchi or Crackles
Cardiac: Regular Rhythm and S1/S2; Negative Murmur, Rub or Gallop
GI: Soft, Normal Bowel Sounds, Distended and Organomegaly (Palpable hepatosplenomegaly.)
Genito-urinary: No Costovertebral Tender
Musculoskeletal: No Clubbing, No Cyanosis and No Edema
Skin: Warm
Neuro: AO x 3 and No Motor Deficits
Hematologic / Lymphatic: No Lymphadenopathy
Psych: Calm
Data Reviewed
-
Diagnostic Radiology: Image personally visualized and interpreted, Report Reviewed by me and Discussed with Physician
Medical Tests (Nuc Med, Echo etc): Image personally visualized and interpreted, Report Reviewed by me and Discussed with Physician
Labs: Labs Reviewed by me and Discussed with Physician
[2024-12-06] MEDS: FEOSOL 325 MG PO (09:36)
[2024-12-06] MEDS: VIBRAMYCIN 100 MG PO ×2 (09:37→20:03)
[2024-12-06] MEDS: MUCINEX 600 MG PO ×2 (09:37→20:03)
[2024-12-06] MEDS: DECADRON 4 MG IV (09:37)
[2024-12-06] MEDS: CARDIZEM CD 180 MG PO ×2 (09:37→20:02)
[2024-12-06] MEDS: MYCOSTATIN ORAL SUSPENSION 5 ML PO ×4 (09:38→21:06)
[2024-12-06 09:59] LABS: Hematocrit 31.7 % (39.0-52.0); Hemoglobin 10.3 g/dL (13.0-18.0); Mean Corp Hgb Conc. 32.5 g/dL (33.0-37.0); Mean Corpuscular Hgb 28.2 pg (27.0-31.0); Mean Corpuscular Volume 86.8 fL (80.0-94.0); Mean Platelet Volume 10.8 fL (7.4-10.4); Platelet Count 122 10^3/uL (130-400); Red Blood Cell Count 3.65 10^6/uL (4.70-6.10); Red Cell Dist. Width 14.7 % (11.5-14.5); White Blood Cell Count 2.7 10^3/uL (4.8-10.8)
[2024-12-06 10:20] LABS: Blood Urea Nitrogen 28 mg/dl (9-20); Calcium 8.9 mg/dl (8.4-10.2); Carbon Dioxide 31 mmol/L (22-30); Chloride 102 mmol/L (98-107); Estimated Creatinine Clearance 89 ml/min; Glucose 162 mg/dl (70-99); Potassium 4.5 mmol/L (3.5-5.1); Sodium 143 mmol/L (135-145); eGFR > 60.00
--- NOTE | 2024-12-06 10:37 | CM ---
Chart reviewed and home health care case manager met with patient this am to review discharge plans, patient has declined visiting nurses. Patient states with his spouse receiving Chemo/radiation treatments they is too much happening and he does not want anyone else
in home. [facility] notified that patient had declined their services.
Plan; Home with spouse, patient declines visiting nurse services in home after discharge.
[2024-12-06] MEDS: STERILE WATER FOR INJECTION 10 ML IV (12:16)
[2024-12-06] MEDS: ROCEPHIN 1000 MG IV (12:17)
[2024-12-06 15:00] VITALS: BP 135/63
[2024-12-06 17:00] VITALS: PULSE 81; O2SAT 97
--- NOTE | 2024-12-06 17:04 | W.PN.PUL3 ---
Today's Communication / Plan
-
From the pulmonary perspective:
Continue nebulizers
Encourage Acapella device
Complete antibiotic therapy
Transition to prednisone tomorrow
Recommend repeating CT chest in about 6 to 8 weeks from now to document improvement/resolution. He will need to follow-up with his granite cutter apprentice.
Encouraged him to start vest therapy as able.
-
He is more concerned about his leukopenia-states that recently underwent bone marrow biopsy.
-
Will follow
Assessment
-
Assessment: 77-year-old male with a past medical history of suspected COPD, A-fib, chronic left lower lobe pneumonia, history of GI bleed and pancytopenia who presented with SOB, diarrhea and abdominal upset. He recently had a bone marrow biopsy
November 22 as he is being worked up for lymphoma. He follows with [facility]. The next day he developed shortness of breath, fevers and diarrhea. He has had a worsening chronic cough with ann to light green-colored sputum. Has not been able
to eat for several days as his stomach is 'turning.' He was hypoxic upon arrival to the hospital and required mid flow nasal cannula. Chest x-ray showed patchy right middle lung field suspicious for pneumonia versus atypical pulmonary edema.
Patient was admitted to the IMU for further care. Antibiotics were continued with doxycycline + Zosyn. He was also given Decadron 4 mg IV q12hr starting 12/02. Pulmonary service now consulted for additional management/recommendations.
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
History of norovirus 07/16/2024
History of Pseudomonas/streptococcal pneumonia admitted to the hospital 07/2024
treated with 14d cefepime through 07/29/24.
Atrial fibrillation status post ablation 08/22/2024 (normally on Eliquis, now stopped due to nosebleeds)
? COPD-not on inhalers
Does not follow-up locally
No available PFTs
History of GI bleed
Right hip replacement
History of cirrhosis
Prior history of alcohol abuse.
Prior history of GI bleed.
Nasal polypectomy-history of chronic rhinosinusitis.
History of back surgery
Impression:
#Acute respiratory failure with hypoxia due to an acute RLL/RML pneumonia with suspected acute COPD exacerbation
#Chronic productive cough with yellow sputum production (?chronic bronchitis)
#Pancytopenia
#Epistaxis
#Paroxysmal A-fib s/p ablation
#History of cirrhosis + chronic splenomegaly EV s/p banding
#History of norovirus
#History of GI bleed
Plan:
- Patient presented with SOB and found to have a right lower lobe pneumonia-cannot rule out aspiration.
In August 2024 he was evaluated by speech pathology-correspondence reviewed. No overt aspiration. Silent aspiration cannot be ruled out.
-
Leukopenia noted/afebrile-does not appear toxic.
Unclear etiology of chronic leukopenia.
Patient states that he follows up with oncology and recently underwent bone marrow biopsy.
Currently on room air.
- CT abdomen/pelvis from 12/02/2024 shows bibasilar pneumonia with dense consolidations in the posteromedial bases bilaterally and opacities in the lateral right middle lobe; of note, he has a chronic left lower lobe consolidation and this is stable
compared to prior CT chest on 09/02/2024
- ID following and recommending transition to oral antibiotics upon discharge-I am complete total of 15 days.
- Follow-up infectious workup including blood cultures; recent sputum culture on 12/02 grew Lisa albicans; urine antigens for Legionella/pneumonia both negative
- He says that he has had treatment before for his cough but it does not go away.
Recommend repeating CT chest in about 6 to 8 weeks from now. He will need to follow-up with his granite cutter apprentice.
If on repeat CAT scan infiltrates did not improve bronchoscopy in the future will need to be recommended.
Bronchiectasis on CAT scan:
- Although we are diagnosing him with a ?COPD exacerbation, we have no PFTs or spirometry to confirm the presence of an obstructive lung defect. (I do not appreciate emphysema on CAT scan)
-
Not bronchospastic on exam 12/06/2024.
Reduce dexamethasone-transition to prednisone tomorrow 40 mg and reduce by 10 mg every 48 hours to off.
continue DuoNebs to aid with secretion clearance.
he has vest therapy at home but he does not need frequently
Patient has a nebulizer at home but he does not use it as he states that he does not work.
- Patient reports previously taking Breo for 'a few days' and it helped him but then it eventually stopped working. He is not the best historian. Inhalers could be decided in the outpatient setting.
- Maintain SpO2 88-95% with supplemental O2 as needed-currently on room air.
- Immunoglobulin levels: IgA normal, IgG total decreased 553, IgM normal (prior IgG subclasses were not WNL in 09/02/2024, and IgE was 2 at that time-this will need to be followed in the outpatient setting once he clinically recovers. Perhaps will
need to be repeated when patient is stable.
- Has been having diarrhea with abdominal discomfort with reduced PO intake
- Stool cultures show positive C. difficile antigen but negative toxin, no Yersinia species, no Salmonella/Shigella or Campylobacter; Shiga toxin test negative.
- His CT abdomen/pelvis from 12/02/2024 showed sigmoid diverticulosis without able to rule out wall thickening/inflammatory changes; there was no intestinal obstruction or free air seen.
- Incentive spirometer encouraged q1hr while awake.
- Cont. Acapella device-encourage.
He states that he is able to clear secretion. Phlegm production has improved since admission
-
- DVT ppx: SCDs for now due to recent epistaxis -if no evidence of epistaxis in the next 1 to 2 days, then consider starting chemical DVT prophylaxis at that time
Pulmonary service will continue to follow along.
He does not see pulmonary locally.
Data:
CXR 12/01/2024: Patchy right mid and lower lobe opacification suspicious for pneumonia versus atypical asymmetric acute pulmonary edema.
CT abdomen/pelvis with IV and oral contrast 12/02/2024:
Bilateral lower lobe consolidations with air bronchograms and smaller right middle lobe opacification, suspicious for pneumonia.
MARKED SPLENOMEGALY.
Hepatomegaly
Marked beam hardening artifact from right hip arthroplasty limiting evaluation of the soft tissues of the true pelvis including the urinary bladder. Grossly, SIGMOID DIVERTICULOSIS is seen, CANNOT EXCLUDE ACCOMPANYING SIGMOID WALL
THICKENING/INFLAMMATORY CHANGES. No intestinal obstruction or free air.
Relative prominent size gallbladder, cannot exclude some wall thickening. Consider Abdominal ultrasound for more complete evaluation, if clinically warranted.
Subjective Data
-
Date of Service:
Date of Service: December 06, 2024
Chief Complaint: Pulmonary Follow Up (Pneumonia)
Subjective:
No new complaints
Continues to have intermittent coughing with difficulty expectorating
Overall clinically improved
Review of Systems
Cardiopulmonary: Dyspnea (none at rest)
GI: Abdominal Pain (n) and Nausea (n)
Objective Data
Data Reviewed
Vital Signs / I&O / Oxygen:
Vital Signs
Temp Pulse Resp BP Pulse Ox
98.0 F 73 18 135/63 95
12/06/24 15:00 12/06/24 15:00 12/06/24 15:00 12/06/24 15:00 12/06/24 15:00
Intake and Output
12/05/24 12/06/24 12/07/24
06:59 06:59 06:59
Intake Total 720 / 720
Balance 720 / 720
SaO2 95
Nasal Cannula flow liters per 2
minute
Physical Exam
General: Comfortable
HEENT: Normocephalic
Cardiovascular: S1-S2
Respiratory: Crackles and Non-Labored Respirations
GI: Soft and Non Distended
Neurology: Awake, Oriented and No Motor Deficits
Skin: Warm
Labs/Micro/Reports
Lab Data
12/06/24 09:23
12/06/24 09:23
Microbiology
12/01/24 12:46 Blood/Venous Blood Culture - Final
No Growth - Final Report
12/01/24 12:47 Blood/Venous Blood Culture - Final
No Growth - Final Report
12/02/24 10:13 Feces/Stool Salmonella/Shigella Culture - Final
No Salmonella, Shigella, Aeromonas or Plesiomonas species
isolated.
12/02/24 10:13 Feces/Stool Campylobacter Culture - Final
No Campylobacter species isolated.
12/02/24 10:13 Feces/Stool Shiga Toxin Test - Final
No E. coli Shiga Toxin 1 or 2 detected.
12/02/24 09:26 Sputum Respiratory Culture - Final
Lisa albicans
12/02/24 09:26 Sputum Gram Stain - Final
12/02/24 10:13 Feces/Stool - Final
NO YERSINIA SPECIES ISOLATED
12/02/24 10:13 Feces/Stool Stool Leukocytes - Final
[2024-12-06] MEDS: OMNICEF 300 MG PO (20:03)
[2024-12-06 23:19] VITALS: BP 130/63
[2024-12-07 07:00] VITALS: BP 124/65
[2024-12-07] MEDS: OMNICEF 300 MG PO (08:36)
[2024-12-07] MEDS: DELTASONE 40 MG PO (08:36)
[2024-12-07] MEDS: MUCINEX 600 MG PO (08:37)
[2024-12-07] MEDS: CARDIZEM CD 180 MG PO (08:37)
[2024-12-07] MEDS: MYCOSTATIN ORAL SUSPENSION 5 ML PO (08:38)
[2024-12-07 08:57] LABS: Hematocrit 29.4 % (39.0-52.0); Hemoglobin 9.8 g/dL (13.0-18.0); Mean Corp Hgb Conc. 33.3 g/dL (33.0-37.0); Mean Corpuscular Hgb 28.9 pg (27.0-31.0); Mean Corpuscular Volume 86.7 fL (80.0-94.0); Mean Platelet Volume 9.5 fL (7.4-10.4); Platelet Count 108 10^3/uL (130-400); Red Blood Cell Count 3.39 10^6/uL (4.70-6.10); Red Cell Dist. Width 14.8 % (11.5-14.5); White Blood Cell Count 2.3 10^3/uL (4.8-10.8)
[2024-12-07 09:03] LABS: Blood Urea Nitrogen 25 mg/dl (9-20); Calcium 8.6 mg/dl (8.4-10.2); Carbon Dioxide 31 mmol/L (22-30); Chloride 103 mmol/L (98-107); Estimated Creatinine Clearance 89 ml/min; Glucose 90 mg/dl (70-99); Potassium 4.8 mmol/L (3.5-5.1); Sodium 140 mmol/L (135-145); eGFR > 60.00
--- NOTE | 2024-12-07 09:45 | W.PN.HOSP.TC ---
Addendum entered and electronically signed by Shaun Nettles MD 12/07/24 23:25:
Attending Addendum-
I saw and evaluated the patient. I reviewed the resident�s note and agree with findings and plan as documented in the resident�s note. Sub: ready to go home. denies SOB. breathing has improved. has some loose stools. Denies fevers chills. Full 12
point ROS reviewed and negative except as documented Exam: Vitals reviewed in chart GEN-NAD cachectic Lungs decreased BS at bases no wheeze abd distended TTL LUQ pos BS LE no edema
Plan:
#Acute hypoxic respiratory failure-resolved
#Sepsis secondary to b/l LL pneumonia
- Urine antigens negative for strep and legionella
- Blood cx-NGTD
- Sputum cx with lisa albicans-likely just oral erma
- transition to cefdinir x 14 days total on DC
- wean steroids on DC
- OP f/u PULM possible vest start flutter and IS
- check PFT's as OP
- likely COPD t/c inhalers on DC
- appreciate ID and pulm recs
#Abdominal tenderness from splenomegaly
Diarrhea-improved
marked splenomegaly on CT
- nontoxigenic cdiff and Norovirus - neg
- CT abd/pelvis with known splenomegaly. No acute abnormality
#Pancytopenia:
- No active bleeding
- Continue to monitor
- s/p Bone marrow Biopsy to r/o lymphoma as OP- curbside- negative per hemeon d/w patient
- follows [facility]
- check HIV-f/u results as OP
#Paroxysmal atrial fibrillation status post ablation
- Diltiazem continued
# Severe PCM
- from chronic resp disease
- BMI 16.4kg.
- Ensure supplement added to diet
#History of cirrhosis: CT abd/pel with hepatomegaly but no focal intrinsic abnormality
Chronic Splenomegaly
History of esophageal varices status post banding
#Prior history of alcohol abuse.
#Prior history of GI bleed.
#Nasal polypectomy-history of chronic rhinosinusitis.
#History of back surgery
# DVT prophylaxis
- SCD
# CODE STATUS
- Full code
Dispo DC home with VN
Time spent coordinating care, DC planning, review of DC plan of care with resident, transition of care, review of records, med rec/scripts sent electronically, consults, notes, d/w consultants, nursing, family, and CM� 31 mins
Original Note:
Today's Communication/Plan
-
Plan for discharge.
Assessment / Plan
Assessment / Plan
Assessment- 69-year-old male with PMHx significant for COPD is admitted to hospital for management of acute hypoxic respiratory failure secondary to pneumonia.
Plan:
Acute hypoxic respiratory failure: Resolved.
Sepsis secondary to pneumonia: Resolved.
Bronchiectasis and pneumonia-improving.
Last documented fever-12/01.
Currently weaned off of mid flow nasal cannula. Continues to remain stable on room air.
Patient is switched to cefdinir.
oral prednisone from the a.m. today. plan for discharge.
Sputum cultures positive for Lisa albicans on 12/02. Likely oral erma.
Urine antigens negative for strep and Legionella.
Flu, COVID-negative.
Pulmonology on board, pulmonology able to review his CT chest CAD from October 20 and able to compare. Pulmonology may recommend bronchoscopy depending on patient's prognosis. Appreciate pulmonology input.
CT abdomen and pelvis obtained on 12/02-bibasilar pneumonia, chronic left lower lobe consolidation.
Chest x-ray with impression of pneumonia versus asymmetric acute pulmonary edema.
Diarrhea:
Hx of splenomegaly,
Hx of norovirus infection
Cirrhosis and norovirus infections in the past.
CT abdomen and pelvis with known splenomegaly.
Currently negative for norovirus, nontoxigenic C. difficile.
Currently resolved.
Pancytopenia:
WBC-2.1, Hb 9, HCT-27.1, MCV-85, platelet count-101.
Anemia of chronic disease, Chronic thrombocytopenia, Chronic leukopenia
Low Hemoglobin and low platelets stable
S/p bone marrow biopsy to workup for lymphoma by [facility].
Continue to monitor.
Paroxysmal atrial fibrillation s/p ablation
Continue diltiazem.
Underweight:
BMI 16.4kg.
Ensure supplement added to diet
Oral thrush-nystatin swish and swallow.
Improving.
Protein calorie malnutrition-
[place] criteria- Moderate chronic malnutrition.
History of cirrhosis: Patient denies history of cirrhosis. CT abd/pel with hepatomegaly but no focal intrinsic abnormality
Chronic Splenomegaly
History of esophageal varices status post banding
DVT prophylaxis
SCD
CODE STATUS
Full code
Conditions DIRECTOR FAMILY-
History of
norovirus 07/16/2024
History of GI bleed
Right hip replacement: Patient worries that allergic symptoms of chronic sinusitis and recurrent pneumonia are allergic responses to his prosthetic hip. I am unable to find data that supports this. He plans appointment with structural steel erection supervisor for allergy
testing.
Prior history of alcohol abuse.
Prior history of GI bleed.
Nasal polypectomy-history of chronic rhinosinusitis.
History of back surgery
Anticipated Discharge: Today
Subjective/Interval History
-
Date of Service: December 07, 2024
No complaints today.
Objective Data
-
Labs:
Laboratory Results
12/07/24
08:29
WBC 2.3 L*
Hgb 9.8 L
Hct 29.4 L
Plt Count 108 L
Sodium 140
Potassium 4.8
Chloride 103
Carbon Dioxide 31 H
BUN 25 H
Creatinine 0.6 L
Glucose 90
Calcium 8.6
Vital Signs:
Vital Signs
Temp Pulse Resp BP Pulse Ox
97.6 F 67 18 124/65 94
12/07/24 07:00 12/07/24 07:00 12/07/24 07:00 12/07/24 07:00 12/07/24 08:48
I&O
12/06/24 12/07/24 12/08/24
06:59 06:59 06:59
Intake Total 720 / 720 1680 / 1680
Balance 720 / 720 1680 / 1680
Review of Systems
-
Constitutional: Reports No Symptoms
Respiratory: Reports No Symptoms
Cardiac: Reports No Symptoms
Abdomen/GI: Reports No Symptoms
Genitourinary: Reports No Symptoms
Musculoskeletal: Reports No Symptoms
Skin: Reports No Symptoms
Neuro: Reports No Symptoms
Endocrine: Reports No Symptoms
Hematologic / Lymphatic: Reports No Symptoms
Allergy / Immunology: Reports No Symptoms
Physical Exam
-
General: No Apparent Distress
HEENT: Normocephalic and Atraumatic
Respiratory: Clear to Auscultation; Negative Wheezes, Rales or Rhonchi
Cardiac: Regular Rhythm and S1/S2; Negative Murmur, Rub or Gallop
GI: Soft, Normal Bowel Sounds, Distended and Organomegaly (Hepatosplenomegaly noted.)
Genito-urinary: No Costovertebral Tender
Musculoskeletal: No Clubbing, No Cyanosis and No Edema
Skin: Warm
Neuro: No Motor Deficits; Negative AO x 3
Psych: Calm
Data Reviewed
-
Labs: Labs Reviewed by me and Discussed with Physician
--- NOTE | 2024-12-07 10:50 | W.PN.ID1 ---
Date of Service
Date of Service: December 07, 2024
Today's Communication
Continue abx.
Assessment / Plan
Right lower lobe pneumonia
- CAP vs. aspiration
Leukopenia (new today)
fever; improved
General weakness
COPD
Cirrhosis
Bronchiectasis
Recommendations:
MRSA screen negative.
Norovirus and C. difficile testing negative.
Thus far, cultures have remained unrevealing.
- Recovered Lisa from sputum culture is a colonizer only, and no need to treat.
Continue ceftriaxone (d#7 abx). Continue with doxycycline (d#7). At discharge, ceftriaxone can be transition to oral cefdinir.
Complete a 14-day course in total (through 12/14/24)
Continue with supportive measures.
����������������������������������������������������������
Chief Complaint
-: Pneumonia
Subjective / Review of Systems
Review of Systems: No Fever
Vital Signs / Physical Exam
Vital Signs
Vital Signs
Temp Pulse Resp BP Pulse Ox
97.6 F 67 18 124/65 94
12/07/24 07:00 12/07/24 07:00 12/07/24 07:00 12/07/24 07:00 12/07/24 08:48
Physical Exam
Constitutional: Comfortable, Chronically Ill, Non-toxic and Cachetic (Mild)
Eyes: No Conjunctival Hemorrhage and Sclera Anicteric
Cardiovascular: S1/S2; Negative S3/S4
Pulmonary: Rhonchi (Few; scattered), Coarse and Non Labored
Gastrointestinal: Soft, Non Tender and Non Distended
Skin: Warm and Dry; Negative Rash
Neurological: Awake and Alert
Psychological: Calm
Objective Data
Lab Data
Lab Results
12/07/24 08:29
12/07/24 08:29
Estimated Creat Clear 89 ml/min 12/07/24 08:29
Lactic Acid 1.1 mmol/L (0.7-2.0) 12/01/24 16:38
Total Bilirubin 1.6 mg/dl (0.2-1.3) H 12/01/24 11:37
AST 25 U/L (17-59) 12/01/24 11:37
ALT 18 U/L (0-50) 12/01/24 11:37
Alkaline Phosphatase 82 U/L (38-126) 12/01/24 11:37
Most recent labs reviewed.
Micro Results:
12/01/24 12:46 Blood Culture - Final
Blood/Venous No Growth - Final Report
12/01/24 12:47 Blood Culture - Final
Blood/Venous No Growth - Final Report
12/02/24 10:13 Salmonella/Shigella Culture - Final
Feces/Stool No Salmonella, Shigella, Aeromonas or Plesiomonas species
isolated.
Campylobacter Culture - Final
No Campylobacter species isolated.
Shiga Toxin Test - Final
No E. coli Shiga Toxin 1 or 2 detected.
12/02/24 09:26 Respiratory Culture - Final
Sputum Lisa albicans
Gram Stain - Final
12/02/24 10:13 - Final
Feces/Stool NO YERSINIA SPECIES ISOLATED
Stool Leukocytes - Final
12/01/24 17:46 MRSA Screen - Final
Nose No Methicillin Resistant Staphylococcus aureus isolated.
12/02/24 10:13 C. difficile GDH Antigen & Toxins - Final
Feces/Stool C. difficile antigen positive, toxin negative.
Clostridium difficile present, but toxin not detected.
Patient may be a carrier, colonized with nontoxinogenic
strain or the level of toxin in sample is below detection
limits. This information should be used in conjunction with
the patient's clinical history.
- Final
Negative for Norovirus GI and GII.
12/01/24 17:42 Streptococcus pneumoniae Antigen (M - Final
Urine Negative for Streptococcus pneumoniae antigen.
A negative result does not exclude infection with
Streptococcus pneumoniae. Clinical correlation is
recommended.
12/01/24 17:42 Legionella Urinary Antigen - Final
Urine Negative for Legionella pneumophila Serogroup 1 antigen.
A negative result does not rule out the possiblity of
Legionella infection due to other serogroups or species of
Legionella. Clinical correlation is recommended.
12/01/24 14:43 Influenza Types A & B (LUIS ALBERTO) - Final
Nasal Swab Negative for Influenza A & B, NAAT
Negative results must be combined with clinical observations
and patient history.
Nucleic Acid Amplification test (NAAT)performed on the
[employer] platform.
Imaging:
12/01/2024 CXR (portable): Patchy opacification in the right mid and lower lung. Some minor left basilar scarring is noted. No pleural effusion or pneumothorax seen. Cardiac and mediastinal contours are unremarkable. Please see full dictation for
additional detail.
--- NOTE | 2024-12-07 13:24 | CM ---
Home with spouse, patient declined visiting nurses.
Plan; Home with spouse.
[2024-12-07] MEDS: MYCOSTATIN ORAL SUSPENSION PO (14:18)
--- NOTE | 2024-12-07 14:19 | W.DCSUMMARY ---
Addendum entered and electronically signed by Shaun Nettles MD 12/07/24 23:26:
Read, reviewed, and agree. See same day progress note for additional details.
Carlos A Nettles MD
Original Note:
Documented by User: Fernanda Hoang MD, Resident 12/07/24 14:37
Discharge Summary
Discharge Data
Date of Admission: 12/01/24
Date of Discharge: 12/07/24
-
Pending Results: Yes
Additional Pending Results:
HIV testing.
Hospital Course
Jamarcus is a 69-year-old male with PMHx significant for A-fib, COPD, GI bleed, pneumonia, bronchiectasis presented to the [facility] for evaluation of shortness of breath, fever, diarrhea that started about 1 week before his presentation.
7-day hospital course-
Upon admission he was diagnosed with acute hypoxic respiratory failure secondary to pneumonia with recurrent bronchiectasis. He was started on mid flow nasal cannula along with antibiotics Zosyn and doxycycline. He was also started on
dexamethasone IV 4 mg twice daily with which he noticed significant improvement in breathing. He was eventually weaned off of oxygen on day 3 of hospital admission, continued to remain on IV dexamethasone for 3 days, and Zosyn was switched to
ceftriaxone, ceftriaxone and doxycycline were continued for 5 days. His diarrhea spontaneously resolved. His diarrhea is also suspected secondary to pneumonia versus cirrhosis of liver. He was also found to have pancytopenia during the hospital,
but has gotten bone marrow biopsy done in [facility] on November 22 results of which were negative. His pancytopenia at this point is suspected secondary to his cirrhosis and variceal banding. However, his lymphadenopathy is not
completely explained. Hence HIV testing was ordered in the hospital after consenting with the patient. HIV testing results are pending during hospitalization. For his other medical conditions, lower BMI-Ensure was added, diltiazem was continued
for his paroxysmal atrial fibrillation status post A-fib, and he was given DVT prophylaxis with SCD given his low platelet count. He is then switched to cefdinir, ceftriaxone and doxycycline were discontinued beginning today. Patient is prescribed
to take cefdinir with a stop date 12/14/2024.
His dexamethasone has been tapered on day 4 to dexamethasone IV once a day, and he is switched to oral prednisone with a tapering dose of 40 x 3 days, 30 x 3 days, 20 x 3 days, 10 x 3 days.
Upon discharge patient is advised to follow-up with pulmonology, upon patient's request referral to Dr. Reynolds was given. Patient is also advised to follow-up with primary care physician within 7 days.
Inpatient hospital workup-
CT abdomen-12/02/2024
Bilateral lower lobe consolidations with air bronchograms and smaller right middle lobe opacification, suspicious for pneumonia.
MARKED SPLENOMEGALY.r
Hepatomegaly
Marked beam hardening artifact from right hip arthroplasty limiting evaluation of the soft tissues of the true pelvis including the urinary bladder. Grossly, SIGMOID DIVERTICULOSIS is seen, CANNOT EXCLUDE ACCOMPANYING SIGMOID WALL
THICKENING/INFLAMMATORY CHANGES. No intestinal obstruction or free air.
Relative prominent size gallbladder, cannot exclude some wall thickening. Consider Abdominal ultrasound for more complete evaluation, if clinically warranted.
Chest x-ray-12/01/2024-
Impression
Patchy right mid and lower lobe opacification suspicious for pneumonia versus atypical asymmetric acute pulmonary edema noted.
Discharge Plan
-
Patient Disposition: Home (Routine Discharge)
Discharge Diagnosis/Procedures: recurrent bronchiectasis, and pneumonia.
Diet: As tolerated
Activity: No restrictions
Driving Restrictions: As prior to admission
Bathing Restrictions: None
Other Services: PT
Referrals:
Jose Manuel Narayanan MD [Active] - in less than 1 week
Gloria Genao MD [Family Provider] -
Prescriptions:
New
prednisone 10 mg tablet
40 mg PO DAILY 12 Days Qty: 30 0RF
Rx Instructions:
4tab X 3days, then
3tab X 3days,
2tab X 3days
1tab X 3 days
nystatin 100,000 unit/mL Suspension
5 ml PO QID 10 Days Qty: 200 0RF
guaifenesin 600 mg Tablet Extended Release 12hr
600 mg PO Q12 30 Days Qty: 60 0RF
cefdinir 300 mg Capsule
300 mg PO Q12 7 Days Qty: 14 0RF
Continued
diltiazem HCl 180 mg Capsule,Extended Release 24hr
180 mg PO BID Qty: 60 0RF
ferrous sulfate [FeroSul] 325 mg (65 mg iron) Tablet
325 mg PO Q48H Qty: 14 1RF
ascorbic acid (vitamin C) [Vitamin C] 250 mg Tablet
250 mg PO DAILY
Changed
acetaminophen [Tylenol Extra Strength] 500 mg Tablet
500 mg PO Q6HPRN PRN (Reason: mild pain) Qty: 0 0RF
Discharge Orders:
Discharge Patient (As Directed); Ordered 12/07/24
Ordered By: Fernanda Hoang
Discharge Date and Time
Discharge Date/Time: 12/07/24 16:04
Print Language: SRI LANKAN

Documented by User: Shaun Nettles MD 12/07/24 23:22
Discharge Summary
Discharge Data
Date of Admission: 12/01/24
Date of Discharge: 12/07/24
Discharge Plan
-
Patient Disposition: Home (Routine Discharge)
Discharge Diagnosis/Procedures: recurrent bronchiectasis, and pneumonia.
Diet: As tolerated
Activity: No restrictions
Driving Restrictions: As prior to admission
Bathing Restrictions: None
Other Services: PT
Referrals:
Jose Manuel Narayanan MD [Active] - in less than 1 week
Gloria Genao MD [Family Provider] -
Prescriptions:
New
prednisone 10 mg tablet
40 mg PO DAILY 12 Days Qty: 30 0RF
Rx Instructions:
4tab X 3days, then
3tab X 3days,
2tab X 3days
1tab X 3 days
nystatin 100,000 unit/mL Suspension
5 ml PO QID 10 Days Qty: 200 0RF
guaifenesin 600 mg Tablet Extended Release 12hr
600 mg PO Q12 30 Days Qty: 60 0RF
cefdinir 300 mg Capsule
300 mg PO Q12 7 Days Qty: 14 0RF
Continued
diltiazem HCl 180 mg Capsule,Extended Release 24hr
180 mg PO BID Qty: 60 0RF
ferrous sulfate [FeroSul] 325 mg (65 mg iron) Tablet
325 mg PO Q48H Qty: 14 1RF
ascorbic acid (vitamin C) [Vitamin C] 250 mg Tablet
250 mg PO DAILY
Changed
acetaminophen [Tylenol Extra Strength] 500 mg Tablet
500 mg PO Q6HPRN PRN (Reason: mild pain) Qty: 0 0RF
Discharge Orders:
Discharge Patient (As Directed); Ordered 12/07/24
Ordered By: Fernanda Hoang
Discharge Date and Time
Discharge Date/Time: 12/07/24 16:04
Print Language: SRI LANKAN
[2024-12-07 15:00] VITALS: BP 131/65
--- NOTE | 2024-12-07 15:27 | W.PN.PUL3 ---
Today's Communication / Plan
-
Complete antibiotic therapy
Eventually chest imaging
Secretion clearance interventions that he has at home encouraged
Eventual pulmonary follow-up. Either locally or with his usual radiographer
Assessment
-
Assessment: 77-year-old male with a past medical history of suspected COPD, A-fib, chronic left lower lobe pneumonia, history of GI bleed and pancytopenia who presented with SOB, diarrhea and abdominal upset. He recently had a bone marrow biopsy
November 22 as he is being worked up for lymphoma. He follows with [facility]. The next day he developed shortness of breath, fevers and diarrhea. He has had a worsening chronic cough with ann to light green-colored sputum. Has not been able
to eat for several days as his stomach is 'turning.' He was hypoxic upon arrival to the hospital and required mid flow nasal cannula. Chest x-ray showed patchy right middle lung field suspicious for pneumonia versus atypical pulmonary edema.
Patient was admitted to the IMU for further care. Antibiotics were continued with doxycycline + Zosyn. He was also given Decadron 4 mg IV q12hr starting 12/02. Pulmonary service now consulted for additional management/recommendations.
Chronic conditions MBA INTERN:
History of norovirus 07/16/2024
History of Pseudomonas/streptococcal pneumonia admitted to the hospital 07/2024
treated with 14d cefepime through 07/29/24.
Atrial fibrillation status post ablation 08/22/2024 (normally on Eliquis, now stopped due to nosebleeds)
? COPD-not on inhalers
Does not follow-up locally
No available PFTs
History of GI bleed
Right hip replacement
History of cirrhosis
Prior history of alcohol abuse.
Prior history of GI bleed.
Nasal polypectomy-history of chronic rhinosinusitis.
History of back surgery
Impression:
#Acute respiratory failure with hypoxia due to an acute RLL/RML pneumonia with suspected acute COPD exacerbation
#Chronic productive cough with yellow sputum production (?chronic bronchitis)
#Pancytopenia
#Epistaxis
#Paroxysmal A-fib s/p ablation
#History of cirrhosis + chronic splenomegaly EV s/p banding
#History of norovirus
#History of GI bleed
Plan:
- Patient presented with SOB and found to have a right lower lobe pneumonia-cannot rule out aspiration.
In August 2024 he was evaluated by speech pathology-correspondence reviewed. No overt aspiration. Silent aspiration cannot be ruled out.
-
Not requiring oxygen supplementation.
-
Unclear etiology of chronic leukopenia.
Patient states that he follows up with oncology and recently underwent bone marrow biopsy.
Currently on room air.
- CT abdomen/pelvis from 12/02/2024 shows bibasilar pneumonia with dense consolidations in the posteromedial bases bilaterally and opacities in the lateral right middle lobe; of note, he has a chronic left lower lobe consolidation and this is stable
compared to prior CT chest on 09/02/2024
- ID following and recommending transition to oral antibiotics upon discharge-I am complete total of 15 days.
- Follow-up infectious workup including blood cultures; recent sputum culture on 12/02 grew Lisa albicans; urine antigens for Legionella/pneumonia both negative
- He says that he has had treatment before for his cough but it does not go away.
Recommend repeating CT chest in about 6 to 8 weeks from now. He will need to follow-up with his radiographer.
If on repeat CAT scan infiltrates did not improve bronchoscopy in the future will need to be recommended.
Bronchiectasis on CAT scan:
- Although we are diagnosing him with a ?COPD exacerbation, we have no PFTs or spirometry to confirm the presence of an obstructive lung defect. (I do not appreciate emphysema on CAT scan)
-
Not bronchospastic on exam 12/06/2024.
Transition prednisone tomorrow 40 mg and reduce by 10 mg every 48 hours to off.
DuoNebs discontinued as the patient refused.
he has vest therapy at home but he does not need frequently
Patient has a nebulizer at home but he does not use it as he states that he does not work.
- Patient reports previously taking Breo for 'a few days' and it helped him but then it eventually stopped working. He is not the best historian. Inhalers could be decided in the outpatient setting.
- Immunoglobulin levels: IgA normal, IgG total decreased 553, IgM normal (prior IgG subclasses were not WNL in 09/02/2024, and IgE was 2 at that time-this will need to be followed in the outpatient setting once he clinically recovers. Perhaps will
need to be repeated when patient is stable.
- Has been having diarrhea with abdominal discomfort with reduced PO intake
- Stool cultures show positive C. difficile antigen but negative toxin, no Yersinia species, no Salmonella/Shigella or Campylobacter; Shiga toxin test negative.
- His CT abdomen/pelvis from 12/02/2024 showed sigmoid diverticulosis without able to rule out wall thickening/inflammatory changes; there was no intestinal obstruction or free air seen.
Leukopenia workup. Hematology oncology in the outpatient setting. Status post bone marrow biopsy
- Incentive spirometer encouraged q1hr while awake.
- Cont. Acapella device-encourage.
He states that he is able to clear secretion. Phlegm production has improved since admission
-
- DVT ppx: SCDs for now due to recent epistaxis -if no evidence of epistaxis in the next 1 to 2 days, then consider starting chemical DVT prophylaxis at that time
Agree with discharge planning from the pulmonary perspective.
He does not see pulmonary locally. Information was left in the chart to hopefully follow-up locally if patient desires
Data:
CXR 12/01/2024: Patchy right mid and lower lobe opacification suspicious for pneumonia versus atypical asymmetric acute pulmonary edema.
CT abdomen/pelvis with IV and oral contrast 12/02/2024:
Bilateral lower lobe consolidations with air bronchograms and smaller right middle lobe opacification, suspicious for pneumonia.
MARKED SPLENOMEGALY.
Hepatomegaly
Marked beam hardening artifact from right hip arthroplasty limiting evaluation of the soft tissues of the true pelvis including the urinary bladder. Grossly, SIGMOID DIVERTICULOSIS is seen, CANNOT EXCLUDE ACCOMPANYING SIGMOID WALL
THICKENING/INFLAMMATORY CHANGES. No intestinal obstruction or free air.
Relative prominent size gallbladder, cannot exclude some wall thickening. Consider Abdominal ultrasound for more complete evaluation, if clinically warranted.
Subjective Data
-
Date of Service:
Date of Service: December 07, 2024
Chief Complaint: Pulmonary Follow Up (Pneumonia/bronchiectasis)
Subjective:
Denies shortness of breath at rest
Continues to have expectoration but improved.
Denies hemoptysis.
Objective Data
Data Reviewed
Vital Signs / I&O / Oxygen:
Vital Signs
Temp Pulse Resp BP Pulse Ox
97.6 F 67 18 124/65 94
12/07/24 07:00 12/07/24 07:00 12/07/24 07:00 12/07/24 07:00 12/07/24 08:48
Intake and Output
12/06/24 12/07/24 12/08/24
06:59 06:59 06:59
Intake Total 720 / 720 1680 / 1680
Balance 720 / 720 1680 / 1680
SaO2 94
Nasal Cannula flow liters per 2
minute
Physical Exam
General: Comfortable
HEENT: Normocephalic
Cardiovascular: S1-S2
Respiratory: Crackles and Non-Labored Respirations
GI: Soft and Non Distended
Neurology: Awake, Oriented and No Motor Deficits
Skin: Warm
Labs/Micro/Reports
Lab Data
12/07/24 08:29
12/07/24 08:29
Microbiology
12/01/24 12:46 Blood/Venous Blood Culture - Final
No Growth - Final Report
12/01/24 12:47 Blood/Venous Blood Culture - Final
No Growth - Final Report
12/02/24 10:13 Feces/Stool Salmonella/Shigella Culture - Final
No Salmonella, Shigella, Aeromonas or Plesiomonas species
isolated.
12/02/24 10:13 Feces/Stool Campylobacter Culture - Final
No Campylobacter species isolated.
12/02/24 10:13 Feces/Stool Shiga Toxin Test - Final
No E. coli Shiga Toxin 1 or 2 detected.
12/02/24 09:26 Sputum Respiratory Culture - Final
Lisa albicans
12/02/24 09:26 Sputum Gram Stain - Final
12/02/24 10:13 Feces/Stool - Final
NO YERSINIA SPECIES ISOLATED
12/02/24 10:13 Feces/Stool Stool Leukocytes - Final
== END 2024-12-07 16:04 | disposition home or self-care (01) | DRG 871 ==
LOC: 4 WEST ACU 14:28
PROVIDERS: Emergency Medicine; Nurse Practitioner Family; Registered Nurse; Student in an Organized Health Care Education/Training Program; ADMITTING PHYSICIAN Hospitalist; ATTENDING PHYSICIAN Family Medicine; CONSULT PHYSICIAN Internal Medicine Critical Care Medicine; CONSULT PHYSICIAN Internal Medicine Infectious Disease; EMERGENCY PHYSICIAN Emergency Medicine; FAMILY PHYSICIAN Family Medicine
DX: A41.9 Sepsis, unspecified organism (principal); E43 Unspecified severe protein-calorie malnutrition; J96.01 Acute respiratory failure with hypoxia; J18.9 Pneumonia, unspecified organism; J47.0 Bronchiectasis with acute lower respiratory infection; J44.0 Chronic obstructive pulmonary disease with (acute) lower respiratory infection; D61.818 Other pancytopenia; Z68.1 Body mass index [BMI] 19.9 or less, adult; J44.1 Chronic obstructive pulmonary disease with (acute) exacerbation; I48.0 Paroxysmal atrial fibrillation; K74.60 Unspecified cirrhosis of liver; F10.11 Alcohol abuse, in remission; D63.8 Anemia in other chronic diseases classified elsewhere; Z87.01 Personal history of pneumonia (recurrent); Z96.641 Presence of right artificial hip joint; Z11.52 Encounter for screening for COVID-19
CPT/HCPCS: 71045; 74019; 74177; 80048; 80053; 82784; 83605; 83690; 83735; 83880; 84484; 85025; 85027; 87040; 87045; 87046; 87070; 87205; 87324; 87389; 87427; 87449; 87502; 87798; 87811; 87899; 89055; 93005; 97116; 97163; 97167; 97530; 97535; 99291; Q9967

== ENCOUNTER 2025-01-04 06:48 | Day surgery (SDC) | payer OTHER, SELFPAY | END 2025-01-04 08:00 | disposition home or self-care (01) | LOC: CATH 06:48 | PROVIDERS: ATTENDING PHYSICIAN Internal Medicine Cardiovascular Disease; FAMILY PHYSICIAN Nurse Practitioner Family; OTHER PHYSICIAN Internal Medicine Cardiovascular Disease | DX: I48.0 Paroxysmal atrial fibrillation (principal); Z53.09 Procedure and treatment not carried out because of other contraindication; K74.60 Unspecified cirrhosis of liver | CPT/HCPCS: 93005 ==

== ENCOUNTER → 2025-07-06 13:49 | Outpatient (REF) | payer OTHER, SELFPAY ==
[2025-07-06 15:56] LABS: Hematocrit 32.2 % (39.0-52.0); Hemoglobin 9.7 g/dL (13.0-18.0); Mean Corp Hgb Conc. 30.1 g/dL (33.0-37.0); Mean Corpuscular Volume 88.0 fL (80.0-94.0); Nucleated Red Blood Cells % 0 % (-); Red Cell Dist. Width 19.5 % (11.5-14.5)
[2025-07-06 16:11] LABS: ALT (SGPT) 21 U/L (0-50); AST (SGOT) 17 U/L (17-59); Albumin 4.4 g/dl (3.5-5.0); Alkaline Phosphatase 90 U/L (38-126); Blood Urea Nitrogen 19 mg/dl (9-20); Calcium 9.2 mg/dl (8.4-10.2); Carbon Dioxide 28 mmol/L (22-30); Chloride 103 mmol/L (98-107); Glucose 102 mg/dl (70-99); LDH 131 U/L (120-246); Potassium 4.4 mmol/L (3.5-5.1); Sodium 137 mmol/L (135-145); Total Protein 7.2 g/dl (6.3-8.2); Uric Acid 3.7 mg/dl (3.5-8.5); eGFR > 60.00
[2025-07-06 17:24] LABS: Platelet Count 35 10^3/uL (130-400)
== END ==
LOC: REG 13:49
PROVIDERS: ATTENDING PHYSICIAN Internal Medicine Hematology & Oncology
DX: D61.818 Other pancytopenia (principal); D73.1 Hypersplenism; R16.1 Splenomegaly, not elsewhere classified; I26.99 Other pulmonary embolism without acute cor pulmonale; K92.2 Gastrointestinal hemorrhage, unspecified; D69.59 Other secondary thrombocytopenia; D50.0 Iron deficiency anemia secondary to blood loss (chronic); K74.60 Unspecified cirrhosis of liver; D72.818 Other decreased white blood cell count; R91.8 Other nonspecific abnormal finding of lung field; R59.0 Localized enlarged lymph nodes; R91.1 Solitary pulmonary nodule; C83.30 Diffuse large B-cell lymphoma, unspecified site
CPT/HCPCS: 36415; 80053; 83615; 84100; 84550; 85025

== ENCOUNTER 2025-07-06 14:40 | Emergency (ER) | payer OTHER, SELFPAY ==
[2025-07-06 14:45] VITALS: BP 138/56
--- NOTE | 2025-07-06 19:07 | ED.GENMED ---
History of Present Illness
General
Chief Complaint: Abnormal Lab Value
Source: patient and records
Time Seen by Provider: 07/06/25 16:43
History of Present Illness
History of Present Illness:
70-year-old male with past medical history of COPD, bronchitis, paroxysmal A-fib, hypertension, previous GI bleeding, was recently hospitalized at [facility] for pneumonia, had subsequently developed a DVT/PE and started on anticoagulants presenting
to the ER after reportedly having abnormal blood work showing he needed a blood transfusion. Patient states that about a week and a half ago he did have bright red blood in his stool after an iron infusion which she states has happened often for
him because of straining and hemorrhoidal bleeding but that he was given another tablet and shortly after this tablet the bleeding had stopped. Patient notes that other than some slight fatigue he feels his usual self but attributes this fatigue to
being hospitalized for nearly 2 weeks and then subsequently staying at a rehab facility. Patient has no other concerns at this time.
Past History
Past History
ED Past Medical History: Arrthythmia, COPD, HTN and Other (Cirrhosis)
ED Past Surgical History: Cardiac (Cardiac ablation for atrial fibrillation) and Orthopedic
Social History
Tobacco: 2nd hand smoke exposure
Alcohol: Chronic alcoholic
Drug: None
Personal:
Living: with family
Review of Systems
Review of Systems
All Other Systems: ROS reviewed and negative except as documented in HPI and ROS
Phy Exam
Physical Exam
Physical Exam:
GENERAL: Alert , in no apparent distress, appears older than stated age
HEAD: Normocephalic atraumatic
EYE: conjunctiva clear
NECK: Supple
ENT: o/p clr, mmm.
CARDIAC: Regular rate and rhythm
LUNGS: Clear breath sounds bilaterally, no acute respiratory distress, no wheezes/rales/rhonchi
NEUROLOGICAL: Alert and oriented
SKIN: Warm and dry, skin intact.
MUSCULOSKELETAL: well perfused.
PSYCH: Normal and appropriate interaction.
Scores
Heart Failure Risk
Heart Failure Risk Score: Not Applicable
Heart Score for Chest Pain Patients
STEMI patient?: Not applicable
Withdrawal Assessment of Alcohol
Withdrawal Assessment Completed?: Not applicable
Course
Vital Signs
Initial and Last Documented VS:
Initial Vital Signs
Pulse Resp BP Pulse Ox
75 16 138/56 96
07/06/25 14:45 07/06/25 14:45 07/06/25 14:45 07/06/25 14:45
Last Documented Vital Signs
Pulse Resp BP Pulse Ox
75 16 138/56 96
07/06/25 14:45 07/06/25 14:45 07/06/25 14:45 07/06/25 19:08
Hand Former Helper consulted with Physician
Hand Former Helper consulted with physician?: Yes
Name of Physician Consulted: Edson
MDM/Problems Addressed
Differential Diagnosis Includes:
Anemia chronic disease
GI bleed
Medication side effects
MDM/Problems Addressed:
70-year-old male presenting to the ER for evaluation after he was reportedly called by his oncology office stating he needed to come to the emergency department for blood transfusion. Patient is without any specific concerns at this time. I
reviewed patient's blood work that was done earlier today which shows a hemoglobin of 9.7, white blood cell count of 3.1, platelet count of 35. Normal chemistry. Given patient's hemoglobin I do not suspect he needs a blood transfusion as this
appears to be his baseline. I discussed the case with referring nurse practitioner and on-call assistant administrator who advised that if patient's platelet count was less than 50,000 they would need to assess his bleeding risk for being on a DOAC. I did
ask if they would like a platelet transfusion done while in the ER but did not hear back from them. Given patient is without any signs of bleeding and appears to be at his usual baseline decision was ultimately made to discharge the patient home.
He has an arranged follow-up already with oncology this coming Thursday for further workup for a possible lymphoma diagnosis. Patient aware of return precautions to the ER.
*Pulse Oximetry
SaO2: 96
Oxygen Mode of Delivery: Room air
Patient hypoxic: no
*Critical Care Note
Total Time (30-74mins, 75-104mins- exclusive of procedures): Not Applicable
Data Reviewed
Review of Other/Old Records Reveals: Labs and Records
Patient Management
Discussion with other providers: Director Of Institutional Sales
ED Attending Note
-
Portions of this chart may have been created with voice recognition software.� Occasional wrong word or��sound alike� substitutions may have occurred due to the inherent limitations of voice recognition software.
Discharge Plan
Departure
Patient Disposition: Home (Routine Discharge)
Date of Disposition: 07/06/25
Time of Disposition: 19:07
Patient with high blood pressure during this ER visit?: No
Discharge Problem:
Thrombocytopenia
Instructions: Managing increased bleeding risk
Prescriptions:
No Action
diltiazem HCl 180 mg Capsule,Extended Release 24hr
180 mg PO BID Qty: 60 0RF
ascorbic acid (vitamin C) [Vitamin C] 250 mg Tablet
250 mg PO DAILY
acetaminophen [Tylenol Extra Strength] 500 mg Tablet
500 mg PO Q6HPRN PRN (Reason: mild pain) Qty: 0 0RF
Referrals:
Anupam Da Silva, DO [Family Provider, Hematology / Oncology]
Interventions
Interventions:
*Risk Screen - Suicide Last Done: 07/06/25 14:47
*General Assessment Last Done: 07/06/25 18:39
*Neglect/Abuse Screening Last Done: 07/06/25 14:47
[facility] Risk Assessment Tool Last Done: 07/06/25 18:39
*Nursing Disposition Last Done: 07/06/25 19:37
Discharge Date and Time
Discharge Date/Time: 07/06/25 19:41
Print Language: ROMANIAN
== END 2025-07-06 19:41 | disposition home or self-care (01) ==
LOC: EMR 14:40
PROVIDERS: EMERGENCY PHYSICIAN Emergency Medicine; FAMILY PHYSICIAN Internal Medicine Hematology & Oncology
DX: D69.6 Thrombocytopenia, unspecified (principal); I48.0 Paroxysmal atrial fibrillation; I10 Essential (primary) hypertension; J44.9 Chronic obstructive pulmonary disease, unspecified; K74.60 Unspecified cirrhosis of liver; F10.20 Alcohol dependence, uncomplicated; Z79.01 Long term (current) use of anticoagulants; Z86.718 Personal history of other venous thrombosis and embolism; Z86.711 Personal history of pulmonary embolism; Z77.22 Contact with and (suspected) exposure to environmental tobacco smoke (acute) (chronic)
CPT/HCPCS: 99282

== ENCOUNTER → 2025-07-21 08:14 | Outpatient (REF) | payer OTHER, SELFPAY ==
[2025-07-21 08:51] LABS: Hematocrit 30.5 % (39.0-52.0); Hemoglobin 9.4 g/dL (13.0-18.0); Mean Corp Hgb Conc. 30.8 g/dL (33.0-37.0); Mean Corpuscular Volume 83.6 fL (80.0-94.0); Nucleated Red Blood Cells % 0 % (-); Platelet Count 82 10^3/uL (130-400); Red Cell Dist. Width 18.5 % (11.5-14.5)
[2025-07-21 09:05] LABS: INR 1.18; PT 15.2 Sec (11.4-14.6)
[2025-07-21 09:49] VITALS: BP 129/78; BP_SYST 78; BMI 17.1
[2025-07-21] MEDS: ATIVAN 0.5 MG IV (10:05)
[2025-07-21] MEDS: NSS (PRESERVATIVE FREE) 0.25 ML IV (10:06)
[2025-07-21 10:40] VITALS: BP 133/59; BP_SYST 74
[2025-07-21 10:55] VITALS: BP 136/63; BP_SYST 82
== END ==
LOC: RADI 08:14
PROVIDERS: ATTENDING PHYSICIAN Internal Medicine Hematology & Oncology; FAMILY PHYSICIAN Family Medicine; OTHER PHYSICIAN Physician Assistant
DX: D61.818 Other pancytopenia (principal); R59.0 Localized enlarged lymph nodes; R16.1 Splenomegaly, not elsewhere classified; D68.8 Other specified coagulation defects
CPT/HCPCS: 36415; 38222; 77012; 85025; 85610; 88305; 88311; 88312; 88313